=== PATIENT | female | born 1945 | race Caucasian/White ===

== ENCOUNTER → 2017-02-13 | Outpatient (CLI) | payer OTHER, BC ==
[~2017-02-13] MED LIST: ACET-24 PO; ACET1TAB84 PO; ALBI1INJ SQ; ALBUAER2 INH; ASCA500 PO; ASPEC81 PO; BUSP15TA70 PO; CHOL100027 PO; CLON0.5T3 PO; CPR500 PO; CYM/30 PO; DULO-76 PO; FLUT0.0529 NAE; GLUCTAB7 PO; HYDR25TA5 PO; INSDGI SC; MELO15TA3 PO; MIRA1TAB3 PO; MULT-506 PO; NVLG SQ; NVLGI SC; OMEG10002 PO; ONDA4TAB46 SL; POLY335019 PO; POLYSOL4 OP; POTA10CA28 PO; PRAM0.256 PO; PROP80CA7 PO; ROPI0.25 PO; RXC5 PO; SYMIN INH; TIOTCAP INH
[2017-02-13 12:20] LABS: BASO % 0.6 %; BASO ABS # 0.04 K/uL (0-0.2); COMPLETE YES; EOS % 4.5 %; HEMATOCRIT 44.1 % (37-47); IG% 0.1 %; LYMPH ABS # 2.12 K/uL (1.2-3.4); MEAN CELL VOLUME 104.3 fL (80-100); MEAN CORPUSCULAR HEMOGLOBIN 32.6 pg (25-34); MEAN CORPUSCULAR HGB CONC 31.3 g/dl (32-36); MEAN PLATELET VOLUME 10.2 fL (7.4-10.4); MONO % 6.9 %; NEUT % 57.9 %; PLATELET COUNT 263 K/uL (130-400); RED BLOOD COUNT 4.23 M/uL (4.2-5.4); WHITE BLOOD COUNT 7.07 K/uL (4.8-10.8)
[2017-02-13 12:47] LABS: ESTIMATED AVERAGE GLUCOSE 148 mg/dl; HA1C FLAG Normal (Normal)
[2017-02-13 12:56] LABS: CALCIUM 10.9 mg/dl (8.5-10.1)
[2017-02-13 12:58] LABS: ALT/SGPT 35 U/L (12-78); BLOOD UREA NITROGEN 26 mg/dl (7-18); BUN/CREATININE RATIO 26.8 (10-20); CARBON DIOXIDE 32 mmol/L (21-32); CHLORIDE 102 mmol/L (98-107); CHOLESTEROL 206 mg/dl (0-200); CREATININE 0.96 mg/dl (0.60-1.20); GLUCOSE 108 mg/dl (70-99); POTASSIUM 4.2 mmol/L (3.5-5.1); SODIUM 141 mmol/L (136-145); TRIGLYCERIDES 140 mg/dl (0-150); VERY LOW DENSITY LIPOPROT CALC 28 mg/dl
[2017-02-13 13:01] LABS: ALKALINE PHOSPHATASE 80 U/L (45-117); AST/SGOT 24 U/L (15-37); CHOLESTEROL/HDL RATIO 3.1; HDL CHOLESTEROL 67 mg/dl; LDL CHOLESTEROL CALCULATED 111 mg/dl
== END | disposition home or self-care (01) ==
LOC: C.LABBFT 08:22
PROVIDERS: ATTEND Physician Assistant
DX: I10 Essential (primary) hypertension (principal); E11.9 Type 2 diabetes mellitus without complications; E78.5 Hyperlipidemia, unspecified

== ENCOUNTER → 2017-04-11 | Outpatient (CLI) | payer OTHER, BC ==
[~2017-04-11] MED LIST changes: -ALBI1INJ SQ; -ONDA4TAB46 SL; -POLYSOL4 OP
== END | disposition home or self-care (01) ==
LOC: C.LABSPEC 11:20
PROVIDERS: ATTEND Family Medicine
DX: R30.0 Dysuria (principal)

== ENCOUNTER 2017-04-14 05:27 | Inpatient (IN) | payer OTHER, BC ==
[2017-03-21 14:53] VITALS: BMI 50.0
--- NOTE | 2017-03-21 15:52 | PAT Medication Instructions ---
Service Date Mar 21, 2017. Current Home Medication List Acetaminophen (Tylenol Arthritis Ext Rel), 1,300 MG PO BID Albuterol (Ventolin), 1-2 PUFFS INH Q4 PRN for SOB/Wheezing Ascorbic Acid (Vitamin C), 1,000 MG PO HS Budesonide/Formoterol Fumarate (Symbicort 160-4.5 Mcg/Act), 2 PUFFS INH BID Buspirone Hcl (Buspar), 15 MG PO BID Cholecalciferol (Vitamin D 1000 Unit), 1,000 INTER.UNIT PO BID Clonazepam (Klonopin), 0.5 MG PO TID PRN Duloxetine Hcl (Cymbalta), 45 MG PO QAM Fluticasone Propionate (Nasal) (Flonase), 1 SPRY EVA HS Jgotafhlprv-Oqchyldcfpt-Wno C- (Glucosamine Chondroitin), 1 TAB PO BID Hydrochlorothiazide (Hydrochlorothiazide), 25 MG PO QAM Insulin Aspart (Novolog), SC HS PRN for SLIDING SCALE Insulin Aspart (Novolog), 60 UNITS SQ BIDM Insulin Glargine (Lantus), 50 UNITS SC BID Meloxicam (Mobic), 15 MG PO QAM Mirabegron (Myrbetriq Er), 50 MG PO QAM Multivitamin (Multivitamin), 1 TABLET PO QAM Kiron-3 Fatty Acids (Fish Oil), 1,000 MG PO QAM Polyethylene Glycol 3350 (Miralax), 17 GM PO PRN Potassium Chloride (Micro-K Ext Rel), 10 MEQ PO QAM Pramipexole Dihydrochloride (Pramipexole Dihydrochlori), 0.25 MG PO HS Propranolol Hcl (Inderal La), 80 MG PO QAM Ropinirole (Requip), 0.75 MG PO HS Tiotropium [place] (Spiriva Handihaler), 1 CAP INH QAM Medication Instructions For Your Scheduled Surgery - Hold the following medications 2 weeks prior to surgery: Kiron-3 Fatty Acids (Fish Oil), 1,000 MG PO QAM Holvhwchkqm-Txzaahhdmbo-Vtu C- (Glucosamine Chondroitin), 1 TAB PO BID - Hold the following medications 7 days prior to surgery per surgeon instructions: Meloxicam (Mobic), 15 MG PO QAM - Hold the following medications evening prior to surgery: Ropinirole (Requip), 0.75 MG PO HS Pramipexole Dihydrochloride (Pramipexole Dihydrochlori), 0.25 MG PO HS - Hold the following medications the morning of surgery: Potassium Chloride (Micro-K Ext Rel), 10 MEQ PO QAM Polyethylene Glycol 3350 (Miralax), 17 GM PO PRN Mirabegron (Myrbetriq Er), 50 MG PO QAM Multivitamin (Multivitamin), 1 TABLET PO QAM Insulin Aspart (Novolog), Hydrochlorothiazide (Hydrochlorothiazide), 25 MG PO QAM Cholecalciferol (Vitamin D 1000 Unit), 1,000 INTER.UNIT PO BID - Take the following medications the morning of surgery with a sip of water: Tiotropium [place] (Spiriva Handihaler), 1 CAP INH QAM Propranolol Hcl (Inderal La), 80 MG PO QAM Duloxetine Hcl (Cymbalta), 45 MG PO QAM Clonazepam (Klonopin), 0.5 MG PO TID PRN Budesonide/Formoterol Fumarate (Symbicort 160-4.5 Mcg/Act), 2 PUFFS INH BID Buspirone Hcl (Buspar), 15 MG PO BID Albuterol (Ventolin), 1-2 PUFFS INH Q4 PRN for SOB/Wheezing (if you do not have- get from PCP- can use morning of surgery if needed/ bring with you to hospital on day of surgery) Acetaminophen (Tylenol Arthritis Ext Rel), 1,300 MG PO BID - Take the following medications as scheduled the night before surgery: Insulin Aspart (Novolog), Fluticasone Propionate (Nasal) (Flonase), 1 SPRY EVA HS Clonazepam (Klonopin), 0.5 MG PO TID PRN Cholecalciferol (Vitamin D 1000 Unit), 1,000 INTER.UNIT PO BID Budesonide/Formoterol Fumarate (Symbicort 160-4.5 Mcg/Act), 2 PUFFS INH BID Buspirone Hcl (Buspar), 15 MG PO BID Ascorbic Acid (Vitamin C), 1,000 MG PO HS Albuterol (Ventolin), 1-2 PUFFS INH Q4 PRN for SOB/Wheezing Acetaminophen (Tylenol Arthritis Ext Rel), 1,300 MG PO BID Insulin Glargine (Lantus), 50 UNITS SC BID - For Insulin Dependent Diabetic patients: Test blood sugar A.M. of surgery. - If blood sugar is greater than 150, take half of your long acting insulin dose of: Lantus 25 units - If blood sugar is less than 150, do not take any: Lantus morning of surgery If you have any questions please call us at [phone] or [phone] ( [place]) or [phone]
--- NOTE | 2017-03-21 16:24 | DIAGNOSTIC IMAGING REPORT ---
CHEST PREADMISSION(PA/LAT) CLINICAL HISTORY: PAT preoperative evaluation COMPARISON STUDY: 10/30/2015 FINDINGS: Prominent pulmonary vasculature. Moderate cardiomegaly. Chronic elevation right hemidiaphragm. IMPRESSION: Mild congestive heart failure Electronically signed by: Jose Roberts M.D. 03/21/2017 4:23 PM Dictated Date/Time: 03/21/2017 4:23 PM
[2017-03-21 16:27] LABS: BASO % 0.4 %; BASO ABS # 0.04 K/uL (0-0.2); COMPLETE YES; EOS % 2.4 %; HEMATOCRIT 42.4 % (37-47); IG% 0.1 %; LYMPH % 22.4 %; LYMPH ABS # 2.04 K/uL (1.2-3.4); MEAN CELL VOLUME 102.7 fL (80-100); MEAN CORPUSCULAR HEMOGLOBIN 33.2 pg (25-34); MEAN CORPUSCULAR HGB CONC 32.3 g/dl (32-36); MEAN PLATELET VOLUME 10.1 fL (7.4-10.4); MONO % 4.7 %; PLATELET COUNT 248 K/uL (130-400); RED BLOOD COUNT 4.13 M/uL (4.2-5.4)
[2017-03-21 16:29] LABS: URINE APPEARANCE CLEAR (CLEAR); URINE BILIRUBIN NEG (NEG); URINE COLOR YELLOW; URINE NITRITE NEG (NEG); URINE PH 5.5 (4.5-7.5); URINE SPECIFIC GRAVITY 1.026 (1.000-1.030); UROBILINOGEN NEG (NEG); ZZUR CULT IF INDIC CLEAN CATCH NO
[2017-03-21 16:34] LABS: PROTHROMBIN TIME (PATIENT) 11.1 SECONDS (9.0-12.0)
[2017-03-21 16:41] LABS: BUN/CREATININE RATIO 24.8 (10-20); CALCIUM 10.3 mg/dl (8.5-10.1); CREATININE 0.99 mg/dl (0.60-1.20); POTASSIUM 4.4 mmol/L (3.5-5.1)
[2017-03-21 16:46] LABS: MANUAL MICROSCOPIC REQUIRED? NO; REVIEW REQ? NO
[2017-03-22 06:51] LABS: ESTIMATED AVERAGE GLUCOSE 148 mg/dl; HA1C FLAG Normal (Normal)
--- NOTE | 2017-04-13 17:05 | History and Physical ---
History & Physical Date & Time of Service: Apr 13, 2017 at 16:58 Chief Complaint: Left Shoulder Degenerative Joint Disease Primary Care Physician: Nichole Lieberman DO History of Present Illness Source: patient Chronic left shoulder pain, failed conservative treatment. 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 Past Medical/Surgical History Medical Problems: (1) Anxiety State Nos Status: Chronic (2) Calculus Of Kidney Status: Chronic (3) Diab Natalee Wo Compl, Type Ii Or Unspec Type, Not Uncntrld Status: Chronic (4) Glaucoma Status: Chronic (5) Hypertension Nos Status: Chronic (6) Kidney stones Status: Chronic (7) Lens Replacement Nec Status: Resolved (8) Morbid Obesity Status: Chronic (9) Open-Angle Glaucoma Nos Status: Chronic (10) Urin Tract Infection Nos Status: Resolved Family History Cancer Diabetes mellitus Social History Smoking Status: Never Smoker Alcohol Use: occasionally Drug Use: none Marital Status: Housing status: lives alone Occupational Status: retired Immunizations History of Influenza Vaccine: Yes Influenza Vaccine Date: Nov 28, 2013 History of Tetanus Vaccine?: Yes History of Pneumococcal: Yes History of Hepatitis B Vaccine: Yes Multi-Drug Resistant Organisms History of MDRO: No Allergies Coded Allergies: Sulfa Antibiotics (Unverified Allergy, Intermediate, RASH, 03/21/17) Albiglutide (Unverified Allergy, Unknown, DIARRHEA, 03/21/17) Sorbitan (Unverified Allergy, Unknown, DIARRHEA, 03/21/17) Codeine (Verified Adverse Reaction, Unknown, NAUSEA, 03/21/17) Metformin (Unverified Adverse Reaction, Unknown, DIARRHEA, 03/21/17) Morphine (Verified Adverse Reaction, Unknown, NAUSEA, 03/21/17) Uncoded Allergies: reji (Adverse Reaction, Intermediate, skin irritation, 04/13/17) Skin irritation Home Medications Scheduled Acetaminophen (Tylenol Arthritis Ext Rel), 1,300 MG PO BID Ascorbic Acid (Vitamin C), 1,000 MG PO HS Budesonide/Formoterol Fumarate (Symbicort 160-4.5 Mcg/Act), 2 PUFFS INH BID Buspirone Hcl (Buspar), 15 MG PO BID Cholecalciferol (Vitamin D 1000 Unit), 1,000 INTER.UNIT PO BID Clonazepam (Klonopin), 0.5 MG PO TID PRN Duloxetine Hcl (Cymbalta), 45 MG PO QAM Fluticasone Propionate (Nasal) (Flonase), 1 SPRY EVA HS Aixmmrclkfg-Lexoofuxfxf-Msp C- (Glucosamine Chondroitin), 1 TAB PO BID Hydrochlorothiazide (Hydrochlorothiazide), 25 MG PO QAM Insulin Aspart (Novolog), 60 UNITS SQ BIDM Insulin Glargine (Lantus), 50 UNITS SC BID Meloxicam (Mobic), 15 MG PO QAM Mirabegron (Myrbetriq Er), 50 MG PO QAM Multivitamin (Multivitamin), 1 TABLET PO QAM Butler-3 Fatty Acids (Fish Oil), 1,000 MG PO QAM Polyethylene Glycol 3350 (Miralax), 17 GM PO PRN Potassium Chloride (Micro-K Ext Rel), 10 MEQ PO QAM Pramipexole Dihydrochloride (Pramipexole Dihydrochlori), 0.25 MG PO HS Propranolol Hcl (Inderal La), 80 MG PO QAM Ropinirole (Requip), 0.75 MG PO HS Tiotropium [place] (Spiriva Handihaler), 1 CAP INH QAM Scheduled PRN Albuterol (Ventolin), 1-2 PUFFS INH Q4 PRN for SOB/Wheezing Insulin Aspart (Novolog), SC HS PRN for SLIDING SCALE Review of Systems Constitutional: No fever, No chills Cardiovascular: No chest pain Neurologic: + weakness (Left shoulder) Physical Exam General Appearance: WD/WN, no apparent distress Head: normocephalic Eyes: normal inspection, PERRL, EOMI ENT: normal ENT inspection Neck: supple, no adenopathy Respiratory/Chest: lungs clear Cardiovascular: regular rate, rhythm Abdomen/GI: normal bowel sounds, non tender (Left shoulder PROM to 160, AROM to 100, 4/5 strength, + crepitation, N/V+) Impression Assessment and Plan Left shoulder OA and AC arthritis Advanced Directives Existing Living Will: Yes Existing Power of Parts Fabricator: Yes
[~2017-04-14] VITALS: Ht 144.8 cm; Wt 105.3 kg
[2017-04-14] VITALS (9 sets, daily range): BP systolic 104–132; BP diastolic 66–100; PULSE 79–100; TEMP 36.4–37.2; O2SAT 91–96; Ht 144.8 cm; Wt 105.3 kg
[~2017-04-14 05:27] MED LIST changes: -ACET-24 PO; -ASPEC81 PO; -CPR500 PO; -DULO-76 PO; -RXC5 PO
[2017-04-14] MEDS ORDERED: LACTATED RINGER'S 1000ML IV SCH (06:00)
[2017-04-14] MEDS ORDERED: CEFAZOLIN 2000 MG/60 ML D5W 60 ML IV SCH (06:00)
[2017-04-14] MEDS ORDERED: ACETAMINOPHEN 500 MG TAB PO SCH (06:00)
[2017-04-14] MEDS ORDERED: GABAPENTIN 300 MG CAP PO SCH (06:00)
[2017-04-14] MEDS ORDERED: FAMOTIDINE 20 MG TAB PO SCH (06:00)
[2017-04-14] MEDS ORDERED: METOCLOPRAMIDE HCL 10 MG TAB PO SCH (06:00)
[2017-04-14] MEDS ORDERED: DEXAMETHASONE SOD INJ 4 MG/ML VIAL ONE ×2 (06:36→06:57)
[2017-04-14] MEDS ORDERED: ROPIVACAINE 0.5% 5 MG/ML 30 ML VIAL ONE (06:36)
[2017-04-14] MEDS ORDERED: FENTANYL CITRATE INJ 50 MCG/1 ML 2 ML VIAL ONE ×4 (06:57→11:47)
[2017-04-14] MEDS ORDERED: NEOSTIGMINE METHYLSULFATE 5 MG/5 ML SYR ONE (06:57)
[2017-04-14] MEDS ORDERED: GLYCOPYRROLATE INJ 0.2 MG/ML VIAL ONE (06:57)
[2017-04-14] MEDS ORDERED: ONDANSETRON INJ 2 MG/ML 2 ML VIAL ONE (06:57)
[2017-04-14] MEDS ORDERED: ROCURONIUM BROMIDE 10 MG/ML 5 ML VIAL ONE (06:57)
[2017-04-14] MEDS ORDERED: PROPOFOL IV EMULSION 10 MG/ML 20 ML VIAL IV ONE (06:57)
[2017-04-14] MEDS ORDERED: MIDAZOLAM HCL 1 MG/ML 2ML VIAL ONE (06:57)
[2017-04-14] MEDS ORDERED: LIDOCAINE HCL 2% 2 ML VIAL (20MG/ML) ONE (06:57)
[2017-04-14] MEDS ORDERED: BACITRACIN 50000 UNIT VIAL ONE (07:05)
[2017-04-14] MEDS ORDERED: EpINEphrine HCL INJ 1 MG/ML 5ML SYRINGE ONE (07:05)
--- NOTE | 2017-04-14 07:22 | History & Physical Bridge Note ---
H&P Re-Evaluation Bridge Note: I have examined the patient, reviewed the History & Physical and in the interval since the performance of the History & Physical I have noted the following changes of clinical significance: No changes noted
[2017-04-14] MEDS ORDERED: BUPIVACAINE 0.25% 30 ML VIAL ONE (07:52)
[2017-04-14] MEDS ORDERED: EpHEDrine SULFATE INJ 50 MG/ML AMP IV PRN (09:45)
[2017-04-14] MEDS ORDERED: ATROPINE SULFATE 0.1 MG/ML 5ML SYR IV PRN (09:45)
--- NOTE | 2017-04-14 11:19 | [facility] Post Operative Brief Note ---
Immediate Operative Summary Operative Date Apr 14, 2017. Pre-Operative Diagnosis Left Shoulder Degenerative Joint Disease Post-Operative Diagnosis Left Shoulder Degenerative Joint Disease Procedure(s) Performed Left Total Shoulder Arthroplasty with Distal Clavicle Excision Surgeon Dr. Cuevas Automatic Print Developer Surgeon(s) Jose Russo PA-C Estimated Blood Loss 100 cc Findings end stage djd oa shoulder Specimens A: Left humeral head B:Left distal clavicle Complication(s) None Disposition Recovery Room / PACU
--- NOTE | 2017-04-14 11:21 | [facility] Operative Report ---
Operative Report Operative Date Apr 14, 2017. Pre-Operative Diagnosis Left Shoulder Degenerative Joint Disease,ghj and acj Post-Operative Diagnosis same Procedure(s) Performed Left total shoulder replacement and distal clavicle excision and biceps tenodesis. Increased difficulty due to morbid obesity BMI 50.2 Patient was taken to the operating room and anesthetized under a general anesthetic. Patient was placed into the 40 beachchair position. A towel roll was placed under the medial border of her left scapula. Her arm was draped off the bed so we could manipulate her shoulder as necessary. Patient had a Casiano catheter placed and had protective eyewear and all extremities well padded. Her left shoulder exam demonstrated that she had about 150 degrees range of motion and elevation. She had a very obese arm. An anterior deltopectoral approach was performed. The skin was incised sharply in longitudinal fashion. Deep layer fat was divided down to the fascia. The cephalic vein was dissected out and retracted laterally with the deltoid. The pectoralis was retracted medially. The upper 1 cm of the pectoralis was incised. The clavipectoral fascia was divided at the lateral margin of the strap muscles and conjoined tendon. The incision was carried up to the CA ligament which was preserved. The subscapularis bursa was resected. There was tenosynovitis of the biceps tendon sheath when it was opened. The biceps tendon was tenodesed to the pectoralis with #2 FiberWire guygsk-bz-rxyfk sutures. The proximal biceps tendon was resected. The circumflex vessels were tied off with silk ties and divided laterally. The subscapularis muscle fibers were split longitudinally at the level of circumflex vessels. A Kitner elevator was used to reflect the fibers of the anterior capsule. A blunt Ruthy retractor was placed between the capsule and the underlying Axillary Nerve. The Rotator Interval had some fluid bulging out of the rotator interval area. This was opened up and the joint effusion was drained. The rotator interval was divided down to the glenoid. The subscapularis tendon was taken down with a trans-tendinous incision leaving a cuff of tissue for repair on the lesser tuberosity a #1 Vicryl traction suture was placed into the free end of the subscapularis tendon and capsule. The inferior capsule was released down to the glenoid under direct visualization. The capsule was divided off the anterior glenoid and the rotator interval release met the capsular release achieving a 360 release of the subscapularis. A Bankart-type retractor was placed anteriorly. The remainder of the labrum was resected as well as remainder the biceps tendon. The glenoid revealed grade 4 DJD with some posterior erosion. Humeral head was grade 4 DJD with a large inferior humeral osteophyte. We did an anterior- inferior posterior inferior capsular release staying on bone. The humeral head was exposed and the inferior osteophytes were resected with an artist chisel type osteotome and a rongeur. The capsule was released off the neck. The articular surface was resected with an oscillating saw. We did this in anatomic version. The humeral head was then retracted posterior to the glenoid. The glenoid was prepared using a centering drill hole followed by a reamer for the Tornier Affinity Cortiloc glenoid component. The size 40 was chosen. The glenoid was prepared in usual fashion and the implant cemented and the press fit was tight as well. After the cement cured the humerus was prepare opening the canal with an awl followed by broaches up to a size 3 followed by trial reduction with high offset size 43 mm diameter head which gave good stability. The trials were removed and the canal was irrigated with pulsatile lavage with antibiotic solution. Transosseous #5 FiberWire sutures were placed around the lesser tuberosity for repair of the subscapularis. The final implant was assembled which was theAequalis Ascend Flex size 3B stem attached to the 43 x 16 mm high offset humeral head. This implant was impacted into the humerus with tight press-fit. This was reduced to the glenoid. The subscapularis was repaired with the #5 FiberWire sutures. Gjzbnx-gx-soyye #2 FiberWire sutures were used for soft tissue repair as well including the rotator interval and maximal external rotation. The pectoralis was repaired with bgpukl-dg-wqpus #2 FiberWire sutures. The final range of motion without tension on the repair was 40 external rotation 90 abduction 160 forward elevation. Attention was taken to the acromioclavicular joint. A transverse incision was made across the joint. A deep layer fat was divided down to the fascia. A transverse incision was made over the distal clavicle. Subperiosteal dissection exposed the distal clavicle. The distal clavicle was resected with an oscillating saw 1 cm removed. The fascia was closed with ddohwf-in-hozgd #2 FiberWire sutures. The fat was closed with ypsfpo-ta-llftv 2-0 Polysorb sutures. The skin was closed with 3-0 Monocryl and Steri-Strips. The deltopectoral incision was irrigated 2 drains were placed a icqgfy-eq-zqsut suture was placed in the deltopectoral interval to her Polysorb was used in the fat and subcutaneous tissues 3-0 Monocryl was used in these subcuticular fashion and Steri-Strips there as well. Sterile dressings were applied to both incisions and a shoulder immobilizer. Jose BAEZ was surgical first assistant throughout the procedure as surgical first assistant. He assisted in draping, arm positioning, soft tissue retraction, instrument suture management, the subcutaneous and skin closure and will in participate in the postoperative care the patient. Surgeon Dr. Cuevas Mat Gauger Surgeon(s) Jose Russo PA-C Estimated Blood Loss 100 cc Findings end stage djd oa Specimens A: Left humeral head B:Left distal clavicle Disposition Recovery Room / PACU Indications end stage djd I attest to the content of the Intraoperative Record and any orders documented therein. Any exceptions are noted below.
[2017-04-14] MEDS ORDERED: ONDANSETRON INJ 2 MG/ML 2 ML VIAL IV PRN ×2 (11:30→12:00)
[2017-04-14] MEDS ORDERED: ZOLPIDEM TARTRATE 5 MG TAB PO PRN (11:30)
[2017-04-14] MEDS ORDERED: ALBUTEROL HFA 8 GM INHALER INH PRN (11:30)
[2017-04-14] MEDS ORDERED: CLONAZEPAM 0.5 MG TAB PO PRN (11:30)
[2017-04-14] MEDS ORDERED: NALOXONE HCL 0.4 MG/1 ML VIAL/CARP IV PRN (11:30)
[2017-04-14] MEDS ORDERED: HYDROmorphone INJ 0.5 MG/0.5 ML SYR IV PRN (11:30)
[2017-04-14] MEDS ORDERED: MAGNESIUM HYDROXIDE SUSP 30 ML UDC PO PRN (11:30)
[2017-04-14] MEDS ORDERED: POLYETHYLENE (MIRALAX) 17 GM PACK PO PRN (11:30)
[2017-04-14] MEDS ORDERED: SOD PHOSPHATE/SOD BIPHOSPHATE ENEMA 132 ML BTL PR PRN (11:30)
[2017-04-14] MEDS ORDERED: BISACODYL 10 MG SUPP PR PRN (11:30)
[2017-04-14] MEDS ORDERED: FENTANYL CITRATE INJ 50 MCG/1 ML 2 ML VIAL IV PRN (12:00)
[2017-04-14] MEDS ORDERED: HYDROmorphone INJ 1 MG/ML SYR IV PRN (12:00)
[2017-04-14] MEDS ORDERED: LABETALOL HCL IV 5 MG/ML 20ML IV PRN (12:00)
[2017-04-14] MEDS ORDERED: MEPERIDINE HCL 25 MG/ML CARP IV PRN (12:00)
--- NOTE | 2017-04-14 12:02 | DIAGNOSTIC IMAGING REPORT ---
LEFT SHOULDER MIN 2 VIEWS ROUTINE CLINICAL HISTORY: Post shoulder surgery joint replacement COMPARISON: None. DISCUSSION: Evidence for a left shoulder arthroplasty. Good contact between prosthetic and underlying bone. Surgical drains are in position. Expected soft tissue postoperative change IMPRESSION: Anatomic alignment status post left shoulder arthroplasty. Electronically signed by: Jose Roberts M.D. 04/14/2017 12:01 PM Dictated Date/Time: 04/14/2017 12:00 PM
--- NOTE | 2017-04-14 12:25 | Anesthesiology Progress Note ---
Anesthesia Post Op Note Date & Time Apr 14, 2017 at 12:25 Vital Signs Pain Intensity: 6.0 Vital Signs Past 12 Hours Date Time Temp Pulse Resp B/P (MAP) Pulse Ox O2 Delivery O2 Flow Rate FiO2 04/14/17 12:21 147/78 04/14/17 12:18 84 21 04/14/17 12:18 85 21 92 04/14/17 12:15 150/87 04/14/17 12:13 92 23 04/14/17 12:13 94 23 93 04/14/17 12:12 150/87 04/14/17 12:08 91 14 93 04/14/17 12:08 89 14 04/14/17 12:07 164/108 04/14/17 12:03 94 25 04/14/17 12:03 92 25 95 04/14/17 12:02 146/104 04/14/17 11:59 175/104 04/14/17 11:58 98 27 94 04/14/17 11:58 107 27 04/14/17 11:57 131/110 04/14/17 11:53 95 25 04/14/17 11:53 97 25 93 04/14/17 11:52 135/106 04/14/17 11:48 97 26 04/14/17 11:48 97 26 97 04/14/17 11:47 160/100 04/14/17 11:43 99 25 95 04/14/17 11:43 97 25 04/14/17 11:42 157/96 04/14/17 11:38 99 25 96 04/14/17 11:38 98 25 04/14/17 11:37 165/102 04/14/17 11:33 98 30 95 04/14/17 11:33 96 30 04/14/17 11:32 136/96 04/14/17 11:29 158/98 04/14/17 11:28 105 31 04/14/17 11:28 36.5 102 12 158/98 10 Mask 10 04/14/17 11:28 103 31 95 04/14/17 05:50 36.7 79 22 129/100 93 Notes Mental Status: alert / awake / arousable, participated in evaluation Pt Amnestic to Procedure: Yes Nausea / Vomiting: adequately controlled Pain: adequately controlled Airway Patency, RR, SpO2: stable & adequate BP & HR: stable & adequate Hydration State: stable & adequate Anesthetic Complications: no major complications apparent
[2017-04-14] MEDS: OXYCODONE HCL IR 5 MG TAB (IMMEDIATE RELEASE) PO PRN ×2 (13:36→19:41)
[2017-04-14] MEDS: POTASSIUM CHLORIDE INJ 10 MEQ in SODIUM CHLORIDE 0.9% 1000ML 1,000 ML IV SCH (14:05)
[2017-04-14] MEDS: ACETAMINOPHEN 500 MG TAB PO SCH ×2 (14:06→21:41)
[2017-04-14] MEDS ORDERED: DULO-76 PO (14:24)
[2017-04-14] MEDS ORDERED: CPR500 PO (14:25)
[2017-04-14] MEDS ORDERED: DEXTROSE 50% 50 ML SYR IV PRN (14:30)
[2017-04-14] MEDS ORDERED: GLUCAGON FOR INJ 1 MG VIAL SQ PRN (14:30)
[2017-04-14] MEDS ORDERED: GLUCOSE 10 TABS/TUBE PO PRN (14:30)
[2017-04-14] MEDS ORDERED: GLUCOSE 40% GEL 15 GM TUBE PO PRN (14:30)
--- NOTE | 2017-04-14 14:56 | Medical Consult ---
Consultation Date of Consultation: Apr 14, 2017. Attending Physician: Edin Cuevas M.D. Reason for Consultation: Medical management History of Present Illness This is a 71 y/o female with a history of DM II, HTN, asthma, chronic respiratory failure, depression/anxiety, restless legs syndrome, urge incontinence, and migraines who presents s/p left TSA with distal clavicle excision with Dr. Cuevas on 04/14 for medical management. The patient reports feeling well postoperatively, although she does complain of some pain in her left shoulder. She also complains of fatigue. She states that she developed a productive cough before surgery this morning which persists. She ate some applesauce earlier without difficulty but has not had a meal tray yet. A Casiano catheter is in place. She has not yet passed gas or had a bowel movement. The patient denies fevers, chills, sweats, chest pain, palpitations, claudication, wheezing, shortness of breath, nausea, vomiting, abdominal pain, dysuria, hematuria, urinary retention, paralysis, weakness, numbness and tingling. Past Medical/Surgical History Medical Problems: (1) Accidental medication error Status: Acute (2) Kidney stone on right side Status: Acute Family History Cancer (breast, ovarian) Diabetes mellitus Myocardial infarction Social History Smoking Status: Never Smoker Smokeless Tobacco Use: No Alcohol Use: none Drug Use: none Marital Status: Housing Status: lives with family Occupation Status: retired Allergies Coded Allergies: Sulfa Antibiotics (Unverified Allergy, Intermediate, RASH, 04/14/17) Albiglutide (Unverified Allergy, Unknown, DIARRHEA, 04/14/17) Sorbitan (Unverified Allergy, Unknown, DIARRHEA, 04/14/17) Codeine (Verified Adverse Reaction, Unknown, NAUSEA, 04/14/17) Metformin (Unverified Adverse Reaction, Unknown, DIARRHEA, 04/14/17) Morphine (Verified Adverse Reaction, Unknown, NAUSEA, 04/14/17) Uncoded Allergies: reji (Adverse Reaction, Intermediate, skin irritation, 04/13/17) Skin irritation Current Inpatient Medications Current Inpatient Medications Medications (Trade) Dose Ordered Sig/Stacia Route Start Time Stop Time Status Last Admin Dose Admin Cefazolin Sodium 60 ml @ 100 mls/hr PREOP IV 04/14/17 06:00 04/14/17 18:00 04/14/17 07:26 100 MLS/HR Acetaminophen (Tylenol Tab) 1,000 mg PREOP PO 04/14/17 06:00 04/14/17 18:00 Famotidine (Pepcid Tab) 20 mg PREOP PO 04/14/17 06:00 04/14/17 18:00 04/14/17 06:29 20 MG Gabapentin (Neurontin Cap) 300 mg PREOP PO 04/14/17 06:00 04/14/17 18:00 04/14/17 06:28 300 MG Metoclopramide HCl (Reglan Tab) 10 mg PREOP PO 04/14/17 06:00 04/14/17 18:00 04/14/17 06:29 10 MG Ephedrine Sulfate (EpHEDrine SULFATE INJ) 5 mg Q5M PRN IV 04/14/17 09:45 04/14/17 14:45 Atropine Sulfate (Atropine Sulfate 0.1MG/Ml Inj) 0.5 mg Q1M PRN IV 04/14/17 09:45 04/14/17 14:45 Albuterol (Ventolin Hfa Inhaler) as above Q4 PRN INH 04/14/17 11:30 05/14/17 11:29 Ascorbic Acid (Vitamin C Tab) 1,000 mg HS PO 04/14/17 21:00 05/14/17 20:59 Budesonide/ Formoterol Fumarate (Symbicort 160/ 4.5 Inh) 2 puffs BID INH 04/14/17 21:00 05/14/17 20:59 Buspirone HCl (BusPAR TAB) 15 mg BID PO 04/14/17 21:00 05/14/17 20:59 Cholecalciferol (Vitamin D Tab) 1,000 inter.unit BID PO 04/14/17 21:00 05/14/17 20:59 Clonazepam (Klonopin Tab) 0.5 mg TID PRN PO 04/14/17 11:30 05/14/17 11:29 Fluticasone Propionate (Flonase Nasal [place]) 1 sprays HS EVA 04/14/17 21:00 05/14/17 20:59 Hydrochlorothiazide (Hydrochlorothiazide Tab) 25 mg QAM PO 04/15/17 09:00 05/15/17 08:59 Future Hold Mirabegron (Myrbetriq Er) 50 mg QAM PO 04/15/17 09:00 05/15/17 08:59 Propranolol HCl (Inderal LA Cap) 80 mg QAM PO 04/15/17 09:00 05/15/17 08:59 Ropinirole HCl (Requip Tab) 0.75 mg HS PO 04/14/17 21:00 05/14/17 20:59 Tiotropium [place] (Spiriva Handihaler Inhaler) 1 puff QAM INH 04/15/17 09:00 05/15/17 08:59 Polyethylene (Miralax Powder Packet) 17 gm DAILY PRN PO 04/14/17 11:30 05/14/17 11:29 Diphenhydramine HCl (Benadryl Cap) 25 mg Q8 PRN PO 04/14/17 11:30 05/14/17 11:29 Zolpidem Tartrate (Ambien Tab) 5 mg HSZ PRN PO 04/14/17 11:30 05/14/17 11:29 Ondansetron HCl (Zofran Inj) 4 mg Q6H PRN IV 04/14/17 11:30 05/14/17 11:29 Pantoprazole Sodium (Protonix Tab) 40 mg QAM PO 04/15/17 09:00 05/15/17 08:59 Potassium Chloride 10 meq/ Sodium Chloride 1,005 ml @ 100 mls/hr Q10H3M IV 04/14/17 14:30 05/14/17 14:29 04/14/17 14:05 100 MLS/HR Oxycodone HCl (Roxicodone Immediate Rel Tab) `1-2 TABS FOR PAIN `1 TAB... Q4H PRN PO 04/14/17 11:30 04/28/17 11:29 04/14/17 13:36 10 MG Oxycodone HCl (Oxycontin Tab) 10 mg Q12 PO 04/14/17 21:00 04/28/17 20:59 Acetaminophen (Tylenol Tab) 1,000 mg Q8 PO 04/14/17 14:00 05/14/17 13:59 04/14/17 14:06 1,000 MG Naloxone HCl (Narcan Inj) 0.1 mg Q2M PRN IV 04/14/17 11:30 05/14/17 11:29 Magnesium Hydroxide (Milk Of Magnesia Susp) 30 ml Q6H PRN PO 04/14/17 11:30 05/14/17 11:29 Bisacodyl (Dulcolax Supp) 10 mg DAILY PRN VA 04/14/17 11:30 05/14/17 11:29 Sodium Biphosphate/ Sodium Phosphate (Fleet Enema) 132 ml DAILY PRN VA 04/14/17 11:30 05/14/17 11:29 Docusate Sodium (coLACE CAP) 100 mg BID PO 04/14/17 21:00 05/14/17 20:59 Multivitamins (Multivitamin Tab) 1 tab DAILY PO 04/15/17 09:00 05/15/17 08:59 Cefazolin Sodium 2000 mg/Dextrose 60 ml @ 100 mls/hr Q8H IV 04/14/17 16:00 04/15/17 00:35 Hydromorphone HCl (Dilaudid Inj) 0.5 mg Q4H PRN IV 04/14/17 11:30 04/28/17 11:29 Insulin Aspart (novoLOG ASPART) SLIDING SCALE G... ACHS SC 04/14/17 17:15 05/14/17 17:14 Fentanyl Citrate (Fentanyl Inj) 50 mcg Q5M PRN IV 04/14/17 12:00 04/14/17 17:00 04/14/17 12:04 50 MCG Hydromorphone HCl (Dilaudid Inj) 0.5 mg Q5M PRN IV 04/14/17 12:00 04/14/17 17:00 Meperidine HCl (Demerol Inj) 25 mg Q5M PRN IV 04/14/17 12:00 04/14/17 17:00 Ondansetron HCl (Zofran Inj) 4 mg ONE PRN IV 04/14/17 12:00 04/14/17 17:00 Labetalol HCl (Normodyne IV) 5 mg Q5M PRN IV 04/14/17 12:00 04/14/17 17:00 04/14/17 12:08 5 MG Insulin Glargine (Lantus Solostar Pen) 50 units QAM SC 04/15/17 09:00 05/15/17 08:59 UNV Glucose (Glucose 40% Gel) 15-30 GRAMS 15 GRAMS... UD PRN PO 04/14/17 14:30 05/14/17 14:29 UNV Glucose (Glucose Chew Tab) 4-8 Tablets 4 Tabl... UD PRN PO 04/14/17 14:30 05/14/17 14:29 UNV Dextrose (Dextrose 50% 50ML Syringe) 25-50ML OF 50% DW IV FOR... UD PRN IV 04/14/17 14:30 05/14/17 14:29 UNV Glucagon (Glucagon Inj) 1 mg UD PRN SQ 04/14/17 14:30 05/14/17 14:29 UNV Insulin Glargine (Lantus Solostar Pen) 45 units QPM SC 04/14/17 21:00 05/14/17 20:59 UNV Duloxetine HCl (Cymbalta Cap) 40 mg QAM PO 04/15/17 09:00 05/15/17 08:59 UNV Review of Systems See HPI for pertinent positives and negatives. All other systems reviewed and negative. Physical Exam Date Time Temp Pulse Resp B/P (MAP) Pulse Ox O2 Delivery O2 Flow Rate FiO2 04/14/17 13:45 100 18 105/69 (81) 94 Nasal Cannula 5.0 04/14/17 13:17 36.6 86 18 123/80 (94) 96 Nasal Cannula 5.0 04/14/17 13:15 95 Nasal Cannula 5.0 04/14/17 12:45 95 Nasal Cannula 5.0 04/14/17 12:45 36.7 92 18 123/79 (94) 95 Nasal Cannula 5.0 04/14/17 12:38 36.8 04/14/17 12:36 140/93 04/14/17 12:32 88 21 04/14/17 12:32 89 21 94 04/14/17 12:31 146/85 04/14/17 12:27 85 21 92 04/14/17 12:27 79 21 04/14/17 12:26 147/96 04/14/17 12:22 88 23 04/14/17 12:22 93 23 92 04/14/17 12:21 147/78 04/14/17 12:18 84 21 04/14/17 12:18 85 21 92 04/14/17 12:15 150/87 04/14/17 12:13 92 23 04/14/17 12:13 94 23 93 04/14/17 12:12 150/87 04/14/17 12:08 91 14 93 04/14/17 12:08 89 14 04/14/17 12:07 164/108 04/14/17 12:03 94 25 04/14/17 12:03 92 25 95 04/14/17 12:02 146/104 04/14/17 11:59 175/104 04/14/17 11:58 98 27 94 04/14/17 11:58 107 27 04/14/17 11:57 131/110 04/14/17 11:53 95 25 04/14/17 11:53 97 25 93 04/14/17 11:52 135/106 04/14/17 11:48 97 26 04/14/17 11:48 97 26 97 04/14/17 11:47 160/100 04/14/17 11:43 99 25 95 04/14/17 11:43 97 25 04/14/17 11:42 157/96 04/14/17 11:38 99 25 96 04/14/17 11:38 98 25 04/14/17 11:37 165/102 04/14/17 11:33 98 30 95 04/14/17 11:33 96 30 04/14/17 11:32 136/96 04/14/17 11:29 158/98 04/14/17 11:28 105 31 04/14/17 11:28 36.5 102 12 158/98 10 Mask 10 04/14/17 11:28 103 31 95 04/14/17 05:50 36.7 79 22 129/100 93 General Appearance: WD/WN, no apparent distress, + obese (morbidly obese) Head: normocephalic, atraumatic Eyes: normal inspection, PERRL, EOMI ENT: normal ENT inspection, hearing grossly normal, pharynx normal Neck: supple, no JVD, trachea midline Respiratory/Chest: lungs clear, normal breath sounds, no respiratory distress Cardiovascular: regular rate, rhythm, no gallop, no murmur Abdomen/GI: normal bowel sounds, non tender, soft Extremities/Musculoskelatal: normal inspection, no calf tenderness, no pedal edema Neurologic/Psych: alert, normal mood/affect, oriented x 3, + pertinent finding (slightly sleepy and giddy but answers questions appropriately and oriented) Skin: normal color, warm/dry, no rash Laboratory Results Last 24 Hours Test 04/14/17 05:50 04/14/17 05:55 04/14/17 12:01 04/14/17 14:18 Bedside Glucose 124 mg/dl 151 mg/dl Assessment & Plan 71 y/o female with a history of DM II, HTN, asthma, chronic respiratory failure , depression/anxiety, restless legs syndrome, urge incontinence, and migraines who presents s/p left TSA with distal clavicle excision with Dr. Cuevas on for medical management. -Pain management, DVT prophylaxis, and PT/OT as per primary team Diabetes mellitus type 2--last HgbA1c checked 03/21/17 was 6.8 -Lantus 50 units SC qam and 45 units SC qpm (80% of home dose for now, may later increase to original home dose of 60 qam and 55 qpm) -Insulin sliding scale -Check BSGs q ac and qhs HTN--stable -Hold HCTZ for now while on IVF and until renal function checked/stable -Cover with hydralazine 10 mg IV q6h prn SBP >180 Asthma/chronic respiratory failure--pt uses CPAP with 3L oxygen at baseline, typically no daytime oxygen -Set up CPAP -Continue Spiriva and Symbicort BID. No documented h/o COPD, but pt reports taking Spiriva and it is documented in outpt records Depression and anxiety -Continue buspirone 15 mg PO BID, duloxetine 40 mg PO qd, and clonazepam 0.5 mg PO TID prn anxiety Restless leg syndrome -Continue Requip 0.75 mg qhs Urge incontinence -Continue Myrbetriq 50 mg PO qd Migraines -Continue propranolol 80 mg PO qd Code Status -Level I, FULL RESUSCITATION STATUS Thank you for this consultation. We will continue to follow.
[2017-04-14] MEDS ORDERED: HydrALAZINE HCL 20 MG/ML VIAL IV. PRN (15:00)
[2017-04-14 15:15] LABS: BASO % 0.1 %; BASO ABS # 0.02 K/uL (0-0.2); COMPLETE YES; HEMATOCRIT 43.8 % (37-47); IG% 0.3 %; LYMPH % 5.9 %; LYMPH ABS # 0.86 K/uL (1.2-3.4); MEAN CELL VOLUME 101.9 fL (80-100); MEAN CORPUSCULAR HGB CONC 33.3 g/dl (32-36); MEAN PLATELET VOLUME 10.2 fL (7.4-10.4); MONO % 2.5 %; NEUT % 91.2 %; PLATELET COUNT 284 K/uL (130-400); WHITE BLOOD COUNT 14.53 K/uL (4.8-10.8)
[2017-04-14 15:42] LABS: BUN/CREATININE RATIO 21.6 (10-20); CALCIUM 10.2 mg/dl (8.5-10.1)
[2017-04-14] MEDS: CEFAZOLIN IV 2,000 MG in DEXTROSE 5% 50ML 50 ML IV SCH (16:08)
[2017-04-14] MEDS: INSULIN ASPART 100 UNITS/ML 3 ML PEN SC SCH ×2 (17:52→21:09)
[2017-04-14] MEDS: FLUTICASONE PROPIONATE NA SPR 16 GM BTL NAE SCH (20:38)
[2017-04-14] MEDS: DOCUSATE SODIUM 100 MG CAP PO SCH (20:39)
[2017-04-14] MEDS: BUDESONIDE/FORMOTEROL FUMARATE 160/4.5 60 PUFFS/INHALER INH SCH (20:39)
[2017-04-14] MEDS: OXYCODONE HCL 10 MG TABCR (OXYCONTIN) PO SCH (20:40)
[2017-04-14] MEDS: ROPINIROLE HCL 0.25 MG TAB PO SCH (20:40)
[2017-04-14] MEDS: CHOLECALCIFEROL 1000 INTER.UNIT TAB PO SCH (20:40)
[2017-04-14] MEDS: ASCORBIC ACID 500 MG TAB PO SCH (20:41)
[2017-04-14] MEDS: BusPIRone 15 MG TAB PO SCH (20:42)
[2017-04-14] MEDS ORDERED: INSULIN GLARGINE SC SCH (21:00)
[2017-04-14] MEDS ORDERED: PRAMIPEXOLE DIHYDROCHLORIDE 0.25MG TAB PO SCH (21:00)
[2017-04-15] VITALS (7 sets, daily range): BP systolic 100–144; BP diastolic 65–80; PULSE 97–100; TEMP 36.9–37.6; O2SAT 77–96
[2017-04-15] MEDS: POTASSIUM CHLORIDE INJ 10 MEQ in SODIUM CHLORIDE 0.9% 1000ML 1,000 ML IV SCH ×2 (00:31→11:57)
[2017-04-15] MEDS: CEFAZOLIN IV 2,000 MG in DEXTROSE 5% 50ML 50 ML IV SCH (00:33)
[2017-04-15] MEDS: OXYCODONE HCL IR 5 MG TAB (IMMEDIATE RELEASE) PO PRN ×2 (01:47→16:03)
[2017-04-15] MEDS: ACETAMINOPHEN 500 MG TAB PO SCH ×3 (05:35→20:51)
[2017-04-15 06:31] LABS: HEMATOCRIT 39.8 % (37-47); MEAN CELL VOLUME 101.8 fL (80-100); MEAN CORPUSCULAR HEMOGLOBIN 33.5 pg (25-34); MEAN CORPUSCULAR HGB CONC 32.9 g/dl (32-36); PLATELET COUNT 271 K/uL (130-400); RED BLOOD COUNT 3.91 M/uL (4.2-5.4)
[2017-04-15 07:15] LABS: BLOOD UREA NITROGEN 22 mg/dl (7-18); CALCIUM 9.5 mg/dl (8.5-10.1); CARBON DIOXIDE 30 mmol/L (21-32); CHLORIDE 100 mmol/L (98-107); GLUCOSE 213 mg/dl (70-99); SODIUM 137 mmol/L (136-145)
[2017-04-15] MEDS ORDERED: INSULIN GLARGINE SC SCH ×2 (09:00→21:00)
[2017-04-15] MEDS ORDERED: HYDROCHLOROTHIAZIDE 25 MG TAB PO SCH (09:00)
[2017-04-15] MEDS ORDERED: DULOXETINE (CYMBALTA) 30 MG CAP PO SCH (09:00)
[2017-04-15] MEDS: BUDESONIDE/FORMOTEROL FUMARATE 160/4.5 60 PUFFS/INHALER INH SCH ×2 (09:11→20:24)
[2017-04-15] MEDS: BusPIRone 15 MG TAB PO SCH ×2 (09:12→20:29)
[2017-04-15] MEDS: DOCUSATE SODIUM 100 MG CAP PO SCH ×2 (09:12→20:29)
[2017-04-15] MEDS: MULTIVITAMIN TAB PO SCH (09:13)
[2017-04-15] MEDS: DULOXETINE HCL 20 MG CAP PO SCH (09:13)
[2017-04-15] MEDS: CHOLECALCIFEROL 1000 INTER.UNIT TAB PO SCH ×2 (09:14→20:30)
[2017-04-15] MEDS: PANTOprazole SOD 40 MG TAB PO SCH (09:18)
[2017-04-15] MEDS: MIRABEGRON ER 25 MG TAB PO SCH (09:19)
[2017-04-15] MEDS: INSULIN ASPART 100 UNITS/ML 3 ML PEN SC SCH ×4 (09:24→20:52)
[2017-04-15] MEDS: INSULIN GLARGINE SC SCH (09:25)
[2017-04-15] MEDS: OXYCODONE HCL 10 MG TABCR (OXYCONTIN) PO SCH ×2 (09:26→20:30)
[2017-04-15] MEDS: TIOTROPIUM BROMIDE 5 PUFF/90 MCG INH INH SCH (09:33)
[2017-04-15] MEDS: PROPRANOLOL HCL 80 MG LA CAP PO SCH (09:37)
--- NOTE | 2017-04-15 10:45 | Orthopedic Progress Note ---
Orthopedic Progress Note Date of Service Apr 15, 2017. Subjective Post OP Day: 1 Reports: feeling well, Denies: chest pain, SOB, nausea / vomiting, light headedness Objective capillary refill less than 2 sec., dressing C/D/I, A&O x3 Regional block still working for pain control. Moving fingers well. Some slight tingling sensation in the fingers. Date Time Temp Pulse Resp B/P (MAP) Pulse Ox O2 Delivery O2 Flow Rate FiO2 04/15/17 09:36 99 100/65 (77) 04/15/17 07:30 Room Air 04/15/17 07:21 37.6 99 16 116/70 (85) 96 Nasal Cannula 4.0 04/15/17 03:15 37.1 100 17 140/75 (96) 91 CPAP 04/15/17 00:27 CPAP 3.0 04/14/17 23:10 37.2 100 18 132/76 (94) 91 CPAP 04/14/17 19:46 36.7 91 18 104/66 (79) 93 Nasal Cannula 5.0 04/14/17 19:45 Nasal Cannula 5.0 04/14/17 15:48 36.4 87 18 124/81 (95) 93 Nasal Cannula 5.0 04/14/17 14:45 92 18 115/81 (92) 95 Nasal Cannula 5.0 04/14/17 13:45 100 18 105/69 (81) 94 Nasal Cannula 5.0 04/14/17 13:17 36.6 86 18 123/80 (94) 96 Nasal Cannula 5.0 04/14/17 13:15 95 Nasal Cannula 5.0 04/14/17 12:45 95 Nasal Cannula 5.0 04/14/17 12:45 36.7 92 18 123/79 (94) 95 Nasal Cannula 5.0 04/14/17 12:38 36.8 04/14/17 12:36 140/93 04/14/17 12:32 88 21 04/14/17 12:32 89 21 94 04/14/17 12:31 146/85 04/14/17 12:27 85 21 92 04/14/17 12:27 79 21 04/14/17 12:26 147/96 04/14/17 12:22 88 23 04/14/17 12:22 93 23 92 04/14/17 12:21 147/78 6/30/17 12:18 84 21 04/14/17 12:18 85 21 92 04/14/17 12:15 150/87 04/14/17 12:13 92 23 04/14/17 12:13 94 23 93 04/14/17 12:12 150/87 04/14/17 12:08 91 14 93 04/14/17 12:08 89 14 04/14/17 12:07 164/108 04/14/17 12:03 94 25 04/14/17 12:03 92 25 95 04/14/17 12:02 146/104 04/14/17 11:59 175/104 04/14/17 11:58 98 27 94 04/14/17 11:58 107 27 04/14/17 11:57 131/110 04/14/17 11:53 95 25 04/14/17 11:53 97 25 93 04/14/17 11:52 135/106 04/14/17 11:48 97 26 04/14/17 11:48 97 26 97 04/14/17 11:47 160/100 04/14/17 11:43 99 25 95 04/14/17 11:43 97 25 04/14/17 11:42 157/96 04/14/17 11:38 99 25 96 04/14/17 11:38 98 25 04/14/17 11:37 165/102 04/14/17 11:33 98 30 95 04/14/17 11:33 96 30 04/14/17 11:32 136/96 04/14/17 11:29 158/98 04/14/17 11:28 105 31 04/14/17 11:28 36.5 102 12 158/98 10 Mask 10 04/14/17 11:28 103 31 95 Laboratory Results 24 Hours: Test 04/14/17 14:56 04/15/17 05:59 White Blood Count 14.53 K/uL Red Blood Count 4.30 M/uL Hemoglobin 14.6 g/dL 13.1 g/dL Hematocrit 43.8 % 39.8 % Mean Corpuscular Volume 101.9 fL Mean Corpuscular Hemoglobin 34.0 pg Mean Corpuscular Hemoglobin Concent 33.3 g/dl Platelet Count 284 K/uL Mean Platelet Volume 10.2 fL Neutrophils (%) (Auto) 91.2 % Lymphocytes (%) (Auto) 5.9 % Monocytes (%) (Auto) 2.5 % Eosinophils (%) (Auto) 0.0 % Basophils (%) (Auto) 0.1 % Neutrophils # (Auto) 13.24 K/uL Lymphocytes # (Auto) 0.86 K/uL Monocytes # (Auto) 0.37 K/uL Eosinophils # (Auto) 0.00 K/uL Basophils # (Auto) 0.02 K/uL Assessment & Plan Assessment: POD 1 s/p Left TSA (1) Anxiety State Nos Status: Chronic (2) Calculus Of Kidney Status: Chronic (3) Diab Natalee Wo Compl, Type Ii Or Unspec Type, Not Uncntrld Status: Chronic (4) Glaucoma Status: Chronic (5) Hypertension Nos Status: Chronic (6) Kidney stones Status: Chronic (7) Lens Replacement Nec Status: Resolved (8) Morbid Obesity Status: Chronic (9) Open-Angle Glaucoma Nos Status: Chronic Plan: PT/OT Discussed pt's needs with PT today. She will benefit from a Rehab stay vs SNF. Will have CM speak to her. Pt in agreement. Continue IV Fluids for now. Inhouse Planning Pain Management: Oxycontin, Dilaudid, Oxy IR DVT Prophylaxis: TEDs, SCDs Discharge Planning Discharge Planning: uncertain
[2017-04-15] MEDS ORDERED: SODIUM CHLOR 0.45% + 20MEQ KCL 1,000 ML IV SCH (16:15)
--- NOTE | 2017-04-15 16:18 | Progress Note ---
Subjective Date of Service: Apr 15, 2017. Subjective Pt evaluation today including: conversation w/ patient, physical exam, chart review, lab review, review of inpatient medication list feeling pretty good overall not much shoulder pain sugars higher than she's used to - relates to steroids eating well no problems notes still grieving the loss of her but seems to be doing pretty well overall Problem List Medical Problems: (1) Accidental medication error Status: Acute (2) Kidney stone on right side Status: Acute Review of Systems all other ROS otherwise negative except for as above Objective Vital Signs Date Time Temp Pulse Resp B/P (MAP) Pulse Ox O2 Delivery O2 Flow Rate FiO2 04/15/17 15:08 37.0 99 18 121/75 (90) 96 Nasal Cannula 2.0 04/15/17 13:18 94 Nasal Cannula 2.0 04/15/17 13:15 77 Room Air 04/15/17 09:36 99 100/65 (77) 04/15/17 07:30 Room Air 04/15/17 07:21 37.6 99 16 116/70 (85) 96 Nasal Cannula 4.0 04/15/17 03:15 37.1 100 17 140/75 (96) 91 CPAP 04/15/17 00:27 CPAP 3.0 04/14/17 23:10 37.2 100 18 132/76 (94) 91 CPAP 04/14/17 19:46 36.7 91 18 104/66 (79) 93 Nasal Cannula 5.0 04/14/17 19:45 Nasal Cannula 5.0 Physical Exam General Appearance: no apparent distress Eyes: EOMI ENT: hearing grossly normal Neck: trachea midline Respiratory/Chest: no respiratory distress, no accessory muscle use Extremities: + pertinent finding (L shoulder in a sling) Neurologic/Psychiatric: fountain helper II-XII nml as tested, alert, normal mood/affect Skin: normal color, warm/dry Laboratory Results Last 24 Hours Test 04/14/17 17:10 04/14/17 20:35 04/15/17 05:59 04/15/17 07:24 Bedside Glucose 332 mg/dl 251 mg/dl White Blood Count 12.50 K/uL Red Blood Count 3.91 M/uL Hemoglobin 13.1 g/dL Hematocrit 39.8 % Mean Corpuscular Volume 101.8 fL Mean Corpuscular Hemoglobin 33.5 pg Mean Corpuscular Hemoglobin Concent 32.9 g/dl RDW Standard Deviation 48.6 fL RDW Coefficient of Variation 13.1 % Platelet Count 271 K/uL Mean Platelet Volume 10.0 fL Sodium Level 137 mmol/L Potassium Level mmol/L 4.0 mmol/L Chloride Level 100 mmol/L Carbon Dioxide Level 30 mmol/L Anion Gap 7.0 mmol/L Blood Urea Nitrogen 22 mg/dl Creatinine 1.30 mg/dl Est Creatinine Clear Calc Drug Dose 40.9 ml/min Estimated GFR () 47.8 Estimated GFR (Non- 41.2 BUN/Creatinine Ratio 17.0 Random Glucose 213 mg/dl Calcium Level 9.5 mg/dl Test 04/15/17 07:50 04/15/17 12:01 Bedside Glucose 248 mg/dl 268 mg/dl Assessment and Plan 71 y/o female with a history of DM II, HTN, asthma, chronic respiratory failure , depression/anxiety, restless legs syndrome, urge incontinence, and migraines who presents s/p left TSA with distal clavicle excision with Dr. Cuevas on for medical management. -Pain management, DVT prophylaxis, and PT/OT as per primary team Diabetes mellitus type 2--last HgbA1c checked 03/21/17 was 6.8 -resume home dosing of insulin -Insulin sliding scale and carb ratio -Check BSGs q ac and qhs -await steroids wearing off HTN--stable -Hold HCTZ for now while -Cover with hydralazine 10 mg IV q6h prn SBP >180 SOL -gentle IVF, avoid nephrotoxins Asthma/chronic respiratory failure--pt uses CPAP with 3L oxygen at baseline, typically no daytime oxygen -Set up CPAP -Continue Spiriva and Symbicort BID. No documented h/o COPD, but pt reports taking Spiriva and it is documented in outpt records Depression and anxiety -Continue buspirone 15 mg PO BID, duloxetine 40 mg PO qd, and clonazepam 0.5 mg PO TID prn anxiety Restless leg syndrome -Continue Requip 0.75 mg qhs Urge incontinence -Continue Myrbetriq 50 mg PO qd Migraines -Continue propranolol 80 mg PO qd Code Status -Level I, FULL RESUSCITATION STATUS grieving -offered empathy and support. should have outpt vigilance but at least in today 's conversation no overt s/s true depression
[2017-04-15] MEDS: FLUTICASONE PROPIONATE NA SPR 16 GM BTL NAE SCH (20:24)
[2017-04-15] MEDS: ROPINIROLE HCL 0.25 MG TAB PO SCH (20:29)
[2017-04-15] MEDS: ASCORBIC ACID 500 MG TAB PO SCH (20:30)
[2017-04-16] MEDS: ACETAMINOPHEN 500 MG TAB PO SCH ×2 (05:46→13:37)
[2017-04-16] MEDS: OXYCODONE HCL IR 5 MG TAB (IMMEDIATE RELEASE) PO PRN ×2 (05:47→12:21)
[2017-04-16 06:48] LABS: HEMATOCRIT 38.1 % (37-47); MEAN CELL VOLUME 101.6 fL (80-100); MEAN CORPUSCULAR HEMOGLOBIN 33.3 pg (25-34); MEAN CORPUSCULAR HGB CONC 32.8 g/dl (32-36); MEAN PLATELET VOLUME 9.5 fL (7.4-10.4); PLATELET COUNT 220 K/uL (130-400); RED BLOOD COUNT 3.75 M/uL (4.2-5.4); WHITE BLOOD COUNT 12.32 K/uL (4.8-10.8)
[2017-04-16 06:53] VITALS: BP 124/79; PULSE 95; TEMP 36.8; O2SAT 94
[2017-04-16 07:29] LABS: BUN/CREATININE RATIO 26.2 (10-20); CALCIUM 9.4 mg/dl (8.5-10.1); CREATININE 0.87 mg/dl (0.60-1.20); POTASSIUM 3.7 mmol/L (3.5-5.1)
[2017-04-16] MEDS: TIOTROPIUM BROMIDE 5 PUFF/90 MCG INH INH SCH (08:26)
[2017-04-16] MEDS: BusPIRone 15 MG TAB PO SCH (08:27)
[2017-04-16] MEDS: BUDESONIDE/FORMOTEROL FUMARATE 160/4.5 60 PUFFS/INHALER INH SCH (08:27)
[2017-04-16] MEDS: DOCUSATE SODIUM 100 MG CAP PO SCH (08:28)
[2017-04-16] MEDS: DULOXETINE HCL 20 MG CAP PO SCH (08:28)
[2017-04-16] MEDS: PROPRANOLOL HCL 80 MG LA CAP PO SCH (08:29)
[2017-04-16] MEDS: MULTIVITAMIN TAB PO SCH (08:29)
[2017-04-16] MEDS: MIRABEGRON ER 25 MG TAB PO SCH (08:30)
[2017-04-16] MEDS: PANTOprazole SOD 40 MG TAB PO SCH (08:30)
[2017-04-16] MEDS: CHOLECALCIFEROL 1000 INTER.UNIT TAB PO SCH (08:30)
--- NOTE | 2017-04-16 08:35 | Orthopedic Progress Note ---
Orthopedic Progress Note Date of Service Apr 16, 2017. Subjective Post OP Day: 2 Reports: feeling well, Denies: chest pain, SOB, nausea / vomiting, light headedness Additional Notes: Pt sitting in chair this AM. No complaints. States her O2 sats are dropping a little off and on and she continues to be on 2L per nc. H/O sleep apnea and CPAP use with 3L of O2 at night. She seems a bit sleepy this morning and states she received her OxyIR earlier. Pain controlled at present time. Objective dressing C/D/I, A&O x3, CMS intact, hemovac drainage Date Time Temp Pulse Resp B/P (MAP) Pulse Ox O2 Delivery O2 Flow Rate FiO2 04/16/17 08:18 Nasal Cannula 2.0 CPAP 04/16/17 06:53 36.8 95 18 124/79 (94) 94 Nasal Cannula 2.0 04/15/17 23:45 CPAP 04/15/17 23:31 36.9 97 16 144/80 (101) 94 Nasal Cannula 2.0 04/15/17 15:45 Nasal Cannula 2.0 04/15/17 15:08 37.0 99 18 121/75 (90) 96 Nasal Cannula 2.0 04/15/17 13:18 94 Nasal Cannula 2.0 04/15/17 13:15 77 Room Air 04/15/17 09:36 99 100/65 (77) Laboratory Results 24 Hours: Test 04/16/17 06:31 Hematocrit 38.1 % Hemoglobin 12.5 g/dL Assessment & Plan Assessment: POD 2 s/p Left TSA (1) Anxiety State Nos Status: Chronic (2) Calculus Of Kidney Status: Chronic (3) Diab Natalee Wo Compl, Type Ii Or Unspec Type, Not Uncntrld Status: Chronic (4) Glaucoma Status: Chronic (5) Hypertension Nos Status: Chronic (6) Kidney stones Status: Chronic (7) Lens Replacement Nec Status: Resolved (8) Morbid Obesity Status: Chronic (9) Open-Angle Glaucoma Nos Status: Chronic Plan: PT/OT Will hold Oxycontin today. Pt awaiting approval for [facility] however, patient may not have a ride to [facility] and may need transport but not sure if she has the means to pay for transport. Daughter is out of town but will be back today sometime? May have to wait for dc until tomorrow depending on transport status. Inhouse Planning Pain Management: Dilaudid, PO Tylenol, Oxy IR DVT Prophylaxis: TEDs, SCDs, ASA Discharge Planning Discharge Planning: rehab hospital Pain Management: PO Tylenol, Oxy IR DVT Prophylaxis: TEDs, ASA Therapy: Physical Therapy
[2017-04-16] MEDS ORDERED: RXC5 PO (08:38)
[2017-04-16] MEDS: INSULIN ASPART 100 UNITS/ML 3 ML PEN SC SCH ×2 (08:38→12:50)
[2017-04-16] MEDS ORDERED: ASPEC81 PO (08:38)
[2017-04-16] MEDS ORDERED: ACET-24 PO (08:38)
[2017-04-16] MEDS: INSULIN GLARGINE SC SCH (08:39)
--- NOTE | 2017-04-16 08:50 | Discharge Instructions ---
Discharge Instructions Date of Service Apr 16, 2017. Admission Reason for Admission: Left Shoulder Degenerative Joint Disease Discharge Discharge Diagnosis / Problem: Left Shoulder Djd Discharge Goals Goal(s): Decrease discomfort, Improve function Activity Recommendations Activity Level: Assistance Required Therapies: Physical Therapy (Left TSA protocol), Occupational Therapy (ADL's and transfers) Weightbearing Status: Left non-weightbearing . Additional Information Patient informed of condition: Yes Advance Directives: Yes DNR: No Level of Care: Acute Rehab Communicable Disease: No Prognosis: Stable Casiano Catheter: No Instructions / Follow-Up Instructions / Follow-Up ACTIVITY RECOMMENDATIONS: SELF CARE INSTRUCTIONS AFTER TOTAL SHOULDER ARTHROPLASTY A. You may do daily exercises as taught in physical therapy while in hospital. No lifting with the operative arm. Please schedule your outpatient physical therapy appointment to begin within 2-3 days after leaving the hospital. Specific restrictions will be written on your physical therapy prescription that is provided to you. B. You are to wear your sling/immobilizer at all times EXCEPT when performing your daily exercises, participating in physical therapy and for hygiene purposes. C. You may perform dry, daily dressing changes. Please keep your incision covered. You may shower 48 hours after surgery. Do not apply soap or any ointment/ lotions directly over incision. Do not soak incision in bath tub/swimming pool. D. You may use ice as needed to operative shoulder. SPECIAL CARE INSTRUCTIONS: MEDICATION INSTRUCTIONS: *It is recommended you take Aspirin 81mg daily for four weeks post-op. VERY IMPORTANT TO READ AND REVIEW A. There are a few signs you need to watch for after you are home. Call [facility] at [phone] if you experience any of the followin. Increased severe shoulder pain. Some pain is expected especially when you exercise. 2. Increased swelling in you shoulder or arm; pain or swelling in either upper extremity. 3. Any fluid drainage from the incision. 4. Shortness of breath or chest pain. B. Please call [facility] at [phone] if you have any questions or concerns about your operation or recovery. C. Call your physician if: 1. Temperature is greater than 101 degrees (F). 2. Pain is not relieved by prescribed pain medications. 3. Increase drainage or redness from incision. 4. Unanswered questions or concerns. FOLLOW UP VISIT: Please call [facility] at [phone] to schedule a follow up appointment with Dr. Cuevas or his PA in 12-14 days from your surgery date. Current Hospital Diet Patient's current hospital diet: Diabetes Type 2 Diet Discharge Diet Recommended Diet: Diabetes Type 2 Diet Procedures Procedures Performed: Left Total Shoulder Arthroplasty with Distal Clavicle Excision Pending Studies Studies pending at discharge: no Physician Orders On Transfer Dressing Changes: daily prn Vital Signs: routine Laboratory Results Hemoglobin A1c Test 03/21/17 16:00 Range/Units Estimated Average Glucose 148 mg/dl Hemoglobin A1c 6.8 H 4.5-5.6 % Lipid Panel Test 02/13/17 08:57 Range/Units Triglycerides Level 140 0-150 mg/dl Cholesterol Level 206 H 0-200 mg/dl HDL Cholesterol 67 mg/dl Cholesterol/HDL Ratio 3.1 LDL Cholesterol, Calculated 111 mg/dl Medical Emergencies . Who to Call and When: Medical Emergencies: If at any time you feel your situation is an emergency, please call 911 immediately. . Non-Emergent Contact Non-Emergency issues call your: Surgeon Call Non-Emergent contact if: temperature is above 101.5, your pain is not controlled, your pain is worsening, wound has increased drainage, wound has increased redness . . "Provider Documentation" section prepared by Jhonny Delacruz. . Core Measure Problem Core Measures: None [place] Drug Monitoring Program Search Results: patient reviewed within database, no issues identified
[2017-04-16] MEDS ORDERED: ASPIRIN 81 MG ECTAB PO SCH (09:00)
[2017-04-16 10:32] VITALS: BP 124/79; PULSE 95; TEMP 36.8; O2SAT 94
--- NOTE | 2017-04-16 16:27 | Progress Note ---
Subjective Date of Service: Apr 16, 2017. Subjective Pt evaluation today including: conversation w/ patient, physical exam, chart review, lab review, review of inpatient medication list feeling better wants to go to rehab sugars starting to improve not much shoudler pain Problem List Medical Problems: (1) Accidental medication error Status: Acute (2) Kidney stone on right side Status: Acute Review of Systems all other ROS otherwise negative except for as above Objective Vital Signs Date Time Temp Pulse Resp B/P (MAP) Pulse Ox O2 Delivery O2 Flow Rate FiO2 04/16/17 10:32 36.8 95 18 94 Nasal Cannula CPAP 04/16/17 08:18 Nasal Cannula 2.0 CPAP 04/16/17 06:53 36.8 95 18 124/79 (94) 94 Nasal Cannula 2.0 04/15/17 23:45 CPAP 04/15/17 23:31 36.9 97 16 144/80 (101) 94 Nasal Cannula 2.0 Physical Exam General Appearance: no apparent distress Eyes: EOMI ENT: hearing grossly normal Neck: trachea midline Respiratory/Chest: no respiratory distress, no accessory muscle use Extremities: normal range of motion, + pertinent finding (L shoulder limited ROM post op incision c/d/i) Neurologic/Psychiatric: 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 II-XII nml as tested, alert, normal mood/affect Skin: normal color, warm/dry Laboratory Results Last 24 Hours Test 04/15/17 17:16 04/15/17 20:31 04/16/17 06:31 04/16/17 07:53 Bedside Glucose 250 mg/dl 237 mg/dl 155 mg/dl White Blood Count 12.32 K/uL Red Blood Count 3.75 M/uL Hemoglobin 12.5 g/dL Hematocrit 38.1 % Mean Corpuscular Volume 101.6 fL Mean Corpuscular Hemoglobin 33.3 pg Mean Corpuscular Hemoglobin Concent 32.8 g/dl RDW Standard Deviation 48.7 fL RDW Coefficient of Variation 13.1 % Platelet Count 220 K/uL Mean Platelet Volume 9.5 fL Sodium Level 138 mmol/L Potassium Level 3.7 mmol/L Chloride Level 103 mmol/L Carbon Dioxide Level 29 mmol/L Anion Gap 6.0 mmol/L Blood Urea Nitrogen 23 mg/dl Creatinine 0.87 mg/dl Est Creatinine Clear Calc Drug Dose 61.1 ml/min Estimated GFR () 77.7 Estimated GFR (Non- 67.0 BUN/Creatinine Ratio 26.2 Random Glucose 172 mg/dl Calcium Level 9.4 mg/dl Test 04/16/17 12:16 Bedside Glucose 201 mg/dl Assessment and Plan 71 y/o female with a history of DM II, HTN, asthma, chronic respiratory failure , depression/anxiety, restless legs syndrome, urge incontinence, and migraines who presents s/p left TSA with distal clavicle excision with Dr. Cuevas on for medical management. -Pain management, DVT prophylaxis, and PT/OT as per primary team Diabetes mellitus type 2--last HgbA1c checked 03/21/17 was 6.8 -steroids likely cause of higher sugars - continue home dosing of insulin at rehab since A1c so good HTN--stable -stable to resume home meds at discharge SOL -gentle IVF - resolved -repeat BMP ~04/18 to ensure no rebound worsening (doubtful) Asthma/chronic respiratory failure--pt uses CPAP with 3L oxygen at baseline, typically no daytime oxygen - CPAP -Continue Spiriva and Symbicort BID. No documented h/o COPD, but pt reports taking Spiriva and it is documented in outpt records Depression and anxiety -Continue buspirone 15 mg PO BID, duloxetine 40 mg PO qd, and clonazepam 0.5 mg PO TID prn anxiety Restless leg syndrome -Continue Requip 0.75 mg qhs Urge incontinence -Continue Myrbetriq 50 mg PO qd Migraines -Continue propranolol 80 mg PO qd Code Status -Level I, FULL RESUSCITATION STATUS medically appears stable for rehab
--- NOTE | 2017-04-25 11:07 | Discharge Summary ---
Orthopedic Discharge Summary Admission Date/Reason Apr 14, 2017 at 06:00 Left Shoulder Degenerative Joint Disease. Discharge Date/Disposition Apr 16, 2017 Rehab Diagnosis Principal Diagnosis: Left shoulder OA, AC arthritis Secondary Diagnoses/Problems: 71 y/o female with a history of DM II, HTN, asthma, chronic respiratory failure , depression/anxiety, restless legs syndrome, urge incontinence, and migraines Procedure(s) Performed Left shoulder TSA, DCE Consultations Medical, PT Medication Reconciliation pre admission meds, ASA, pain meds Admission Physical Exam As per Admitting History & Physical. Hospital Course Did well post op, D/C'd POD #2. Discharge Instructions Please refer to the electronic Patient Visit Report (Discharge Instructions) for additional information.
== END 2017-04-16 14:33 | DRG 483 ==
LOC: C.ACU 05:27 → C.3E 06:00 → UNDOADMIN 11:31 → C.3E 11:31 → ENRESERV 12:14
PROVIDERS: ADMIT Orthopaedic Surgery Sports Medicine; ATTEND Orthopaedic Surgery Sports Medicine
PROC: 09BB0ZZ Excision of Right Mastoid Sinus, Open Approach (ICD-10-PCS; principal; 2017-04-14 07:30)
PROC: 0RRK0JZ Replacement of Left Shoulder Joint with Synthetic Substitute, Open Approach (ICD-10-PCS; principal; 2017-04-14 07:30)
DX: M19.012 Primary osteoarthritis, left shoulder (principal); J96.10 Chronic respiratory failure, unspecified whether with hypoxia or hypercapnia; N17.9 Acute kidney failure, unspecified; Z68.43 Body mass index [BMI] 50.0-59.9, adult; F41.9 Anxiety disorder, unspecified; E11.9 Type 2 diabetes mellitus without complications; H40.1190 Primary open-angle glaucoma, unspecified eye, stage unspecified; I10 Essential (primary) hypertension; E66.01 Morbid (severe) obesity due to excess calories; Z88.2 Allergy status to sulfonamides; G25.81 Restless legs syndrome; N39.41 Urge incontinence; J45.909 Unspecified asthma, uncomplicated; G43.909 Migraine, unspecified, not intractable, without status migrainosus; Z79.4 Long term (current) use of insulin; R30.0 Dysuria

== ENCOUNTER → 2017-07-06 | Outpatient (CLI) | payer OTHER, BC ==
[~2017-07-06] MED LIST changes: +ACET-24 PO; -ACET1TAB84 PO; +ASPEC81 PO; -CYM/30 PO; +DULO-76 PO; -MELO15TA3 PO; +RXC5 PO
== END | disposition home or self-care (01) ==
LOC: C.LABSPEC 17:32
PROVIDERS: ATTEND Nurse Practitioner Family
DX: N39.0 Urinary tract infection, site not specified (principal)

== ENCOUNTER → 2017-07-11 | Outpatient (CLI) | payer OTHER, BC ==
--- NOTE | 2017-07-11 15:37 | DIAGNOSTIC IMAGING REPORT ---
KUB HISTORY: History of left-sided renal calculus. Follow-up study. N39.46 Urge and stress incontinence COMPARISON: Abdominal radiograph 12/30/2015. FINDINGS: The bowel gas pattern is non-obstructive. There is no organomegaly. 1.2 cm calculus of the left kidney is again seen. No additional renal calculi or ureteral calculi are identified. No pneumoperitoneum or pneumatosis. No fracture. Severe multilevel intervertebral disc space narrowing spine. IMPRESSION: 1. Unchanged appearance of the 1.2 cm left renal calculus. No ureteral calculi identified. 2. Nonobstructive bowel gas pattern. Electronically signed by: Benny Miller M.D. 07/11/2017 3:36 PM Dictated Date/Time: 07/11/2017 3:34 PM
[2017-07-11 16:28] LABS: BLOOD UREA NITROGEN 30 mg/dl (7-18); BUN/CREATININE RATIO 30.2 (10-20); CALCIUM 10.9 mg/dl (8.5-10.1); CARBON DIOXIDE 32 mmol/L (21-32); CHLORIDE 103 mmol/L (98-107); CREATININE 0.98 mg/dl (0.60-1.20); GLUCOSE 96 mg/dl (70-99); POTASSIUM 3.7 mmol/L (3.5-5.1); SODIUM 141 mmol/L (136-145)
[2017-07-12 05:46] LABS: ESTIMATED AVERAGE GLUCOSE 151 mg/dl; HA1C FLAG Normal (Normal)
== END | disposition home or self-care (01) ==
LOC: C.RAD 14:32
PROVIDERS: ATTEND Urology
DX: N39.46 Mixed incontinence (principal); E11.9 Type 2 diabetes mellitus without complications

== ENCOUNTER → 2017-08-08 | Outpatient (CLI) | payer OTHER, BC | END | disposition home or self-care (01) | LOC: C.LABSPEC 17:15 | PROVIDERS: ATTEND Nurse Practitioner Adult Health | DX: N39.0 Urinary tract infection, site not specified (principal) ==

== ENCOUNTER → 2017-08-14 | Outpatient (CLI) | payer OTHER, BC | END | disposition home or self-care (01) | LOC: C.LABSPEC 17:12 | PROVIDERS: ATTEND Urology | DX: N39.0 Urinary tract infection, site not specified (principal) ==

== ENCOUNTER → 2017-08-25 | Outpatient (CLI) | payer OTHER, BC ==
--- NOTE | 2017-08-25 10:03 | DIAGNOSTIC IMAGING REPORT ---
RIGHT TIBIA AND FIBULA 2 VIEWS CLINICAL HISTORY: Right leg pain. FINDINGS: AP and lateral views of the right tibia and fibula are compared to study dated 01/06/2016. The skeletal structures are osteopenic. No right tibial or fibular fracture is seen. Arthritic change is present in the knee. The right ankle joint is grossly intact. Pretibial soft tissue edema is noted. Calcified phleboliths are present in the anterior calf. IMPRESSION: Pretibial soft tissue swelling with no radiographic evidence of right tibial or fibular fracture. Electronically signed by: Garrett Cadet M.D. 08/25/2017 10:02 AM Dictated Date/Time: 08/25/2017 10:00 AM
--- NOTE | 2017-08-25 10:04 | DIAGNOSTIC IMAGING REPORT ---
RIGHT THIRD FINGER 3 VIEWS CLINICAL HISTORY: Third finger pain. Fall. FINDINGS: 3 views of the right third finger are obtained. No prior studies are available for comparison at the time of dictation. The skeletal structures are osteopenic. There is no radiographic evidence of fracture in the third finger. Osteoarthritic change is present at the interphalangeal joints. No erosion is seen. The third metacarpophalangeal joint is preserved. Mild soft tissue swelling is suggested in the third finger. IMPRESSION: 1. Soft tissue swelling with no radiographic evidence of right third finger fracture. 2. Osteopenia and mild arthritic change as above. Electronically signed by: Garrett Cadet M.D. 08/25/2017 10:03 AM Dictated Date/Time: 08/25/2017 10:02 AM
== END | disposition home or self-care (01) ==
LOC: C.RAD1850 09:42
PROVIDERS: ATTEND Nurse Practitioner Family
DX: M79.644 Pain in right finger(s) (principal); M25.561 Pain in right knee; M85.841 Other specified disorders of bone density and structure, right hand

== ENCOUNTER → 2017-10-02 | Outpatient (CLI) | payer OTHER, BC | END | disposition home or self-care (01) | LOC: C.LABSPEC 17:22 | PROVIDERS: ATTEND Nurse Practitioner Adult Health | DX: N39.0 Urinary tract infection, site not specified (principal) ==

== ENCOUNTER → 2017-10-26 | Outpatient (CLI) | payer OTHER, BC ==
[2017-10-26 12:44] LABS: ALBUMIN 3.6 gm/dl (3.4-5.0); ALT/SGPT 30 U/L (12-78); BLOOD UREA NITROGEN 20 mg/dl (7-18); CALCIUM 10.2 mg/dl (8.5-10.1); CARBON DIOXIDE 30 mmol/L (21-32); CHOLESTEROL 211 mg/dl (0-200); CREATININE 0.85 mg/dl (0.60-1.20); GLUCOSE 94 mg/dl (70-99); POTASSIUM 4.2 mmol/L (3.5-5.1); SODIUM 139 mmol/L (136-145)
[2017-10-26 12:47] LABS: ALKALINE PHOSPHATASE 83 U/L (45-117); AST/SGOT 29 U/L (15-37); LDL CHOLESTEROL CALCULATED 124 mg/dl; TOTAL PROTEIN 7.7 gm/dl (6.4-8.2)
[2017-10-26 13:15] LABS: HEMOGLOBIN A1C 6.3 % (4.5-5.6)
[2017-10-26 13:40] LABS: CREATININE RANDOM URINE 43.8 mg/dl
== END | disposition home or self-care (01) ==
LOC: C.LABBFT 09:51
PROVIDERS: ATTEND Nurse Practitioner Family
DX: E11.21 Type 2 diabetes mellitus with diabetic nephropathy (principal); E21.3 Hyperparathyroidism, unspecified; E78.5 Hyperlipidemia, unspecified

== ENCOUNTER → 2017-12-29 | Outpatient (CLI) | payer OTHER, BC ==
[~2017-12-29] MED LIST changes: -PRAM0.256 PO; +PRAM0.259 PO
== END | disposition home or self-care (01) ==
LOC: C.LABBFT 12:22
PROVIDERS: ATTEND Nurse Practitioner Adult Health
DX: R35.0 Frequency of micturition (principal); N39.41 Urge incontinence; N39.0 Urinary tract infection, site not specified; N39.46 Mixed incontinence

== ENCOUNTER → 2018-01-08 | Outpatient (CLI) | payer OTHER, BC ==
--- NOTE | 2018-01-08 16:01 | DIAGNOSTIC IMAGING REPORT ---
KUB CLINICAL HISTORY: Nephrolithiasis. COMPARISON STUDY: KUB July 11, 2017. FINDINGS: 1.2 cm left renal calculus is unchanged. A 1.1 cm splenic artery aneurysm is unchanged. No ureteral calculi are present. Pelvic calcifications reflect phleboliths. Bowel gas pattern is normal. IMPRESSION: 1. No change in a 1.2 cm left renal calculus. 2. No ureteral calculi identified. Electronically signed by: Chema Sutton M.D. 01/08/2018 3:59 PM Dictated Date/Time: 01/08/2018 3:57 PM
== END | disposition home or self-care (01) ==
LOC: C.RAD1850 14:48
PROVIDERS: ATTEND Nurse Practitioner Adult Health
DX: N20.0 Calculus of kidney (principal)

== ENCOUNTER 2018-01-22 07:50 | Emergency (ER) | payer OTHER, BC ==
[~2018-01-22] VITALS: Ht 139.7 cm; Wt 103.2 kg
[2018-01-22 07:54] VITALS: TEMP 37.6; Ht 139.7 cm; Wt 103.2 kg
--- NOTE | 2018-01-22 08:35 | EMERGENCY ROOM VISIT NOTE ---
History First contact with patient: 08:08 Chief Complaint: CONSTIPATION Stated Complaint: CONSTIPATION, UNABLE TO URINATE History of Present Illness The patient is a 72 year old female with hx of HTN, DM, asthma, glaucoma, kidney stones and constipation who presents to the Emergency Room with complaints of lower abdominal cramps (7/10), and inability to move bowels or urinate since this AM. Depends was dry this AM. Pt reports urinating a small amount over night and having a small amount of bowel yesterday. Took miralax yesterday afternoon and last night which usually helps her. Also having back pain (chronic from having multiple disks). Of note: pt has hx of recent UTIs treated with cipro and was suppose to get UA/Ucx in preparation for bladder botox procedure for hx of bladder incontinence. Otherwise asymptomatic. Review of Systems see below Constitutional: No fever, No chills Respiratory: No shortness of breath Cardiovascular: No chest pain Abdomen: + pain, + constipation, No nausea, No vomiting Musculoskeletal: + problem reported (back pain (chronic)) Genitourinary - Female: + urinary retention, + problem reported (previous hx of urinary incontinence) Past Medical/Surgical History Medical Problems: (1) Anxiety State Nos (2) Calculus Of Kidney (3) Diab Natalee Wo Compl, Type Ii Or Unspec Type, Not Uncntrld (4) Diabetic peripheral neuropathy associated with type 2 diabetes mellitus (5) DJD of left shoulder (6) Glaucoma (7) Hypertension Nos (8) Insulin overdose (9) Kidney stones (10) Lens Replacement Nec (11) Loss of sensation (12) Morbid Obesity (13) Open-Angle Glaucoma Nos (14) Pre-ulcerative corn or callous (15) Urin Tract Infection Nos Family History Cancer (breast, ovarian) Diabetes mellitus Myocardial infarction Social History Smoking Status: Never Smoker Alcohol Use: occasionally Drug Use: none Marital Status: Housing Status: lives with family Occupation Status: retired Current/Historical Medications Scheduled Acetaminophen (Sb Non-Aspirin Extra Stre), 1,000 MG PO Q8 Ascorbic Acid (Vitamin C), 1,000 MG PO HS Aspirin (Aspirin EC Low Dose), 81 MG PO QAM Budesonide/Formoterol Fumarate (Symbicort 160-4.5 Mcg/Act), 2 PUFFS INH BID Buspirone Hcl (Buspar), 15 MG PO BID Cholecalciferol (Vitamin D 1000 Unit), 1,000 INTER.UNIT PO BID Clonazepam (Klonopin), 0.5 MG PO TID PRN Duloxetine HCl (Duloxetine HCl), 40 MG PO DAILY Qgwkmeukqej-Ctnschcrqmf-Zri C- (Glucosamine Chondroitin), 1 TAB PO BID Insulin Aspart (Novolog Flexpen), 50 UNITS SC BIDM Insulin Glargine (Lantus Solostar), 80 UNITS SC QAM Mirabegron (Myrbetriq Er), 50 MG PO QAM Multivitamin (Multivitamin), 1 TABLET PO QAM [place]-3 Fatty Acids (Fish Oil), 1,000 MG PO QAM Polyethylene Glycol 3350 (Miralax), 17 GM PO PRN Potassium Chloride (Micro-K Ext Rel), 20 MEQ PO QAM Pramipexole Dihydrochloride (Pramipexole Dihydrochlori), 0.25 MG PO HS Propranolol Hcl (Inderal La), 80 MG PO QAM Ropinirole (Requip), 0.75 MG PO HS Tiotropium [place] (Spiriva Handihaler), 1 CAP INH DAILY Scheduled PRN Albuterol Hfa (Ventolin Hfa), 2-4 PUFFS INH DIRECTED PRN for Shortness of Breath Physical Exam Vital Signs Date Time Temp Pulse Resp B/P (MAP) Pulse Ox O2 Delivery O2 Flow Rate FiO2 01/22/18 07:54 37.6 94 20 144/95 90 Nasal Cannula 3.0 Physical Exam see below General Appearance: + moderate distress Head: normocephalic, atraumatic Eyes: normal inspection ENT: normal ENT inspection Neck: supple Respiratory/Chest: lungs clear, normal breath sounds Cardiovascular: regular rate, rhythm, no murmur Abdomen / GI: + tenderness (diffusely TTP), + pertinent finding (hypoactive bowel sounds and distended (in the setting of obese abdomen)) Back: normal inspection, no CVA tenderness Extremities: no calf tenderness, + swelling (trace bilateral pretibial edema ) Neurologic/Psych: alert, oriented x 3 Medical Decision & Procedures Laboratory Results 01/22/18 09:15 Red Blood Count 4.43, Mean Corpuscular Volume 102.3, Mean Corpuscular Hemoglobin 33.9, Mean Corpuscular Hemoglobin Concent 33.1, Mean Platelet Volume 10.1, Neutrophils (%) (Auto) 69.2, Lymphocytes (%) (Auto) 21.7, Monocytes (%) ( Auto) 5.7, Eosinophils (%) (Auto) 2.5, Basophils (%) (Auto) 0.6, Neutrophils # ( Auto) 6.10, Lymphocytes # (Auto) 1.91, Monocytes # (Auto) 0.50, Eosinophils # ( Auto) 0.22, Basophils # (Auto) 0.05 01/22/18 09:15 Test 01/22/18 09:00 01/22/18 09:15 Urine Color YELLOW Urine Appearance CLEAR (CLEAR) Urine pH 6.0 (4.5-7.5) Urine Specific [place] 1.020 (1.000-1.030) Urine Protein NEG (NEG) Urine Glucose (UA) NEG (NEG) Urine Ketones NEG (NEG) Urine Occult Blood NEG (NEG) Urine Nitrite NEG (NEG) Urine Bilirubin NEG (NEG) Urine Urobilinogen NEG (NEG) Urine Leukocyte Esterase SMALL (NEG) Urine WBC (Auto) 5-10 /hpf (0-5) Urine RBC (Auto) 5-10 /hpf (0-4) Urine Hyaline Casts (Auto) 1-5 /lpf (0-5) Urine Epithelial Cells (Auto) >30 /lpf (0-5) Urine Bacteria (Auto) NEG (NEG) White Blood Count 8.81 K/uL (4.8-10.8) Red Blood Count 4.43 M/uL (4.2-5.4) Hemoglobin 15.0 g/dL (12.0-16.0) Hematocrit 45.3 % (37-47) Mean Corpuscular Volume 102.3 fL (80-100) Mean Corpuscular Hemoglobin 33.9 pg (25-34) Mean Corpuscular Hemoglobin Concent 33.1 g/dl (32-36) Platelet Count 271 K/uL (130-400) Mean Platelet Volume 10.1 fL (7.4-10.4) Neutrophils (%) (Auto) 69.2 % Lymphocytes (%) (Auto) 21.7 % Monocytes (%) (Auto) 5.7 % Eosinophils (%) (Auto) 2.5 % Basophils (%) (Auto) 0.6 % Neutrophils # (Auto) 6.10 K/uL (1.4-6.5) Lymphocytes # (Auto) 1.91 K/uL (1.2-3.4) Monocytes # (Auto) 0.50 K/uL (0.11-0.59) Eosinophils # (Auto) 0.22 K/uL (0-0.5) Basophils # (Auto) 0.05 K/uL (0-0.2) RDW Standard Deviation 48.2 fL (36.4-46.3) RDW Coefficient of Variation 12.8 % (11.5-14.5) Immature Granulocyte % (Auto) 0.3 % Immature Granulocyte # (Auto) 0.03 K/uL (0.00-0.02) Anion Gap 6.0 mmol/L (3-11) Est Creatinine Clear Calc Drug Dose 48.5 ml/min Estimated GFR () 63.6 Estimated GFR (Non- 54.9 BUN/Creatinine Ratio 20.5 (10-20) Calcium Level 10.3 mg/dl (8.5-10.1) Medications Administered Medications (Trade) Dose Ordered Sig/Stacia Route Start Time Stop Time Status Last Admin Dose Admin Miscellaneous (Soap Suds Enema) 1 ea NOW STAT GA 01/22/18 09:58 01/22/18 09:59 DC 01/22/18 10:15 1 EA ED Course Pt evaluated at 08:20 in A12 Ordered KUB, CBC, BMP, UA/UCx at 8:35 8:40: pt pain improved and abdomen non TTP s/p urinating about 200ccs 11:00 reports improvement in pain and large BM s/p enema and large BM Medical Decision Ms. Sanders is a 72 year old female with hx of HTN, DM, asthma, glaucoma, kidney stones and constipation who presents with complaints of lower abdominal cramps ( 10), and bowel and urinary retention consistent with likely constipation vs. urinary retention vs. UTI vs. bowel obstruction. Plan: -ordered KUB to evaluate for bowel obstruction/constipation: consistent with moderate-large stool burden with rectal ball measuring 7.8cm -ordered soap bobby enema -reported improvement in pain s/p enema and large BM -Pt also urinated which relieved pain -Discharge with miralax daily to avoid constipation previously pt taking it PRN for constipation -ordered CBC/BMP to evaluate for possible infection and renal function - wnl -ordered UA/UCx to evaluate for a possible UTI - likely contaminated with small leuk est negative nitrites, 5-10, WBCs and RBCs and >30 epi cells Medication Reconcilliation Current Medication List: was personally reviewed by me Impression Primary Impression: Constipation Departure Information Dispostion Home / Self-Care Condition GOOD Referrals David Duggan III, CRNP (PCP) Patient Instructions My [facility]
--- NOTE | 2018-01-22 09:21 | DIAGNOSTIC IMAGING REPORT ---
KUB HISTORY: constipation, abdominal pain, urinary retention COMPARISON: KUB 01/08/2018. FINDINGS: The bowel gas pattern is unremarkable. There are no dilated loops of small bowel to suggest an obstruction. Stable 1.2 cm stone within the left kidney. No right renal or ureteral calculi identified. There appear to be small bilateral pleural effusions. Moderate well-formed stool within the colon. There is also a large amount of stool within the rectum. A rectal stool ball measures up to 7.8 cm in diameter. No pneumoperitoneum or pneumatosis. IMPRESSION: 1. Stable left-sided nephrolithiasis. No ureteral calculi. 2. Moderate to large amount of well-formed stool seen within the rectum and colon. 3. Small bilateral pleural effusions. Electronically signed by: John Paul Hobson M.D. 01/22/2018 9:20 AM Dictated Date/Time: 01/22/2018 9:18 AM
[2018-01-22 09:25] LABS: BASO % 0.6 %; BASO ABS # 0.05 K/uL (0-0.2); EOS % 2.5 %; EOS ABS # 0.22 K/uL (0-0.5); HEMATOCRIT 45.3 % (37-47); IG# 0.03 K/uL (0.00-0.02); LYMPH % 21.7 %; LYMPH ABS # 1.91 K/uL (1.2-3.4); MEAN CELL VOLUME 102.3 fL (80-100); MEAN CORPUSCULAR HEMOGLOBIN 33.9 pg (25-34); MEAN CORPUSCULAR HGB CONC 33.1 g/dl (32-36); MEAN PLATELET VOLUME 10.1 fL (7.4-10.4); MONO % 5.7 %; NEUT % 69.2 %; PLATELET COUNT 271 K/uL (130-400); RED CELL DISTRIBUTION WIDTH CV 12.8 % (11.5-14.5); RED CELL DISTRIBUTION WIDTH SD 48.2 fL (36.4-46.3); WHITE BLOOD COUNT 8.81 K/uL (4.8-10.8)
[2018-01-22 09:40] LABS: CALCIUM 10.3 mg/dl (8.5-10.1); CREATININE 1.02 mg/dl (0.60-1.20)
[2018-01-22] MEDS ORDERED: VNTHFA/IN INH (09:50)
[2018-01-22] MEDS ORDERED: INSDGIPEN SC (09:50)
[2018-01-22] MEDS ORDERED: NVLGIPEN SC (09:50)
[2018-01-22] MEDS ORDERED: SPRIN/30 INH (09:50)
[2018-01-22] MEDS ORDERED: SOAP SUDS ENEMA PR STA (09:58)
[2018-01-22 11:31] VITALS: BP 100/77; PULSE 78; O2SAT 92
--- NOTE | 2018-01-22 14:11 | EMERGENCY ROOM VISIT NOTE ---
History Report prepared by Myrandaibbebeto: Montez Hardwick Under the Supervision of: Dr. Jovanny Rodarte D.O. First contact with patient: 08:10 Chief Complaint: CONSTIPATION Stated Complaint: CONSTIPATION, UNABLE TO URINATE History of Present Illness The patient is a 72 year old female who presents to the Emergency Room with complaints of constant lower abdominal "cramping" beginning yesterday. She rates her pain as a 7/10 in severity. The patient has a history of constipation , and states that her symptoms feel similar. She states that she had a small bowel movement yesterday. She took two Miralax yesterday. The patient also feels that she cannot fully empty her bladder. She most recently urinated a small amount last night. She has a history of bladder incontinence for which she is scheduled for Botox injections. The patient has a history of hypertension , asthma, diabetes, and kidney stones. Source of History: patient Onset: Yesterday Position: abdomen (lower) Symptom Intensity: 7/10 Quality: cramping Timing: constant Associated Symptoms: + urinary symptoms (inability to fully empty bladder) Note: Positive: constipation. Review of Systems See HPI for pertinent positives & negatives. A total of 10 systems reviewed and were otherwise negative. 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 (6) Glaucoma (7) Hypertension Nos (8) Insulin overdose (9) Kidney stones (10) Lens Replacement Nec (11) Loss of sensation (12) Morbid Obesity (13) Open-Angle Glaucoma Nos (14) Pre-ulcerative corn or callous (15) Urin Tract Infection Nos Family History Cancer (breast, ovarian) Diabetes mellitus Myocardial infarction Social History Smoking Status: Never Smoker Alcohol Use: occasionally Drug Use: none Marital Status: Housing Status: lives with family Occupation Status: retired Current/Historical Medications Scheduled Acetaminophen (Sb Non-Aspirin Extra Stre), 1,000 MG PO Q8 Ascorbic Acid (Vitamin C), 1,000 MG PO HS Aspirin (Aspirin EC Low Dose), 81 MG PO QAM Budesonide/Formoterol Fumarate (Symbicort 160-4.5 Mcg/Act), 2 PUFFS INH BID Buspirone Hcl (Buspar), 15 MG PO BID Cholecalciferol (Vitamin D 1000 Unit), 1,000 INTER.UNIT PO BID Clonazepam (Klonopin), 0.5 MG PO TID PRN Duloxetine HCl (Duloxetine HCl), 40 MG PO DAILY Nuorysohzoa-Htiuxnfupnl-Ftj C- (Glucosamine Chondroitin), 1 TAB PO BID Insulin Aspart (Novolog Flexpen), 50 UNITS SC BIDM Insulin Glargine (Lantus Solostar), 80 UNITS SC QAM Mirabegron (Myrbetriq Er), 50 MG PO QAM Multivitamin (Multivitamin), 1 TABLET PO QAM [place]-3 Fatty Acids (Fish Oil), 1,000 MG PO QAM Polyethylene Glycol 3350 (Miralax), 17 GM PO PRN Potassium Chloride (Micro-K Ext Rel), 20 MEQ PO QAM Pramipexole Dihydrochloride (Pramipexole Dihydrochlori), 0.25 MG PO HS Propranolol Hcl (Inderal La), 80 MG PO QAM Ropinirole (Requip), 0.75 MG PO HS Tiotropium [place] (Spiriva Handihaler), 1 CAP INH DAILY Scheduled PRN Albuterol Hfa (Ventolin Hfa), 2-4 PUFFS INH DIRECTED PRN for Shortness of Breath Allergies Coded Allergies: Sulfa Antibiotics (Unverified Allergy, Intermediate, RASH, 01/22/18) Albiglutide (Unverified Adverse Reaction, Unknown, DIARRHEA, 01/22/18) Codeine (Verified Adverse Reaction, Unknown, NAUSEA, 01/22/18) Metformin (Unverified Adverse Reaction, Unknown, DIARRHEA, 01/22/18) Morphine (Verified Adverse Reaction, Unknown, NAUSEA, 01/22/18) Sorbitan (Unverified Adverse Reaction, Unknown, DIARRHEA, 01/22/18) Uncoded Allergies: reji (Adverse Reaction, Intermediate, skin irritation, 04/13/17) Skin irritation Physical Exam Vital Signs Date Time Temp Pulse Resp B/P (MAP) Pulse Ox O2 Delivery O2 Flow Rate FiO2 01/22/18 11:31 78 16 100/77 92 01/22/18 07:54 37.6 94 20 144/95 90 Nasal Cannula 3.0 Physical Exam CONSTITUTIONAL/VITAL SIGNS: Reviewed / noted above. GENERAL: Non-toxic in appearance. INTEGUMENTARY: Warm, dry, and [place]. HEAD: Normocephalic. EYES: without scleral icterus or trauma. ENT/OROPHARYNX: clear and moist. LYMPHADENOPATHY/NECK: Is supple without lymphadenopathy or meningismus. RESPIRATORY: Lungs clear and equal. CARDIOVASCULAR: Regular rate and rhythm. GI/ABDOMEN: Soft and nontender. No organomegaly or pulsatile mass. No rebound or guarding. Normal bowel sounds. EXTREMITIES: Warm and well perfused. BACK: No CVA tenderness. NEUROLOGICAL: Intact without focal deficits. PSYCHIATRIC: normal affect. MUSCULOSKELETAL: Normally developed with good muscle tone. Medical Decision & Procedures ER Provider Diagnostic Interpretation: Radiology results as stated below per my review and radiologist interpretation: KUB FINDINGS: The bowel gas pattern is unremarkable. There are no dilated loops of small bowel to suggest an obstruction. Stable 1.2 cm stone within the left kidney. No right renal or ureteral calculi identified. There appear to be small bilateral pleural effusions. Moderate well-formed stool within the colon. There is also a large amount of stool within the rectum. A rectal stool ball measures up to 7.8 cm in diameter. No pneumoperitoneum or pneumatosis. IMPRESSION: 1. Stable left-sided nephrolithiasis. No ureteral calculi. 2. Moderate to large amount of well-formed stool seen within the rectum and colon. 3. Small bilateral pleural effusions. Electronically signed by: John Paul Hobson M.D. 01/22/2018 9:20 AM Laboratory Results 01/22/18 09:15 Red Blood Count 4.43, Mean Corpuscular Volume 102.3, Mean Corpuscular Hemoglobin 33.9, Mean Corpuscular Hemoglobin Concent 33.1, Mean Platelet Volume 10.1, Neutrophils (%) (Auto) 69.2, Lymphocytes (%) (Auto) 21.7, Monocytes (%) ( Auto) 5.7, Eosinophils (%) (Auto) 2.5, Basophils (%) (Auto) 0.6, Neutrophils # ( Auto) 6.10, Lymphocytes # (Auto) 1.91, Monocytes # (Auto) 0.50, Eosinophils # ( Auto) 0.22, Basophils # (Auto) 0.05 01/22/18 09:15 Test 01/22/18 09:00 01/22/18 09:15 Urine Color YELLOW Urine Appearance CLEAR (CLEAR) Urine pH 6.0 (4.5-7.5) Urine Specific [place] 1.020 (1.000-1.030) Urine Protein NEG (NEG) Urine Glucose (UA) NEG (NEG) Urine Ketones NEG (NEG) Urine Occult Blood NEG (NEG) Urine Nitrite NEG (NEG) Urine Bilirubin NEG (NEG) Urine Urobilinogen NEG (NEG) Urine Leukocyte Esterase SMALL (NEG) Urine WBC (Auto) 5-10 /hpf (0-5) Urine RBC (Auto) 5-10 /hpf (0-4) Urine Hyaline Casts (Auto) 1-5 /lpf (0-5) Urine Epithelial Cells (Auto) >30 /lpf (0-5) Urine Bacteria (Auto) NEG (NEG) White Blood Count 8.81 K/uL (4.8-10.8) Red Blood Count 4.43 M/uL (4.2-5.4) Hemoglobin 15.0 g/dL (12.0-16.0) Hematocrit 45.3 % (37-47) Mean Corpuscular Volume 102.3 fL (80-100) Mean Corpuscular Hemoglobin 33.9 pg (25-34) Mean Corpuscular Hemoglobin Concent 33.1 g/dl (32-36) Platelet Count 271 K/uL (130-400) Mean Platelet Volume 10.1 fL (7.4-10.4) Neutrophils (%) (Auto) 69.2 % Lymphocytes (%) (Auto) 21.7 % Monocytes (%) (Auto) 5.7 % Eosinophils (%) (Auto) 2.5 % Basophils (%) (Auto) 0.6 % Neutrophils # (Auto) 6.10 K/uL (1.4-6.5) Lymphocytes # (Auto) 1.91 K/uL (1.2-3.4) Monocytes # (Auto) 0.50 K/uL (0.11-0.59) Eosinophils # (Auto) 0.22 K/uL (0-0.5) Basophils # (Auto) 0.05 K/uL (0-0.2) RDW Standard Deviation 48.2 fL (36.4-46.3) RDW Coefficient of Variation 12.8 % (11.5-14.5) Immature Granulocyte % (Auto) 0.3 % Immature Granulocyte # (Auto) 0.03 K/uL (0.00-0.02) Anion Gap 6.0 mmol/L (3-11) Est Creatinine Clear Calc Drug Dose 48.5 ml/min Estimated GFR () 63.6 Estimated GFR (Non- 54.9 BUN/Creatinine Ratio 20.5 (10-20) Calcium Level 10.3 mg/dl (8.5-10.1) Laboratory results as stated above per my review. Medications Administered Medications (Trade) Dose Ordered Sig/Stacia Route Start Time Stop Time Status Last Admin Dose Admin Miscellaneous (Soap Suds Enema) 1 ea NOW STAT AR 01/22/18 09:58 01/22/18 09:59 DC 01/22/18 10:15 1 EA ED Course 08: Previous medical records were reviewed. The patient was evaluated in room A12B. A complete history and physical examination was performed. 0835: I reassessed the patient. She successfully urinated 200 cc of urine, and states that her abdominal pain has completely resolved. She is non-tender on reexamination of the abdomen. 0958: Ordered Soap Suds Enema AR. 1215: On reevaluation, the patient is resting comfortably. I discussed the results and findings with the patient. She verbalized agreement of the treatment plan. The patient was discharged home. Medical Decision Differential considered: pancreatitis, hepatitis, or acute cholecystitis, AAA, UTI, pyelonephritis, kidney stones, appendicitis, diverticulitis, shingles, bowel obstruction mesenteric ischemia, intussusception,hernia, testicular torsion, ovarian torsion, ruptured ovarian cyst,ectopic , . This is a 72-year-old female who presents to the ED with a chief complaint of constipation and some abdominal discomfort. The patient was seen in conjunction with the resident. When the resident saw the patient she had diffuse abdominal tenderness. Prior to myself seeing the patient, the patient urinated about 200 cc. She states that her symptoms have resolved. The patient also reports some issues with constipation and taking MiraLAX. The patient's x-rays suggest constipation. The blood work was unremarkable. No obvious urinary tract infection. The patient was given an enema and she moves her bowels. Her symptoms resolved. She is felt to be stable for discharge per Medication Reconcilliation Current Medication List: was personally reviewed by me Blood Pressure Screening Patient's blood pressure: Normal blood pressure Blood pressure disposition: Did not require urgent referral Impression Primary Impression: Constipation Additional Impression: Urinary retention Scribe Attestation The scribe's documentation has been prepared under my direction and personally reviewed by me in its entirety. I confirm that the note above accurately reflects all work, treatment, procedures, and medical decision making performed by me. Departure Information Dispostion Home / Self-Care Referrals David Duggan III, CRNP (PCP) Forms HOME CARE DOCUMENTATION FORM, IMPORTANT VISIT INFORMATION Patient Instructions My [facility] Additional Instructions Take 1 cap full (17g) of clearLax every day to avoid constipation Follow up with your PCP in 1-2 days Problem Qualifiers
== END 2018-01-22 11:31 | disposition home or self-care (01) ==
LOC: C.EDB 07:53 → C.EDA 11:31
DX: K59.00 Constipation, unspecified (principal); R33.9 Retention of urine, unspecified; I10 Essential (primary) hypertension; J45.909 Unspecified asthma, uncomplicated; E11.9 Type 2 diabetes mellitus without complications; Z87.442 Personal history of urinary calculi; F41.9 Anxiety disorder, unspecified; Z79.82 Long term (current) use of aspirin; Z79.4 Long term (current) use of insulin; Z79.899 Other long term (current) drug therapy; Z88.2 Allergy status to sulfonamides; Z88.5 Allergy status to narcotic agent; Z88.8 Allergy status to other drugs, medicaments and biological substances; Z91.048 Other nonmedicinal substance allergy status

== ENCOUNTER → 2018-01-26 | Outpatient (CLI) | payer OTHER, BC ==
[~2018-01-26] MED LIST changes: -ALBUAER2 INH; -ASPEC81 PO; +ASPI-320 PO; -FLUT0.0529 NAE; -HYDR25TA5 PO; -INSDGI SC; +INSDGIPEN SC; -NVLG SQ; -NVLGI SC; +NVLGIPEN SC; +PROP80CA29 PO; -PROP80CA7 PO; -RXC5 PO; +SPRIN/30 INH; -TIOTCAP INH; +VNTHFA/IN INH
--- NOTE | 2018-01-26 11:38 | DIAGNOSTIC IMAGING REPORT ---
CHEST 2 VIEWS ROUTINE CLINICAL HISTORY: Cough. Chronic respiratory failure. COMPARISON STUDY: Chest radiograph March 21, 2017. FINDINGS: Incidental note is made of bilateral shoulder arthroplasties and right axillary surgical clips. Moderate elevation/eventration of the right hemidiaphragm is unchanged. Cardiomediastinal silhouette is stable. There is mild cardiomegaly. There are small bilateral pleural effusions. Mild interstitial thickening is noted. IMPRESSION: 1. Mild interstitial thickening which favors pulmonary edema. 2. Small bilateral pleural effusions. 3. Stable moderate elevation/eventration of the right hemidiaphragm. Electronically signed by: Chema Sutton M.D. 01/26/2018 11:36 AM Dictated Date/Time: 01/26/2018 11:34 AM
== END | disposition home or self-care (01) ==
LOC: C.RAD1850 11:20
PROVIDERS: ATTEND Nurse Practitioner Family
DX: J96.10 Chronic respiratory failure, unspecified whether with hypoxia or hypercapnia (principal); R05 Cough; N39.46 Mixed incontinence

== ENCOUNTER → 2018-02-12 | Outpatient (CLI) | payer OTHER, BC | END | disposition home or self-care (01) | LOC: C.RC 16:22 | PROVIDERS: ATTEND Nurse Practitioner Family | DX: J96.10 Chronic respiratory failure, unspecified whether with hypoxia or hypercapnia (principal) ==

== ENCOUNTER 2018-02-18 17:41 | Emergency (ER) | payer OTHER, BC ==
[~2018-02-18] VITALS: Ht 144.8 cm; Wt 102.0 kg
[2018-02-18 17:54] VITALS: TEMP 36.7; Ht 144.8 cm; Wt 102.0 kg
--- NOTE | 2018-02-18 18:23 | EMERGENCY ROOM VISIT NOTE ---
History Report prepared by [place]: Amairani Naranjo Under the Supervision of: Dr. Lexus Frye D.O. First contact with patient: 18:10 Chief Complaint: FLANK PAIN Stated Complaint: BACK PAIN History of Present Illness The patient is a 72 year old female who presents to the Emergency Room with complaints of persistent right flank pain that started last night. The patient rates her pain a 8/10 in severity. The patient reports she was getting ready for bed last night and it came on suddenly. She states the pain worsens with movement. The patient has a history of kidney stones. She notes this pain does not feel like her previous kidney stones. She denies any recent injuries. The patient reports she was seen in the ED 2 weeks ago for constipation and it was blocking her kidney. She notes her bowel movements have been regular since then. She states she has not had a bowel movement today. She had diarrhea yesterday but denies any blood in her stool. The patient reports she is taking stool softener. She notes she was recently prescribed a new inhaler to help with her phlegm. She states she is on oxygen regularly. She reports she has a cough today. Pt denies headache, change in vision, fevers, chest pain, shortness of breath, nausea, vomiting, pain with urination, and melena. Source of History: patient Onset: last night Position: other (right flank) Symptom Intensity: Timing: other (persistent) Modifying Factors (Worsening): movement Associated Symptoms: + cough, + diarrhea, No fevers, No chills, No headache , No chest pain, No SOB, No nausea, No vomiting, No melena, No urinary symptoms Review of Systems See HPI for pertinent positives & negatives. A total of 10 systems reviewed and were otherwise negative. 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 (6) Glaucoma (7) Hypertension Nos (8) Insulin overdose (9) Kidney stones (10) Lens Replacement Nec (11) Loss of sensation (12) Morbid Obesity (13) Open-Angle Glaucoma Nos (14) Pre-ulcerative corn or callous (15) Urin Tract Infection Nos Family History Cancer (breast, ovarian) Diabetes mellitus Myocardial infarction Social History Smoking Status: Never Smoker Alcohol Use: occasionally Drug Use: none Marital Status: Housing Status: lives with family Occupation Status: retired Current/Historical Medications Scheduled Acetaminophen (Sb Non-Aspirin Extra Stre), 1,000 MG PO Q8 Ascorbic Acid (Vitamin C), 1,000 MG PO HS Aspirin (Aspirin EC Low Dose), 81 MG PO QAM Budesonide/Formoterol Fumarate (Symbicort 160-4.5 Mcg/Act), 2 PUFFS INH BID Buspirone Hcl (Buspar), 15 MG PO TID Cholecalciferol (Vitamin D 1000 Unit), 1,000 INTER.UNIT PO BID Duloxetine HCl (Duloxetine HCl), 40 MG PO DAILY Jcenqaoiaol-Iaskyvhjewf-Xmq C- (Glucosamine Chondroitin), 1 TAB PO BID Insulin Aspart (Novolog Flexpen), 50 UNITS SC QAM Insulin Aspart (Novolog Flexpen), 45 UNITS SC QPM Insulin Glargine (Lantus Solostar), 70 UNITS SC QAM Lidocaine (Lidocaine), 1 PATCH TD DAILY Mirabegron (Myrbetriq Er), 50 MG PO QAM Multivitamin (Multivitamin), 1 TABLET PO QAM [place]-3 Fatty Acids (Fish Oil), 1,000 MG PO QAM Polyethylene Glycol 3350 (Miralax), 17 GM PO PRN Potassium Chloride (Micro-K Ext Rel), 20 MEQ PO QAM Pramipexole Dihydrochloride (Pramipexole Dihydrochlori), 0.25 MG PO HS Propranolol Hcl (Inderal La), 80 MG PO QAM Ropinirole (Requip), 0.75 MG PO HS Tiotropium [place] (Spiriva Handihaler), 1 CAP INH DAILY Scheduled PRN Albuterol Hfa (Ventolin Hfa), 2-4 PUFFS INH DIRECTED PRN for Shortness of Breath Allergies Coded Allergies: Sulfa Antibiotics (Unverified Allergy, Intermediate, RASH, 01/22/18) Albiglutide (Unverified Adverse Reaction, Unknown, DIARRHEA, 01/22/18) Codeine (Verified Adverse Reaction, Unknown, NAUSEA, 01/22/18) Metformin (Unverified Adverse Reaction, Unknown, DIARRHEA, 01/22/18) Morphine (Verified Adverse Reaction, Unknown, NAUSEA, 01/22/18) Sorbitan (Unverified Adverse Reaction, Unknown, DIARRHEA, 01/22/18) Uncoded Allergies: reji (Adverse Reaction, Intermediate, skin irritation, 04/13/17) Skin irritation Physical Exam Vital Signs Date Time Temp Pulse Resp B/P (MAP) Pulse Ox O2 Delivery O2 Flow Rate FiO2 02/18/18 22:32 82 22 137/89 95 Nasal Cannula 4.0 02/18/18 21:52 88 23 110/77 94 Nasal Cannula 4.0 02/18/18 19:47 85 18 145/91 93 Nasal Cannula 3.0 02/18/18 18:40 79 02/18/18 18:33 95 Nasal Cannula 3.0 02/18/18 17:54 36.7 84 20 121/64 93 Room Air Physical Exam GENERAL: alert, well appearing, well nourished, no distress, non-toxic, obese EYE EXAM: normal conjunctiva, PERRL and EOM's grossly intact OROPHARYNX: no exudate, no erythema, lips, buccal mucosa, and tongue normal and mucous membranes are moist NECK: supple, no nuchal rigidity, no adenopathy, non-tender LUNGS: Clear to auscultation. Normal chest wall mechanics, no w/r/r HEART: no murmurs, S1 normal and S2 normal ABDOMEN: abdomen soft, non-tender, normo-active bowel sounds, no masses, no rebound or guarding. BACK: Back is symmetrical on inspection and there is no deformity, reproducible back pain in right lower back SKIN: no rashes and no bruising UPPER EXTREMITIES: upper extremities are grossly normal. Full range of motion, normal pulses. LOWER EXTREMITIES: No pitting edema. Full range of motion, normal pulses. NEURO EXAM: Normal sensorium, cranial nerves II-XII [grossly] intact, normal speech, no [gross] weakness of arms, no [gross] weakness of legs. Medical Decision & Procedures ER Provider Diagnostic Interpretation: Radiology results have been interpreted by the radiologist and reviewed by me. ABD/PELVIS WITHOUT FOR STONE HISTORY: 72 years-old Female right flank/back pain, hx stones acute right-sided flank pain with history of nephrolithiasis COMPARISON: CT abdomen and pelvis 11/21/2015 TECHNIQUE: Multiple axial CT images of the abdomen and pelvis were obtained without the use of IV contrast. A dose lowering technique was used consistent with the principals of USHA. FINDINGS: Small right and trace left pleural effusions with diffuse nodular intralobular septal thickening with pleural, intralobular and bronchovascular distribution of pulmonary nodules measuring up to 1.2 cm. These findings are new from comparison. No pneumatosis or pneumoperitoneum. Coronary arterial calcifications are noted. Evaluation of the solid abdominal organs is limited without use of IV contrast. Hepatomegaly with mild hepatic steatosis. There are several ill-defined low attenuating lesions noted throughout the right left hepatic lobes measuring up to approximately 11 mm which appear new from comparison study as well. Spleen, pancreas and right adrenal gland are unremarkable. Thickening of the left adrenal gland is unchanged suggesting hyperplasia. 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 Mild nonspecific bilateral perinephric stranding. 1.1 x 1.0 cm nonobstructing calculus of the inferior pole left kidney. No right-sided hydronephrosis or obstructing calculus. Nondistention of the bladder with mild wall thickening. Prior hysterectomy. Hyperattenuating structure of the vaginal cuff suggests a pessary device. No adnexal mass lesions. No aortic aneurysm. Tortuosity of the abdominal aorta. No bowel obstruction or focal bowel wall thickening. Moderate stool volume of the ascending and transverse colon. Mild nonspecific subcutaneous stranding of the anterior abdominal wall. Degenerative changes about the pubic symphysis and lumbar spine. Ill-defined linear lucency is noted involving the right transverse process of T10 on image 65 series 3. Multilevel degenerative changes about the spine. Ill-defined sclerosis involves anterior aspect of the T10 vertebral body measuring 10 mm, image 66 series 3.Lucent lesion of the sacral promontory measuring 9 mm. Ill-defined lucent lesion involves the posterior aspect of the T8 vertebral body. IMPRESSION: 1. 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 Small right and trace left pleural effusions are likely malignant. 2. Multiple ill-defined small lesions about the liver measuring up to 1.1 cm are suspicious for hepatic metastasis. 3. Sclerotic lesion of the T10 vertebral body with lucent lesions of the T8 and S1 vertebral bodies suggest mixed lytic and sclerotic metastasis. Acute nondisplaced fracture of the right transverse process T10 is suspicious for a pathologic fracture. Oncology consultation is needed. 4. Nonobstructing left-sided nephrolithiasis. 5. Additional incidental findings as above. The above report was generated using voice recognition software. It may contain grammatical, syntax or spelling errors. Electronically signed by: Benny Miller M.D. 02/18/2018 8:17 PM Dictated Date/Time: 02/18/2018 8:03 PM CHEST 2 VIEWS ROUTINE HISTORY: 72 years-old Female persistent cough acute cough COMPARISON: Chest radiograph 01/26/2018 TECHNIQUE: Portable AP view of the chest FINDINGS: Cardiac silhouette is mildly enlarged. Pulmonary vascular congestion with mild interstitial coarsening. Small bilateral pleural effusions with subsegmental bibasilar opacities and mild right hemidiaphragmatic elevation. No pneumothorax. Bilateral shoulder arthroplasties. Surgical clips project over the right axilla. Multilevel degenerative changes about the spine. IMPRESSION: 1. Cardiomegaly with mild pulmonary edema and small bilateral pleural effusions. 2. Subsegmental bibasilar opacities favor atelectasis. 3. Unchanged elevation of the right hemidiaphragm. The above report was generated using voice recognition software. It may contain grammatical, syntax or spelling errors. Electronically signed by: Benny Miller M.D. 02/18/2018 9:11 PM Dictated Date/Time: 02/18/2018 9:09 PM Laboratory Results 02/18/18 19:05 Red Blood Count 4.19, Mean Corpuscular Volume 101.9, Mean Corpuscular Hemoglobin 33.4, Mean Corpuscular Hemoglobin Concent 32.8, Mean Platelet Volume 10.2, Neutrophils (%) (Auto) 70.9, Lymphocytes (%) (Auto) 20.5, Monocytes (%) ( Auto) 5.8, Eosinophils (%) (Auto) 2.4, Basophils (%) (Auto) 0.3, Neutrophils # ( Auto) 5.63, Lymphocytes # (Auto) 1.63, Monocytes # (Auto) 0.46, Eosinophils # ( Auto) 0.19, Basophils # (Auto) 0.02 02/18/18 19:05 Test 02/18/18 19:05 02/18/18 21:06 White Blood Count 7.94 K/uL (4.8-10.8) Red Blood Count 4.19 M/uL (4.2-5.4) Hemoglobin 14.0 g/dL (12.0-16.0) Hematocrit 42.7 % (37-47) Mean Corpuscular Volume 101.9 fL (80-100) Mean Corpuscular Hemoglobin 33.4 pg (25-34) Mean Corpuscular Hemoglobin Concent 32.8 g/dl (32-36) Platelet Count 237 K/uL (130-400) Mean Platelet Volume 10.2 fL (7.4-10.4) Neutrophils (%) (Auto) 70.9 % Lymphocytes (%) (Auto) 20.5 % Monocytes (%) (Auto) 5.8 % Eosinophils (%) (Auto) 2.4 % Basophils (%) (Auto) 0.3 % Neutrophils # (Auto) 5.63 K/uL (1.4-6.5) Lymphocytes # (Auto) 1.63 K/uL (1.2-3.4) Monocytes # (Auto) 0.46 K/uL (0.11-0.59) Eosinophils # (Auto) 0.19 K/uL (0-0.5) Basophils # (Auto) 0.02 K/uL (0-0.2) RDW Standard Deviation 47.0 fL (36.4-46.3) RDW Coefficient of Variation 12.7 % (11.5-14.5) Immature Granulocyte % (Auto) 0.1 % Immature Granulocyte # (Auto) 0.01 K/uL (0.00-0.02) Anion Gap 5.0 mmol/L (3-11) Est Creatinine Clear Calc Drug Dose 52.4 ml/min Estimated GFR () 66.8 Estimated GFR (Non- 57.6 BUN/Creatinine Ratio 23.6 (10-20) Calcium Level 9.7 mg/dl (8.5-10.1) Magnesium Level 1.8 mg/dl (1.8-2.4) Total Bilirubin 0.3 mg/dl (0.2-1) Aspartate Amino Transf (AST/SGOT) 31 U/L (15-37) Alanine Aminotransferase (ALT/SGPT) 29 U/L (12-78) Alkaline Phosphatase 108 U/L (45-117) Total Protein 7.3 gm/dl (6.4-8.2) Albumin 3.3 gm/dl (3.4-5.0) Globulin 4.0 gm/dl (2.5-4.0) Albumin/Globulin Ratio 0.8 (0.9-2) Chemistry Specimen Hemolysis Urine Color YELLOW Urine Appearance CLEAR (CLEAR) Urine pH 5.0 (4.5-7.5) Urine Specific [place] 1.020 (1.000-1.030) Urine Protein NEG (NEG) Urine Glucose (UA) 2+ (NEG) Urine Ketones NEG (NEG) Urine Occult Blood TRACE (NEG) Urine Nitrite NEG (NEG) Urine Bilirubin NEG (NEG) Urine Urobilinogen NEG (NEG) Urine Leukocyte Esterase NEG (NEG) Urine WBC (Auto) 1-5 /hpf (0-5) Urine RBC (Auto) 0-4 /hpf (0-4) Urine Hyaline Casts (Auto) 0 /lpf (0-5) Urine Epithelial Cells (Auto) 10-20 /lpf (0-5) Urine Bacteria (Auto) NEG (NEG) Laboratory results per my review. Medications Administered Medications (Trade) Dose Ordered Sig/Stacia Route Start Time Stop Time Status Last Admin Dose Admin Fentanyl Citrate (Fentanyl Inj) 50 mcg NOW STAT IV 02/18/18 18:26 02/18/18 18:27 DC 02/18/18 19:05 50 MCG Sodium Chloride 500 ml @ 999 mls/hr Q31M STAT IV 02/18/18 20:11 02/18/18 20:41 DC 02/18/18 20:28 999 MLS/HR Ketorolac Tromethamine (Toradol Inj) 15 mg NOW STAT IV 02/18/18 21:51 02/18/18 21:52 DC 02/18/18 22:02 15 MG Lidocaine (Lidoderm Patch 5%) 1 patch NOW STAT TD 02/18/18 21:51 02/18/18 21:52 DC 02/18/18 22:02 1 PATCH ECG Per My Interpretation Indication: other (flank pain) Rate (beats per minute): 78 Rhythm: sinus rhythm Findings: no acute ischemic change, no ectopy, other (normal axis, normal intervals, erratic baseline, low voltage) ED Course 1809: The patient was evaluated in room A3. A complete history and physical exam was performed. 1825: Fentanyl Inj 50 mcg IV. 2010: Sodium Chloride 500 ml @ 999 mls/hr IV. 2135: I rechecked the patient and she states she is still having pain and I updated her on her results. 2150: Lidocaine 1 patch TD, Toradol Inj 15 mg IV. 2234: I rechecked the patient and her pain has improved. She is ready for discharge. Medical Decision Differential diagnosis: Etiologies such as renal colic, appendicitis, diverticulitis, mesenteric ischemia, aortic pathology, infections, inflammatory bowel disease, PUD, biliary pathology, UTI, as well as others were entertained. Patient well-appearing here despite complaints. Back pain reproducible, and CT otherwise negative for acute pathology noted on the right. Patient was aware that she has a renal stone on the left, and states that is been there for quite some time. Patient improved here with medications. No evidence of ascending UTI or pyelonephritis. No other evidence of acute GI pathology. Labs otherwise reassuring. Patient hemodynamically stable throughout. Ambulating with a steady gait. I do not suspect occult spinal pathology, occult infectious etiology. Given patient's body habitus, possible musculoskeletal strain. Discussed with patient follow-up with family doctor, continued use of routine medications, symptoms to watch and return for, she verbalized understanding was agreeable with plan. Patient with known diabetes, I do not feel hyperglycemia is contributing to presentation today. Discussed with patient continued use of her diabetes meds, and checking her blood sugars regularly. Medication Reconcilliation Current Medication List: was personally reviewed by me Blood Pressure Screening Patient's blood pressure: Normal blood pressure Impression Primary Impression: Back pain Additional Impression: Hyperglycemia Scribe Attestation The scribe's documentation has been prepared under my direction and personally reviewed by me in its entirety. I confirm that the note above accurately reflects all work, treatment, procedures, and medical decision making performed by me. Departure Information Dispostion Home / Self-Care Prescriptions Lidocaine (Lidocaine) 1 Patch Tdsy 1 PATCH TD DAILY for Pain, #1 BOX Prov: Lexus Frye, 02/18/18 Referrals David Duggan III, CRNP (PCP) Patient Instructions My [facility] Additional Instructions Please continue regular medications as prescribed. Please avoid any heavy lifting or strenuous activity. You may use Tylenol or ibuprofen as needed for pain. You may use the pain patch as prescribed, or purchase the over-the- counter version. Please call follow-up with your family doctor as a precaution. If you have any worsening pain, the pain begins to radiate down the leg, he developed abdominal pain, trouble breathing, fevers, noticed a change in your urine or bowel movements, or of any other concerns, please return the emergency room. Please note that a kidney stone was seen in your left kidney. Problem Qualifiers Primary Impression: Back pain Back pain location: low back pain Chronicity: acute Back pain laterality: right Sciatica presence: without sciatica Qualified Codes: M54.5 - Low back pain
[2018-02-18] MEDS ORDERED: FENTANYL CITRATE INJ 50 MCG/1 ML 2 ML VIAL IV STA (18:26)
[2018-02-18 18:33] VITALS: O2SAT 95
[2018-02-18 19:29] LABS: BASO % 0.3 %; BASO ABS # 0.02 K/uL (0-0.2); EOS % 2.4 %; EOS ABS # 0.19 K/uL (0-0.5); HEMATOCRIT 42.7 % (37-47); IG# 0.01 K/uL (0.00-0.02); LYMPH % 20.5 %; LYMPH ABS # 1.63 K/uL (1.2-3.4); MEAN CELL VOLUME 101.9 fL (80-100); MEAN CORPUSCULAR HEMOGLOBIN 33.4 pg (25-34); MEAN CORPUSCULAR HGB CONC 32.8 g/dl (32-36); MEAN PLATELET VOLUME 10.2 fL (7.4-10.4); MONO % 5.8 %; MONO ABS # 0.46 K/uL (0.11-0.59); NEUT % 70.9 %; NEUT ABS # 5.63 K/uL (1.4-6.5); PLATELET COUNT 237 K/uL (130-400); RED CELL DISTRIBUTION WIDTH CV 12.7 % (11.5-14.5); WHITE BLOOD COUNT 7.94 K/uL (4.8-10.8)
[2018-02-18 19:49] LABS: ALBUMIN 3.3 gm/dl (3.4-5.0); CALCIUM 9.7 mg/dl (8.5-10.1); CREATININE 0.98 mg/dl (0.60-1.20); POTASSIUM 3.8 mmol/L (3.5-5.1)
[2018-02-18 19:50] LABS: TOTAL PROTEIN 7.3 gm/dl (6.4-8.2)
[2018-02-18] MEDS ORDERED: NVLGI/PEN SC (20:07)
[2018-02-18] MEDS ORDERED: SODIUM CHLORIDE 0.9% 500ML 500 ML IV STA (20:11)
--- NOTE | 2018-02-18 20:19 | DIAGNOSTIC IMAGING REPORT ---
ABD/PELVIS WITHOUT FOR STONE HISTORY: 72 years-old Female right flank/back pain, hx stones acute right-sided flank pain with history of nephrolithiasis COMPARISON: CT abdomen and pelvis 11/21/2015 TECHNIQUE: Multiple axial CT images of the abdomen and pelvis were obtained without the use of IV contrast. A dose lowering technique was used consistent with the principals of USHA. FINDINGS: Small right and trace left pleural effusions with diffuse nodular intralobular septal thickening with pleural, intralobular and bronchovascular distribution of pulmonary nodules measuring up to 1.2 cm. These findings are new from comparison. No pneumatosis or pneumoperitoneum. Coronary arterial calcifications are noted. Evaluation of the solid abdominal organs is limited without use of IV contrast. Hepatomegaly with mild hepatic steatosis. There are several ill-defined low attenuating lesions noted throughout the right left hepatic lobes measuring up to approximately 11 mm which appear new from comparison study as well. Spleen, pancreas and right adrenal gland are unremarkable. Thickening of the left adrenal gland is unchanged suggesting hyperplasia. 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 Mild nonspecific bilateral perinephric stranding. 1.1 x 1.0 cm nonobstructing calculus of the inferior pole left kidney. No right-sided hydronephrosis or obstructing calculus. Nondistention of the bladder with mild wall thickening. Prior hysterectomy. Hyperattenuating structure of the vaginal cuff suggests a pessary device. No adnexal mass lesions. No aortic aneurysm. Tortuosity of the abdominal aorta. No bowel obstruction or focal bowel wall thickening. Moderate stool volume of the ascending and transverse colon. Mild nonspecific subcutaneous stranding of the anterior abdominal wall. Degenerative changes about the pubic symphysis and lumbar spine. Ill-defined linear lucency is noted involving the right transverse process of T10 on image 65 series 3. Multilevel degenerative changes about the spine. Ill-defined sclerosis involves anterior aspect of the T10 vertebral body measuring 10 mm, image 66 series 3.Lucent lesion of the sacral promontory measuring 9 mm. Ill-defined lucent lesion involves the posterior aspect of the T8 vertebral body. IMPRESSION: 1. 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 Small right and trace left pleural effusions are likely malignant. 2. Multiple ill-defined small lesions about the liver measuring up to 1.1 cm are suspicious for hepatic metastasis. 3. Sclerotic lesion of the T10 vertebral body with lucent lesions of the T8 and S1 vertebral bodies suggest mixed lytic and sclerotic metastasis. Acute nondisplaced fracture of the right transverse process T10 is suspicious for a pathologic fracture. Oncology consultation is needed. 4. Nonobstructing left-sided nephrolithiasis. 5. Additional incidental findings as above. The above report was generated using voice recognition software. It may contain grammatical, syntax or spelling errors. Electronically signed by: Benny Miller M.D. 02/18/2018 8:17 PM Dictated Date/Time: 02/18/2018 8:03 PM
--- NOTE | 2018-02-18 21:12 | DIAGNOSTIC IMAGING REPORT ---
CHEST 2 VIEWS ROUTINE HISTORY: 72 years-old Female persistent cough acute cough COMPARISON: Chest radiograph 01/26/2018 TECHNIQUE: Portable AP view of the chest FINDINGS: Cardiac silhouette is mildly enlarged. Pulmonary vascular congestion with mild interstitial coarsening. Small bilateral pleural effusions with subsegmental bibasilar opacities and mild right hemidiaphragmatic elevation. No pneumothorax. Bilateral shoulder arthroplasties. Surgical clips project over the right axilla. Multilevel degenerative changes about the spine. IMPRESSION: 1. Cardiomegaly with mild pulmonary edema and small bilateral pleural effusions. 2. Subsegmental bibasilar opacities favor atelectasis. 3. Unchanged elevation of the right hemidiaphragm. The above report was generated using voice recognition software. It may contain grammatical, syntax or spelling errors. Electronically signed by: Benny Miller M.D. 02/18/2018 9:11 PM Dictated Date/Time: 02/18/2018 9:09 PM
[2018-02-18] MEDS ORDERED: LIDODERM (LIDOCAINE) PATCH 5% TD STA (21:51)
[2018-02-18] MEDS ORDERED: KETOROLAC TROMETHAMINE 30 MG/ML VIAL IV STA (21:51)
[2018-02-18] MEDS ORDERED: LDDP5 TD (22:12)
[2018-02-18 22:32] VITALS: BP 137/89; PULSE 82; O2SAT 95
== END 2018-02-18 22:59 | disposition home or self-care (01) ==
LOC: C.EDB 17:41 → C.EDA 22:59
DX: M54.9 Dorsalgia, unspecified (principal); E11.65 Type 2 diabetes mellitus with hyperglycemia; I10 Essential (primary) hypertension; F41.9 Anxiety disorder, unspecified; Z79.82 Long term (current) use of aspirin; Z79.4 Long term (current) use of insulin; Z79.899 Other long term (current) drug therapy; Z88.8 Allergy status to other drugs, medicaments and biological substances; Z91.048 Other nonmedicinal substance allergy status

== ENCOUNTER → 2018-02-21 | Outpatient (CLI) | payer OTHER, BC ==
[~2018-02-21] MED LIST changes: -CLON0.5T3 PO; +LDDP5 TD; +NVLGI/PEN SC; +OPTIRAY 320 IV PRN
--- NOTE | 2018-02-21 16:04 | DIAGNOSTIC IMAGING REPORT ---
CT HEAD COMBO CT DOSE: 1359.50 mGycm TECHNIQUE: Noncontrast images were obtained through the brain in the axial plane. The sequence was repeated following administration of 93 Optiray 320. A dose lowering technique was utilized adhering to the principles of ALARA. HISTORY: Persistent headache COMPARISON: April 21, 2015 FINDINGS: No intra or extra-axial mass lesions are visualized. There is no CT evidence of acute cortical infarction. There is no evidence of midline shift. There is no acute hemorrhage. No calvarial fractures are visualized. There are minor white matter hypodensities likely on a small vessel basis. There is no evidence of pathologic ventricular dilatation. There is a right mastoid effusion. Postcontrast images reveal no pathologically enhancing masses. IMPRESSION: 1. Right mastoid effusion consistent with mastoiditis 2. Otherwise no acute intracranial findings. Electronically signed by: Nato Jamison M.D. 02/21/2018 4:02 PM Dictated Date/Time: 02/21/2018 4:00 PM
== END | disposition home or self-care (01) ==
LOC: C.CTS 15:35
PROVIDERS: ATTEND Neuromusculoskeletal Medicine & OMM
DX: R51 Headache (principal); H74.91 Unspecified disorder of right middle ear and mastoid

== ENCOUNTER → 2018-03-02 | Outpatient (CLI) | payer OTHER, BC ==
[~2018-03-02] MED LIST changes: +HYDR-3419 PO; +NITR100C43 PO; -OPTIRAY 320 IV PRN
[2018-03-02 16:53] LABS: HEMOGLOBIN A1C 6.5 % (4.5-5.6)
[2018-03-02 17:09] LABS: ALBUMIN 3.3 gm/dl (3.4-5.0); ALKALINE PHOSPHATASE 97 U/L (45-117); ALT/SGPT 26 U/L (12-78); AST/SGOT 26 U/L (15-37); BLOOD UREA NITROGEN 20 mg/dl (7-18); CARBON DIOXIDE 34 mmol/L (21-32); CHOLESTEROL 136 mg/dl (0-200); CREATININE 1.06 mg/dl (0.60-1.20); GLUCOSE 121 mg/dl (70-99); LDL CHOLESTEROL CALCULATED 52 mg/dl; POTASSIUM 4.4 mmol/L (3.5-5.1); SODIUM 138 mmol/L (136-145); TOTAL PROTEIN 7.6 gm/dl (6.4-8.2)
== END | disposition home or self-care (01) ==
LOC: C.LABBFT 12:03
PROVIDERS: ATTEND Physician Assistant
DX: E11.9 Type 2 diabetes mellitus without complications (principal); R39.9 Unspecified symptoms and signs involving the genitourinary system

== ENCOUNTER → 2018-03-07 | Outpatient (CLI) | payer OTHER, BC ==
[~2018-03-07] MED LIST changes: -LDDP5 TD
--- NOTE | 2018-03-08 07:19 | DIAGNOSTIC IMAGING REPORT ---
PET/CT CLINICAL HISTORY: Breast cancer. TECHNIQUE: A PET/CT was performed from the skull base through the upper thighs following intravenous injection of 10.59 mCi of F 18 FDG IV. The injection was performed at 11:59 AM on March 07, 2018 and imaging began at 1:02 PM on March 07, 2018. Unenhanced CT was performed for attenuation correction purposes and anatomic localization. COMPARISON STUDY: Chest CT January 14, [address] of the abdomen and pelvis February 18, 2018. FINDINGS: Head and neck: No enlarged cervical lymph nodes are identified. There is no abnormal FDG uptake within the neck. Chest: The patient is status post right mastectomy. Note is made of a 2.9 x 3.2 cm right inferior axillary mass which demonstrates mild FDG uptake with an SUV max of 4.8. This is immediately inferior to right axillary surgical clips and is new since chest CT of January 14, 2015. Small right and trace left pleural effusions demonstrate mild FDG uptake with an SUV max of 3.7. There are numerous small pleural-based nodules as well as innumerable small pulmonary nodules, including an 8 mm left upper lobe nodule shown on image 68 which has mild FDG uptake within SUV max of 3.7. Interlobular septal thickening is noted within the lower lungs. There is a borderline enlarged subcarinal lymph node that measures 1 cm short axis diameter. The heart is mildly enlarged. There is no pericardial effusion. Lungs are suboptimally assessed due to respiratory motion. Abdomen and Pelvis: The multiple hepatic lesions shown on CT of February 18, 2018 are not well visualized on this exam due to artifact. These do not demonstrate FDG uptake above that of background liver parenchyma. However, these remain suspicious for metastatic disease. There is a 1.1 cm left renal calculus. No enlarged abdominal or pelvic lymph nodes are present. Note is made of a focus of moderate radiotracer uptake along the left lateral aspect of the rectum shown on image 175 within SUV max of 7.5. There is no correlate on the CT portion of the study and this finding is indeterminate. A pessary device is in place. Musculoskeletal: Note is made of numerous sclerotic and lytic skeletal lesions. These include a 1.3 cm left occipital bone lesion shown on image 11 that has an SUV max of 4.6, a small sclerotic T8 vertebral body lesion, a 1.5 cm sclerotic T10 vertebral body lesion, a fracture, likely pathologic, of the right transverse process of T10, a 1.6 cm lytic S1 vertebral body lesion and a mixed lytic and sclerotic left pubic bone lesion that has an SUV max of 7. Numerous smaller lesions are noted which demonstrate mild FDG uptake. IMPRESSION: 1. Findings consistent with extensive pulmonary, pleural and skeletal metastatic disease which demonstrates mild FDG uptake, with a suspected pathologic fracture of the right transverse process of T10. Small right and trace left pleural effusions which are likely malignant. Previously described small hepatic lesions not well visualized on this exam but suspicious for hepatic metastases. The findings suggest recurrent metastatic breast cancer. 2. Status post right mastectomy. Mild FDG uptake within a 3.2 x 2.9 cm inferior right axillary mass adjacent to surgical clips suggestive of local recurrent tumor. Electronically signed by: Chema Sutton M.D. 03/08/2018 7:18 AM Dictated Date/Time: 03/07/2018 3:02 PM
== END | disposition home or self-care (01) ==
LOC: C.PET 11:12
PROVIDERS: ATTEND Internal Medicine Hematology & Oncology
DX: C50.111 Malignant neoplasm of central portion of right female breast (principal)

== ENCOUNTER → 2018-05-08 | Outpatient (CLI) | payer OTHER, BC ==
[~2018-05-08] MED LIST changes: +ACET-1256 PO; -ACET-24 PO; +ANAS1TAB59 PO; +ATRINS NEB; +FURO-85 PO; +LEVA45AE INH; -NITR100C43 PO; -NVLGI/PEN SC
== END | disposition home or self-care (01) ==
LOC: C.LAB1850 13:48
PROVIDERS: ATTEND Internal Medicine Infectious Disease
DX: N39.0 Urinary tract infection, site not specified (principal)

== ENCOUNTER → 2018-06-05 | Outpatient (CLI) | payer OTHER, BC ==
[~2018-06-05] MED LIST changes: -ACET-1256 PO; +ACET1TAB84 PO; -ASPI-320 PO; +ASPI81TA28 PO; -FURO-85 PO; -HYDR-3419 PO; +OXGN INH
--- NOTE | 2018-06-05 13:41 | DIAGNOSTIC IMAGING REPORT ---
CHEST 2 VIEWS ROUTINE CLINICAL HISTORY: Preoperative chest. Breast carcinoma. COMPARISON STUDY: 02/18/2018 FINDINGS: The heart is mildly enlarged. There is persistent focal eventration of the right hemidiaphragm. There is mild vascular prominence without evidence of overt failure. There is a small right pleural effusion. There is no lobar consolidation. Surgical clips projected of the right axillary region. There are bilateral shoulder arthroplasties.[ IMPRESSION: 1. Mild cardiomegaly with mild vascular prominence and a small right pleural effusion 2. Persistent eventration right hemidiaphragm 3. No evidence of lobar consolidation Electronically signed by: Nato Jamison M.D. 06/05/2018 1:39 PM Dictated Date/Time: 06/05/2018 1:37 PM
[2018-06-05 14:37] LABS: BASO % 0.3 %; BASO ABS # 0.03 K/uL (0-0.2); EOS % 2.8 %; EOS ABS # 0.24 K/uL (0-0.5); HEMATOCRIT 40.2 % (37-47); HEMOGLOBIN 12.8 g/dL (12.0-16.0); IG# 0.02 K/uL (0.00-0.02); LYMPH % 15.6 %; LYMPH ABS # 1.35 K/uL (1.2-3.4); MEAN CELL VOLUME 105.2 fL (80-100); MEAN CORPUSCULAR HEMOGLOBIN 33.5 pg (25-34); MEAN CORPUSCULAR HGB CONC 31.8 g/dl (32-36); MEAN PLATELET VOLUME 9.9 fL (7.4-10.4); MONO % 6.2 %; MONO ABS # 0.54 K/uL (0.11-0.59); NEUT % 74.9 %; PLATELET COUNT 246 K/uL (130-400); RED CELL DISTRIBUTION WIDTH CV 12.6 % (11.5-14.5); RED CELL DISTRIBUTION WIDTH SD 48.5 fL (36.4-46.3); WHITE BLOOD COUNT 8.68 K/uL (4.8-10.8)
[2018-06-05 15:00] LABS: BLOOD UREA NITROGEN 23 mg/dl (7-18); CALCIUM 10.1 mg/dl (8.5-10.1); CARBON DIOXIDE 32 mmol/L (21-32); CREATININE 0.84 mg/dl (0.60-1.20); GLUCOSE 105 mg/dl (70-99); POTASSIUM 4.6 mmol/L (3.5-5.1); SODIUM 138 mmol/L (136-145)
== END | disposition home or self-care (01) ==
LOC: C.CPL 12:16
PROVIDERS: ATTEND Neuromusculoskeletal Medicine & OMM
DX: Z01.818 Encounter for other preprocedural examination (principal)

== ENCOUNTER 2018-11-16 18:53 | Inpatient (IN) ==
[2018-11-16] MEDS ORDERED: PIPERACILL/TAZOBAC CONSULT ACTIVE PRN ×2 (19:22→23:13)
[2018-11-16] MEDS ORDERED: PIPERACILLIN/TAZOBACTAM 4.5 GM/120 ML BAG IV ONE (19:22)
--- NOTE | 2018-11-16 19:26 | Emergency Department Note ---
Entered by Garrett Allison acting as a scribe for Isaías Quintanilla DO History of Present Illness General Chief complaint: Need IV Start Stated complaint: IV NEEDS STARTED FOR INFECTION- WAS CALLED BACK Source: patient and family History of Present Illness Provider complaint: Confusion Onset (ago): day(s) 2 Location: head (confusion) Maximum Pain Intensity: 8 Associated symptoms: + denies other symptoms (back pain) and + other (cramping in lower abdomen, dry mouth, mucous); no fever/chills The patient is a 73 year old female who presents to the Emergency Room with complaints of confusion. The patient states she was in the ED 2 days ago. The daughter, who was in the room, stated she was hallucinating and saw people in her house that were not there. The daughter notes that the patient still is confused. The patient added she received a phone call from someone in the ED to come back in to be seen. The patients notes she has cramping in her lower abdomen and adds that it radiates to her upper abdomen. The patient rates her pain as an 8/10. The patients also reports she has a dry mouth and mucous. The patient denies fevers/chills, back pain. She also states she does not know if she is emptying her bladder. Home Medications Home Medications Medication Instructions Recorded Confirmed Type multivitamin with minerals [Daily 1 tab PO QAM #0 06/18/07 11/16/18 History Multivitamin-Minerals] mirabegron [Myrbetriq] 50 mg PO QAM #0 11/27/13 11/16/18 History ropinirole 0.5 mg PO HS PRN #0 12/18/14 11/16/18 History propranolol 80 mg PO QAM #0 12/22/14 11/16/18 History buspirone 15 mg PO TID #0 tab 11/21/15 11/16/18 History polyethylene glycol 3350 [Miralax] 17 g PO DAILY PRN #255 g 03/21/17 11/16/18 History albuterol sulfate [Proventil HFA] 2 puff INHALATION Q4H PRN #0 01/22/18 History insulin aspart U-100 [Novolog 45 unit SUBCUT BID #0 01/22/18 11/16/18 History Flexpen U-100 Insulin] insulin glargine [Lantus U-100 65 unit SUBCUT QAM #0 01/22/18 11/16/18 History Insulin] anastrozole 1 mg PO HS 90 Days #0 tab 04/17/18 11/16/18 History ipratropium-albuterol 3 ml INHALATION QID PRN 30 Days 04/17/18 11/16/18 History #300 ml acetaminophen 1,300 mg PO BID #0 cap 06/01/18 11/16/18 History aspirin [Aspirin Low Dose] 81 mg PO QAM #0 06/01/18 11/16/18 History atorvastatin 20 mg PO HS 08/07/18 11/16/18 History docusate sodium [Stool Softener] 200 mg PO DAILY 08/07/18 11/16/18 History ipratropium-albuterol [Combivent 1 puff INHALATION QID 08/07/18 11/16/18 History Respimat] tiotropium bromide [Spiriva with 1 cap INHALATION DAILY 08/07/18 11/16/18 History HandiHaler] Saccharomyces boulardii [Florastor] 250 mg PO BID #20 cap 11/14/18 11/16/18 Rx ascorbic acid (vitamin C) [Vitamin 500 mg PO QPM 11/14/18 11/16/18 History C] calcium carbonate [Calcium 600] 600 mg PO DAILY 11/14/18 11/16/18 History cephalexin 500 mg PO BID 7 Days #14 cap 11/14/18 11/16/18 Rx cholecalciferol (vitamin D3) 400 unit PO BID 11/14/18 11/16/18 History [Vitamin D3] duloxetine 60 mg PO DAILY 11/14/18 11/16/18 History furosemide 20 mg PO DAILY PRN 11/14/18 11/16/18 History glucosamine tsai 2KCl-chondroit 1 tab PO BID 11/14/18 11/16/18 History [Glucosamine-Chondroitin 3X Str] nitrofurantoin macrocrystal 100 mg PO DAILY 11/14/18 11/16/18 History omega 5-bcp-iex-fish oil [Fish Oil] 1 cap PO DAILY 11/14/18 11/16/18 History potassium 99 mg PO DAILY 11/14/18 11/16/18 History solifenacin [Vesicare] 10 mg PO DAILY 11/14/18 11/16/18 History cranberry 500 mg PO DAILY 11/16/18 11/16/18 History levalbuterol HCl 1.25 mg INHALATION Q4 PRN 11/16/18 11/16/18 History Allergies Allergy/AdvReac Type Severity Reaction Status Date / Time Sulfa (Sulfonamide Allergy Rash Verified 11/16/18 21:11 Antibiotics) albiglutide AdvReac Diarrhea Verified 11/16/18 21:11 codeine AdvReac Nausea Verified 11/16/18 21:11 metformin AdvReac Diarrhea Verified 11/16/18 21:11 morphine AdvReac Nausea Verified 11/16/18 21:11 sorbitan esters AdvReac Diarrhea Verified 11/16/18 21:11 SKIN ADORE Allergy Unknown Uncoded 11/16/18 21:11 Past Med/Surg History Medical History DVT prophylaxis Breast cancer Breast cancer metastasized to bone (~02/18/18) "Treatment: Status post completion of palliative radiation therapy to the thoracic spine March 19, 2018. She received 3000 cGy." Breast cancer metastasized to liver Diabetic peripheral neuropathy associated with type 2 diabetes mellitus History of difficult intubation H/O GLIDESCOPE #3 History of kidney stones Chronic obstructive pulmonary disease USES INHALER DAILY, ON 5L O2 AT ALL TIMES Sleep apnea CPAP Anxiety Depression Cancer RIGHT BREAST--S/P R MASTECTOMY/CHEMO/XRT ~20yrs ago RE-OCCURRENCE WITH METS TO BONE AND VISCERA 02/2018 Diabetes mellitus, type 2 IDDM Osteoarthritis Chronic back pain HX RUPTURED DISCS Diabetic neuropathy B/L FEET Restless leg syndrome Morbid obesity Chronic respiratory failure 5L OXYGEN CONTINUOUS Hyperparathyroidism S/P ATTEMPTED PARATHYROIDECTOMY--COULD NOT LOCATE 1-2 GLANDS Recurrent UTI MOST RECENT 04/2018, REQUIRING PICC LINE FOR OUTPATIENT ANTIBIOTIC TREATMENT Glaucoma (Chronic) LEGALLY BLIND IN RIGHT EYE Surgical History History of appendectomy History of nasal septoplasty History of cataract surgery BILATERAL History of total shoulder replacement BILATERAL History of mastectomy RIGHT, WITH LYMPH NODE DISSECTION History of hysterectomy BSO/BLADDER TACK History of carpal tunnel release H/O parathyroidectomy H/O difficult intubation GLIDESCOPE #3 Glidescope #3 Social History (Reviewed 11/16/18 @ 23:44 by Garrett Cordova Current Living Situation: Family Current Living Situation Comment: daughter's and children live with her Other Information That Helps Us Care for You: No Feels Safe at Home: Yes Safety Concerns: Feels Safe At This Time Smoking Status: Never smoker Hx Alcohol Use: No Hx Substance Use: No Beliefs That Will Affect Care: None Communication Ability: Effective Review of Systems See HPI for pertinent positives & negatives. and A total of 10 systems reviewed and were otherwise negative Physical Exam Vital Signs Vital Signs - 24 hr 11/16/18 19:07 11/16/18 19:22 11/16/18 20:54 Temperature 36.4 C L Temperature Source Oral Sepsis Recent Fever Within 48 Hours No Sepsis Action Taken by Nursing No Action Required Pulse Rate 86 82 Pulse Rate [Right Finger] 73 Pulse Rhythm [Right Finger] Regular Respiratory Rate 18 20 Respiratory Effort / Characteristics Non-Labored Spontaneous Non-Labored Spontaneous Respiratory Depth Normal Normal Respiratory Pattern Regular Regular Blood Pressure 115/70 Blood Pressure [Left Arm] Blood Pressure [Right Arm] 154/90 H Blood Pressure Mean 85 Blood Pressure Mean [Left Arm] Blood Pressure Mean [Right Arm] 111 Blood Pressure Position Sitting Blood Pressure Position [Left Arm] Blood Pressure Position [Right Arm] Sitting Pulse Oximetry 93 94 96 Oxygen Delivery Method Nasal Cannula Nasal Cannula Nasal Cannula Oxygen Flow Rate 5 5 5 11/16/18 22:00 11/16/18 22:45 11/17/18 01:00 Temperature 36.6 C Temperature Source Oral Sepsis Recent Fever Within 48 Hours Sepsis Action Taken by Nursing Pulse Rate Pulse Rate [Right Finger] 87 82 Pulse Rhythm [Right Finger] Respiratory Rate 20 26 H Respiratory Effort / Characteristics Non-Labored Spontaneous SOB on Exertion Non-Labored SOB on Exertion Respiratory Depth Normal Normal Respiratory Pattern Regular Tachypnea Blood Pressure Blood Pressure [Left Arm] Blood Pressure [Right Arm] 141/79 H 120/79 Blood Pressure Mean Blood Pressure Mean [Left Arm] Blood Pressure Mean [Right Arm] 99 92 Blood Pressure Position Blood Pressure Position [Left Arm] Blood Pressure Position [Right Arm] Lying Pulse Oximetry 94 98 Oxygen Delivery Method Nasal Cannula Nasal Cannula Oxygen Flow Rate 5 5 11/17/18 07:45 11/17/18 08:40 11/17/18 14:46 Temperature 36.6 C 36.7 C Temperature Source Oral Oral Sepsis Recent Fever Within 48 Hours Sepsis Action Taken by Nursing Pulse Rate Pulse Rate [Right Finger] 81 76 Pulse Rhythm [Right Finger] Respiratory Rate 18 20 Respiratory Effort / Characteristics Non-Labored Spontaneous Respiratory Depth Normal Respiratory Pattern Regular Blood Pressure Blood Pressure [Left Arm] 120/77 106/67 Blood Pressure [Right Arm] Blood Pressure Mean Blood Pressure Mean [Left Arm] 91 80 Blood Pressure Mean [Right Arm] Blood Pressure Position Blood Pressure Position [Left Arm] Lying Sitting Blood Pressure Position [Right Arm] Pulse Oximetry 96 93 Oxygen Delivery Method Nasal Cannula Nasal Cannula Nasal Cannula Oxygen Flow Rate 5 5 5 GENERAL: Patient is awake alert in no acute distress patient is resting comfortably and showing no signs of anxiety EYES: The conjunctivae are clear. The pupils are round and reactive. EARS, NOSE, MOUTH AND THROAT: The nose is without any evidence of any deformity. Mucous membranes are moist tongue is midline NECK: The neck is nontender and supple. RESPIRATORY: Normal respiratory effort is noted there is no evidence of wheezing rhonchi or rales CARDIOVASCULAR: Regular rate and rhythm noted there no murmurs rubs or gallops normal S1 normal S2 GASTROINTESTINAL: The abdomen is soft. Bowel sounds are present in all quadrants. Abdomen is nontender BACK: No midline tenderness or or step-off noted range of motion in flexion extension as well as rotation no signs of muscle spasm noted MUSCULOSKELETAL/EXTREMITIES: There is no evidence of gross deformity full range of motion is noted in the hips and shoulders SKIN: There is no obvious evidence of any rash. Trace pedal edema was noted bilaterally. NEUROLOGIC: Patient is awake alert and oriented to person place but not time. Strength was symmetric. Course 1915: Past medical records reviewed. The patient was evaluated in room B07, and a complete history and physical examination were performed. 2110: I reevaluated the patient. 2115: I reviewed the patient's case with Dr. Olivier- [facility] Hospitalist. He will evaluate the patient for further management. Administered Medications Acetaminophen (Tylenol) 1,000 mg PO BID [facility] Stop: 12/17/18 08:59 Last Admin: 11/17/18 08:41 Dose: 1,000 mg Aspirin (Ecotrin Ectab) 81 mg PO QAM [facility] Stop: 12/17/18 08:59 Last Admin: 11/17/18 08:38 Dose: 81 mg Buspirone HCl (Buspar) 15 mg PO TID [facility] Stop: 12/17/18 08:59 Last Admin: 11/17/18 13:07 Dose: 15 mg Admin: 11/17/18 08:38 Dose: 15 mg Docusate Sodium (Colace) 200 mg PO DAILY [facility] Stop: 12/17/18 08:59 Last Admin: 11/17/18 08:40 Dose: 200 mg Duloxetine HCl (Cymbalta) 60 mg PO DAILY [facility] Stop: 12/17/18 08:59 Last Admin: 11/17/18 08:39 Dose: 60 mg Heparin Sodium (Porcine) (Heparin Sodium (Porcine)) 5,000 units SQ Q8 [facility] Stop: 12/17/18 08:14 Last Admin: 11/17/18 13:09 Dose: 5,000 units Admin: 11/17/18 09:26 Dose: 5,000 units Piperacillin Sod/Tazobactam Sod (Zosyn) 4.5 gm in 120 mls @ 30 mls/hr IV Q8H [facility] Stop: 11/27/18 01:59 Last Infusion: 11/17/18 13:43 Dose: 0 mls/hr Admin: 11/17/18 09:30 Dose: 30 mls/hr Infusion: 11/17/18 08:42 Dose: 0 mls/hr Admin: 11/17/18 04:27 Dose: 30 mls/hr Insulin Aspart (Novolog Flexpen) 0 units SC ACHS [facility] Stop: 12/17/18 07:29 Last Admin: 11/17/18 13:12 Dose: 5 units Admin: 11/17/18 08:45 Dose: 1 units Insulin Glargine (Lantus Solostar Pen) 40 units SQ QAM [facility] Stop: 12/17/18 11:59 Last Admin: 11/17/18 13:08 Dose: 40 units Mirabegron (Myrbetriq Er) 50 mg PO QAM [facility] Stop: 12/17/18 08:59 Last Admin: 11/17/18 08:40 Dose: 50 mg Propranolol HCl (Inderal La) 80 mg PO QAM [facility] Stop: 12/17/18 08:59 Last Admin: 11/17/18 08:39 Dose: 80 mg Saccharomyces Boulardii (Florastor) 250 mg PO BID [facility] Stop: 12/17/18 08:59 Last Admin: 11/17/18 08:38 Dose: 250 mg Tiotropium [place] (Spiriva) 1 puffs INH DAILY [facility] Stop: 12/17/18 08:59 Last Admin: 11/17/18 08:41 Dose: 1 puffs Discontinued Medications Piperacillin Sod/Tazobactam Sod (Zosyn) 4.5 gm in 120 mls @ 240 mls/hr IV NOW ONE Stop: 11/16/18 19:51 Last Infusion: 11/16/18 22:30 Dose: 0 mls/hr Admin: 11/16/18 21:08 Dose: 240 mls/hr Sodium Chloride (Nss 1000ml) 1,000 mls @ 999 mls/hr IV .Q1H1M [facility] Stop: 11/16/18 20:30 Last Infusion: 11/16/18 22:30 Dose: 0 mls/hr Admin: 11/16/18 21:10 Dose: 999 mls/hr Miscellaneous (Patient's Height And/Or Weight Needed) 1 ea N/A Q2H [facility] Stop: 11/17/18 06:00 Last Admin: 11/17/18 09:44 Dose: Not Given Admin: 11/17/18 00:56 Dose: 1 ea Medical Decision Making Differential Diagnosis Etiologies such as appendicitis, diverticulitis, obstruction, inflammatory bowel disease, renal colic, PUD, biliary pathology, pancreatitis, mesenteric ischemia, aortic pathology, infections, genitourinary, UTI, perforated viscus, as well as others were entertained. Medical Records Attestation: I reviewed the patient's medical records. Home Medications Current Medication List: was personally reviewed by me Laboratory Data Attestation: I reviewed the patient's lab results. Result diagrams: 11/16/18 20:40 11/17/18 07:08 Lab Results 11/16/18 11/16/18 11/16/18 Range/Units 20:40 20:40 21:30 WBC 10.16 (4.8-10.8) K/uL RBC 3.93 L (4.2-5.4) M/uL Hgb 13.3 (12.0-16.0) g/dL Hct 40.4 (37-47) % MCV 102.8 H (80-100) fL MCH 33.8 (25-34) pg MCHC 32.9 (32-36) g/dL RDW Std Deviation 48.5 H (36.4-46.3) fL RDW Coeff of Angélica 12.8 (11.5-14.5) % Plt Count 295 (130-400) K/uL MPV 9.6 (7.4-10.4) fL Immature Gran % (Auto) 0.2 % Neut % (Auto) 71.4 % Lymph % (Auto) 16.8 % Benzie % (Auto) 8.5 % Eos % (Auto) 2.6 % Baso % (Auto) 0.5 % Immature Gran # (Auto) 0.02 (0.00-0.02) K/uL Neut # (Auto) 7.26 H (1.4-6.5) K/uL Lymph # (Auto) 1.71 (1.2-3.4) K/uL Benzie # (Auto) 0.86 H (0.11-0.59) K/uL Eos # (Auto) 0.26 (0-0.5) K/uL Baso # (Auto) 0.05 (0-0.2) K/uL PT (9.0-12.0) Seconds INR (0.9-1.1) Sodium 139 (136-145) mmol/L Potassium 4.2 (3.5-5.1) mmol/L Chloride 104 (98-107) mmol/L Carbon Dioxide 30 (21-32) mmol/L Anion Gap 6.0 (3-11) BUN 22 H (7-18) mg/dl Creatinine 1.21 H (0.6-1.2) mg/dl Est Cr Clr Drug Dosing Not Reportable Est GFR ( Amer) 51.4 Est GFR (Non-Af Amer) 44.4 BUN/Creatinine Ratio 17.9 (10-20) Glucose 69 L (70-99) mg/dl POC Glucose (70-99) Calcium 10.3 H (8.5-10.1) mg/dl Total Bilirubin 0.2 (0.2-1) mg/dl AST 29 (15-37) U/L ALT 31 (12-78) U/L Alkaline Phosphatase 110 (45-117) U/L Total Protein 7.8 (6.4-8.2) gm/dl Albumin 3.6 (3.4-5.0) gm/dl Globulin 4.2 H (2.5-4.0) gm/dl Albumin/Globulin Ratio 0.9 (0.9-2) Lipase 68 L (73-393) U/L Urine Color Yellow Urine Appearance Cloudy H (Clear) Urine pH 7.0 (4.5-7.5) Ur Specific [place] 1.015 (1.000-1.030) Urine Protein Trace H (Negative) Urine Glucose (UA) Negative (Negative) Urine Ketones Negative (Negative) Urine Blood Trace H (Negative) Urine Nitrite Negative (Negative) Urine Bilirubin Negative (Negative) Urine Urobilinogen Negative (Negative) Ur Leukocyte Esterase 3+ H (Negative) Urine WBC (Auto) >30 H (0-5) /hpf Urine RBC (Auto) 0-4 (0-4) /hpf U Hyaline Cast (Auto) 1-5 (0-5) /lpf U Epithel Cells (Auto) 10-20 H (0-5) /lpf Urine Bacteria (Auto) Negative (Negative) Urine Crystals Calcium Oxalate H (None Prsent) Calcium Oxalate Crystal Present H (None Prsent) 11/17/18 11/17/18 11/17/18 Range/Units 01:55 07:08 07:08 WBC (4.8-10.8) K/uL RBC (4.2-5.4) M/uL Hgb (12.0-16.0) g/dL Hct (37-47) % MCV (80-100) fL MCH (25-34) pg MCHC (32-36) g/dL RDW Std Deviation (36.4-46.3) fL RDW Coeff of Angélica (11.5-14.5) % Plt Count (130-400) K/uL MPV (7.4-10.4) fL Immature Gran % (Auto) % Neut % (Auto) % Lymph % (Auto) % Benzie % (Auto) % Eos % (Auto) % Baso % (Auto) % Immature Gran # (Auto) (0.00-0.02) K/uL Neut # (Auto) (1.4-6.5) K/uL Lymph # (Auto) (1.2-3.4) K/uL Benzie # (Auto) (0.11-0.59) K/uL Eos # (Auto) (0-0.5) K/uL Baso # (Auto) (0-0.2) K/uL PT 11.0 (9.0-12.0) Seconds INR 1.1 (0.9-1.1) Sodium 141 (136-145) mmol/L Potassium 3.9 (3.5-5.1) mmol/L Chloride 105 (98-107) mmol/L Carbon Dioxide 29 (21-32) mmol/L Anion Gap 7.0 (3-11) BUN 18 (7-18) mg/dl Creatinine 0.94 (0.6-1.2) mg/dl Est Cr Clr Drug Dosing 53.0 Est GFR ( Amer) 69.8 Est GFR (Non-Af Amer) 60.2 BUN/Creatinine Ratio 18.8 (10-20) Glucose 107 H (70-99) mg/dl POC Glucose 97 (70-99) Calcium 9.7 (8.5-10.1) mg/dl Total Bilirubin (0.2-1) mg/dl AST (15-37) U/L ALT (12-78) U/L Alkaline Phosphatase (45-117) U/L Total Protein (6.4-8.2) gm/dl Albumin (3.4-5.0) gm/dl Globulin (2.5-4.0) gm/dl Albumin/Globulin Ratio (0.9-2) Lipase (73-393) U/L Urine Color Urine Appearance (Clear) Urine pH (4.5-7.5) Ur Specific [place] (1.000-1.030) Urine Protein (Negative) Urine Glucose (UA) (Negative) Urine Ketones (Negative) Urine Blood (Negative) Urine Nitrite (Negative) Urine Bilirubin (Negative) Urine Urobilinogen (Negative) Ur Leukocyte Esterase (Negative) Urine WBC (Auto) (0-5) /hpf Urine RBC (Auto) (0-4) /hpf U Hyaline Cast (Auto) (0-5) /lpf U Epithel Cells (Auto) (0-5) /lpf Urine Bacteria (Auto) (Negative) Urine Crystals (None Prsent) Calcium Oxalate Crystal (None Prsent) 11/17/18 11/17/18 11/17/18 Range/Units 07:48 11:31 16:53 WBC (4.8-10.8) K/uL RBC (4.2-5.4) M/uL Hgb (12.0-16.0) g/dL Hct (37-47) % MCV (80-100) fL MCH (25-34) pg MCHC (32-36) g/dL RDW Std Deviation (36.4-46.3) fL RDW Coeff of Angélica (11.5-14.5) % Plt Count (130-400) K/uL MPV (7.4-10.4) fL Immature Gran % (Auto) % Neut % (Auto) % Lymph % (Auto) % Benzie % (Auto) % Eos % (Auto) % Baso % (Auto) % Immature Gran # (Auto) (0.00-0.02) K/uL Neut # (Auto) (1.4-6.5) K/uL Lymph # (Auto) (1.2-3.4) K/uL Benzie # (Auto) (0.11-0.59) K/uL Eos # (Auto) (0-0.5) K/uL Baso # (Auto) (0-0.2) K/uL PT (9.0-12.0) Seconds INR (0.9-1.1) Sodium (136-145) mmol/L Potassium (3.5-5.1) mmol/L Chloride (98-107) mmol/L Carbon Dioxide (21-32) mmol/L Anion Gap (3-11) BUN (7-18) mg/dl Creatinine (0.6-1.2) mg/dl Est Cr Clr Drug Dosing Est GFR ( Amer) Est GFR (Non-Af Amer) BUN/Creatinine Ratio (10-20) Glucose (70-99) mg/dl POC Glucose 94 190 H 173 H (70-99) Calcium (8.5-10.1) mg/dl Total Bilirubin (0.2-1) mg/dl AST (15-37) U/L ALT (12-78) U/L Alkaline Phosphatase (45-117) U/L Total Protein (6.4-8.2) gm/dl Albumin (3.4-5.0) gm/dl Globulin (2.5-4.0) gm/dl Albumin/Globulin Ratio (0.9-2) Lipase (73-393) U/L Urine Color Urine Appearance (Clear) Urine pH (4.5-7.5) Ur Specific [place] (1.000-1.030) Urine Protein (Negative) Urine Glucose (UA) (Negative) Urine Ketones (Negative) Urine Blood (Negative) Urine Nitrite (Negative) Urine Bilirubin (Negative) Urine Urobilinogen (Negative) Ur Leukocyte Esterase (Negative) Urine WBC (Auto) (0-5) /hpf Urine RBC (Auto) (0-4) /hpf U Hyaline Cast (Auto) (0-5) /lpf U Epithel Cells (Auto) (0-5) /lpf Urine Bacteria (Auto) (Negative) Urine Crystals (None Prsent) Calcium Oxalate Crystal (None Prsent) Imaging Data Radiologist's Impression: Radiology results as stated below per my review and the radiologist's interpretation: XR KUB CLINICAL HISTORY: pain COMPARISON STUDY: No previous studies for comparison. FINDINGS: The soft tissues, psoas shadows, renal outlines and intestinal gas pattern appear normal. There is no evidence for bowel obstruction. No abnormal abdominal calcifications are seen. IMPRESSION: Normal study. The above report was generated using voice recognition software. It may contain grammatical, syntax or spelling errors. Electronically signed by: Jose Roberts M.D. 11/16/2018 8:00 PM XR chest 1V portable CLINICAL HISTORY: pain COMPARISON STUDY: 11/14/2017 FINDINGS: Mild stable cardiomegaly. Lungs are considered clear. Postoperative changes right axilla and shoulders bilaterally. IMPRESSION: Chronic change. No acute process. The above report was generated using voice recognition software. It may contain grammatical, syntax or spelling errors. Electronically signed by: Jose Roberts M.D. 11/16/2018 8:01 PM Blood Pressure Blood Pressure Findings: Normal blood pressure MDM Narrative The patient is a 73-year-old female who presented to the emergency department for an evaluation of altered mental status. The patient was seen in our facility recently for similar complaints. At that time she was diagnosed with a urinary tract infection and started on an antibiotic. The patient's urine culture returned today with a multidrug-resistant Pseudomonas. The patient was told to return to the emergency department by the pharmacist in the emergency department. The patient returns tonight with her family member. She was started on Zosyn in the emergency department. I discussed the patient's laboratory and radiographic studies with her. Because of the multi-drug- resistant culture I discussed this case with the on-call [facility] hospitalist. They have agreed to evaluate the patient in the emergency department for further management and disposition. Impression & Plan UTI (urinary tract infection), Altered mental status Discharge Plan Visit Data *Final* Discharge Date/Time: 11/16/18 22:44 Chief Complaint: Need IV Start Stated Complaint: IV NEEDS STARTED FOR INFECTION- WAS CALLED BACK ED Provider: Isaías Quintanilla Discharge Problem: UTI (urinary tract infection), Altered mental status Patient Disposition: Admitted As Inpatient Discharge Instructions Interventions: ED Discharge Assessment Last Done: 11/16/18 22:44 The scribe's documentation has been prepared under my direction and personally reviewed by me in its entirety. I confirm that the note above accurately reflects all work, treatment, procedures, and medical decision making performed by me.
[2018-11-16] MEDS ORDERED: SODIUM CHLORIDE 0.9% 1000ML 1,000 ML IV SCH (19:30)
--- NOTE | 2018-11-16 20:01 | XRay Report ---
XR KUB CLINICAL HISTORY: pain COMPARISON STUDY: No previous studies for comparison. FINDINGS: The soft tissues, psoas shadows, renal outlines and intestinal gas pattern appear normal. T here is no evidence for bowel obstruction. No abnormal abdominal calcifications are seen. IMPRESSION: Normal study. The above report was generated using voice recognition software. It may contain grammatical, syntax or spelling errors. Electronically signed by: Jose Roberts M.D. 11/16/2018 8:00 PM
--- NOTE | 2018-11-16 20:02 | XRay Report ---
XR chest 1V portable CLINICAL HISTORY: pain COMPARISON STUDY: 11/14/2017 FINDINGS: Mild stable cardiomegaly. Lungs are considered clear. Postoperative changes right axilla an d shoulders bilaterally. IMPRESSION: Chronic change. No acute process. The above report was generated using voice recognition software. It may contain grammatical, syntax or spelling errors. Electronically signed by: Jose Roberts M.D. 11/16/2018 8:01 PM
[2018-11-16 21:08] LABS: Basophils # (auto) 0.05 K/uL (0-0.2); Basophils % (auto) 0.5 %; Eosinophils # (auto) 0.26 K/uL (0-0.5); Eosinophils % (auto) 2.6 %; Hematocrit (blood only) 40.4 % (37-47); Hemoglobin 13.3 g/dL (12.0-16.0); Immature Granulocytes # (auto) 0.02 K/uL (0.00-0.02); Immature Granulocytes % (auto) 0.2 %; Lymphocytes # (auto) 1.71 K/uL (1.2-3.4); Lymphocytes % (auto) 16.8 %; Mean Corpuscular Hgb Conc 32.9 g/dL (32-36); Mean Corpuscular Volume 102.8 fL (80-100); Mean Platelet Volume 9.6 fL (7.4-10.4); Monocytes # (auto) 0.86 K/uL (0.11-0.59); Monocytes % (auto) 8.5 %; Neutrophils # (auto) 7.26 K/uL (1.4-6.5); Neutrophils % (auto) 71.4 %; Platelet Count 295 K/uL (130-400); RDW Coefficient of Variation 12.8 % (11.5-14.5); RDW Standard Deviation 48.5 fL (36.4-46.3); Red Blood Count 3.93 M/uL (4.2-5.4); White Blood Count 10.16 K/uL (4.8-10.8)
[2018-11-16 21:18] LABS: Alanine Aminotransferase 31 U/L (12-78); Albumin Level 3.6 gm/dl (3.4-5.0); Aspartate Aminotransferase 29 U/L (15-37); BUN Creatinine Ratio 17.9 (10-20); Blood Urea Nitrogen 22 mg/dl (7-18); Calcium 10.3 mg/dl (8.5-10.1); Carbon Dioxide 30 mmol/L (21-32); Chloride 104 mmol/L (98-107); Est GFR (African American) 51.4; Est GFR (Non-African American) 44.4; Glucose 69 mg/dl (70-99); Potassium 4.2 mmol/L (3.5-5.1); Sodium 139 mmol/L (136-145)
[2018-11-16 21:21] LABS: Albumin Globulin Ratio 0.9 (0.9-2); Alkaline Phosphatase 110 U/L (45-117); Bilirubin,Total 0.2 mg/dl (0.2-1); Globulin 4.2 gm/dl (2.5-4.0); Total Protein 7.8 gm/dl (6.4-8.2)
[2018-11-16 21:46] LABS: Appearance Urine Cloudy (Clear); Bacteria Urine Automated Negative (Negative); Bilirubin Urine Negative (Negative); Color Urine Yellow; Glucose Urine UA Negative (Negative); Ketones Urine Negative (Negative); Leukocyte Esterase Urine 3+ (Negative); Nitrite Urine Negative (Negative); Protein Urine Trace (Negative); Specific Gravity Urine 1.015 (1.000-1.030); Urobilinogen Urine Negative (Negative); WBC Urine Automated >30 /hpf (0-5)
[2018-11-16 21:54] LABS: Calcium Oxalate Crystals Urine Present (None Prsent)
--- NOTE | 2018-11-16 22:24 | History & Physical Report ---
Date of Service November 16, 2018 Assessment & Plan (1) Acute UTI (urinary tract infection): 73 y/o F Hx DM II, HTN, HLD, metastatic breast CA, morbidly obese, COPD, JUANJOSE, depression, history of hallucinations, recurrent UTIs. She was recently diagnosed with a UTI and placed on Keflex pending culture results. She does not report clinical worsening, however, she was called back to the hospital as cultures returned (+) for resistant Pseudomonas. She is not having fevers, rigors or dysuria. 1) UTI - Resistant pseudomonas - we will consult ID as she will likely need a PICC and ZOsyn or other IV agent to allow for DC. Repeat cultures are pending. 2) COPD - 02 and inhalers provided as scheduled - no current evidence of exacerbation 3) JUANJOSE - has brought her CPAP - 16 HS 4) DM II - placed on a SS with daily Lantus 5) Depression - Cont Buspar, Cymbalta 6) HTN - Cont Propranonol 7) HLD - Cont Statin 8) Hallucinations - Cause remains unclear - she tolerates these and states they may be coinciding with infection. Full code - Heparin prophylaxis Total time for this admit including review of labs, meds, imaging, records - discussion with pt and ER attending History of Present Illness Chief Complaint: Resistant UTI Primary Care Provider: Selvin Walker, 73 y/o F Hx DM II, HTN, HLD, metastatic breast CA, morbidly obese, COPD, JUANJOSE, depression, history of hallucinations, recurrent UTIs. She was recently diagnosed with a UTI and placed on Keflex pending culture results. She does not report clinical worsening, however, she was called back to the hospital as cultures returned (+) for resistant Pseudomonas. She is not having fevers, rigors or dysuria. PMH: 1) DM II 2) COPD - dependent on 5L 02 continuous 3) JUANJOSE - CPAP @ 16 HS 4) Morbid obesity 5) HTN 6) Hallucinations - undetermined cause - states they may coincide with infection. She has well-formed visual hallucinations. 7) Depression 8) Metastatic breast cancer - liver mets - follows with Dr. 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 Allergies Allergy/AdvReac Type Severity Reaction Status Date / Time Sulfa (Sulfonamide Allergy Rash Verified 11/16/18 21:11 Antibiotics) albiglutide AdvReac Diarrhea Verified 11/16/18 21:11 codeine AdvReac Nausea Verified 11/16/18 21:11 metformin AdvReac Diarrhea Verified 11/16/18 21:11 morphine AdvReac Nausea Verified 11/16/18 21:11 sorbitan esters AdvReac Diarrhea Verified 11/16/18 21:11 SKIN ADORE Allergy Unknown Uncoded 11/16/18 21:11 Home Medications Home Medications Medication Instructions Recorded Confirmed Type multivitamin with minerals [Daily 1 tab PO QAM #0 06/18/07 11/16/18 History Multivitamin-Minerals] mirabegron [Myrbetriq] 50 mg PO QAM #0 11/27/13 11/16/18 History ropinirole 0.5 mg PO HS PRN #0 12/18/14 11/16/18 History propranolol 80 mg PO QAM #0 12/22/14 11/16/18 History buspirone 15 mg PO TID #0 tab 11/21/15 11/16/18 History polyethylene glycol 3350 [Miralax] 17 g PO DAILY PRN #255 g 03/21/17 11/16/18 History albuterol sulfate [Proventil HFA] 2 puff INHALATION Q4H PRN #0 01/22/18 History insulin aspart U-100 [Novolog 45 unit SUBCUT BID #0 01/22/18 11/16/18 History Flexpen U-100 Insulin] insulin glargine [Lantus U-100 65 unit SUBCUT QAM #0 01/22/18 11/16/18 History Insulin] anastrozole 1 mg PO HS 90 Days #0 tab 04/17/18 11/16/18 History ipratropium-albuterol 3 ml INHALATION QID PRN 30 Days 04/17/18 11/16/18 History #300 ml acetaminophen 1,300 mg PO BID #0 cap 06/01/18 11/16/18 History aspirin [Aspirin Low Dose] 81 mg PO QAM #0 06/01/18 11/16/18 History atorvastatin 20 mg PO HS 08/07/18 11/16/18 History docusate sodium [Stool Softener] 200 mg PO DAILY 08/07/18 11/16/18 History ipratropium-albuterol [Combivent 1 puff INHALATION QID 08/07/18 11/16/18 History Respimat] tiotropium bromide [Spiriva with 1 cap INHALATION DAILY 08/07/18 11/16/18 History HandiHaler] Saccharomyces boulardii [Florastor] 250 mg PO BID #20 cap 11/14/18 11/16/18 Rx ascorbic acid (vitamin C) [Vitamin 500 mg PO QPM 11/14/18 11/16/18 History C] calcium carbonate [Calcium 600] 600 mg PO DAILY 11/14/18 11/16/18 History cephalexin 500 mg PO BID 7 Days #14 cap 11/14/18 11/16/18 Rx cholecalciferol (vitamin D3) 400 unit PO BID 11/14/18 11/16/18 History [Vitamin D3] duloxetine 60 mg PO DAILY 11/14/18 11/16/18 History furosemide 20 mg PO DAILY PRN 11/14/18 11/16/18 History glucosamine tsai 2KCl-chondroit 1 tab PO BID 11/14/18 11/16/18 History [Glucosamine-Chondroitin 3X Str] nitrofurantoin macrocrystal 100 mg PO DAILY 11/14/18 11/16/18 History omega 9-wmw-mmm-fish oil [Fish Oil] 1 cap PO DAILY 11/14/18 11/16/18 History potassium 99 mg PO DAILY 11/14/18 11/16/18 History solifenacin [Vesicare] 10 mg PO DAILY 11/14/18 11/16/18 History cranberry 500 mg PO DAILY 11/16/18 11/16/18 History levalbuterol HCl 1.25 mg INHALATION Q4 PRN 11/16/18 11/16/18 History Past Med/Surg History Social History Current Living Situation: Family Current Living Situation Comment: daughter's and children live with her Feels Safe at Home: Yes Smoking Status: Never smoker Hx Alcohol Use: Yes Alcohol Intake Frequency: holidays/special occasions only Hx Substance Use: No Beliefs That Will Affect Care: None Preferred Language: Latvian Review of Systems Gen: Denies fevers, night sweats, rigors, fatigue, malaise, weight loss/gain ENT: Denies congestion, throat pain, hearing loss Eyes: Denies acute visual changes CV: Denies CP, palpitations Pulmonary: Denies SOB, cough, wheezing GI: Denies N/V, diarrhea, constipation Neuro: Denies acute or unilateral weakness, acute gait impairment, headache or acute visual changes Musculoskeletal: Denies joint pain, inflammation Endocrine: Denies polydipsia, polyuria Skin: Denies acute rashe or ulcers Psych: Recent hallucination of woman with baby sleeping beside her bed - chronic intermittent hallucinations Physical Exam 2 Vital Signs (Past 24 Hours): Last Vital Signs Temp 36.4 C L 11/16/18 19:07 Pulse 73 11/16/18 20:54 Resp 20 11/16/18 20:54 BP 154/90 H 11/16/18 20:54 Pulse Ox 96 11/16/18 20:54 Physical Exam: General: [place], pleasant, elderly F, AAO x 3, no distress ENT: No erythema or exudates, no thrush Eyes: MONTSE, EOMI Head and neck: Normocephalic, atraumatic, neck is supple. Chest/heart: Nontender, S1,2, RRR, no murmurs, no gallops Lungs: CTAB, no wheezing or crackles Abdomen: Nontender, nondistended, BS+ Neuro: AAO x 3, speech is clear, no unilateral weakness or loss of sensation, coordination intact Musculoskeletal: No joint inflammation, muscle tenderness, FROM Skin: No acute rashes or ulcers Extremities: No clubbing, cyanosis, edema
[2018-11-16] MEDS ORDERED: ACETAMINOPHEN 325 MG TAB PO PRN (23:13)
[2018-11-16] MEDS ORDERED: ALBUTEROL HFA 8 GM INHALER INH PRN (23:13)
[2018-11-16] MEDS ORDERED: ALBUT/IPRATROP 3MG/0.5MG NEB 3 ML VIAL NEB PRN (23:13)
[2018-11-16] MEDS ORDERED: FUROSEMIDE 20 MG TAB PO PRN (23:13)
[2018-11-16] MEDS ORDERED: POLYETHYLENE (MIRALAX) 17 GM PACK PO PRN (23:13)
[2018-11-17] MEDS: PATIENT'S HEIGHT AND/OR WEIGHT NEEDED SCH ×2 (00:56→09:44)
[2018-11-17] MEDS: PIPERACILLIN/TAZOBACTAM 4.5 GM/120 ML BAG IV SCH ×3 (04:27→17:24)
[2018-11-17] MEDS ORDERED: GLUCOSE 10 TABS/TUBE PO PRN (06:19)
[2018-11-17] MEDS ORDERED: GLUCOSE 40% GEL 15 GM TUBE PO PRN (06:19)
[2018-11-17] MEDS ORDERED: DEXTROSE 50% 50 ML SYRINGE IV PRN (06:19)
[2018-11-17] MEDS ORDERED: CARBOHYDRATES FOR HYPOGLYCEMIA PO PRN (06:19)
[2018-11-17] MEDS ORDERED: GLUCAGON FOR INJ 1 MG VIAL IM PRN (06:19)
[2018-11-17 07:32] LABS: INR 1.1 (0.9-1.1)
[2018-11-17] MEDS: ASPIRIN 81 MG ECTAB PO SCH (08:38)
[2018-11-17] MEDS: BusPIRone 15 MG TAB PO SCH ×3 (08:38→21:08)
[2018-11-17] MEDS: SACCHAROMYCES BOULARDII 250 MG CAP PO SCH ×2 (08:38→21:09)
[2018-11-17] MEDS: DULOXETINE HCL 60 MG CAP PO SCH (08:39)
[2018-11-17] MEDS: PROPRANOLOL HCL LA 80 MG CAPCR PO SCH (08:39)
[2018-11-17] MEDS: MIRABEGRON ER 25 MG TAB PO SCH (08:40)
[2018-11-17] MEDS: DOCUSATE SODIUM 100 MG CAP PO SCH (08:40)
[2018-11-17] MEDS: ACETAMINOPHEN 500 MG TAB PO SCH ×2 (08:41→21:10)
[2018-11-17] MEDS: TIOTROPIUM BROMIDE 5 PUFF/90 MCG INH INH SCH (08:41)
[2018-11-17] MEDS: INSULIN ASPART 100 UNITS/ML 3 ML PEN SC SCH ×4 (08:45→21:12)
[2018-11-17] MEDS ORDERED: INSULIN GLARGINE SOLOSTAR 100 UNITS/ML 3 ML PEN SQ SCH (09:00)
[2018-11-17] MEDS: HEPARIN SOD 5,000 UNIT/0.5 ML VIAL SQ SCH ×3 (09:26→21:11)
[2018-11-17 09:57] LABS: BUN Creatinine Ratio 18.8 (10-20); Calcium 9.7 mg/dl (8.5-10.1); Est GFR (African American) 69.8; Est GFR (Non-African American) 60.2; Potassium 3.9 mmol/L (3.5-5.1)
[2018-11-17] MEDS: INSULIN GLARGINE SOLOSTAR 100 UNITS/ML 3 ML PEN SQ SCH (13:08)
--- NOTE | 2018-11-17 16:41 | Hospitalist Progress Note ---
Date of Service November 17, 2018 Assessment & Plan (1) UTI (urinary tract infection): - H/o resistant UTIs; UC + Pseudomonas on 11/14 and 11/16. - On Zosyn IV for coverage. - ID consulted for recs; will likely need IV abx and PICC line at discharge. (2) Hallucinations: - Related to acute infection. - Continue to monitor. (3) Chronic respiratory failure: - Requires 5L via NC chronically at home. - Continue home Spiriva as prescribed; Albuterol and Duonebs prn. (4) Obstructive sleep apnea: - CPAP ordered. (5) Type II diabetes mellitus: - On Lantus 65 units qAM and Novolog 45 units BID at home. - Decrease Lantus to 40 units as inpt due to hypoglycemia; SSI coverage. - Most recent hemoglobin A1C was 6.7 in Sep 2018. (6) Depression: - Continue Cymbalta 60 mg daily as prescribed. - Buspar 15 mg TID scheduled. (7) Hypertension: - Propanolol 80 mg qAM. (8) Hyperlipidemia: - Continue Aspirin 81 mg and Atorvastatin 20 mg qhs. (9) History of breast cancer: - Continue Arimidex 1 mg po qhs. (10) Overactive bladder: - Myrbetriq 50 mg qAM. (11) DVT prophylaxis: - Heparin 5,000 units q8hr. Dispo: Med/surg for IV abx; will need home nursing for IV abx -- has had issues with cost of IV abx at home before, had infusion daily via PICC line at office. (12) Morbid obesity with BMI of 45.0-49.9, adult: (13) 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: Supervising Physician Co-Signing Physician Notes Attending Attestation - Chart reviewed in detail, and care plan d/w SASHA Sherman. I agree w/ the schmidt components of her documentation. Pt with multi-drug resistant pseudomonas UTI - on zosyn. Agree with ID consultation. Pt with known left-sided kidney stone (1cm, seen on CT 2018) and calcium oxylate crystals on u/a. Consider repeat CT scan, renal stone protocol, to make sure stone hasn't moved and isn't contributing to her UTIs. Other medical issues, labs, and vitals stable. Quintin Nicole MD Subjective Pt. was admitted for UTI; she has h/o frequent UTI's requiring IV abx due to abx resistance. Pt. was previously on IV abx via PICC line but had to present for infusion daily due to cost issues. Pt. states she developed hallucinations starting Monday. She had suprapubic pain that radiated up into her epigastric region. Denied dysuria or hematuria, fever/chills at home. UC was + Pseudomonas on 11/14/18; pt. was started on Keflex PO prior to results of UC. She presented for admission due to UC results/abx resistance. This morning, she complains of pain in suprapubic region that radiates up into abdomen. She has a cough, requires 5L chronically at home. Cough has been ongoing for a few weeks, very minimal sputum production. Has some hallucinations, now improved. Plan to continue IV abx, consult ID. Review of Systems All systems reviewed & are unremarkable except as noted in HPI & below Constitutional: + weakness; no fever and no chills Respiratory: + cough; no dyspnea Cardiovascular: no chest pain, no palpitations and no edema Gastrointestinal: + abdominal pain; no nausea, no vomiting, no constipation and no diarrhea/loose stools Genitourinary (Female): no dysuria, no difficulty urinating, no urinary frequency and no hematuria Musculoskeletal: no joint pain Allergy / Immunological: no rash Physical Exam 2 Vital Signs (Past 24 Hours): Last Vital Signs Temp 36.7 C 11/17/18 14:46 Pulse 76 11/17/18 14:46 Resp 20 11/17/18 14:46 BP 106/67 11/17/18 14:46 Pulse Ox 93 11/17/18 14:46 Physical Exam: General: Elderly obese female, in no acute distress. HEENT: NC/AT; PERRLA with EOMI; [place] conjunctiva, MMM. Neck: Supple and nontender Cardiac: RRR w/o murmurs, gallops or rubs; S1 and S2 Lungs: on 5L via NC; clear throughout Abdomen: Bowel normoactive X 4; Tender to palpation over suprapubic region. Extremities: Warm. No edema present Neuro: No focal weakness Skin: No rash Results & Data Laboratory Results 11/17/18 11/17/18 11/17/18 Range/Units 11:31 07:48 07:08 WBC (4.8-10.8) K/uL RBC (4.2-5.4) M/uL Hgb (12.0-16.0) g/dL Hct (37-47) % MCV (80-100) fL MCH (25-34) pg MCHC (32-36) g/dL RDW Std Deviation (36.4-46.3) fL RDW Coeff of Angélica (11.5-14.5) % Plt Count (130-400) K/uL MPV (7.4-10.4) fL Immature Gran % (Auto) % Neut % (Auto) % Lymph % (Auto) % Mcminn % (Auto) % Eos % (Auto) % Baso % (Auto) % Immature Gran # (Auto) (0.00-0.02) K/uL Neut # (Auto) (1.4-6.5) K/uL Lymph # (Auto) (1.2-3.4) K/uL Mcminn # (Auto) (0.11-0.59) K/uL Eos # (Auto) (0-0.5) K/uL Baso # (Auto) (0-0.2) K/uL PT (9.0-12.0) Seconds INR (0.9-1.1) Sodium 141 (136-145) mmol/L Potassium 3.9 (3.5-5.1) mmol/L Chloride 105 (98-107) mmol/L Carbon Dioxide 29 (21-32) mmol/L Anion Gap 7.0 (3-11) BUN 18 (7-18) mg/dl Creatinine 0.94 (0.6-1.2) mg/dl Est Cr Clr Drug Dosing 53.0 Est GFR ( Amer) 69.8 Est GFR (Non-Af Amer) 60.2 BUN/Creatinine Ratio 18.8 (10-20) Glucose 107 H (70-99) mg/dl POC Glucose 190 H 94 (70-99) Calcium 9.7 (8.5-10.1) mg/dl Total Bilirubin (0.2-1) mg/dl AST (15-37) U/L ALT (12-78) U/L Alkaline Phosphatase (45-117) U/L Total Protein (6.4-8.2) gm/dl Albumin (3.4-5.0) gm/dl Globulin (2.5-4.0) gm/dl Albumin/Globulin Ratio (0.9-2) Lipase (73-393) U/L Urine Color Urine Appearance (Clear) Urine pH (4.5-7.5) Ur Specific Wilson (1.000-1.030) Urine Protein (Negative) Urine Glucose (UA) (Negative) Urine Ketones (Negative) Urine Blood (Negative) Urine Nitrite (Negative) Urine Bilirubin (Negative) Urine Urobilinogen (Negative) Ur Leukocyte Esterase (Negative) Urine WBC (Auto) (0-5) /hpf Urine RBC (Auto) (0-4) /hpf U Hyaline Cast (Auto) (0-5) /lpf U Epithel Cells (Auto) (0-5) /lpf Urine Bacteria (Auto) (Negative) Urine Crystals (None Prsent) Calcium Oxalate Crystal (None Prsent) 11/17/18 11/17/18 11/16/18 Range/Units 07:08 01:55 21:30 WBC (4.8-10.8) K/uL RBC (4.2-5.4) M/uL Hgb (12.0-16.0) g/dL Hct (37-47) % MCV (80-100) fL MCH (25-34) pg MCHC (32-36) g/dL RDW Std Deviation (36.4-46.3) fL RDW Coeff of Angélica (11.5-14.5) % Plt Count (130-400) K/uL MPV (7.4-10.4) fL Immature Gran % (Auto) % Neut % (Auto) % Lymph % (Auto) % Mcminn % (Auto) % Eos % (Auto) % Baso % (Auto) % Immature Gran # (Auto) (0.00-0.02) K/uL Neut # (Auto) (1.4-6.5) K/uL Lymph # (Auto) (1.2-3.4) K/uL Mcminn # (Auto) (0.11-0.59) K/uL Eos # (Auto) (0-0.5) K/uL Baso # (Auto) (0-0.2) K/uL PT 11.0 (9.0-12.0) Seconds INR 1.1 (0.9-1.1) Sodium (136-145) mmol/L Potassium (3.5-5.1) mmol/L Chloride (98-107) mmol/L Carbon Dioxide (21-32) mmol/L Anion Gap (3-11) BUN (7-18) mg/dl Creatinine (0.6-1.2) mg/dl Est Cr Clr Drug Dosing Est GFR ( Amer) Est GFR (Non-Af Amer) BUN/Creatinine Ratio (10-20) Glucose (70-99) mg/dl POC Glucose 97 (70-99) Calcium (8.5-10.1) mg/dl Total Bilirubin (0.2-1) mg/dl AST (15-37) U/L ALT (12-78) U/L Alkaline Phosphatase (45-117) U/L Total Protein (6.4-8.2) gm/dl Albumin (3.4-5.0) gm/dl Globulin (2.5-4.0) gm/dl Albumin/Globulin Ratio (0.9-2) Lipase (73-393) U/L Urine Color Yellow Urine Appearance Cloudy H (Clear) Urine pH 7.0 (4.5-7.5) Ur Specific Wilson 1.015 (1.000-1.030) Urine Protein Trace H (Negative) Urine Glucose (UA) Negative (Negative) Urine Ketones Negative (Negative) Urine Blood Trace H (Negative) Urine Nitrite Negative (Negative) Urine Bilirubin Negative (Negative) Urine Urobilinogen Negative (Negative) Ur Leukocyte Esterase 3+ H (Negative) Urine WBC (Auto) >30 H (0-5) /hpf Urine RBC (Auto) 0-4 (0-4) /hpf U Hyaline Cast (Auto) 1-5 (0-5) /lpf U Epithel Cells (Auto) 10-20 H (0-5) /lpf Urine Bacteria (Auto) Negative (Negative) Urine Crystals Calcium Oxalate H (None Prsent) Calcium Oxalate Crystal Present H (None Prsent) 11/16/18 11/16/18 Range/Units 20:40 20:40 WBC 10.16 (4.8-10.8) K/uL RBC 3.93 L (4.2-5.4) M/uL Hgb 13.3 (12.0-16.0) g/dL Hct 40.4 (37-47) % MCV 102.8 H (80-100) fL MCH 33.8 (25-34) pg MCHC 32.9 (32-36) g/dL RDW Std Deviation 48.5 H (36.4-46.3) fL RDW Coeff of Angélica 12.8 (11.5-14.5) % Plt Count 295 (130-400) K/uL MPV 9.6 (7.4-10.4) fL Immature Gran % (Auto) 0.2 % Neut % (Auto) 71.4 % Lymph % (Auto) 16.8 % Mcminn % (Auto) 8.5 % Eos % (Auto) 2.6 % Baso % (Auto) 0.5 % Immature Gran # (Auto) 0.02 (0.00-0.02) K/uL Neut # (Auto) 7.26 H (1.4-6.5) K/uL Lymph # (Auto) 1.71 (1.2-3.4) K/uL Mcminn # (Auto) 0.86 H (0.11-0.59) K/uL Eos # (Auto) 0.26 (0-0.5) K/uL Baso # (Auto) 0.05 (0-0.2) K/uL PT (9.0-12.0) Seconds INR (0.9-1.1) Sodium 139 (136-145) mmol/L Potassium 4.2 (3.5-5.1) mmol/L Chloride 104 (98-107) mmol/L Carbon Dioxide 30 (21-32) mmol/L Anion Gap 6.0 (3-11) BUN 22 H (7-18) mg/dl Creatinine 1.21 H (0.6-1.2) mg/dl Est Cr Clr Drug Dosing Not Reportable Est GFR ( Amer) 51.4 Est GFR (Non-Af Amer) 44.4 BUN/Creatinine Ratio 17.9 (10-20) Glucose 69 L (70-99) mg/dl POC Glucose (70-99) Calcium 10.3 H (8.5-10.1) mg/dl Total Bilirubin 0.2 (0.2-1) mg/dl AST 29 (15-37) U/L ALT 31 (12-78) U/L Alkaline Phosphatase 110 (45-117) U/L Total Protein 7.8 (6.4-8.2) gm/dl Albumin 3.6 (3.4-5.0) gm/dl Globulin 4.2 H (2.5-4.0) gm/dl Albumin/Globulin Ratio 0.9 (0.9-2) Lipase 68 L (73-393) U/L Urine Color Urine Appearance (Clear) Urine pH (4.5-7.5) Ur Specific Wilson (1.000-1.030) Urine Protein (Negative) Urine Glucose (UA) (Negative) Urine Ketones (Negative) Urine Blood (Negative) Urine Nitrite (Negative) Urine Bilirubin (Negative) Urine Urobilinogen (Negative) Ur Leukocyte Esterase (Negative) Urine WBC (Auto) (0-5) /hpf Urine RBC (Auto) (0-4) /hpf U Hyaline Cast (Auto) (0-5) /lpf U Epithel Cells (Auto) (0-5) /lpf Urine Bacteria (Auto) (Negative) Urine Crystals (None Prsent) Calcium Oxalate Crystal (None Prsent) _ (1) UTI (urinary tract infection) Encounter type: Hematuria presence: without hematuria Indwelling urinary catheter type: Urinary tract infection type: site unspecified Qualified Code( s): N39.0 - Urinary tract infection, site not specified
[2018-11-17] MEDS: ANASTROZOLE 1 MG TAB PO SCH (21:08)
[2018-11-17] MEDS: ATORVASTATIN 20 MG TAB PO SCH (21:09)
[2018-11-18] MEDS: ROPINIROLE HCL 0.25 MG TABLET PO PRN (00:59)
[2018-11-18] MEDS: PIPERACILLIN/TAZOBACTAM 4.5 GM/120 ML BAG IV SCH ×3 (01:09→17:35)
[2018-11-18] MEDS: HEPARIN SOD 5,000 UNIT/0.5 ML VIAL SQ SCH ×3 (05:48→21:38)
[2018-11-18 06:43] LABS: Creatinine Clr Calc Pharmacy 51.4 ml/min; Est GFR (African American) 67.2; Est GFR (Non-African American) 57.9; Magnesium 2.1 mg/dl (1.8-2.4); Potassium 4.1 mmol/L (3.5-5.1)
[2018-11-18] MEDS: ACETAMINOPHEN 500 MG TAB PO SCH ×2 (08:11→21:37)
[2018-11-18] MEDS: DULOXETINE HCL 60 MG CAP PO SCH (08:12)
[2018-11-18] MEDS: MIRABEGRON ER 25 MG TAB PO SCH (08:12)
[2018-11-18] MEDS: PROPRANOLOL HCL LA 80 MG CAPCR PO SCH (08:12)
[2018-11-18] MEDS: SACCHAROMYCES BOULARDII 250 MG CAP PO SCH ×2 (08:12→21:36)
[2018-11-18] MEDS: DOCUSATE SODIUM 100 MG CAP PO SCH (08:12)
[2018-11-18] MEDS: BusPIRone 15 MG TAB PO SCH ×3 (08:13→21:35)
[2018-11-18] MEDS: ASPIRIN 81 MG ECTAB PO SCH (08:13)
[2018-11-18] MEDS: TIOTROPIUM BROMIDE 5 PUFF/90 MCG INH INH SCH (08:13)
--- NOTE | 2018-11-18 08:37 | Infectious Disease Consult ---
Date of Consultation November 18, 2018 pt admitted due to resistant uti, saw pcp with gu symptoms, culture done on 11/14 , placed on keflex, tolerated well but was called for admission when urine culture grew resistant pseudomoans. She was placed on zosyn and is tolerating well. repeat culture done on 11/16 -growing pseudomonas as well. afebrile. wbc nml. no abd pain, denies frequency, urgency, dysuria. eating well. no cp, sob, cough. no n/v/d. ID consulted for ongoing maganement of uti. Assessment & Plan (1) UTI (urinary tract infection): no po options available, agree with zosyn, would give 7 days total. History of Present Illness Attending Physician: MD sosa Peres Allergies Allergy/AdvReac Type Severity Reaction Status Date / Time Sulfa (Sulfonamide Allergy Rash Verified 11/16/18 21:11 Antibiotics) albiglutide AdvReac Diarrhea Verified 11/16/18 21:11 codeine AdvReac Nausea Verified 11/16/18 21:11 metformin AdvReac Diarrhea Verified 11/16/18 21:11 morphine AdvReac Nausea Verified 11/16/18 21:11 sorbitan esters AdvReac Diarrhea Verified 11/16/18 21:11 SKIN ADORE Allergy Unknown Uncoded 11/16/18 21:11 Home Medications Home Medications Medication Instructions Recorded Confirmed Type multivitamin with minerals [Daily 1 tab PO QAM #0 06/18/07 11/16/18 History Multivitamin-Minerals] mirabegron [Myrbetriq] 50 mg PO QAM #0 11/27/13 11/16/18 History ropinirole 0.5 mg PO HS PRN #0 12/18/14 11/16/18 History propranolol 80 mg PO QAM #0 12/22/14 11/16/18 History buspirone 15 mg PO TID #0 tab 11/21/15 11/16/18 History polyethylene glycol 3350 [Miralax] 17 g PO DAILY PRN #255 g 03/21/17 11/16/18 History albuterol sulfate [Proventil HFA] 2 puff INHALATION Q4H PRN #0 01/22/18 History insulin aspart U-100 [Novolog 45 unit SUBCUT BID #0 01/22/18 11/16/18 History Flexpen U-100 Insulin] insulin glargine [Lantus U-100 65 unit SUBCUT QAM #0 01/22/18 11/16/18 History Insulin] anastrozole 1 mg PO HS 90 Days #0 tab 04/17/18 11/16/18 History ipratropium-albuterol 3 ml INHALATION QID PRN 30 Days 04/17/18 11/16/18 History #300 ml acetaminophen 1,300 mg PO BID #0 cap 06/01/18 11/16/18 History aspirin [Aspirin Low Dose] 81 mg PO QAM #0 06/01/18 11/16/18 History atorvastatin 20 mg PO HS 08/07/18 11/16/18 History docusate sodium [Stool Softener] 200 mg PO DAILY 08/07/18 11/16/18 History ipratropium-albuterol [Combivent 1 puff INHALATION QID 08/07/18 11/16/18 History Respimat] tiotropium bromide [Spiriva with 1 cap INHALATION DAILY 08/07/18 11/16/18 History HandiHaler] Saccharomyces boulardii [Florastor] 250 mg PO BID #20 cap 11/14/18 11/16/18 Rx ascorbic acid (vitamin C) [Vitamin 500 mg PO QPM 11/14/18 11/16/18 History C] calcium carbonate [Calcium 600] 600 mg PO DAILY 11/14/18 11/16/18 History cephalexin 500 mg PO BID 7 Days #14 cap 11/14/18 11/16/18 Rx cholecalciferol (vitamin D3) 400 unit PO BID 11/14/18 11/16/18 History [Vitamin D3] duloxetine 60 mg PO DAILY 11/14/18 11/16/18 History furosemide 20 mg PO DAILY PRN 11/14/18 11/16/18 History glucosamine tsai 2KCl-chondroit 1 tab PO BID 11/14/18 11/16/18 History [Glucosamine-Chondroitin 3X Str] nitrofurantoin macrocrystal 100 mg PO DAILY 11/14/18 11/16/18 History omega 9-umt-pqv-fish oil [Fish Oil] 1 cap PO DAILY 11/14/18 11/16/18 History potassium 99 mg PO DAILY 11/14/18 11/16/18 History solifenacin [Vesicare] 10 mg PO DAILY 11/14/18 11/16/18 History cranberry 500 mg PO DAILY 11/16/18 11/16/18 History levalbuterol HCl 1.25 mg INHALATION Q4 PRN 11/16/18 11/16/18 History Patient History Medical History DVT prophylaxis Breast cancer Breast cancer metastasized to bone (~02/18/18) "Treatment: Status post completion of palliative radiation therapy to the thoracic spine March 19, 2018. She received 3000 cGy." Breast cancer metastasized to liver Diabetic peripheral neuropathy associated with type 2 diabetes mellitus History of difficult intubation H/O GLIDESCOPE #3 History of kidney stones Chronic obstructive pulmonary disease USES INHALER DAILY, ON 5L O2 AT ALL TIMES Sleep apnea CPAP Anxiety Depression Cancer RIGHT BREAST--S/P R MASTECTOMY/CHEMO/XRT ~20yrs ago RE-OCCURRENCE WITH METS TO BONE AND VISCERA 02/2018 Diabetes mellitus, type 2 IDDM Osteoarthritis Chronic back pain HX RUPTURED DISCS Diabetic neuropathy B/L FEET Restless leg syndrome Morbid obesity Chronic respiratory failure 5L OXYGEN CONTINUOUS Hyperparathyroidism S/P ATTEMPTED PARATHYROIDECTOMY--COULD NOT LOCATE 1-2 GLANDS Recurrent UTI MOST RECENT 04/2018, REQUIRING PICC LINE FOR OUTPATIENT ANTIBIOTIC TREATMENT Glaucoma (Chronic) LEGALLY BLIND IN RIGHT EYE Surgical History History of appendectomy History of nasal septoplasty History of cataract surgery BILATERAL History of total shoulder replacement BILATERAL History of mastectomy RIGHT, WITH LYMPH NODE DISSECTION History of hysterectomy BSO/BLADDER TACK History of carpal tunnel release H/O parathyroidectomy H/O difficult intubation GLIDESCOPE #3 Glidescope #3 Social History Current Living Situation: Family Current Living Situation Comment: daughter's and children live with her Other Information That Helps Us Care for You: No Feels Safe at Home: Yes Safety Concerns: Feels Safe At This Time Smoking Status: Never smoker Hx Alcohol Use: No Hx Substance Use: No Beliefs That Will Affect Care: None Communication Ability: Effective Review of Systems all remaining ros reviewed and are negative Physical Exam 2 Vital Signs (Past 24 Hours): Last Vital Signs Temp 36.6 C 11/18/18 07:38 Pulse 71 11/18/18 07:38 Resp 20 11/18/18 07:38 BP 118/75 11/18/18 07:38 Pulse Ox 100 11/18/18 07:38 Constitutional: WD/WN, vitals as above Eyes: PERRL, conjunctivae normal, anicteric sclerae ENMT: external ear and nose normal, oropharynx normal Neck: normal visual inspection Respiratory: normal respiratory effort, lungs clear to auscultation Cardiovascular: RRR, no murmur, no edema Gastrointestinal (Abdomen): normal bowel sounds, soft, nontender, no hepatosplenomegaly Musculoskeletal: no cyanosis or clubbing, extremities motor strength 5/5 Skin: no rashes, warm and dry Psychiatric: A+Ox3, euthymic affect Results & Data Laboratory Results Microbiology 11/16/18 21:30 Urine,Clean Catch Urine Culture - Preliminary Probable Pseudomonas species _ (1) UTI (urinary tract infection) Encounter type: Hematuria presence: without hematuria Indwelling urinary catheter type: Urinary tract infection type: site unspecified Qualified Code( s): N39.0 - Urinary tract infection, site not specified
[2018-11-18] MEDS: INSULIN ASPART 100 UNITS/ML 3 ML PEN SC SCH ×4 (09:17→21:38)
[2018-11-18] MEDS: INSULIN GLARGINE SOLOSTAR 100 UNITS/ML 3 ML PEN SQ SCH (09:17)
--- NOTE | 2018-11-18 09:53 | CT Scan Report ---
CT abd pelvis wo con CT DOSE: 1394.70 mGy.cm HISTORY: Flank pain Renal stone protocol TECHNIQUE: Multiaxial CT images of the abdomen and pelvis were performed without contrast. A dose lo wering technique was utilized adhering to the principles of ALARA. COMPARISON STUDY: 02/18/2018 FINDINGS: Chronic basilar nodularity and pleural thickening right and to lesser extent left base. Ove rall configuration of the liver and spleen are unremarkable within limitations of an unenhanced scan. Gallbladder is negative for distention. 1 cm nonobstructing calcification mid left kidney. This is u nchanged. Mild perinephric infiltrative changes bilaterally also unchanged. No evidence for hydronephrosis. No evidence for an obstructing urinary tract calculus. Mild bladder w all thickening. Nonobstructive bowel pattern. Several small scattered nodes unchanged from the prior study. Nonobstructive bowel pattern. Metastatic bony disease which has been described previously and is grossly stable compared to the prior exam. IMPRESSION: Chronic changes as noted. Nonobstructive bowel pattern. No acute process of the abdomen or pelvis. St able bony metastatic change. The above report was generated using voice recognition software. It may contain grammatical, syntax or spelling errors. Electronically signed by: Jose Roberts M.D. 11/18/2018 9:52 AM
--- NOTE | 2018-11-18 15:54 | Hospitalist Progress Note ---
Date of Service November 18, 2018 Assessment & Plan (1) UTI (urinary tract infection): - H/o resistant UTIs; UC + Pseudomonas on 11/14 and 11/16. - On Zosyn IV for coverage. - ID consulted for recs; will need IV Zosyn at discharge-perhaps could just do a PIV as will only be a few more days. (2) Hallucinations: - Related to acute infection. - Continue to monitor, now improved. (3) Chronic respiratory failure: - Requires 4-5L via NC chronically at home. - Continue home Spiriva as prescribed; Albuterol and Duonebs prn. (4) Obstructive sleep apnea: - CPAP ordered. (5) Type II diabetes mellitus: - On Lantus 65 units qAM and Novolog 45 units BID at home. - Will increase Lantus to 50 units as hypoglycemia improved; SSI coverage. - Most recent hemoglobin A1C was 6.7 in Sep 2018. (6) Depression: - Continue Cymbalta 60 mg daily as prescribed. - Buspar 15 mg TID scheduled. (7) Hypertension: - Propanolol 80 mg qAM. (8) Hyperlipidemia: - Continue Aspirin 81 mg and Atorvastatin 20 mg qhs. (9) History of breast cancer: - Continue Arimidex 1 mg po qhs. (10) Overactive bladder: - Myrbetriq 50 mg qAM. (11) Morbid obesity with BMI of 45.0-49.9, adult: - Encourage weight loss and exercise. (12) 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: - Calcium oxalate present on U/a. With stone in kidney but not obstructing (13) DVT prophylaxis: - Heparin 5,000 units q8hr. Dispo: Med/surg for IV abx; will need home nursing for IV abx, script was placed in chart and discussed with special education case manager. Supervising Physician Co-Signing Physician Notes PA Supervision Note: I did not personally see or examine the patient today, but I verified all schmidt points of SASHA Dowd's assessment and plan with the following exceptions/ additions: None Subjective Pt is doing well overall. She has non-productive cough, denies chest pain or SOB. Is on chronic O2 requirements. Has suprapubic pain with radiation up abdomen, denies dysuria. Pt. is eating/drinking without difficulty. Will need IV Zosyn at home, script placed in patient chart. Review of Systems All systems reviewed & are unremarkable except as noted in HPI & below Constitutional: no fever, no chills and no weakness Respiratory: no cough and no dyspnea Cardiovascular: no chest pain, no palpitations and no edema Gastrointestinal: + abdominal pain; no nausea, no vomiting, no constipation and no diarrhea/loose stools Genitourinary (Female): no difficulty urinating and no urinary frequency Musculoskeletal: no joint pain Allergy / Immunological: no rash Physical Exam 2 Vital Signs (Past 24 Hours): Last Vital Signs Temp 36.7 C 11/18/18 15:15 Pulse 80 11/18/18 15:15 Resp 20 11/18/18 15:15 BP 107/67 11/18/18 15:15 Pulse Ox 96 11/18/18 15:15 Physical Exam: General: Elderly obese female, in no acute distress. HEENT: NC/AT; PERRLA with EOMI; [place]flake conjunctiva, MMM. Neck: Supple and nontender Cardiac: RRR w/o murmurs, gallops or rubs; S1 and S2 Lungs: on 4L via NC; clear throughout Abdomen: Bowel normoactive X 4; Tender to palpation over suprapubic region. Extremities: Warm. No edema present Neuro: No focal weakness Skin: No rash Results & Data Laboratory Results 11/18/18 11/18/18 11/18/18 Range/Units 11:47 08:17 05:58 Sodium 140 (136-145) mmol/L Potassium 4.1 (3.5-5.1) mmol/L Chloride 103 (98-107) mmol/L Carbon Dioxide 30 (21-32) mmol/L Anion Gap 8.0 (3-11) BUN 17 (7-18) mg/dl Creatinine 0.97 (0.6-1.2) mg/dl Est Cr Clr Drug Dosing 51.4 ml/min Est GFR ( Amer) 67.2 Est GFR (Non-Af Amer) 57.9 BUN/Creatinine Ratio 18.0 (10-20) Glucose 124 H (70-99) mg/dl POC Glucose 205 H 134 H (70-99) Calcium 10.0 (8.5-10.1) mg/dl Magnesium 2.1 (1.8-2.4) mg/dl Specimen Hemolysis 11/17/18 11/17/18 Range/Units 20:02 16:53 Sodium (136-145) mmol/L Potassium (3.5-5.1) mmol/L Chloride (98-107) mmol/L Carbon Dioxide (21-32) mmol/L Anion Gap (3-11) BUN (7-18) mg/dl Creatinine (0.6-1.2) mg/dl Est Cr Clr Drug Dosing ml/min Est GFR ( Amer) Est GFR (Non-Af Amer) BUN/Creatinine Ratio (10-20) Glucose (70-99) mg/dl POC Glucose 255 H 173 H (70-99) Calcium (8.5-10.1) mg/dl Magnesium (1.8-2.4) mg/dl Specimen Hemolysis _ (1) UTI (urinary tract infection) Encounter type: Hematuria presence: without hematuria Indwelling urinary catheter type: Urinary tract infection type: site unspecified Qualified Code( s): N39.0 - Urinary tract infection, site not specified
[2018-11-18] MEDS: ANASTROZOLE 1 MG TAB PO SCH (21:34)
[2018-11-18] MEDS: ATORVASTATIN 20 MG TAB PO SCH (21:36)
[2018-11-19] MEDS: MICONAZOLE NITRATE POWDER 43 GM EXT PRN ×2 (00:37→21:55)
[2018-11-19] MEDS: PIPERACILLIN/TAZOBACTAM 4.5 GM/120 ML BAG IV SCH ×5 (01:28→21:55)
[2018-11-19] MEDS: HEPARIN SOD 5,000 UNIT/0.5 ML VIAL SQ SCH ×3 (05:37→21:18)
[2018-11-19 06:00] LABS: Hematocrit (blood only) 38.5 % (37-47); Hemoglobin 12.6 g/dL (12.0-16.0); Mean Corpuscular Hgb Conc 32.7 g/dL (32-36); Mean Corpuscular Volume 100.5 fL (80-100); Mean Platelet Volume 10.1 fL (7.4-10.4); Platelet Count 239 K/uL (130-400); RDW Coefficient of Variation 12.9 % (11.5-14.5); RDW Standard Deviation 47.1 fL (36.4-46.3); Red Blood Count 3.83 M/uL (4.2-5.4); White Blood Count 7.06 K/uL (4.8-10.8)
[2018-11-19 06:10] LABS: BUN Creatinine Ratio 17.9 (10-20); Calcium 9.6 mg/dl (8.5-10.1); Creatinine Clr Calc Pharmacy 45.7 ml/min; Est GFR (African American) 58.3; Est GFR (Non-African American) 50.3; Potassium 4.5 mmol/L (3.5-5.1)
[2018-11-19] MEDS: DOCUSATE SODIUM 100 MG CAP PO SCH (09:14)
[2018-11-19] MEDS: DULOXETINE HCL 60 MG CAP PO SCH (09:14)
[2018-11-19] MEDS: MIRABEGRON ER 25 MG TAB PO SCH (09:14)
[2018-11-19] MEDS: ASPIRIN 81 MG ECTAB PO SCH (09:14)
[2018-11-19] MEDS: PROPRANOLOL HCL LA 80 MG CAPCR PO SCH (09:14)
[2018-11-19] MEDS: BusPIRone 15 MG TAB PO SCH ×3 (09:15→21:17)
[2018-11-19] MEDS: ACETAMINOPHEN 500 MG TAB PO SCH ×2 (09:15→21:11)
[2018-11-19] MEDS: SACCHAROMYCES BOULARDII 250 MG CAP PO SCH ×2 (09:15→21:16)
[2018-11-19] MEDS: TIOTROPIUM BROMIDE 5 PUFF/90 MCG INH INH SCH (09:16)
[2018-11-19] MEDS: INSULIN GLARGINE SOLOSTAR 100 UNITS/ML 3 ML PEN SQ SCH (09:17)
[2018-11-19] MEDS: INSULIN ASPART 100 UNITS/ML 3 ML PEN SC SCH ×4 (09:28→21:12)
--- NOTE | 2018-11-19 20:25 | Hospitalist Progress Note ---
Date of Service November 19, 2018 Assessment & Plan (1) UTI (urinary tract infection): - MDR Pseudomonas on current Zosyn therapy - Only requires a few more days of therapy to finish 7 day course - awaiting approval for home Abx as it will be too difficult for TID dosing at [facility] (2) Hallucinations: - Resolved - likely due to UTI Present on Admission?: Yes (3) Chronic respiratory failure: - Requires 4-5L via NC chronically at home. - Continue home Spiriva as prescribed; Albuterol and Duonebs prn. Present on Admission?: Yes (4) Obstructive sleep apnea: - CPAP ordered. Present on Admission?: Yes (5) Type II diabetes mellitus: - On Lantus 65 units qAM and Novolog 45 units BID at home. - Will continue Lantus to 50 units daily to prevent hypoglycemia; SSI coverage. - Most recent hemoglobin A1C was 6.7 in Sep 2018. Present on Admission?: Yes (6) Depression: - Continue Cymbalta 60 mg daily - Buspar 15 mg TID Present on Admission?: Yes (7) Hypertension: - Propanolol 80 mg daily Present on Admission?: Yes (8) Hyperlipidemia: - Continue Aspirin 81 mg and Atorvastatin 20 mg daily Present on Admission?: Yes (9) History of breast cancer: - Continue Arimidex 1 mg po HS Present on Admission?: Yes (10) Overactive bladder: - Myrbetriq 50 mg daily Present on Admission?: Yes (11) Morbid obesity with BMI of 45.0-49.9, adult: - Encourage weight loss and exercise. Present on Admission?: Yes (12) 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: - Calcium oxalate present on UA. With stone in kidney but not obstructing (13) DVT prophylaxis: - Heparin SC Dispo: Can be D/C'd pending Abx approval vs continued stay to complete course Subjective Reports she is feeling well overall. Only has minimal spasm like pain in the suprapubic region. Otherwise has no other complaints. States she was having hallucinations that she was aware of but these has since resolved. Awaiting approval for home Abx vs remaining in-house to complete treatment Constitutional: no fever and no chills Ear, Nose, Mouth, Throat: + dry mouth (chronic) Respiratory: no cough and no dyspnea Cardiovascular: no chest pain and no palpitations Gastrointestinal: no abdominal pain, no nausea, no vomiting, no constipation and no diarrhea/loose stools Genitourinary (Female): no dysuria Musculoskeletal: no back pain Integumentary: no rash Physical Exam 2 Vital Signs (Past 24 Hours): Last Vital Signs Temp 36.7 C 11/19/18 19:27 Pulse 89 11/19/18 20:16 Resp 18 11/19/18 19:27 BP 138/77 11/19/18 20:16 Pulse Ox 95 11/19/18 19:27 Constitutional: well developed and well nourished; no acute distress and not ill appearing Eyes: + anicteric sclerae Neck: trachea midline Respiratory: normal respiratory effort, lungs clear to auscultation Cardiovascular: Rate/Rhythm: regular rate and regular rhythm Extremities: no edema Gastrointestinal (Abdomen): Inspection/Auscultation: normal bowel sounds Percussion/Palpation: abdomen soft; abdomen nontender Musculoskeletal: Head/Neck/Chest: normocephalic, head atraumatic and neck supple Skin: no rashes, warm and dry Neurologic: moves all extremities Psychiatric: A+Ox3, euthymic affect _ (1) UTI (urinary tract infection) Encounter type: Hematuria presence: without hematuria Indwelling urinary catheter type: Urinary tract infection type: site unspecified Qualified Code( s): N39.0 - Urinary tract infection, site not specified
[2018-11-19] MEDS: ATORVASTATIN 20 MG TAB PO SCH (21:16)
[2018-11-19] MEDS: ANASTROZOLE 1 MG TAB PO SCH (21:17)
[2018-11-19] MEDS: ROPINIROLE HCL 0.25 MG TABLET PO PRN (21:47)
[2018-11-20] MEDS: HEPARIN SOD 5,000 UNIT/0.5 ML VIAL SQ SCH ×3 (05:57→20:25)
[2018-11-20] MEDS: PIPERACILLIN/TAZOBACTAM 4.5 GM/120 ML BAG IV SCH ×3 (05:57→20:35)
[2018-11-20] MEDS: MIRABEGRON ER 25 MG TAB PO SCH (08:14)
[2018-11-20] MEDS: DULOXETINE HCL 60 MG CAP PO SCH (08:15)
[2018-11-20] MEDS: BusPIRone 15 MG TAB PO SCH ×3 (08:15→20:25)
[2018-11-20] MEDS: DOCUSATE SODIUM 100 MG CAP PO SCH (08:15)
[2018-11-20] MEDS: PROPRANOLOL HCL LA 80 MG CAPCR PO SCH (08:15)
[2018-11-20] MEDS: SACCHAROMYCES BOULARDII 250 MG CAP PO SCH ×2 (08:15→20:26)
[2018-11-20] MEDS: ASPIRIN 81 MG ECTAB PO SCH (08:15)
[2018-11-20] MEDS: ACETAMINOPHEN 500 MG TAB PO SCH ×2 (08:16→20:26)
[2018-11-20] MEDS: TIOTROPIUM BROMIDE 5 PUFF/90 MCG INH INH SCH (08:16)
[2018-11-20] MEDS: INSULIN ASPART 100 UNITS/ML 3 ML PEN SC SCH ×4 (08:17→20:27)
[2018-11-20] MEDS: INSULIN GLARGINE SOLOSTAR 100 UNITS/ML 3 ML PEN SQ SCH (08:18)
--- NOTE | 2018-11-20 16:39 | Hospitalist Progress Note ---
Date of Service November 20, 2018 Assessment & Plan (1) UTI (urinary tract infection): - MDR Pseudomonas on current Zosyn therapy - Only requires a few more days of therapy to finish 7 day course (/)- awaiting approval for home Abx as it will be too difficult for TID dosing at [facility] (2) Hallucinations: - Resolved - likely due to UTI (3) Chronic respiratory failure: - Requires 4-5L via NC chronically at home. - Continue home Spiriva as prescribed; Albuterol and Duonebs prn. (4) Obstructive sleep apnea: - CPAP ordered. (5) Type II diabetes mellitus: - On Lantus 65 units qAM and Novolog 45 units BID at home. - Will increase Lantus to 55 units daily; SSI coverage -is having occasional high glucose readings - Most recent hemoglobin A1C was 6.7 in Sep 2018. (6) Depression: - Continue Cymbalta 60 mg daily - Buspar 15 mg TID (7) Hypertension: - Propanolol 80 mg daily (8) Hyperlipidemia: - Continue Aspirin 81 mg and Atorvastatin 20 mg daily (9) History of breast cancer: - Continue Arimidex 1 mg po HS (10) Overactive bladder: - Myrbetriq 50 mg daily (11) Morbid obesity with BMI of 45.0-49.9, adult: - Encourage weight loss and exercise. (12) 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: - Calcium oxalate present on UA. With stone in kidney but not obstructing (13) DVT prophylaxis: - Heparin SC Dispo: Can be D/C'd pending Abx approval vs continued stay to complete course Subjective Patient verbalizes no complaints today. She states she is feeling well. Not having as many bladder spasms as she did previously. Was unable to obtain anything further than a peripheral line on her. Awaiting determination for the ability to use home antibiotics Constitutional: no fever and no chills Ear, Nose, Mouth, Throat: no sore throat and no dysphagia Respiratory: no cough and no dyspnea Cardiovascular: no chest pain, no palpitations and no edema Gastrointestinal: no abdominal pain, no nausea, no vomiting, no constipation and no diarrhea/loose stools Genitourinary (Female): no dysuria Musculoskeletal: no body aches Integumentary: no rash Physical Exam 2 Vital Signs (Past 24 Hours): Last Vital Signs Temp 36.6 C 11/20/18 15:00 Pulse 75 11/20/18 15:00 Resp 18 11/20/18 15:00 BP 111/79 11/20/18 15:00 Pulse Ox 98 11/20/18 15:00 Constitutional: well developed and well nourished; no acute distress and not ill appearing Eyes: + anicteric sclerae Neck: trachea midline Respiratory: normal respiratory effort, lungs clear to auscultation Auscultation: + diminished lung sounds (Bases bilateral) Cardiovascular: Rate/Rhythm: regular rate and regular rhythm Extremities: no edema Gastrointestinal (Abdomen): Inspection/Auscultation: normal bowel sounds Percussion/Palpation: abdomen soft; abdomen nontender Musculoskeletal: Head/Neck/Chest: normocephalic, head atraumatic and neck supple Skin: no rashes, warm and dry Neurologic: moves all extremities Psychiatric: A+Ox3, euthymic affect _ (1) UTI (urinary tract infection) Encounter type: Hematuria presence: without hematuria Indwelling urinary catheter type: Urinary tract infection type: site unspecified Qualified Code( s): N39.0 - Urinary tract infection, site not specified
[2018-11-20] MEDS: ATORVASTATIN 20 MG TAB PO SCH (20:24)
[2018-11-20] MEDS: ANASTROZOLE 1 MG TAB PO SCH (20:25)
[2018-11-21] MEDS: ROPINIROLE HCL 0.25 MG TABLET PO PRN ×2 (00:50→20:27)
[2018-11-21] MEDS: HEPARIN SOD 5,000 UNIT/0.5 ML VIAL SQ SCH ×3 (05:55→20:30)
[2018-11-21] MEDS: PIPERACILLIN/TAZOBACTAM 4.5 GM/120 ML BAG IV SCH ×3 (05:55→22:08)
[2018-11-21 07:57] LABS: Creatinine Clr Calc Pharmacy 47.2 ml/min; Est GFR (African American) 61.7; Est GFR (Non-African American) 53.3
[2018-11-21] MEDS: BusPIRone 15 MG TAB PO SCH ×3 (08:16→20:26)
[2018-11-21] MEDS: SACCHAROMYCES BOULARDII 250 MG CAP PO SCH ×2 (08:16→20:25)
[2018-11-21] MEDS: ACETAMINOPHEN 500 MG TAB PO SCH ×2 (08:17→20:27)
[2018-11-21] MEDS: PROPRANOLOL HCL LA 80 MG CAPCR PO SCH (08:17)
[2018-11-21] MEDS: DULOXETINE HCL 60 MG CAP PO SCH (08:17)
[2018-11-21] MEDS: DOCUSATE SODIUM 100 MG CAP PO SCH (08:17)
[2018-11-21] MEDS: INSULIN GLARGINE SOLOSTAR 100 UNITS/ML 3 ML PEN SQ SCH (08:18)
[2018-11-21] MEDS: MIRABEGRON ER 25 MG TAB PO SCH (08:18)
[2018-11-21] MEDS: ASPIRIN 81 MG ECTAB PO SCH (08:19)
[2018-11-21] MEDS: TIOTROPIUM BROMIDE 5 PUFF/90 MCG INH INH SCH (08:19)
[2018-11-21] MEDS: INSULIN ASPART 100 UNITS/ML 3 ML PEN SC SCH ×4 (08:20→20:29)
--- NOTE | 2018-11-21 17:06 | Hospitalist Progress Note ---
Date of Service November 21, 2018 Assessment & Plan (1) UTI (urinary tract infection): - MDR Pseudomonas on current Zosyn therapy - Only requires a couple more days of therapy to finish 7 day course (/) -Due to inability to get a better IV access site the only option was for a peripheral line and will use this for the 2 remaining days. (2) Hallucinations: - Resolved - likely due to UTI (3) Chronic respiratory failure: - Requires 4-5L via NC chronically at home. - Continue home Spiriva as prescribed; Albuterol and Duonebs prn. (4) Obstructive sleep apnea: - CPAP ordered. (5) Type II diabetes mellitus: - On Lantus 65 units qAM and Novolog 45 units BID at home. - Will increase Lantus to 55 units daily; SSI coverage -is having occasional high glucose readings - Most recent hemoglobin A1C was 6.7 in Sep 2018. (6) Depression: - Continue Cymbalta 60 mg daily - Buspar 15 mg TID (7) Hypertension: - Propanolol 80 mg daily (8) Hyperlipidemia: - Continue Aspirin 81 mg and Atorvastatin 20 mg daily (9) History of breast cancer: - Continue Arimidex 1 mg po HS (10) Overactive bladder: - Myrbetriq 50 mg daily (11) Morbid obesity with BMI of 45.0-49.9, adult: - Encourage weight loss and exercise. (12) 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: - Calcium oxalate present on UA. With stone in kidney but not obstructing (13) DVT prophylaxis: - Heparin SC Dispo: Planning to discharge home tomorrow with continuation of Zosyn therapy through peripheral line with home health services Subjective Patient reports feeling well today. She denies having any further bladder cramping at this time. However she states this is a chronic issue that appears even when she is not dealing with a urinary tract infection. She was wondering if she could possibly have interstitial cystitis. As well as she does report some issues with prolapse and likely this is multifactorial. She continues to be stable from a respiratory standpoint on her baseline 4-5 L. She was approved for home antibiotics which they can start tomorrow and therefore will be discharged home at that time She did have a lower blood pressure reading however is asymptomatic this morning. She states she feels at her normal baseline and verbalizes no other issues or needs at this time. Updated daughter at bedside. Constitutional: no fever and no chills Respiratory: no cough and no dyspnea Cardiovascular: no chest pain and no palpitations Gastrointestinal: no abdominal pain, no nausea, no vomiting, no constipation and no diarrhea/loose stools Genitourinary (Female): no dysuria and no flank pain Integumentary: no rash Physical Exam 2 Vital Signs (Past 24 Hours): Last Vital Signs Temp 36.4 C L 11/21/18 14:36 Pulse 81 11/21/18 14:36 Resp 18 11/21/18 14:36 BP 82/49 L 11/21/18 08:06 Pulse Ox 98 11/21/18 14:36 Constitutional: well developed and well nourished; no acute distress and not ill appearing Eyes: + anicteric sclerae Neck: trachea midline Respiratory: normal respiratory effort, lungs clear to auscultation Auscultation: + diminished lung sounds (Bases bilateral) Cardiovascular: Rate/Rhythm: regular rate and regular rhythm Extremities: no edema Gastrointestinal (Abdomen): Inspection/Auscultation: normal bowel sounds Percussion/Palpation: abdomen soft; abdomen nontender Musculoskeletal: Head/Neck/Chest: normocephalic, head atraumatic and neck supple Skin: no rashes, warm and dry Neurologic: moves all extremities Psychiatric: A+Ox3, euthymic affect _ (1) UTI (urinary tract infection) Encounter type: Hematuria presence: without hematuria Indwelling urinary catheter type: Urinary tract infection type: site unspecified Qualified Code( s): N39.0 - Urinary tract infection, site not specified
[2018-11-21] MEDS: ATORVASTATIN 20 MG TAB PO SCH (20:27)
[2018-11-21] MEDS: ANASTROZOLE 1 MG TAB PO SCH (20:27)
[2018-11-22] MEDS: PIPERACILLIN/TAZOBACTAM 4.5 GM/120 ML BAG IV SCH (05:35)
[2018-11-22] MEDS: HEPARIN SOD 5,000 UNIT/0.5 ML VIAL SQ SCH (05:49)
[2018-11-22 06:44] LABS: Creatinine Clr Calc Pharmacy 55.1 ml/min; Est GFR (African American) 74.5; Est GFR (Non-African American) 64.3
[2018-11-22] MEDS: DOCUSATE SODIUM 100 MG CAP PO SCH (08:01)
[2018-11-22] MEDS: PROPRANOLOL HCL LA 80 MG CAPCR PO SCH (08:01)
[2018-11-22] MEDS: ACETAMINOPHEN 500 MG TAB PO SCH (08:01)
[2018-11-22] MEDS: ASPIRIN 81 MG ECTAB PO SCH (08:01)
[2018-11-22] MEDS: BusPIRone 15 MG TAB PO SCH (08:01)
[2018-11-22] MEDS: SACCHAROMYCES BOULARDII 250 MG CAP PO SCH (08:01)
[2018-11-22] MEDS: DULOXETINE HCL 60 MG CAP PO SCH (08:01)
[2018-11-22] MEDS: MIRABEGRON ER 25 MG TAB PO SCH (08:02)
[2018-11-22] MEDS: INSULIN ASPART 100 UNITS/ML 3 ML PEN SC SCH (08:03)
[2018-11-22] MEDS: TIOTROPIUM BROMIDE 5 PUFF/90 MCG INH INH SCH (09:45)
[2018-11-22] MEDS: INSULIN GLARGINE SOLOSTAR 100 UNITS/ML 3 ML PEN SQ SCH (09:45)
--- NOTE | 2018-11-22 19:04 | Discharge Summary ---
Date of Service November 22, 2018 Admission HPI Per Admitting Provider 73 y/o F Hx DM II, HTN, HLD, metastatic breast CA, morbidly obese, COPD, JUANJOSE, depression, history of hallucinations, recurrent UTIs. She was recently diagnosed with a UTI and placed on Keflex pending culture results. She does not report clinical worsening, however, she was called back to the hospital as cultures returned (+) for resistant Pseudomonas. She is not having fevers, rigors or dysuria. PMH: 1) DM II 2) COPD - dependent on 5L 02 continuous 3) JUANJOSE - CPAP @ 16 HS 4) Morbid obesity 5) HTN 6) Hallucinations - undetermined cause - states they may coincide with infection. She has well-formed visual hallucinations. 7) Depression 8) Metastatic breast cancer - liver mets - follows with Dr. 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 Principal Diagnosis MDR Pseudomonas UTI Discharge Exam Constitutional well developed and well nourished; no acute distress and not ill appearing Eyes + anicteric sclerae Neck trachea midline Respiratory normal respiratory effort, lungs clear to auscultation Auscultation: + diminished lung sounds (Bases bilateral) Cardiovascular Rate/Rhythm: regular rate and regular rhythm Extremities: no edema Gastrointestinal (Abdomen) Inspection/Auscultation: normal bowel sounds Percussion/Palpation: abdomen soft; abdomen nontender Musculoskeletal Head/Neck/Chest: normocephalic, head atraumatic and neck supple Skin no rashes, warm and dry Neurologic moves all extremities Psychiatric A+Ox3, euthymic affect Discharge Data Allergies Allergy/AdvReac Type Severity Reaction Status Date / Time Sulfa (Sulfonamide Allergy Rash Verified 11/16/18 21:11 Antibiotics) albiglutide AdvReac Diarrhea Verified 11/16/18 21:11 codeine AdvReac Nausea Verified 11/16/18 21:11 metformin AdvReac Diarrhea Verified 11/16/18 21:11 morphine AdvReac Nausea Verified 11/16/18 21:11 sorbitan esters AdvReac Diarrhea Verified 11/16/18 21:11 SKIN ADORE Allergy Unknown Uncoded 11/16/18 21:11 Consultations 11/16/18 21:28 ED Decision to Admit Stat 11/16/18 23:13 Consult Infectious Diseases Routine Ordered Studies CT abd pelvis wo con FINDINGS: Chronic basilar nodularity and pleural thickening right and to lesser extent left base. Overall configuration of the liver and spleen are unremarkable within limitations of an unenhanced scan. Gallbladder is negative for distention. 1 cm nonobstructing calcification mid left kidney. This is unchanged. Mild perinephric infiltrative changes bilaterally also unchanged. No evidence for hydronephrosis. No evidence for an obstructing urinary tract calculus. Mild bladder wall thickening. Nonobstructive bowel pattern. Several small scattered nodes unchanged from the prior study. Nonobstructive bowel pattern. Metastatic bony disease which has been described previously and is grossly stable compared to the prior exam. IMPRESSION: Chronic changes as noted. Nonobstructive bowel pattern. No acute process of the abdomen or pelvis. Stable bony metastatic change. Hospital Course (1) UTI (urinary tract infection): - MDR Pseudomonas on current Zosyn therapy - Only requires a couple more days of therapy to finish 7 day course (11/23) - Due to inability to get a better IV access site the only option was for a peripheral line and will use this for the 2 remaining days. - Will have home services to assist and daughter present for teaching - Instructions given for infection reduction - she does have H/O prolapse and can be sometimes reluctant to change a wet brief which could be contributing - Recommend continued F/U with Urology as outpatient - follows with Dr. Colvin (2) Hallucinations: - Resolved - likely due to UTI (3) Chronic respiratory failure: - Requires 4-5L via NC chronically at home; No acute exacerbations - Continue home Spiriva as prescribed; Albuterol and Duonebs prn. (4) Obstructive sleep apnea: - Continue CPAP (5) Type II diabetes mellitus: - Continue Lantus 65 units daily and Novolog 45 units BID - Most recent hemoglobin A1C was 6.7 in Sep 2018. (6) Depression: - Continue Cymbalta 60 mg daily - Buspar 15 mg TID (7) Hypertension: - Propanolol 80 mg daily (8) Hyperlipidemia: - Aspirin 81 mg and Atorvastatin 20 mg daily (9) History of breast cancer: - Arimidex 1 mg po HS (10) Overactive bladder: - Myrbetriq 50 mg daily (11) Morbid obesity with BMI of 45.0-49.9, adult: - Encourage weight loss and exercise. (12) 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: - Calcium oxalate present on UA. With stone in kidney but not obstructing Total Time Total Time Spent Total Time Spent (In Minutes): Greater than 30 minutes Discharge Plan Discharge Items Patient Disposition: Home - Home Health Services Reason For Visit: UTI,RESISTANT PSEUDOMONAS Discharge Diagnosis: Pseudomonas Urinary Tract Infection Discharge Goals: Decrease discomfort, Improve disease control and Prevent disease Activity: Resume your previous activity Non-emergency contact: Primary Care Provider Call non-emergency contact if: you have any medication questions, your symptoms worsen and your temperature is above 101 Follow-up/Referrals: Selvin Walker, DO [Primary Care Provider] - 11/28/18 10:00 am (Please, follow up with Dr. Selvin Walker on MondayNovember 28 at 10:00 am. *If you need to change this appointment, call the office at [phone].) Diet: Carb Consistent or DM2 Addtl Provider Instructions: UTI: - You are growning a pseudomonas urinary tract infection that can only be treated with IV antibiotics. Thankfully the last UTI you had was a different organism that can use pills for treatment. So if you would get another UTI you may not have to deal with this again. However, you are going to be at risk for recurrent urinary tract infections with this same organism - You will need to finish a course of Zosyn three times a day through your IV until tomorrow November 23. You will then have finished a 7 day course of treatment. - This UTI likely explains some of the hallucinations you were having as sometimes things like that may be your only symptom. - We have talked about multiple things that can put you at risk for UTI. Unfortunately for women you are at increased risk due to how the anatomy is but we cannot change that. You also report you had a pessary in the past. You could consider doing this again as having issues with prolapse can cause some urinary retention leading to infection. Also, due to having incontinence it will be important to keep your briefs dry and changing them frequently when wet to reduce infection exposure - Can continue your cranberry pills but hold your nitrofurantoin (Macrobid) until you finish the Zosyn therapy as you do not need both antibiotics at the same time. Resume the preventative antibiotic (Macrobid) after you finish the Zosyn. - Recommend to continue to follow with your Urologist and see if there is other ways to help prevent recurrent UTIs - Also continue to keep your sugars at a good level as having high sugars can increase your risk of infections. Prescriptions: New piperacillin-tazobactam [Zosyn] 4.5 gram recon soln 4.5 gm IV Q8H 2 Days Qty: 5 RF: 0 Continue multivitamin with minerals [Daily Multivitamin-Minerals] Tablet 1 tab PO QAM Qty: 0 RF: 0 mirabegron [Myrbetriq] 50 mg Tablet Extended Release 24 Hr 50 mg PO QAM Qty: 0 RF: 0 ropinirole 0.25 mg Tablet 0.5 mg PO HS PRN (Reason: prn) Qty: 0 RF: 0 propranolol 80 mg Capsule,Extended Release 24 Hr 80 mg PO QAM Qty: 0 RF: 0 buspirone 15 mg Tablet 15 mg PO TID Qty: 0 RF: 0 polyethylene glycol 3350 [Miralax] 17 gram/dose Powder 17 g PO DAILY PRN (Reason: Constipation) Qty: 255 RF: 0 insulin glargine [Lantus U-100 Insulin] 100 unit/mL Solution 65 unit SUBCUT QAM Qty: 0 RF: 0 albuterol sulfate [Proventil HFA] 90 mcg/actuation Hfa Aerosol Inhaler 2 puff INHALATION Q4H PRN (Reason: Shortness Of Breath Or Wheezing) Qty: 0 RF : 0 insulin aspart U-100 [Novolog Flexpen U-100 Insulin] 100 unit/mL Insulin Pen 45 unit SUBCUT BID Qty: 0 RF: 0 ipratropium-albuterol 0.5 mg-3 mg(2.5 mg base)/3 mL Solution For Nebulization 3 ml INHALATION QID PRN (Reason: SOB) 30 Days Qty: 300 RF: 5 anastrozole 1 mg Tablet 1 mg PO HS 90 Days Qty: 0 RF: 1 aspirin [Aspirin Low Dose] 81 mg Tablet,Delayed Release (Dr/Ec) 81 mg PO QAM Qty: 0 RF: 0 acetaminophen 650 mg Tablet Extended Release 1,300 mg PO BID Qty: 0 RF: 0 atorvastatin 20 mg Tablet 20 mg PO HS RF: 0 docusate sodium [Stool Softener] 100 mg Capsule 200 mg PO DAILY RF: 0 ipratropium-albuterol [Combivent Respimat] 20-100 mcg/actuation Mist 1 puff INHALATION QID RF: 0 tiotropium bromide [Spiriva with HandiHaler] 18 mcg Capsule, W/Inhalation Device 1 cap INHALATION DAILY RF: 0 calcium carbonate [Calcium 600] 600 mg calcium (1,500 mg) Tablet 600 mg PO DAILY RF: 0 potassium 99 mg Tablet 99 mg PO DAILY RF: 0 ascorbic acid (vitamin C) [Vitamin C] 500 mg Tablet 500 mg PO QPM RF: 0 furosemide 20 mg Tablet 20 mg PO DAILY PRN (Reason: Weight Gain) RF: 0 cholecalciferol (vitamin D3) [Vitamin D3] 400 unit Capsule 400 unit PO BID RF: 0 duloxetine 60 mg Capsule,Delayed Release(Dr/Ec) 60 mg PO DAILY RF: 0 solifenacin [Vesicare] 10 mg Tablet 10 mg PO DAILY RF: 0 omega 5-bpl-[id number]-fish oil [Fish Oil] 1,000 mg (120 mg-180 mg) Capsule 1 cap PO DAILY RF: 0 glucosamine tsai 2KCl-chondroit [Glucosamine-Chondroitin 3X Str] 750-600 mg Tablet 1 tab PO BID RF: 0 Saccharomyces boulardii [Florastor] 250 mg capsule 250 mg PO BID Qty: 20 RF: 0 levalbuterol HCl 1.25 mg/3 mL Solution For Nebulization 1.25 mg INHALATION Q4 PRN (Reason: Shortness Of Breath Or Wheezing) RF: 0 cranberry 500 mg Capsule 500 mg PO DAILY RF: 0 nitrofurantoin macrocrystal 100 mg Capsule 100 mg PO DAILY Qty: 0 RF: 0 Stand-Alone Forms: [facility] Discharge Orders: Discharge Order (Routine); Ordered 11/22/18 Ordered By: Brenda Jasso Admission Data Admit Date/Time: 11/16/18 22:01 Attending Provider: Grant Glez Admit Provider: Fran Olivier Primary Care Provider: Selvin Walker Other Providers: Fran Olivier ; Michael Pacheco ; Home,Nursing Agency Service: Medical Other Interventions: Discharge Summary Assessment (RN) Last Done: 11/22/18 11:33 Pending Studies at Discharge: No DC Date/Time DO NOT enter until pt leaves facility: 11/22/18 12:24
== END 2018-11-22 12:24 | disposition home health service (06) ==
LOC: ED 18:53 → 4E 22:01 → SUATTDRO 22:01 → 4E 22:44

== ENCOUNTER 2019-04-29 14:51 | Inpatient (IN) ==
[2019-04-29] MEDS ORDERED: PIPERACILL/TAZOBAC CONSULT ACTIVE PRN (15:57)
[2019-04-29] MEDS ORDERED: PIPERACILLIN/TAZOBACTAM 4.5 GM/120 ML BAG IV ONE (15:57)
--- NOTE | 2019-04-29 16:31 | XRay Report ---
SINGLE VIEW CHEST CLINICAL HISTORY: Sepsis. FINDINGS: An AP, portable, upright chest radiograph is compared to study dated 01/18/2019. Correlation is made with chest CT dated 01/14/2015. The heart is enlarged and there is atherosclerotic calcificatio n of the thoracic aorta. There is pulmonary vascular congestion. Chronic elevation of the right hemid iaphragm is similar to previous. There is bibasilar atelectasis. No large pleural effusion or pneumot horax is seen. The skeletal structures are osteopenic. The bony thorax is grossly intact. There are b ilateral shoulder arthroplasties. Surgical clips are noted in the right axilla. IMPRESSION: 1. Cardiac enlargement with evidence of mild congestive failure. 2. No airspace consolidation or large pleural effusion is identified. Electronically signed by: Garrett Cadet M.D. 04/29/2019 4:30 PM
[2019-04-29 16:46] LABS: Basophils # (auto) 0.03 K/uL (0-0.2); Basophils % (auto) 0.4 %; Eosinophils # (auto) 0.21 K/uL (0-0.5); Eosinophils % (auto) 2.8 %; Hematocrit (blood only) 39.9 % (37-47); Hemoglobin 13.4 g/dL (12.0-16.0); Immature Granulocytes # (auto) 0.03 K/uL (0.00-0.02); Immature Granulocytes % (auto) 0.4 %; Lymphocytes # (auto) 1.36 K/uL (1.2-3.4); Lymphocytes % (auto) 18.2 %; Mean Corpuscular Hgb Conc 33.6 g/dL (32-36); Mean Corpuscular Volume 99.5 fL (80-100); Mean Platelet Volume 9.9 fL (7.4-10.4); Monocytes # (auto) 0.61 K/uL (0.11-0.59); Monocytes % (auto) 8.2 %; Neutrophils # (auto) 5.23 K/uL (1.4-6.5); Platelet Count 287 K/uL (130-400); RDW Coefficient of Variation 13.3 % (11.5-14.5); RDW Standard Deviation 48.2 fL (36.4-46.3); Red Blood Count 4.01 M/uL (4.2-5.4); White Blood Count 7.47 K/uL (4.8-10.8)
[2019-04-29 17:04] LABS: Albumin Level 3.6 gm/dl (3.4-5.0); BUN Creatinine Ratio 20.7 (10-20); Calcium 10.6 mg/dl (8.5-10.1); Creatinine Clr Calc Pharmacy 44.9 ml/min; Est GFR (African American) 59.6; Est GFR (Non-African American) 51.5; Potassium 3.9 mmol/L (3.5-5.1)
[2019-04-29 17:06] LABS: INR 1.1 (0.9-1.1); Partial Thromboplastin Time 26.3 Seconds (21.0-31.0); Prothrombin Time 11.1 Seconds (9.0-12.0)
[2019-04-29 17:07] LABS: Albumin Globulin Ratio 0.8 (0.9-2); Bilirubin,Total 0.4 mg/dl (0.2-1); Globulin 4.5 gm/dl (2.5-4.0); Total Protein 8.1 gm/dl (6.4-8.2)
--- NOTE | 2019-04-29 19:20 | History & Physical Report ---
Date of Service April 29, 2019 Assessment & Plan (1) Acute UTI: Julisa Is a 73-year-old female with a past medical history of morbid obesity, metastatic breast cancer, hypertension, hyperlipidemia, depression, type 2 diabetes mellitus on insulin, JUANJOSE, and recurrent UTIs who presents with 3 days of worsened pain on urination. She had a UA at her outpatient office which shows multidrug-resistant Pseudomonal UTI. UTI 2/2 pseudomonas aeruginosa, multidrug-resistant Sensitive to ceftazidime, imipenem, Zosyn Resistant to fluoroquinolones. 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 twice daily prophylaxis Received 1 dose of Zosyn in the ED She does not show any signs of pyelonephritis or intrarenal/perinephric abscess. No fever/chills, no signs of sepsis. She does not have symptoms of current urinary obstruction, although she is at risk given her known history and residual stones. Imipenem 500mg Q6H [id number]. ID consulted for Imipenem use given recurrence following Zosyn tx. Daughter has administered medicines through a [place] guided peripheral before and is comfortable with their care and maintenance. Notes that her family is camping for the week, but that they are in a trailer which is kept clean with running water and is confident that she would be able to keep a site clean and hygienic if needed. 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 Family reports intermittent visual hallucinations, patient recognizes and remembers these and expresses confusion over others not being able to see or recognize them. Dementia/neurologic work-up pending as outpatient for 05/06. Episode last night of fearful visual hallucinations of people in the room worsened with her UTI. UTI treatment as above No signs of hepatic encephalopathy Spastic bladder/urinary incontinence Continue Myrbetriq 50 mg every morning Continue Vesicare 10 mg p.o. daily Hyperlipidemia Continue atorvastatin 20 mg nightly Hypertension Continue aspirin 81 mg daily Continue propranolol 80 mg every morning COPD DuoNeb every 4 hours as needed Metastatic breast cancer Adequate pain control Continue anastrozole 1 mg nightly Depression Continue bupropion 150 every morning Continue buspirone 15 mg p.o. 3 times daily Continue duloxetine 60 mg p.o. daily Hypokalemia K-Julia 10 MEQ daily DVT prophylaxis: Enoxaparin 40 mg SQ daily CODE STATUS: DNR/DNI. Discussed and confirmed with patient and family. (2) COPD (chronic obstructive pulmonary disease): (3) Morbid obesity with BMI of 45.0-49.9, adult: (4) Overactive bladder: (5) Hyperlipidemia: (6) Hypertension: (7) Type II diabetes mellitus: (8) Obstructive sleep apnea: (9) Chronic respiratory failure: (10) Depression: (11) UTI (urinary tract infection): (12) DVT prophylaxis: (13) Altered mental status: (14) Hallucinations: (15) Altered mental status: History of Present Illness Chief Complaint: Low abdominal pain, dysuria Primary Care Provider: Selvin Walker DO Julisa Is a 73-year-old female with a past medical history of morbid obesity, metastatic breast cancer, hypertension, hyperlipidemia, depression, type 2 diabetes mellitus on insulin, JUANJOSE, and recurrent UTIs who presents with 3 days of worsened pain on urination. She is seen at bedside with her son and daughter. She reports that she has chronic low abdominal pain and discomfort at baseline and for several weeks has had mid to low abdominal pain with bladder spasms. This pain worsened severely to an 8/10 on Monday. Her last UTI was 6 months ago. She saw her PCP Dr. Walker on Monday who performed a urinalysis. The results showed resistant pseudomonal UTI and they were recommended to go to [facility] for treatment, however last night she developed altered mental status and hallucinations and their PCP recommended she be seen in the emergency department. She has not had any fevers, chills, sweats, vomiting. She has had some intermittent nausea, not at time of exam. She endorses constipation for which she takes MiraLAX and a laxative pill which causes her to have loose bowel movements at baseline. No change in bowel movements. She has increased urinary frequency, often going several times an hour. She is incontinent with bladder spasms at baseline and has tried various medications including antispasmodics and a pessary in the past. She takes mirabegron and solifenacin. She no longer uses a pessary. She endorses increased burning with urination as noted above. She manages her diabetes with Lantus 45 units every morning and NovoLog 45 units twice daily. She notes her morning sugars are about 160 and her evenings are generally in the high 200s. Her blood sugars often go as low as 70 and she feels lightheaded, "off "and sometimes diaphoretic. She has not passed out from this. She is not currently taking an MIAH/ARB. She thinks lisinopril sounds familiar, but is not sure she was on in the past or if it was stopped. She has neuropathy in her hands and feet at baseline. She has had intermittent confusion and hallucinations for several months in the past per her daughters, they have an appointment with the neurologist for evaluation on Sunday 05/06 to evaluate this further. There was concern for Alzheimer's dementia in her parents. Her daughters note that K often seems confused with some memory deficits. She has a history of metastatic breast cancer initially treated with mastectomy of the right breast. She had mets to bone with palliative spine radiation in 2018. She takes anastrozole daily. Follows with Dr. Russ. Surgical history: Endorses bilateral shoulder replacement with prostheses, hysterectomy, right mastectomy, left kidney stone removal. No cholecystectomy or appendectomy. Social: Lives in [facility] with her daughter. No one recently ill in the house. Tobacco use: Never Alcohol use: Minimal, 1-2 drinks a year with holidays Recreational drugs: None Family history: No family history of type 2 diabetes. Denies family history of coronary artery disease/OK. Endorses a history of lung cancer in her father and old age and testicular cancer in her paternal grandfather and old age. Allergies: Confusion/hallucinations with morphine and codeine. Rash allergy to sulfa. Diarrhea with metformin. Allergies Allergy/AdvReac Type Severity Reaction Status Date / Time Sulfa (Sulfonamide Allergy Rash Verified 04/29/19 18:52 Antibiotics) sulfamethoxazole Allergy Unknown Unverified 04/29/19 18:52 [From Bactrim] trimethoprim [From Bactrim] Allergy Unknown Unverified 04/29/19 18:52 albiglutide AdvReac Diarrhea Verified 04/29/19 18:52 codeine AdvReac Nausea Verified 04/29/19 18:52 metformin AdvReac Diarrhea Verified 04/29/19 18:52 morphine AdvReac Nausea Verified 04/29/19 18:52 sorbitan esters AdvReac Diarrhea Verified 04/29/19 18:52 SKIN ADORE Allergy Unknown Uncoded 04/29/19 18:52 Home Medications Home Medications Medication Instructions Recorded Confirmed Type multivitamin with minerals [Daily 1 tab PO QAM #0 06/18/07 04/29/19 History Multivitamin-Minerals] Myrbetriq 50 mg PO QAM #0 11/27/13 04/29/19 History ropinirole 0.5 mg PO HS PRN #0 12/18/14 04/29/19 History propranolol 80 mg PO QAM #0 12/22/14 04/29/19 History buspirone 15 mg PO TID #0 tab 11/21/15 04/29/19 History polyethylene glycol 3350 [Miralax] 17 g PO DAILY PRN #255 g 03/21/17 04/29/19 History albuterol sulfate [Proventil HFA] 2 puff INHALATION Q4H PRN #0 01/22/18 04/29/19 History anastrozole 1 mg PO HS 90 Days #0 tab 04/17/18 04/29/19 History ipratropium-albuterol 3 ml INHALATION QID PRN 30 Days 04/17/18 04/29/19 History #300 ml acetaminophen 1,300 mg PO BID #0 cap 06/01/18 04/29/19 History aspirin [Aspirin Low Dose] 81 mg PO QAM #0 06/01/18 04/29/19 History Combivent Respimat 1 puff INHALATION QID 08/07/18 04/29/19 History atorvastatin 20 mg PO HS 08/07/18 04/29/19 History docusate sodium [Stool Softener] 200 mg PO DAILY 08/07/18 04/29/19 History ascorbic acid (vitamin C) [Vitamin 500 mg PO QPM 11/14/18 04/29/19 History C] calcium carbonate [Calcium 600] 600 mg PO DAILY 11/14/18 04/29/19 History cholecalciferol (vitamin D3) 400 unit PO BID 11/14/18 04/29/19 History [Vitamin D3] duloxetine 60 mg PO DAILY 11/14/18 04/29/19 History furosemide 20 mg PO DAILY PRN 11/14/18 04/29/19 History glucosamine tsai 2KCl-chondroit 1 tab PO BID 11/14/18 04/29/19 History [Glucosamine-Chondroitin 3X Str] omega 5-[id number]-fish oil [Fish Oil] 1 cap PO DAILY 11/14/18 04/29/19 History potassium 99 mg PO DAILY 11/14/18 04/29/19 History solifenacin [Vesicare] 10 mg PO DAILY 11/14/18 04/29/19 History levalbuterol HCl 1.25 mg INHALATION Q4 PRN 11/16/18 04/29/19 History nitrofurantoin macrocrystal 100 mg PO DAILY #0 cap 11/22/18 04/29/19 Rx insulin aspart (U-100) 100 unit/mL 45 unit SUBCUT BID #75 ml 03/29/19 04/29/19 Rx (3 mL) subcutaneous pen cranberry 500 mg capsule 500 mg PO BID 04/19/19 04/29/19 History bupropion HCl 150 mg PO QAM 04/29/19 04/29/19 History insulin glargine [Lantus Solostar 45 units SQ QAM 04/29/19 04/29/19 History U-100 Insulin] Past Med/Surg History Medical History DVT prophylaxis Breast cancer Breast cancer metastasized to bone (~02/18/18) "Treatment: Status post completion of palliative radiation therapy to the thoracic spine March 19, 2018. She received 3000 cGy." Breast cancer metastasized to liver Diabetic peripheral neuropathy associated with type 2 diabetes mellitus History of difficult intubation H/O GLIDESCOPE #3 History of kidney stones Chronic obstructive pulmonary disease USES INHALER DAILY, ON 5L O2 AT ALL TIMES Sleep apnea CPAP Anxiety Depression Cancer RIGHT BREAST--S/P R MASTECTOMY/CHEMO/XRT ~20yrs ago RE-OCCURRENCE WITH METS TO BONE AND VISCERA 02/2018 Diabetes mellitus, type 2 IDDM Osteoarthritis Chronic back pain HX RUPTURED DISCS Diabetic neuropathy B/L FEET Restless leg syndrome Morbid obesity Chronic respiratory failure 5L OXYGEN CONTINUOUS Hyperparathyroidism S/P ATTEMPTED PARATHYROIDECTOMY--COULD NOT LOCATE 1-2 GLANDS Recurrent UTI MOST RECENT 04/2018, REQUIRING PICC LINE FOR OUTPATIENT ANTIBIOTIC TREATMENT Glaucoma (Chronic) LEGALLY BLIND IN RIGHT EYE Surgical History History of appendectomy History of nasal septoplasty History of cataract surgery BILATERAL History of total shoulder replacement BILATERAL History of mastectomy RIGHT, WITH LYMPH NODE DISSECTION History of hysterectomy BSO/BLADDER TACK History of carpal tunnel release H/O parathyroidectomy H/O difficult intubation GLIDESCOPE #3 Glidescope #3 Family History Father Cancer Grandmother Breast cancer Myocardial infarction Aunt Ovarian cancer Social History Preferred Language: Gambian Communication Ability: Effective Visual Impairment: No Limitations Equipment Washer Required: No Beliefs That Will Affect Care: None Current Living Situation: Family Current Living Situation Comment: daughter's and children live with her Feels Safe at Home: Yes Safety Concerns: Feels Safe At This Time Smoking Status: Never smoker Do You Dip or Chew Tobacco: No Second Hand Exposure: Yes Hx Alcohol Use: No Hx Substance Use: No Review of Systems Review of Systems: Constitutional: Denies fever, chills, malaise Eyes: Denies double vision, vision change, eye pain ENT: Denies ear pain, sore throat, sinus pain Cardiovascular: Denies Chest pain, chest pressure, palpitations, extremity swelling Respiratory: Denies shortness of breath, cough, sputum production, difficulty breathing Gastrointestinal: Denies abdominal pain, nausea, vomiting, constipation, diarrhea Genitourinary: Endorses abdominal pain, pain with urination, increased urinary frequency, urinary urgency, urinary incontinence Musculoskeletal: Denies New weakness, muscle aches/pain, joint aches/pain Integumentary:Denies new rash, lesions, bruising Neurological: Denies headache, focal weakness. Endorses history of migraine, none presently. Physical Exam Physical Exam: General: A&Ox3. NAD. Cooperative. Skin: Excoriations around the left neck base around skin tags. HEENT: Atraumatic, normocephalic.Poor visual acuity. Extraocular movements intact without nystagmus. Pupils reactive to light and accommodation. Pulm: CTAB A&P. -wheezes, -rales, -rhonchi. Symmetrical chest rise. No increase work of breathing. No respiratory distress. Cardiac: RRR, -mrg. Radial pulses intact and symmetrical. Abdominal: diffuse mild abdominal tenderness without peritoneal signs,Rebound negative, nondistended, soft. BS present. Extremity: Moves all extremities equally. Decreased sensation to soft touch in the feet bilaterally. PT pulses intact. No edema. Results & Data Vital Signs (Past 12 Hours) Vital Signs Temp Pulse Resp BP Pulse Ox 04/29/19 18:31 86 26 H 99 04/29/19 18:30 81 21 107/73 96 04/29/19 18:20 88 25 H 98 04/29/19 18:14 91 H 23 04/29/19 18:01 83 20 100 04/29/19 18:00 85 21 117/83 99 04/29/19 17:50 83 17 97 04/29/19 17:40 85 19 94 04/29/19 17:30 88 22 99 04/29/19 17:21 85 20 98 04/29/19 17:10 83 30 H 04/29/19 17:00 85 29 H 128/63 100 04/29/19 16:50 85 20 04/29/19 16:45 88 20 97 04/29/19 16:42 83 23 121/97 96 04/29/19 16:30 93 04/29/19 15:00 36.5 C 107 H 32 H 182/131 H 93 Supervising Physician Co-Signing Physician Notes Patient seen and examined, chart reviewed, case discussed with Dr. Sanchez and I agree with his assessment and plan as documented above. Briefly, patient is a 73yo C female with multiple medical problems, recurrent UTI with MDR Pseudomonas. She presents today with complaint of dysuria/frequency and urgency. Cx with +Pseudomonas, susceptible to Zosyn, Imi and Ceftazidime On exam she is afebrile, hemodynamically stable, non-toxic in appearance No CVA tenderness Labs and images reviewed Assessment/Plan: 73yo C female with complex PMH to include metastatic breast CA, HTN/HLP/DM, recurrent UTIs with MDR Pseudomonas presenting with recurrence of UTI. Patient most recently treated with Zosyn -Observation to medical floor -Will start Imipenem 500mg IV q 6 hours -ID consultation, appreciate assistance -Goal for vascular access and home antibiotics -Urology followup - patient with spastic bladder, ?retention and urinary stasis contributing to frequent UTIs. She was recently started on Macrobid ppx which has been held this stay -Remainder of plan as above PG Care Time/CCT Total # of Minutes Spent Total Time Spent with Patient: Total time spent is greater than 50% in coordina tion of care (as documented) at patient's floor/unit and/or counseling patient: Resident Activity Tracking Resident Involvement: Resident Care Provided Care Provided: Adult Hospital Medicine (1) UTI (urinary tract infection) Hematuria presence: without hematuria Urinary tract infection type: site unspecified Qualified Code(s): N39.0 - Urinary tract infection, site not specified (2) Altered mental status Altered mental status type: unspecified Qualified Code(s): R41.82 - Altered mental status, unspecified (3) Altered mental status Altered mental status type: unspecified Qualified Code(s): R41.82 - Altered mental status, unspecified (4) COPD (chronic obstructive pulmonary disease) COPD type: unspecified COPD Qualified Code(s): J44.9 - Chronic obstructive pulmonary disease, unspecified
--- NOTE | 2019-04-29 21:27 | Emergency Department Note ---
Entered by Sarah Song acting as a scribe for History of Present Illness General Chief complaint: Urinary Symptoms Stated complaint: UTI SEVERE PAIN HALLUCINATIONS Time Seen by Provider: 04/29/19 15:53 Source: patient History of Present Illness Onset (ago): day(s) (several) Location: abdomen Pain Consistency: + other (persistent ) Maximum Pain Intensity: 10 Quality: + other (urinary symptoms ) Associated symptoms: + other (positive now resolved abdominal pain; positive hallucinations); no fever/chills and no nausea/vomiting Treatments prior to arrival: other (Levaquin) The patient is a 73 year old white female w/ PMHx of breast cancer, HLD, hypertension, depression, Type II diabetes, asthma, and COPD who presents to the ED w/ CC of persistent urinary symptoms beginning several days prior to arrival. The patient states that she gave a urine sample 3 days ago and states that she was called today with the results. The patient states that she has been taking Levaquin during this time. The patient's daughter states that the patient has been hallucinating for 2 days. The patient denies fever, chills, and vomiting. She states that her abdominal pain has since resolved. The patient's daughter states that the patient has had some falls recently, and states that the patient fell last week and hit her back. The patient states that she is on 5L of oxygen at home. Home Medications Home Medications Medication Instructions Recorded Confirmed Type multivitamin with minerals [Daily 1 tab PO QAM #0 06/18/07 04/29/19 History Multivitamin-Minerals] Myrbetriq 50 mg PO QAM #0 11/27/13 04/29/19 History ropinirole 0.5 mg PO HS PRN #0 12/18/14 04/29/19 History propranolol 80 mg PO QAM #0 12/22/14 04/29/19 History buspirone 15 mg PO TID #0 tab 11/21/15 04/29/19 History polyethylene glycol 3350 [Miralax] 17 g PO DAILY PRN #255 g 03/21/17 04/29/19 History albuterol sulfate [Proventil HFA] 2 puff INHALATION Q4H PRN #0 01/22/18 04/29/19 History anastrozole 1 mg PO HS 90 Days #0 tab 04/17/18 04/29/19 History ipratropium-albuterol 3 ml INHALATION QID PRN 30 Days 04/17/18 04/29/19 History #300 ml acetaminophen 1,300 mg PO BID #0 cap 06/01/18 04/29/19 History aspirin [Aspirin Low Dose] 81 mg PO QAM #0 06/01/18 04/29/19 History Combivent Respimat 1 puff INHALATION QID 08/07/18 04/29/19 History atorvastatin 20 mg PO HS 08/07/18 04/29/19 History docusate sodium [Stool Softener] 200 mg PO DAILY 08/07/18 04/29/19 History ascorbic acid (vitamin C) [Vitamin 500 mg PO QPM 11/14/18 04/29/19 History C] calcium carbonate [Calcium 600] 600 mg PO DAILY 11/14/18 04/29/19 History cholecalciferol (vitamin D3) 400 unit PO BID 11/14/18 04/29/19 History [Vitamin D3] duloxetine 60 mg PO DAILY 11/14/18 04/29/19 History furosemide 20 mg PO DAILY PRN 11/14/18 04/29/19 History glucosamine tsai 2KCl-chondroit 1 tab PO BID 11/14/18 04/29/19 History [Glucosamine-Chondroitin 3X Str] omega 5-fpm-eer-fish oil [Fish Oil] 1 cap PO DAILY 11/14/18 04/29/19 History potassium 99 mg PO DAILY 11/14/18 04/29/19 History solifenacin [Vesicare] 10 mg PO DAILY 11/14/18 04/29/19 History levalbuterol HCl 1.25 mg INHALATION Q4 PRN 11/16/18 04/29/19 History nitrofurantoin macrocrystal 100 mg PO DAILY #0 cap 11/22/18 04/29/19 Rx insulin aspart (U-100) 100 unit/mL 45 unit SUBCUT BID #75 ml 03/29/19 04/29/19 Rx (3 mL) subcutaneous pen cranberry 500 mg capsule 500 mg PO BID 04/19/19 04/29/19 History bupropion HCl 150 mg PO QAM 04/29/19 04/29/19 History insulin glargine [Lantus Solostar 45 units SQ QAM 04/29/19 04/29/19 History U-100 Insulin] Allergies Allergy/AdvReac Type Severity Reaction Status Date / Time Sulfa (Sulfonamide Allergy Rash Verified 04/29/19 18:52 Antibiotics) sulfamethoxazole Allergy Unknown Unverified 04/29/19 18:52 [From Bactrim] trimethoprim [From Bactrim] Allergy Unknown Unverified 04/29/19 18:52 albiglutide AdvReac Diarrhea Verified 04/29/19 18:52 codeine AdvReac Nausea Verified 04/29/19 18:52 metformin AdvReac Diarrhea Verified 04/29/19 18:52 morphine AdvReac Nausea Verified 04/29/19 18:52 sorbitan esters AdvReac Diarrhea Verified 04/29/19 18:52 SKIN ADORE Allergy Unknown Uncoded 04/29/19 18:52 Past Med/Surg History Medical History DVT prophylaxis Breast cancer Breast cancer metastasized to bone (~02/18/18) "Treatment: Status post completion of palliative radiation therapy to the thoracic spine March 19, 2018. She received 3000 cGy." Breast cancer metastasized to liver Diabetic peripheral neuropathy associated with type 2 diabetes mellitus History of difficult intubation H/O GLIDESCOPE #3 History of kidney stones Chronic obstructive pulmonary disease USES INHALER DAILY, ON 5L O2 AT ALL TIMES Sleep apnea CPAP Anxiety Depression Cancer RIGHT BREAST--S/P R MASTECTOMY/CHEMO/XRT ~20yrs ago RE-OCCURRENCE WITH METS TO BONE AND VISCERA 02/2018 Diabetes mellitus, type 2 IDDM Osteoarthritis Chronic back pain HX RUPTURED DISCS Diabetic neuropathy B/L FEET Restless leg syndrome Morbid obesity Chronic respiratory failure 5L OXYGEN CONTINUOUS Hyperparathyroidism S/P ATTEMPTED PARATHYROIDECTOMY--COULD NOT LOCATE 1-2 GLANDS Recurrent UTI MOST RECENT 04/2018, REQUIRING PICC LINE FOR OUTPATIENT ANTIBIOTIC TREATMENT Glaucoma (Chronic) LEGALLY BLIND IN RIGHT EYE Surgical History History of appendectomy History of nasal septoplasty History of cataract surgery BILATERAL History of total shoulder replacement BILATERAL History of mastectomy RIGHT, WITH LYMPH NODE DISSECTION History of hysterectomy BSO/BLADDER TACK History of carpal tunnel release H/O parathyroidectomy H/O difficult intubation GLIDESCOPE #3 Glidescope #3 Family History Father Cancer Grandmother Breast cancer Myocardial infarction Aunt Ovarian cancer Social History Preferred Language: Luxembour[place] Communication Ability: Effective Visual Impairment: No Limitations Beliefs That Will Affect Care: None Current Living Situation: Family Current Living Situation Comment: daughter's and children live with her Feels Safe at Home: Yes Smoking Status: Never smoker Hx Alcohol Use: No Hx Substance Use: No Review of Systems See HPI for pertinent positives & negatives. and A total of 10 systems reviewed and were otherwise negative Physical Exam Vital Signs Vital Signs - 24 hr 04/29/19 15:00 04/29/19 16:30 04/29/19 16:42 Temperature 36.5 C Temperature Source Oral Sepsis Recent Fever Within 48 Hours No Sepsis Action Taken by Nursing No Action Required Pulse Rate 107 H 83 Pulse Rate from SpO2 Sensor 85 Pulse Rhythm Regular Pulse Strength Normal Respiratory Rate 32 H 23 Respiratory Effort / Characteristics Non-Labored Respiratory Depth Normal Respiratory Pattern Regular Blood Pressure 182/131 H 121/97 Blood Pressure Mean 148 105 Pulse Oximetry 93 93 96 Oxygen Delivery Method Nasal Cannula Room Air Nasal Cannula Oxygen Flow Rate 5 5 04/29/19 16:45 04/29/19 16:50 04/29/19 17:00 Temperature Temperature Source Sepsis Recent Fever Within 48 Hours Sepsis Action Taken by Nursing Pulse Rate 88 85 85 Pulse Rate from SpO2 Sensor 88 86 Pulse Rhythm Pulse Strength Respiratory Rate 20 20 29 H Respiratory Effort / Characteristics Respiratory Depth Respiratory Pattern Blood Pressure 128/63 Blood Pressure Mean 84 Pulse Oximetry 97 100 Oxygen Delivery Method Oxygen Flow Rate 04/29/19 17:10 04/29/19 17:21 04/29/19 17:30 Temperature Temperature Source Sepsis Recent Fever Within 48 Hours Sepsis Action Taken by Nursing Pulse Rate 83 85 88 Pulse Rate from SpO2 Sensor 84 87 Pulse Rhythm Pulse Strength Respiratory Rate 30 H 20 22 Respiratory Effort / Characteristics Respiratory Depth Respiratory Pattern Blood Pressure Blood Pressure Mean Pulse Oximetry 98 99 Oxygen Delivery Method Oxygen Flow Rate 04/29/19 17:40 04/29/19 17:50 04/29/19 18:00 Temperature Temperature Source Sepsis Recent Fever Within 48 Hours Sepsis Action Taken by Nursing Pulse Rate 85 83 85 Pulse Rate from SpO2 Sensor 84 84 83 Pulse Rhythm Pulse Strength Respiratory Rate 19 17 21 Respiratory Effort / Characteristics Respiratory Depth Respiratory Pattern Blood Pressure 117/83 Blood Pressure Mean 94 Pulse Oximetry 94 97 99 Oxygen Delivery Method Oxygen Flow Rate 04/29/19 18:01 04/29/19 18:14 04/29/19 18:20 Temperature Temperature Source Sepsis Recent Fever Within 48 Hours Sepsis Action Taken by Nursing Pulse Rate 83 91 H 88 Pulse Rate from SpO2 Sensor 83 87 Pulse Rhythm Pulse Strength Respiratory Rate 20 23 25 H Respiratory Effort / Characteristics Respiratory Depth Respiratory Pattern Blood Pressure Blood Pressure Mean Pulse Oximetry 100 98 Oxygen Delivery Method Oxygen Flow Rate 04/29/19 18:30 04/29/19 18:31 Temperature Temperature Source Sepsis Recent Fever Within 48 Hours Sepsis Action Taken by Nursing Pulse Rate 81 86 Pulse Rate from SpO2 Sensor 83 87 Pulse Rhythm Pulse Strength Respiratory Rate 21 26 H Respiratory Effort / Characteristics Respiratory Depth Respiratory Pattern Blood Pressure 107/73 Blood Pressure Mean 84 Pulse Oximetry 96 99 Oxygen Delivery Method Nasal Cannula Oxygen Flow Rate 5 GENERAL: Nasal cannula in place. Well nourished, NAD, non-toxic. EYE EXAM: Normal conjunctiva. PERRL, no anisocoria and EOM's grossly intact w/o pain. OROPHARYNX: Moist mucus membranes. Grossly normal dentition. NECK: Supple, no nuchal rigidity, no adenopathy, non-tender. no signs of meningismus. LUNGS: Clear to auscultation. Normal chest wall mechanics. HEART: NSR, no MRG. ABDOMEN: Mild diffuse abdominal discomfort. Not peritonitic. Abdomen soft, normo-active bowel sounds, no masses, no rebound or guarding. BACK: No CVA TTP. SKIN: No rashes and no bruising. UPPER EXTREMITIES: Upper extremities are grossly normal. LOWER EXTREMITIES: No pitting edema. No calf pain. NEURO EXAM: A&O x3, cranial nerves II-XII grossly intact, normal speech, moves all 4 extremities on command w/o issue. Course 1602: Past medical records reviewed. The patient was evaluated in room B6. A complete history and physical exam was performed. 1747: I updated the patient and her family on all results. 175: [facility]. Consultations Consultation #1: I [facility] further evaluation. Time: 17:51 Administered Medications Discontinued Medications Piperacillin Sod/Tazobactam Sod (Zosyn) 4.5 gm in 120 mls @ 240 mls/hr IV NOW ONE Stop: 04/29/19 16:26 Last Infusion: 04/29/19 18:18 Dose: 0 mls/hr Documented by: [id number] Admin: 04/29/19 16:53 Dose: 240 mls/hr Documented by: [id number] Medical Decision Making Medical Records Attestation: I reviewed the patient's medical records. Home Medications Current Medication List: was personally reviewed by me Laboratory Data Attestation: I reviewed the patient's lab results. Result diagrams: 04/29/19 16:30 04/29/19 16:30 Lab Results 04/29/19 04/29/19 04/29/19 Range/Units 16:30 16:30 16:30 WBC 7.47 (4.8-10.8) K/uL RBC 4.01 L (4.2-5.4) M/uL Hgb 13.4 (12.0-16.0) g/dL Hct 39.9 (37-47) % MCV 99.5 (80-100) fL MCH 33.4 (25-34) pg MCHC 33.6 (32-36) g/dL RDW Std Deviation 48.2 H (36.4-46.3) fL RDW Coeff of Angélica 13.3 (11.5-14.5) % Plt Count 287 (130-400) K/uL MPV 9.9 (7.4-10.4) fL Immature Gran % (Auto) 0.4 % Neut % (Auto) 70.0 % Lymph % (Auto) 18.2 % [place] % (Auto) 8.2 % Eos % (Auto) 2.8 % Baso % (Auto) 0.4 % Immature Gran # (Auto) 0.03 H (0.00-0.02) K/uL Neut # (Auto) 5.23 (1.4-6.5) K/uL Lymph # (Auto) 1.36 (1.2-3.4) K/uL [place] # (Auto) 0.61 H (0.11-0.59) K/uL Eos # (Auto) 0.21 (0-0.5) K/uL Baso # (Auto) 0.03 (0-0.2) K/uL PT 11.1 (9.0-12.0) Seconds INR 1.1 (0.9-1.1) APTT 26.3 (21.0-31.0) Seconds PTT Ratio 1.0 Sodium 141 (136-145) mmol/L Potassium 3.9 (3.5-5.1) mmol/L Chloride 105 (98-107) mmol/L Carbon Dioxide 29 (21-32) mmol/L Anion Gap 7.0 (3-11) BUN 22 H (7-18) mg/dl Creatinine 1.07 (0.6-1.2) mg/dl Est Cr Clr Drug Dosing 44.9 ml/min Est GFR ( Amer) 59.6 Est GFR (Non-Af Amer) 51.5 BUN/Creatinine Ratio 20.7 H (10-20) Glucose 91 (70-99) mg/dl Lactate (0.4-2.0) mmol/L Calcium 10.6 H (8.5-10.1) mg/dl Total Bilirubin 0.4 (0.2-1) mg/dl AST 24 (15-37) U/L ALT 25 (12-78) U/L Alkaline Phosphatase 106 (45-117) U/L Total Protein 8.1 (6.4-8.2) gm/dl Albumin 3.6 (3.4-5.0) gm/dl Globulin 4.5 H (2.5-4.0) gm/dl Albumin/Globulin Ratio 0.8 L (0.9-2) Procalcitonin (0-0.5) ng/ml 04/29/19 04/29/19 Range/Units 16:30 16:30 WBC (4.8-10.8) K/uL RBC (4.2-5.4) M/uL Hgb (12.0-16.0) g/dL Hct (37-47) % MCV (80-100) fL MCH (25-34) pg MCHC (32-36) g/dL RDW Std Deviation (36.4-46.3) fL RDW Coeff of Angélica (11.5-14.5) % Plt Count (130-400) K/uL MPV (7.4-10.4) fL Immature Gran % (Auto) % Neut % (Auto) % Lymph % (Auto) % [place] % (Auto) % Eos % (Auto) % Baso % (Auto) % Immature Gran # (Auto) (0.00-0.02) K/uL Neut # (Auto) (1.4-6.5) K/uL Lymph # (Auto) (1.2-3.4) K/uL [place] # (Auto) (0.11-0.59) K/uL Eos # (Auto) (0-0.5) K/uL Baso # (Auto) (0-0.2) K/uL PT (9.0-12.0) Seconds INR (0.9-1.1) APTT (21.0-31.0) Seconds PTT Ratio Sodium (136-145) mmol/L Potassium (3.5-5.1) mmol/L Chloride (98-107) mmol/L Carbon Dioxide (21-32) mmol/L Anion Gap (3-11) BUN (7-18) mg/dl Creatinine (0.6-1.2) mg/dl Est Cr Clr Drug Dosing ml/min Est GFR ( Amer) Est GFR (Non-Af Amer) BUN/Creatinine Ratio (10-20) Glucose (70-99) mg/dl Lactate 1.6 (0.4-2.0) mmol/L Calcium (8.5-10.1) mg/dl Total Bilirubin (0.2-1) mg/dl AST (15-37) U/L ALT (12-78) U/L Alkaline Phosphatase (45-117) U/L Total Protein (6.4-8.2) gm/dl Albumin (3.4-5.0) gm/dl Globulin (2.5-4.0) gm/dl Albumin/Globulin Ratio (0.9-2) Procalcitonin < 0.05 (0-0.5) ng/ml Imaging Data Radiologist's Impression: Radiology results as stated below per my review and the radiologist's interpretation: SINGLE VIEW CHEST CLINICAL HISTORY: Sepsis. FINDINGS: An AP, portable, upright chest radiograph is compared to study dated 01/18/2019. Correlation is made with chest CT dated 01/14/2015. The heart is enlarged and there is atherosclerotic calcification of the thoracic aorta. There is pulmonary vascular congestion. Chronic elevation of the right hemidiaphragm is similar to previous. There is bibasilar atelectasis. No large pleural effusion or pneumothorax is seen. The skeletal structures are osteopenic. The bony thorax is grossly intact. There are bilateral shoulder arthroplasties. Surgical clips are noted in the right axilla. IMPRESSION: 1. Cardiac enlargement with evidence of mild congestive failure. 2. No airspace consolidation or large pleural effusion is identified. Electronically signed by: Garrett Cadet M.D. 04/29/2019 4:30 PM Blood Pressure Blood Pressure Findings: Normal blood pressure MDM Narrative The patient is a 73 year old white female w/ PMHx of breast cancer, HLD, hypertension, depression, Type II diabetes, asthma, and COPD who presents to the ED w/ CC of persistent urinary symptoms beginning several days prior to arrival. Differential diagnosis: Etiologies such as UTI, appendicitis, diverticulitis, PUD, biliary pathology, pancreatitis, obstruction, mesenteric ischemia, aortic pathology, infections, inflammatory bowel disease, renal colic, as well as others were entertained. Patient was seen and evaluated the bedside. The patient is presenting as there was concern for some increasing dysuria and associated callback from her PCP for follow-up given her UTI. Upon review the patient does have a history of mu ltidrug-resistant Pseudomonas UTI and her most recent does show resistance to quinolones which is what she had been prescribed several days ago. Patient does have some mild abdominal discomfort but is not peritonitic. Patient is afebrile. Patient's blood work shows a normal white count H&H. The patient's kidney function is fairly unremarkable. Patient was given Zosyn. After further discussion it would have been very difficult not very feasible to obtain any sort of teaching MTU orders for PICC line placement at this hour so I did talk with the on-call hospitalist who agreed to admit the patient. Patient was admitted to the medicine service. Impression & Plan Acute UTI, COPD (chronic obstructive pulmonary disease) Discharge Plan Visit Data Chief Complaint: Urinary Symptoms Stated Complaint: UTI SEVERE PAIN HALLUCINATIONS ED Provider: Michael Cook Discharge Problem: Acute UTI, COPD (chronic obstructive pulmonary disease) Patient Disposition: Being Evaluated by Hospitalist Discharge Instructions Interventions: ED Discharge Assessment Last Done: 04/29/19 21:06 Forms Stand Alone Forms: [employer] Prescriptions Prescriptions: No Action multivitamin with minerals [Daily Multivitamin-Minerals] Tablet 1 tab PO QAM Qty: 0 RF: 0 Myrbetriq 50 mg Tablet Extended Release 24 Hr 50 mg PO QAM Qty: 0 RF: 0 ropinirole 0.25 mg Tablet 0.5 mg PO HS PRN (Reason: prn) Qty: 0 RF: 0 propranolol 80 mg Capsule,Extended Release 24 Hr 80 mg PO QAM Qty: 0 RF: 0 buspirone 15 mg Tablet 15 mg PO TID Qty: 0 RF: 0 polyethylene glycol 3350 [Miralax] 17 gram/dose Powder 17 g PO DAILY PRN (Reason: Constipation) Qty: 255 RF: 0 albuterol sulfate [Proventil HFA] 90 mcg/actuation Hfa Aerosol Inhaler 2 puff INHALATION Q4H PRN (Reason: Shortness Of Breath Or Wheezing) Qty: 0 RF: 0 ipratropium-albuterol 0.5 mg-3 mg(2.5 mg base)/3 mL Solution For Nebulization 3 ml INHALATION QID PRN (Reason: SOB) 30 Days Qty: 300 RF: 5 anastrozole 1 mg Tablet 1 mg PO HS 90 Days Qty: 0 RF: 1 aspirin [Aspirin Low Dose] 81 mg Tablet,Delayed Release (Dr/Ec) 81 mg PO QAM Qty: 0 RF: 0 acetaminophen 650 mg Tablet Extended Release 1,300 mg PO BID Qty: 0 RF: 0 Novolog Flexpen U-100 Insulin 100 unit/mL (3 mL) insulin pen 45 unit SUBCUT BID Qty: 75 RF: 3 cranberry 500 mg capsule 500 mg PO BID RF: 0 atorvastatin 20 mg Tablet 20 mg PO HS RF: 0 docusate sodium [Stool Softener] 100 mg Capsule 200 mg PO DAILY RF: 0 Combivent Respimat 20-100 mcg/actuation Mist 1 puff INHALATION QID RF: 0 calcium carbonate [Calcium 600] 600 mg calcium (1,500 mg) Tablet 600 mg PO DAILY RF: 0 potassium 99 mg Tablet 99 mg PO DAILY RF: 0 ascorbic acid (vitamin C) [Vitamin C] 500 mg Tablet 500 mg PO QPM RF: 0 furosemide 20 mg Tablet 20 mg PO DAILY PRN (Reason: Weight Gain) RF: 0 cholecalciferol (vitamin D3) [Vitamin D3] 400 unit Capsule 400 unit PO BID RF: 0 duloxetine 60 mg Capsule,Delayed Release(Dr/Ec) 60 mg PO DAILY RF: 0 solifenacin [Vesicare] 10 mg Tablet 10 mg PO DAILY RF: 0 omega 8-lrj-sqq-fish oil [Fish Oil] 1,000 mg (120 mg-180 mg) Capsule 1 cap PO DAILY RF: 0 glucosamine tsai 2KCl-chondroit [Glucosamine-Chondroitin 3X Str] 750-600 mg Tablet 1 tab PO BID RF: 0 levalbuterol HCl 1.25 mg/3 mL Solution For Nebulization 1.25 mg INHALATION Q4 PRN (Reason: Shortness Of Breath Or Wheezing) RF: 0 nitrofurantoin macrocrystal 100 mg Capsule 100 mg PO DAILY Qty: 0 RF: 0 bupropion HCl 150 mg Tablet Extended Release 24 Hr 150 mg PO QAM RF: 0 Lantus Solostar U-100 Insulin 100 unit/mL (3 mL) insulin pen 45 units SQ QAM RF: 0 Referrals Referrals: Selvin Walker DO [Primary Care Provider] - Discharge Problem: COPD (chronic obstructive pulmonary disease) Qualifiers: COPD type: unspecified COPD Qualified Code(s): J44.9 - Chronic obstructive pulmonary disease, unspecified The scribe's documentation has been prepared under my direction and personally reviewed by me in its entirety. I confirm that the note above accurately reflects all work, treatment, procedures, and medical decision making performed by me.
[2019-04-29] MEDS ORDERED: DEXTROSE 50% 50 ML SYRINGE IV PRN (21:47)
[2019-04-29] MEDS ORDERED: LEVALBUTEROL HCL 1.25 MG/3 ML NEB INH PRN (21:47)
[2019-04-29] MEDS ORDERED: ACETAMINOPHEN 325 MG TAB PO PRN (21:47)
[2019-04-29] MEDS ORDERED: POLYETHYLENE (MIRALAX) 17 GM PACK PO PRN (21:47)
[2019-04-29] MEDS ORDERED: GLUCAGON FOR INJ 1 MG VIAL SQ PRN (21:47)
[2019-04-29] MEDS ORDERED: ALBUT/IPRATROP 3MG/0.5MG NEB 3 ML VIAL INH PRN (21:47)
[2019-04-29] MEDS ORDERED: CARBOHYDRATES FOR HYPOGLYCEMIA PO PRN (21:47)
[2019-04-29] MEDS ORDERED: GLUCOSE 40% GEL 15 GM TUBE PO PRN (21:47)
[2019-04-29] MEDS ORDERED: GLUCOSE 10 TABS/TUBE PO PRN (21:47)
[2019-04-29] MEDS ORDERED: ALBUTEROL HFA 8 GM INHALER INH PRN (21:47)
[2019-04-29] MEDS ORDERED: FUROSEMIDE 20 MG TAB PO PRN (21:47)
[2019-04-29] MEDS: ATORVASTATIN 20 MG TAB PO SCH (23:58)
[2019-04-29] MEDS: BusPIRone 15 MG TAB PO SCH (23:58)
[2019-04-29] MEDS: ASCORBIC ACID 500 MG TAB PO SCH (23:59)
[2019-04-30] MEDS: ENOXAPARIN INJ 40 MG/0.4 ML SYR SQ SCH ×2 (00:04→22:45)
[2019-04-30] MEDS: IPRATROPIUM BROMIDE/ALBUTEROL respimat INH INH SCH ×5 (00:05→20:35)
[2019-04-30] MEDS: INSULIN ASPART 100 UNITS/ML 3 ML PEN SC SCH ×5 (00:05→20:34)
[2019-04-30] MEDS: IMIPENEM/CILASTATIN SODIUM 300 MG in DEXTROSE 5% 100 ML IV SCH ×5 (00:14→23:42)
[2019-04-30] MEDS: ASPIRIN 81 MG ECTAB PO SCH (09:08)
[2019-04-30] MEDS: CALCIUM 600MG + VIT D 400 IU TAB PO SCH (09:08)
[2019-04-30] MEDS: DULOXETINE HCL 60 MG CAP PO SCH (09:08)
[2019-04-30] MEDS: DOCUSATE SODIUM 100 MG CAP PO SCH (09:09)
[2019-04-30] MEDS: BusPIRone 15 MG TAB PO SCH ×3 (09:10→20:35)
[2019-04-30] MEDS: PROPRANOLOL HCL LA 80 MG CAPCR PO SCH (09:11)
[2019-04-30] MEDS: BuPROPion XL 150 MG TABCR PO SCH (09:12)
[2019-04-30] MEDS: INSULIN GLARGINE SOLOSTAR 100 UNITS/ML 3 ML PEN SC SCH (09:13)
--- NOTE | 2019-04-30 10:50 | Infectious Disease Consult ---
Date of Consultation April 30, 2019 Assessment & Plan (1) Acute UTI: Patient with recurrent urinary tract infection with resistant pseudomonas aeruginosa. Treatment with IV imipenem appropriate, would recommend 7-day course. Will follow. (2) Pseudomonas aeruginosa infection: History of Present Illness Reason for Consultation: Multidrug-resistant Pseudomonas UTI, history of recurrence after Zosyn treatment Attending Physician: Jack Perry History of Present Illness 73-year-old female with complicated medical history including morbid obesity, nephrolithiasis, type 2 diabetes mellitus, obstructive sleep apnea, metastatic breast cancer, recurrent urinary tract infections, who for the past week or 2 has been complaining of severe lower quadrant abdominal pain with bladder spasms, urinary frequency and dysuria. Was ultimately seen by her primary care physician who obtain urinalysis and culture and found patient to have evidence of infection with highly resistant Pseudomonas. Patient was therefore admitted to the hospital and has been started on imipenem therapy. Tolerating so far, feeling slightly better this morning. Her abdominal pain rated as severe as 8 out of 10 at worst. Noted low-grade fever and family noted some confusions with hallucinations. Allergies Allergy/AdvReac Type Severity Reaction Status Date / Time Sulfa (Sulfonamide Allergy Rash Verified 04/29/19 18:52 Antibiotics) sulfamethoxazole Allergy Unknown Unverified 04/29/19 18:52 [From Bactrim] trimethoprim [From Bactrim] Allergy Unknown Unverified 04/29/19 18:52 albiglutide AdvReac Diarrhea Verified 04/29/19 18:52 codeine AdvReac Nausea Verified 04/29/19 18:52 metformin AdvReac Diarrhea Verified 04/29/19 18:52 morphine AdvReac Nausea Verified 04/29/19 18:52 sorbitan esters AdvReac Diarrhea Verified 04/29/19 18:52 SKIN ADORE Allergy Unknown Uncoded 04/29/19 18:52 Home Medications Home Medications Medication Instructions Recorded Confirmed Type multivitamin with minerals [Daily 1 tab PO QAM #0 06/18/07 04/29/19 History Multivitamin-Minerals] Myrbetriq 50 mg PO QAM #0 11/27/13 04/29/19 History ropinirole 0.5 mg PO HS PRN #0 12/18/14 04/29/19 History propranolol 80 mg PO QAM #0 12/22/14 04/29/19 History buspirone 15 mg PO TID #0 tab 02/06/16 07/15/19 History polyethylene glycol 3350 [Miralax] 17 g PO DAILY PRN #255 g 03/21/17 04/29/19 History albuterol sulfate [Proventil HFA] 2 puff INHALATION Q4H PRN #0 01/22/18 04/29/19 History anastrozole 1 mg PO HS 90 Days #0 tab 04/17/18 04/29/19 History ipratropium-albuterol 3 ml INHALATION QID PRN 30 Days 04/17/18 04/29/19 History #300 ml acetaminophen 1,300 mg PO BID #0 cap 06/01/18 04/29/19 History aspirin [Aspirin Low Dose] 81 mg PO QAM #0 06/01/18 04/29/19 History Combivent Respimat 1 puff INHALATION QID 08/07/18 04/29/19 History atorvastatin 20 mg PO HS 08/07/18 04/29/19 History docusate sodium [Stool Softener] 200 mg PO DAILY 08/07/18 04/29/19 History ascorbic acid (vitamin C) [Vitamin 500 mg PO QPM 11/14/18 04/29/19 History C] calcium carbonate [Calcium 600] 600 mg PO DAILY 11/14/18 04/29/19 History cholecalciferol (vitamin D3) 400 unit PO BID 11/14/18 04/29/19 History [Vitamin D3] duloxetine 60 mg PO DAILY 11/14/18 04/29/19 History furosemide 20 mg PO DAILY PRN 11/14/18 04/29/19 History glucosamine tsai 2KCl-chondroit 1 tab PO BID 11/14/18 04/29/19 History [Glucosamine-Chondroitin 3X Str] omega 1-drk-kfn-fish oil [Fish Oil] 1 cap PO DAILY 11/14/18 04/29/19 History potassium 99 mg PO DAILY 11/14/18 04/29/19 History solifenacin [Vesicare] 10 mg PO DAILY 11/14/18 04/29/19 History levalbuterol HCl 1.25 mg INHALATION Q4 PRN 11/16/18 04/29/19 History nitrofurantoin macrocrystal 100 mg PO DAILY #0 cap 11/22/18 04/29/19 Rx insulin aspart (U-100) 100 unit/mL 45 unit SUBCUT BID #75 ml 03/29/19 04/29/19 Rx (3 mL) subcutaneous pen cranberry 500 mg capsule 500 mg PO BID 04/19/19 04/29/19 History bupropion HCl 150 mg PO QAM 04/29/19 04/29/19 History insulin glargine [Lantus Solostar 45 units SQ QAM 04/29/19 04/29/19 History U-100 Insulin] Patient History Medical History DVT prophylaxis Breast cancer Breast cancer metastasized to bone (~02/18/18) "Treatment: Status post completion of palliative radiation therapy to the thoracic spine March 19, 2018. She received 3000 cGy." Breast cancer metastasized to liver Diabetic peripheral neuropathy associated with type 2 diabetes mellitus History of difficult intubation H/O GLIDESCOPE #3 History of kidney stones Chronic obstructive pulmonary disease USES INHALER DAILY, ON 5L O2 AT ALL TIMES Sleep apnea CPAP Anxiety Depression Cancer RIGHT BREAST--S/P R MASTECTOMY/CHEMO/XRT ~20yrs ago RE-OCCURRENCE WITH METS TO BONE AND VISCERA 02/2018 Diabetes mellitus, type 2 IDDM Osteoarthritis Chronic back pain HX RUPTURED DISCS Diabetic neuropathy B/L FEET Restless leg syndrome Morbid obesity Chronic respiratory failure 5L OXYGEN CONTINUOUS Hyperparathyroidism S/P ATTEMPTED PARATHYROIDECTOMY--COULD NOT LOCATE 1-2 GLANDS Recurrent UTI MOST RECENT 04/2018, REQUIRING PICC LINE FOR OUTPATIENT ANTIBIOTIC TREATMENT Glaucoma (Chronic) LEGALLY BLIND IN RIGHT EYE Surgical History History of appendectomy History of nasal septoplasty History of cataract surgery BILATERAL History of total shoulder replacement BILATERAL History of mastectomy RIGHT, WITH LYMPH NODE DISSECTION History of hysterectomy BSO/BLADDER TACK History of carpal tunnel release H/O parathyroidectomy H/O difficult intubation GLIDESCOPE #3 Glidescope #3 Family History Father Cancer Grandmother Breast cancer Myocardial infarction Aunt Ovarian cancer Social History Preferred Language: Belarusian Communication Ability: Effective Visual Impairment: No 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 Required: No Beliefs That Will Affect Care: None Current Living Situation: Family Current Living Situation Comment: daughter's and children live with her Feels Safe at Home: Yes Safety Concerns: Feels Safe At This Time Smoking Status: Never smoker Do You Dip or Chew Tobacco: No Second Hand Exposure: Yes Hx Alcohol Use: No Hx Substance Use: No Review of Systems Review of Systems: All systems reviewed & are unremarkable except as noted in HPI & below Physical Exam Constitutional: WD/WN, vitals as above + morbidly obese and comfortable; no acute distress Eyes: PERRL, conjunctivae normal, anicteric sclerae ENMT: external ear and nose normal, oropharynx normal Neck: trachea midline, no thyromegaly neck nontender Respiratory: normal respiratory effort, lungs clear to auscultation normal percussion; does not use accessory muscles Cardiovascular: Rate/Rhythm: regular rate and regular rhythm Heart Sounds: normal S1 and normal S2; no gallop, no murmur and no cardiac rub Vessels: normal peripheral pulses; no JVD Gastrointestinal (Abdomen): Inspection/Auscultation: abdomen normal to inspection and normal bowel sounds Percussion/Palpation: + abdomen tender (Mild diffuse); no hepatosplenomegaly and no abdominal mass Musculoskeletal: no cyanosis or clubbing, extremities motor strength 5/5 Spine: thoracic spine normal to inspection and lumbar spine normal to inspection; no cervical spinal tenderness Skin: no rashes, warm and dry normal turgor; no lesions Neurologic: patellar DTR's 2+ bilat, sensation intact no focal motor deficits Psychiatric: A+Ox3, euthymic affect Orientation: cooperative Lymphatic: no cervical or axillary lymphadenopathy no inguinal lymphadenopathy Results & Data Vital Signs (Past 12 Hours) Vital Signs Temp Pulse Pulse Resp BP Pulse Ox 04/30/19 07:17 36.6 C 88 18 138/78 99 04/30/19 04:00 36.8 C 87 18 127/71 96 04/29/19 23:40 90 28 H 98 04/29/19 22:49 36.4 C L 88 21 110/72 94 Laboratory Results Short CBC 04/29/19 Range/Units 16:30 WBC 7.47 (4.8-10.8) K/uL Hgb 13.4 (12.0-16.0) g/dL Hct 39.9 (37-47) % Plt Count 287 (130-400) K/uL BMP 04/29/19 16:30 Sodium 141 Potassium 3.9 Chloride 105 Carbon Dioxide 29 BUN 22 H Creatinine 1.07 Glucose 91 Calcium 10.6 H Liver Function 04/29/19 Range/Units 16:30 Total Bilirubin 0.4 (0.2-1) mg/dl AST 24 (15-37) U/L ALT 25 (12-78) U/L Alkaline Phosphatase 106 (45-117) U/L Albumin 3.6 (3.4-5.0) gm/dl Diagnostic Findings Name: JACKI DIETZ Acct: [id number] Status: [place] 1945 [facility] [place]: [place]25/[place] Age: 73 Sex: F Dis Date: Loc: Laboratory Specimen Drop Off Spec: [id number] Collected: 04/25/19 Received: 04/26/19-[address]: Selvin Walker, Source: Urine,Clean Catch OV Order: Ordered: Urine Culture Procedure Result Verified Site Urine Culture Final 04/29/19 Organism 1 Pseudomonas aeruginosa [place] Count 50,000 CFU/ml Sens Sensitivities to Follow +Mix Urine Plus Low Counts of Other Mixed Devi P aerugino RX M.I.C. --- --------- Amikacin I 32 Aztreonam R >16 Cefepime I 16 Ceftazidime S 4 Ciprofloxacin R >2 Gentamicin R >8 Imipenem S <=1 Levofloxacin R >4 Tobramycin S <=4 Pip/Tazo S <=16 S = SENSITIVE I = INTERMEDIATE R = RESISTANT Name: JACKI DIETZ : 1945 PAGE 1 Printed: 04/30/19 1050 END OF REPORT Location: ED Sex: F Room/Bed: Att Phy: Diagnosis: UTI SEVERE PAIN HALLUCINATIONS Debra Phy: Selvin Walker, DOService Date: 04/29/19 Fam Phy: Interpreting Phy: Garrett Cadet MD Admit Phy: Ordering Phy: Michael Cook M.D. cc: ~ SINGLE VIEW CHEST CLINICAL HISTORY: Sepsis. FINDINGS: An AP, portable, upright chest radiograph is compared to study dated 01/18/2019. Correlation is made with chest CT dated 01/14/2015. The heart is enlarged and there is atherosclerotic calcification of the thoracic aorta. There is pulmonary vascular congestion. Chronic elevation of the right hemidiaphragm is similar to previous. There is bibasilar atelectasis. No large pleural effusion or pneumothorax is seen. The skeletal structures are osteopenic. The bony thorax is grossly intact. There are bilateral shoulder arthroplasties. Surgical clips are noted in the right axilla. IMPRESSION: 1. Cardiac enlargement with evidence of mild congestive failure. 2. No airspace consolidation or large pleural effusion is identified. Electronically signed by: Garrett Cadet M.D. 04/29/2019 4:30 PM Dictated: 04/29/19 1628 Transcribed: 04/29/19 1628
[2019-04-30] MEDS: ANASTROZOLE 1 MG TAB PO SCH ×2 (20:36)
[2019-04-30] MEDS: ASCORBIC ACID 500 MG TAB PO SCH (20:36)
[2019-04-30] MEDS: ATORVASTATIN 20 MG TAB PO SCH (20:36)
[2019-04-30] MEDS: ROPINIROLE HCL 0.25 MG TABLET PO PRN ×2 (21:34)
--- NOTE | 2019-04-30 23:32 | Hospitalist Progress Note ---
Date of Service April 30, 2019 Assessment & Plan (1) Acute UTI: (1) Acute UTI: Julisa Is a 73-year-old female with a past medical history of morbid obesity, metastatic breast cancer, hypertension, hyperlipidemia, depression, type 2 diabetes mellitus on insulin, JUANJOSE, and recurrent UTIs who presents with 3 days of worsened pain on urination. She had a UA at her outpatient office which shows multidrug-resistant Pseudomonal UTI. UTI 2/2 pseudomonas aeruginosa, multidrug-resistant Sensitive to ceftazidime, imipenem, Zosyn Resistant to fluoroquinolones. 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 Hold ACCOUNT ASSISTANT nitrofurantoin 100 mg p.o. twice daily prophylaxis Received 1 dose of Zosyn in the ED She does not show any signs of pyelonephritis or intrarenal/perinephric abscess. No fever/chills, no signs of sepsis. She does not have symptoms of current urinary obstruction, although she is at risk given her known history and residual stones. Consulted ID. Will place on imipenem. for a total of 7 days. Type 2 diabetes Glucose checks AC/at bedtime ACCOUNT ASSISTANT glargine 50 units every morning SSI Correction Factor 15, Carb ratio 1:15, goal 100-160 - HgbA1C last 6.7% 09/2018 Altered mental status Metabolic encephalopathy Likely related to UTI. Her hallucinations have improved. Spastic bladder/urinary incontinence Continue Myrbetriq 50 mg every morning Continue Vesicare 10 mg p.o. daily Hyperlipidemia Continue atorvastatin 20 mg nightly Hypertension Continue aspirin 81 mg daily Continue propranolol 80 mg every morning COPD DuoNeb every 4 hours as needed Metastatic breast cancer Adequate pain control Continue anastrozole 1 mg nightly Depression Continue bupropion 150 every morning Continue buspirone 15 mg p.o. 3 times daily Continue duloxetine 60 mg p.o. daily Hypokalemia K-Julia 10 MEQ daily -Level is normal. DVT prophylaxis: Enoxaparin 40 mg SQ daily Spent 35 minutes in management of patient. This included discussion with consultants. (2) COPD (chronic obstructive pulmonary disease): (3) Morbid obesity with BMI of 45.0-49.9, adult: (4) Overactive bladder: (5) Hyperlipidemia: (6) Hypertension: (7) Type II diabetes mellitus: (8) Obstructive sleep apnea: (9) Chronic respiratory failure: (10) Depression: (11) UTI (urinary tract infection): (12) DVT prophylaxis: (13) Altered mental status: (14) Hallucinations: Subjective 73 yo female reports feeling better today. Patient reports no new symptoms. Patient continues to appear mildly confused. Review of Systems Review of Systems: All systems reviewed & are unremarkable except as noted in HPI & below Physical Exam Physical Exam: General: A&Ox3. NAD. Cooperative. Skin: Excoriations around the left neck base around skin tags. HEENT: Atraumatic, normocephalic.Poor visual acuity. Extraocular movements intact without nystagmus. Pupils reactive to light and accommodation. Pulm: CTAB A&P.decreased wheezing Symmetrical chest rise. No increase work of breathing. No respiratory distress. Cardiac: RRR, -mrg. Radial pulses intact and symmetrical. Abdominal: diffuse mild abdominal tenderness without peritoneal signs,Rebound negative, nondistended, soft. BS present. Extremity: Moves all extremities equally. Decreased sensation to soft touch in the feet bilaterally. PT pulses intact. No edema. Results & Data Vital Signs (Past 12 Hours) Vital Signs Temp Pulse Pulse Resp BP Pulse Ox 04/30/19 23:31 36.4 C L 88 20 146/83 H 96 04/30/19 21:55 85 16 98 04/30/19 18:33 36 C L 92 H 18 119/65 99 PG Care Time/CCT Total # of Minutes Spent Total Time Spent with Patient: Total time spent is greater than 50% in coordination of care (as documented) at patient's floor/unit and/or counseling patient: (1) UTI (urinary tract infection) Hematuria presence: without hematuria Urinary tract infection type: site unspecified Qualified Code(s): N39.0 - Urinary tract infection, site not specified (2) Altered mental status Altered mental status type: unspecified Qualified Code(s): R41.82 - Altered mental status, unspecified (3) COPD (chronic obstructive pulmonary disease) COPD type: unspecified COPD Qualified Code(s): J44.9 - Chronic obstructive pulmonary disease, unspecified
[2019-05-01] MEDS: IMIPENEM/CILASTATIN SODIUM 300 MG in DEXTROSE 5% 100 ML IV SCH ×3 (05:42→18:08)
[2019-05-01] MEDS: ASPIRIN 81 MG ECTAB PO SCH (07:54)
[2019-05-01] MEDS: DOCUSATE SODIUM 100 MG CAP PO SCH (07:54)
[2019-05-01] MEDS: CALCIUM 600MG + VIT D 400 IU TAB PO SCH (07:54)
[2019-05-01] MEDS: PROPRANOLOL HCL LA 80 MG CAPCR PO SCH (07:55)
[2019-05-01] MEDS: BuPROPion XL 150 MG TABCR PO SCH (07:55)
[2019-05-01] MEDS: BusPIRone 15 MG TAB PO SCH ×3 (07:55→21:23)
[2019-05-01] MEDS: DULOXETINE HCL 60 MG CAP PO SCH (07:56)
[2019-05-01] MEDS: IPRATROPIUM BROMIDE/ALBUTEROL respimat INH INH SCH ×4 (07:56→21:21)
[2019-05-01] MEDS: INSULIN ASPART 100 UNITS/ML 3 ML PEN SC SCH ×4 (08:35→21:18)
[2019-05-01] MEDS: INSULIN GLARGINE SOLOSTAR 100 UNITS/ML 3 ML PEN SC SCH (08:36)
[2019-05-01 10:13] LABS: Creatinine Clr Calc Pharmacy 46.9 ml/min; Est GFR (Non-African American) 52.6
--- NOTE | 2019-05-01 20:20 | Infectious Disease Progress Nt ---
Date of Service May 01, 2019 Assessment & Plan (1) Acute UTI: Patient with recurrent urinary tract infection with resistant pseudomonas aeruginosa. Treatment with IV imipenem appropriate, would recommend 7-day course. Will follow. (2) Pseudomonas aeruginosa infection: Subjective Patient seen in follow-up for pseudomonal urinary tract infection. Dysuria and pain slightly better, remains afebrile. Tolerating antibiotic without apparent difficulty. Review of Systems Review of Systems: All systems reviewed & are unremarkable except as noted in HPI & below Physical Exam Constitutional: WD/WN, vitals as above + morbidly obese and comfortable; no acute distress Eyes: PERRL, conjunctivae normal, anicteric sclerae ENMT: external ear and nose normal, oropharynx normal Neck: trachea midline, no thyromegaly neck nontender Respiratory: normal respiratory effort, lungs clear to auscultation normal percussion; does not use accessory muscles Cardiovascular: Rate/Rhythm: regular rate and regular rhythm Heart Sounds: normal S1 and normal S2; no gallop, no murmur and no cardiac rub Vessels: normal peripheral pulses; no JVD Gastrointestinal (Abdomen): Inspection/Auscultation: abdomen normal to inspection and normal bowel sounds Percussion/Palpation: + abdomen tender (Mild diffuse); no hepatosplenomegaly and no abdominal mass Musculoskeletal: no cyanosis or clubbing, extremities motor strength 5/5 Spine: thoracic spine normal to inspection and lumbar spine normal to inspection; no cervical spinal tenderness Skin: no rashes, warm and dry normal turgor; no lesions Neurologic: patellar DTR's 2+ bilat, sensation intact no focal motor deficits Psychiatric: A+Ox3, euthymic affect Orientation: cooperative Lymphatic: no cervical or axillary lymphadenopathy no inguinal lymphadenopathy Results & Data Vital Signs (Past 12 Hours) Vital Signs Temp Pulse Resp BP Pulse Ox 05/01/19 19:09 36.7 C 88 17 102/75 97 05/01/19 15:09 36.6 C 86 17 120/74 97 05/01/19 13:35 36.4 C L 86 20 112/80 98 Laboratory Results [facility] 05/01/19 09:33 Creatinine 1.05 Diagnostic Findings Microbiology 04/29/19 17:36 Blood Aerobic Blood Culture - Preliminary No growth in Aerobic bottle after 48 hours. 04/29/19 17:36 Blood Anaerobic Blood Culture - Preliminary No growth in Anaerobic bottle after 48 hours. 04/29/19 16:30 Blood Aerobic Blood Culture - Preliminary No growth in Aerobic bottle after 48 hours. 04/29/19 16:30 Blood Anaerobic Blood Culture - Preliminary No growth in Anaerobic bottle after 48 hours.
[2019-05-01] MEDS: ANASTROZOLE 1 MG TAB PO SCH (21:23)
[2019-05-01] MEDS: ENOXAPARIN INJ 40 MG/0.4 ML SYR SQ SCH (21:23)
[2019-05-01] MEDS: ASCORBIC ACID 500 MG TAB PO SCH (21:23)
[2019-05-01] MEDS: ATORVASTATIN 20 MG TAB PO SCH (21:23)
--- NOTE | 2019-05-01 22:28 | Hospitalist Progress Note ---
Date of Service May 01, 2019 Assessment & Plan (1) Acute UTI: (1) Acute UTI: Julisa Is a 73-year-old female with a past medical history of morbid obesity, metastatic breast cancer, hypertension, hyperlipidemia, depression, type 2 diabetes mellitus on insulin, JUANJOSE, and recurrent UTIs who presents with 3 days of worsened pain on urination. She had a UA at her outpatient office which shows multidrug-resistant Pseudomonal UTI. UTI 2/2 pseudomonas aeruginosa, multidrug-resistant Sensitive to ceftazidime, imipenem, Zosyn Resistant to fluoroquinolones. 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 Hold REAL PROPERTY EVALUATOR nitrofurantoin 100 mg p.o. twice daily prophylaxis Received 1 dose of Zosyn in the ED She does not show any signs of pyelonephritis or intrarenal/perinephric abscess. No fever/chills, no signs of sepsis. She does not have symptoms of current urinary obstruction, although she is at risk given her known history and residual stones. Consulted ID. Will place on imipenem. for a total of 7 days. Obtained an ultrasound guided IV line. Plan is to discharge patient in AM. Getting home health set up and family will help with transfusing medicine. Type 2 diabetes Glucose checks AC/at bedtime REAL PROPERTY EVALUATOR glargine 50 units every morning SSI Correction Factor 15, Carb ratio 1:15, goal 100-160 - HgbA1C last 6.7% 09/2018 Altered mental status Metabolic encephalopathy Likely related to UTI. Her hallucinations have improved. Spastic bladder/urinary incontinence Continue Myrbetriq 50 mg every morning Continue Vesicare 10 mg p.o. daily Hyperlipidemia Continue atorvastatin 20 mg nightly Hypertension Continue aspirin 81 mg daily Continue propranolol 80 mg every morning COPD DuoNeb every 4 hours as needed Metastatic breast cancer Adequate pain control Continue anastrozole 1 mg nightly Depression Continue bupropion 150 every morning Continue buspirone 15 mg p.o. 3 times daily Continue duloxetine 60 mg p.o. daily Hypokalemia K-Julia 10 MEQ daily -Level is normal. DVT prophylaxis: Enoxaparin 40 mg SQ daily Spent 25 minutes in management of patient. (2) COPD (chronic obstructive pulmonary disease): (3) Morbid obesity with BMI of 45.0-49.9, adult: (4) Overactive bladder: (5) Hyperlipidemia: (6) Hypertension: (7) Type II diabetes mellitus: (8) Obstructive sleep apnea: (9) Chronic respiratory failure: (10) Depression: (11) UTI (urinary tract infection): (12) DVT prophylaxis: (13) Altered mental status: (14) Hallucinations: Subjective Patient reports no new symptoms. She reports being back to baseline. Review of Systems Review of Systems: All systems reviewed & are unremarkable except as noted in HPI & below Physical Exam Physical Exam: General: A&Ox3. NAD. Cooperative. HEENT: Atraumatic, normocephalic.Poor visual acuity. Extraocular movements intact without nystagmus. Pupils reactive to light and accommodation. Pulm: CTAB A&P.decreased wheezing Symmetrical chest rise. No increase work of breathing. No respiratory distress. Cardiac: RRR, -mrg. Radial pulses intact and symmetrical. Abdominal: no abdominal tenderness today. nondistended, soft. BS present. Extremity: Moves all extremities equally. Decreased sensation to soft touch in the feet bilaterally. PT pulses intact. No edema. Results & Data Vital Signs (Past 12 Hours) Vital Signs Temp Pulse Pulse Resp BP Pulse Ox 05/01/19 22:01 91 H 16 98 05/01/19 19:09 36.7 C 88 17 102/75 97 05/01/19 15:09 36.6 C 86 17 120/74 97 05/01/19 13:35 36.4 C L 86 20 112/80 98 PG Care Time/CCT Total # of Minutes Spent Total Time Spent with Patient: Total time spent is greater than 50% in coordination of care (as documented) at patient's floor/unit and/or counseling patient: (1) COPD (chronic obstructive pulmonary disease) COPD type: unspecified COPD Qualified Code(s): J44.9 - Chronic obstructive pulmonary disease, unspecified (2) UTI (urinary tract infection) Hematuria presence: without hematuria Urinary tract infection type: site unspecified Qualified Code(s): N39.0 - Urinary tract infection, site not specified (3) Altered mental status Altered mental status type: unspecified Qualified Code(s): R41.82 - Altered mental status, unspecified
[2019-05-02] MEDS: IMIPENEM/CILASTATIN SODIUM 300 MG in DEXTROSE 5% 100 ML IV SCH ×3 (05:57→10:53)
[2019-05-02 06:06] LABS: Mean Corpuscular Hgb Conc 33.3 g/dL (32-36); Mean Corpuscular Volume 100.3 fL (80-100); Mean Platelet Volume 9.9 fL (7.4-10.4); Platelet Count 262 K/uL (130-400); RDW Coefficient of Variation 13.2 % (11.5-14.5); Red Blood Count 3.89 M/uL (4.2-5.4)
[2019-05-02 06:17] LABS: Creatinine Clr Calc Pharmacy 51.3 ml/min; Est GFR (Non-African American) 58.7
[2019-05-02] MEDS: PROPRANOLOL HCL LA 80 MG CAPCR PO SCH (09:00)
[2019-05-02] MEDS: CALCIUM 600MG + VIT D 400 IU TAB PO SCH (09:00)
[2019-05-02] MEDS: BusPIRone 15 MG TAB PO SCH (09:00)
[2019-05-02] MEDS: DOCUSATE SODIUM 100 MG CAP PO SCH (09:00)
[2019-05-02] MEDS: DULOXETINE HCL 60 MG CAP PO SCH (09:00)
[2019-05-02] MEDS: ASPIRIN 81 MG ECTAB PO SCH (09:01)
[2019-05-02] MEDS: BuPROPion XL 150 MG TABCR PO SCH (09:01)
[2019-05-02] MEDS: IPRATROPIUM BROMIDE/ALBUTEROL respimat INH INH SCH ×2 (09:01→13:16)
[2019-05-02] MEDS: INSULIN ASPART 100 UNITS/ML 3 ML PEN SC SCH ×2 (09:04→13:12)
[2019-05-02] MEDS: INSULIN GLARGINE SOLOSTAR 100 UNITS/ML 3 ML PEN SC SCH (09:06)
--- NOTE | 2019-05-11 07:32 | Discharge Summary ---
Date of Service May 02, 2019 Admission HPI Per Admitting Provider Julisa Is a 73-year-old female with a past medical history of morbid obesity, metastatic breast cancer, hypertension, hyperlipidemia, depression, type 2 diabetes mellitus on insulin, JUANJOES, and recurrent UTIs who presents with 3 days of worsened pain on urination. She is seen at bedside with her son and daughter. She reports that she has chronic low abdominal pain and discomfort at baseline and for several weeks has had mid to low abdominal pain with bladder spasms. This pain worsened severely to an 8/10 on Monday. Her last UTI was 6 months ago. She saw her PCP Dr. Walker on Monday who performed a urinalysis. The results showed resistant pseudomonal UTI and they were recommended to go to [facility] for [facility], however last night she developed altered mental status and hallucinations and their PCP recommended she be seen in the emergency department. She has not had any fevers, chills, sweats, vomiting. She has had some intermittent nausea, not at time of exam. She endorses constipation for which she takes MiraLAX and a laxative pill which causes her to have loose bowel movements at baseline. No change in bowel movements. She has increased urinary frequency, often going several times an hour. She is incontinent with bladder spasms at baseline and has tried various medications including antispasmodics and a pessary in the past. She takes mirabegron and solifenacin. She no longer uses a pessary. She endorses increased burning with urination as noted above. She manages her diabetes with Lantus 45 units every morning and NovoLog 45 units twice daily. She notes her morning sugars are about 160 and her evenings are generally in the high 200s. Her blood sugars often go as low as 70 and she feels lightheaded, "off "and sometimes diaphoretic. She has not passed out from this. She is not currently taking an MIAH/ARB. She thinks lisinopril sounds familiar, but is not sure she was on in the past or if it was stopped. She has neuropathy in her hands and feet at baseline. She has had intermittent confusion and hallucinations for several months in the past per her daughters, they have an appointment with the neurologist for evaluation on Sunday 05/06 to evaluate this further. There was concern for Alzheimer's dementia in her parents. Her daughters note that K often seems confused with some memory deficits. She has a history of metastatic breast cancer initially treated with mastectomy of the right breast. She had mets to bone with palliative spine radiation in 2018. She takes anastrozole daily. Follows with Dr. Russ. Surgical history: Endorses bilateral shoulder replacement with prostheses, hysterectomy, right mastectomy, left kidney stone removal. No cholecystectomy or appendectomy. Social: Lives in [facility] with her daughter. No one recently ill in the house . Tobacco use: Never Alcohol use: Minimal, 1-2 drinks a year with holidays Recreational drugs: None Family history: No family history of type 2 diabetes. Denies family history of coronary artery disease/NH. Endorses a history of lung cancer in her father and old age and testicular cancer in her paternal grandfather and old age. Allergies: Confusion/hallucinations with morphine and codeine. Rash allergy to sulfa. Diarrhea with metformin. Principal Diagnosis Acute UTI Discharge Exam General: A&Ox3. NAD. Cooperative. HEENT: Atraumatic, normocephalic.Poor visual acuity. Extraocular movements intact without nystagmus. Pupils reactive to light and accommodation. Pulm: CTAB A&P. Symmetrical chest rise. No increase work of breathing. No respiratory distress. Cardiac: RRR, -mrg. Radial pulses intact and symmetrical. Abdominal: no abdominal tenderness today. nondistended, soft. BS present. Extremity: Moves all extremities equally. Decreased sensation to soft touch in the feet bilaterally. PT pulses intact. No edema. Discharge Data Allergies Allergy/AdvReac Type Severity Reaction Status Date / Time Sulfa (Sulfonamide Allergy Rash Verified 05/06/19 09:16 Antibiotics) sulfamethoxazole Allergy Unknown Unverified 05/06/19 09:16 [From Bactrim] trimethoprim [From Bactrim] Allergy Unknown Unverified 05/06/19 09:16 albiglutide AdvReac Diarrhea Verified 05/06/19 09:16 codeine AdvReac Nausea Verified 05/06/19 09:16 metformin AdvReac Diarrhea Verified 05/06/19 09:16 morphine AdvReac Nausea Verified 05/06/19 09:16 sorbitan esters AdvReac Diarrhea Verified 05/06/19 09:16 SKIN ADORE Allergy Unknown Uncoded 05/06/19 09:16 Consultations 04/29/19 18:19 ED Decision to Admit Stat 04/29/19 21:47 Consult Case Management - Discharge Planning Routine Consult Infectious Diseases Routine Hospital Course (1) Acute UTI: (1) Acute UTI: Julisa Is a 73-year-old female with a past medical history of morbid obesity, metastatic breast cancer, hypertension, hyperlipidemia, depression, type 2 diabetes mellitus on insulin, JUANJOSE, and recurrent UTIs who presents with 3 days of worsened pain on urination. She had a UA at her outpatient office which shows multidrug-resistant Pseudomonal UTI. UTI 2/2 pseudomonas aeruginosa, multidrug-resistant Sensitive to ceftazidime, imipenem, Zosyn Resistant to fluoroquinolones. 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 Hold RULING TECHNICIAN nitrofurantoin 100 mg p.o. twice daily prophylaxis Received 1 dose of Zosyn in the ED She does not show any signs of pyelonephritis or intrarenal/perinephric abscess. No fever/chills, no signs of sepsis. She does not have symptoms of current urinary obstruction, although she is at risk given her known history and residual stones. Consulted ID. Will place on imipenem. for a total of 7 days. Obtained an ultrasound guided IV line. Getting home health set up and family will help with transfusing medicine. Patient will be discharged today. 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 Her hallucinations have improved. Spastic bladder/urinary incontinence Continue Myrbetriq 50 mg every morning Continue Vesicare 10 mg p.o. daily Hyperlipidemia Continue atorvastatin 20 mg nightly Hypertension Continue aspirin 81 mg daily Continue propranolol 80 mg every morning COPD DuoNeb every 4 hours as needed Metastatic breast cancer Adequate pain control Continue anastrozole 1 mg nightly Depression Continue bupropion 150 every morning Continue buspirone 15 mg p.o. 3 times daily Continue duloxetine 60 mg p.o. daily Hypokalemia K-Julia 10 MEQ daily -Level is normal. DVT prophylaxis: Enoxaparin 40 mg SQ daily (2) COPD (chronic obstructive pulmonary disease): (3) Morbid obesity with BMI of 45.0-49.9, adult: (4) Overactive bladder: (5) Hyperlipidemia: (6) Hypertension: (7) Type II diabetes mellitus: (8) Obstructive sleep apnea: (9) Chronic respiratory failure: (10) Depression: (11) UTI (urinary tract infection): (12) DVT prophylaxis: (13) Altered mental status: (14) Hallucinations: Total Time Total Time Spent Total Time Spent (In Minutes): 35 Total Time Includes: Examination of the Patient, Discharge Planning and Medication Reconciliation Discharge Plan Discharge Items Patient Disposition: Home - Home Health Services Reason For Visit: MDR PSEUOMONAS UTI Discharge Diagnosis: MDR UTI Discharge Goals: Decrease discomfort Activity: Resume your previous activity Non-emergency contact: Primary Care Provider Call non-emergency contact if: you have any medication questions Follow-up/Referrals: Selvin Walker, DO [Primary Care Provider] - 05/06/19 9:15 am (Please, follow up with Dr. Selvin Walker on MondayMay 06 at 9:15 am. *If you need to change this appointment, call the office at [phone].) Diet: Regular Addtl Provider Instructions: Will continue imipenem to complete 7 more days. You have received 10 doses. You have ordered 19 more doses, but can finish at 18. Recommend followup with PCP in 1-2 weeks. Prescriptions: New imipenem-cilastatin 500 mg recon soln 0.6 ml IV Q6H Qty: 18 RF: 0 Continued multivitamin with minerals [Daily Multivitamin-Minerals] Tablet 1 tab PO QAM Qty: 0 RF: 0 buspirone 15 mg Tablet 15 mg PO TID Qty: 0 RF: 0 polyethylene glycol 3350 [Miralax] 17 gram/dose Powder 17 g PO DAILY PRN (Reason: Constipation) Qty: 255 RF: 0 anastrozole 1 mg Tablet 1 mg PO HS 90 Days Qty: 0 RF: 1 aspirin [Aspirin Low Dose] 81 mg Tablet,Delayed Release (Dr/Ec) 81 mg PO QAM Qty: 0 RF: 0 acetaminophen 650 mg Tablet Extended Release 1,300 mg PO BID Qty: 0 RF: 0 Novolog Flexpen U-100 Insulin 100 unit/mL (3 mL) insulin pen 45 unit SUBCUT BID Qty: 75 RF: 3 cranberry 500 mg capsule 500 mg PO BID RF: 0 atorvastatin 20 mg Tablet 20 mg PO HS RF: 0 docusate sodium [Stool Softener] 100 mg Capsule 200 mg PO DAILY RF: 0 calcium carbonate [Calcium 600] 600 mg calcium (1,500 mg) Tablet 600 mg PO DAILY RF: 0 potassium 99 mg Tablet 99 mg PO DAILY RF: 0 ascorbic acid (vitamin C) [Vitamin C] 500 mg Tablet 500 mg PO QPM RF: 0 furosemide 20 mg Tablet 20 mg PO DAILY PRN (Reason: Weight Gain) RF: 0 cholecalciferol (vitamin D3) [Vitamin D3] 400 unit Capsule 400 unit PO BID RF: 0 duloxetine 60 mg Capsule,Delayed Release(Dr/Ec) 60 mg PO DAILY RF: 0 omega 0-bro-ljz-fish oil [Fish Oil] 1,000 mg (120 mg-180 mg) Capsule 1 cap PO DAILY RF: 0 glucosamine tsai 2KCl-chondroit [Glucosamine-Chondroitin 3X Str] 750-600 mg Tablet 1 tab PO BID RF: 0 Lantus Solostar U-100 Insulin 100 unit/mL (3 mL) insulin pen 45 units SQ QAM RF: 0 Discontinued nitrofurantoin macrocrystal 100 mg Capsule 100 mg PO DAILY Qty: 0 RF: 0 No Action nitrofurantoin monohyd/m-cryst 100 mg capsule PO .TAKE 1 CAPSULE Daily Qty: 90 RF: 0 albuterol sulfate [Proventil HFA] 90 mcg/actuation HFA aerosol inhaler 2 puff INHALATION Q4H PRN (Reason: Shortness Of Breath Or Wheezing) Qty: 0 RF: 0 solifenacin [Vesicare] 10 mg tablet 10 mg PO DAILY RF: 0 ropinirole 0.25 mg tablet 0.5 mg PO HS PRN (Reason: prn) Qty: 0 RF: 0 propranolol 80 mg capsule,extended release 24 hr 80 mg PO QAM Qty: 0 RF: 0 Myrbetriq 50 mg tablet extended release 24 hr 50 mg PO QAM Qty: 0 RF: 0 levalbuterol HCl 1.25 mg/3 mL solution for nebulization 1.25 mg INHALATION Q4 PRN (Reason: Shortness Of Breath Or Wheezing) RF: 0 Combivent Respimat 20-100 mcg/actuation mist 1 puff INHALATION QID RF: 0 ipratropium-albuterol 0.5 mg-3 mg(2.5 mg base)/3 mL solution for nebulization 3 ml INHALATION QID PRN (Reason: SOB) 30 Days Qty: 300 RF: 5 bupropion HCl 300 mg tablet extended release 24 hr 300 mg PO QAM Qty: 90 RF: 0 ondansetron 4 mg tablet,disintegrating 4 mg PO Q8H Qty: 90 RF: 0 Stand-Alone Forms: [facility] Discharge Orders: Discharge Order (Routine); Ordered 05/02/19 Ordered By: Jack Perry Admission Data Admit Date/Time: 04/30/19 23:33 Attending Provider: aJck Perry Admit Provider: Carlos Manuel Sanchez Primary Care Provider: Selvin Walker Other Providers: Meg Ahumada Jennifer Service: Medical Other Interventions: Discharge Summary Assessment (RN) Last Done: 05/02/19 11:03 DC Date/Time DO NOT enter until pt leaves facility: 05/02/19 13:00
== END 2019-05-02 13:00 | disposition home health service (06) | DRG 689 ==
LOC: 4E 14:51 → ED 14:51 → SUATTDRO 20:33 → 4E 21:06 → 2N 05-01 13:32
DX: E66.01 Morbid (severe) obesity due to excess calories; Z88.2 Allergy status to sulfonamides; Z79.84 Long term (current) use of oral hypoglycemic drugs; I10 Essential (primary) hypertension; E78.5 Hyperlipidemia, unspecified; Z88.5 Allergy status to narcotic agent; Z98.42 Cataract extraction status, left eye; H40.9 Unspecified glaucoma; G93.41 Metabolic encephalopathy; Z98.41 Cataract extraction status, right eye; Z96.611 Presence of right artificial shoulder joint; J44.9 Chronic obstructive pulmonary disease, unspecified; Z68.42 Body mass index [BMI] 45.0-49.9, adult; J96.10 Chronic respiratory failure, unspecified whether with hypoxia or hypercapnia; G47.33 Obstructive sleep apnea (adult) (pediatric); Z99.81 Dependence on supplemental oxygen; Z85.3 Personal history of malignant neoplasm of breast; N39.0 Urinary tract infection, site not specified; J45.909 Unspecified asthma, uncomplicated; H54.8 Legal blindness, as defined in USA; Z96.612 Presence of left artificial shoulder joint; E11.9 Type 2 diabetes mellitus without complications; E87.6 Hypokalemia

== ENCOUNTER 2019-08-13 15:42 | Inpatient (IN) ==
[2019-08-13] MEDS ORDERED: SODIUM CHLORIDE 0.9% 500 ML IV STA (16:41)
[2019-08-13] MEDS ORDERED: CEFTOLOZANE/TAZOBACTAM 1,500 MG in DEXTROSE 5% 100 ML IV ONE (17:30)
[2019-08-13 18:10] LABS: Basophils # (auto) 0.03 K/uL (0-0.2); Basophils % (auto) 0.4 %; Eosinophils # (auto) 0.24 K/uL (0-0.5); Hematocrit (blood only) 41.5 % (37-47); Hemoglobin 13.7 g/dL (12.0-16.0); Immature Granulocytes # (auto) 0.02 K/uL (0.00-0.02); Immature Granulocytes % (auto) 0.3 %; Mean Corpuscular Hemoglobin 33.7 pg (25-34); Mean Corpuscular Volume 102.2 fL (80-100); Mean Platelet Volume 9.5 fL (7.4-10.4); Monocytes # (auto) 0.48 K/uL (0.11-0.59); Monocytes % (auto) 6.1 %; Neutrophils # (auto) 5.61 K/uL (1.4-6.5); Neutrophils % (auto) 71.2 %; Platelet Count 269 K/uL (130-400); RDW Coefficient of Variation 12.9 % (11.5-14.5); RDW Standard Deviation 48.3 fL (36.4-46.3); Red Blood Count 4.06 M/uL (4.2-5.4); White Blood Count 7.88 K/uL (4.8-10.8)
[2019-08-13 18:21] LABS: Partial Thromboplastin Ratio 0.8; Partial Thromboplastin Time 22.4 Seconds (21.0-31.0); Prothrombin Time 10.7 Seconds (9.0-12.0)
[2019-08-13 18:26] LABS: Albumin Level 3.4 gm/dl (3.4-5.0); BUN Creatinine Ratio 23.2 (10-20); Calcium 10.2 mg/dl (8.5-10.1); Creatinine Clr Calc Pharmacy 46.7 ml/min; Est GFR (African American) 66.7; Est GFR (Non-African American) 57.5; Potassium 3.9 mmol/L (3.5-5.1)
[2019-08-13 18:29] LABS: Albumin Globulin Ratio 0.8 (0.9-2); Bilirubin,Total 0.3 mg/dl (0.2-1); Total Protein 7.4 gm/dl (6.4-8.2)
--- NOTE | 2019-08-13 20:02 | History & Physical Report ---
Date of Service August 13, 2019 Assessment & Plan (1) UTI (urinary tract infection): Multidrug-resistant Pseudomonas. Infectious disease has recommended she start on Zerbaxa, which the ER is initiated. Will admit and consult infectious disease to help determine if this will be the most appropriate antibiotic, as well as the duration. Discussed with patient that from there we will hopefully work towards getting her outpatient IV antibiotics at home. As it relates to her frequent/recurrent urinary tract infections, as well as whether or not a have significance with the stone, we will work to coordinate with urology to have her cystoscopy done around the last day of antibiotics. In review of her urine cultures it appears clear that she almost always has a new infection or at least a positive culture when checked, so it seems quite likely that if we were to treat the infection and then wait routinely to reschedule the cystoscopy it would likely need to be canceled due to a another infection. In this respect if she needs about a week of antibiotics, the hope would be to be able to do the cystoscopy on the last day or the day after antibiotics. (2) Hypercalcemia: Very mild. Recheck (3) COPD (chronic obstructive pulmonary disease): With chronic respiratory failure on 5 L of oxygen. Continue supportive care. Asymptomatic (4) Hypertension: Continue home meds and follow (5) Type II diabetes mellitus: Continue insulin, follow sugars. Titrate as needed (6) Obstructive sleep apnea: Continue CPAP from home (7) DVT prophylaxis: Lovenox (8) Malignancy: Notes she was recently diagnosed with worsening nodules. Close outpatient follow-up in this regard (9) Discharge planning issues: Should be admitted to [facility] service with an infectious disease consultation The goal will be to get her antibiotic course defined, streamlined, and hopefully set up for home, as well as coordinating with urology for expeditious set up of her cystoscopy. History of Present Illness She wears oxygen at 5 L which is what she is wearing currently Chief Complaint: Sent because of urine culture, dysuria Primary Care Provider: Selvin Walker DO Patient is a very pleasant 74-year-old female who is struggled with recurrent UTIs for quite a while. She notes that she is having dysuria as well as some pain and discomfort whenever she bears down to urinate. She denies fevers c hills or sweats, denies shortness of breath, denies any other signs or symptoms of worsening infection, but notes that she is seeing urology actively because of these recurrent infections. There is concern that she may have a stone as a nidus for bacterial colonization creating recurrent infections, she was actually supposed to have a cystoscopy to work on the stone yesterday, but in her preop urine culture she was growing a multidrug-resistant Pseudomonas so the procedure was canceled. She was then sent to the ER for admission for ongoing treatment. Otherwise she has no complaints. Allergies Allergy/AdvReac Type Severity Reaction Status Date / Time adhesive tape Allergy Unknown Rash Verified 08/13/19 17:08 sorbitan esters Allergy Unknown PT NOT SURE Verified 08/13/19 17:08 Sulfa (Sulfonamide Allergy Unknown Rash Verified 08/13/19 17:08 Antibiotics) sulfamethoxazole Allergy Unknown Rash Unverified 08/13/19 17:08 [From Bactrim] trimethoprim [From Bactrim] Allergy Unknown Rash Unverified 08/13/19 17:08 albiglutide AdvReac Unknown Diarrhea Verified 08/13/19 17:08 codeine AdvReac Unknown Nausea Verified 08/13/19 17:08 metformin AdvReac Unknown Diarrhea Verified 08/13/19 17:08 morphine AdvReac Unknown Nausea Verified 08/13/19 17:08 "IF NOT PURE GOLD JEWELRY" Allergy Unknown TURNS SKIN Uncoded 08/13/19 17:08 GREEN, DENIES OTHER PROBLEMS SKIN ADORE Allergy Unknown SEE NOTES Uncoded 08/13/19 17:08 BELOW Home Medications Home Medications Medication Instructions Recorded Confirmed Type multivitamin with minerals [Daily 1 tab PO QAM #0 06/18/07 08/13/19 History Multivitamin-Minerals] polyethylene glycol 3350 [Miralax] 17 g PO QAM PRN #255 g 03/21/17 08/13/19 History anastrozole 1 mg PO BID 90 Days #0 tab 04/17/18 08/13/19 History acetaminophen 1,300 mg PO BID #0 cap 06/01/18 08/13/19 History aspirin [Aspirin Low Dose] 81 mg PO QAM #0 06/01/18 08/13/19 History docusate sodium [Stool Softener] 200 mg PO QAM 08/07/18 08/13/19 History ascorbic acid (vitamin C) [Vitamin 500 mg PO QPM 11/14/18 08/13/19 History C] calcium carbonate [Calcium 600] 600 mg PO QAM 11/14/18 08/13/19 History cholecalciferol (vitamin D3) 400 unit PO BID 11/14/18 08/13/19 History [Vitamin D3] duloxetine 60 mg PO QAM 11/14/18 08/13/19 History furosemide 20 mg PO DAILY PRN 11/14/18 08/13/19 History omega 3-[id number]-[id number]-fish oil [Fish Oil] 1 cap PO BID 11/14/18 08/13/19 History potassium 99 mg PO QAM 11/14/18 08/13/19 History cranberry 500 mg capsule 500 mg PO QAM 04/19/19 08/13/19 History Lantus Solostar U-100 Insulin 40 units SQ QAM 04/29/19 08/13/19 History albuterol sulfate HFA 90 2 puff INHALATION Q4H PRN #0 05/06/19 08/13/19 History mcg/actuation aerosol inhaler mirabegron ER 50 mg 50 mg PO QAM #0 05/06/19 08/13/19 History tablet,extended release 24 hr propranolol ER 80 mg capsule,24 80 mg PO QAM #0 05/06/19 08/13/19 History hr,extended release ropinirole 0.25 mg tablet 0.5 mg PO HS #0 05/06/19 08/13/19 History solifenacin 10 mg tablet 10 mg PO QAM 05/06/19 08/13/19 History nitrofurantoin 100 mg PO QAM #90 cap 07/16/19 08/13/19 Rx monohydrate/macrocrystals 100 mg capsule Novolog Flexpen U-100 Insulin 35 unit SUBCUT BID 07/31/19 08/13/19 History bupropion HCl 150 mg PO QAM 07/31/19 08/13/19 History donepezil 5 mg PO QAM 07/31/19 08/13/19 History ondansetron 4 mg PO UD PRN 07/31/19 08/13/19 History Past Med/Surg History Medical History Anxiety Breast cancer + mets Cancer RIGHT BREAST--S/P R MASTECTOMY/CHEMO/XRT ~20yrs ago RE-OCCURRENCE WITH METS TO BONE AND VISCERA 02/2018 Chronic back pain Chronic obstructive pulmonary disease 5L O2 continuous Degenerative disc disease Dementia recent diagnosis Depression Diabetes mellitus, type 2 IDDM Diabetic neuropathy B/L feet 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 Glaucoma legally blind (right eye) History of kidney stones Hyperparathyroidism s/p partial parathyroidectomy Kidney stones Knee problem right- s/p injection 07/2019 Morbid obesity Osteoarthritis Recurrent UTI on prophylactic abx for maintenance Restless leg syndrome Sleep apnea CPAP Surgical History H/O parathyroidectomy partial History of appendectomy History of carpal tunnel release RIGHT History of cataract surgery BILATERAL History of colonoscopy History of difficult intubation 06/14/17: Left TSA: Glidescope #3, ETT 7.0, Gr View 1 History of hysterectomy BSO/BLADDER TACK History of mastectomy RIGHT + LYMPH NODE DISSECTION History of nasal septoplasty History of total shoulder replacement BILATERAL Family History Father Cancer Grandmother Breast cancer Myocardial infarction Aunt Ovarian cancer Social History Preferred Language: Lithuanian Communication Ability: Effective Visual Impairment: No Limitations Copy Center Associate Required: No Beliefs That Will Affect Care: None Current Living Situation: Other Current Living Situation Comment: FABY , DAUGHTER AND HER AND 2 CHILDREN Feels Safe at Home: Yes Smoking Status: Never smoker Second Hand Exposure: Yes ; Hx Alcohol Use: Yes Hx Substance Use: No Review of Systems Review of Systems: All systems reviewed & are unremarkable except as noted in HPI & below Physical Exam Physical Exam: General awake and alert pleasant no distress HEENT normocephalic atraumatic mucous membranes are moist Cardio regular without rubs murmurs or gallops Lungs clear to auscultation bilaterally no rales rhonchi wheezes good effort Abdomen soft nondistended mild diffuse tenderness no guarding no rebound no rigidity Extremities no cyanosis clubbing may be trace edema bilateral no calf tenderness Skin no rashes no pallor or icterus Neuro shows cranial nerves II through XII be grossly intact gross motor and sensory intact Musculoskeletal exam shows no gross lesions Mental status good recent and remote recall normal mood and affect good judgment and insight Results & Data Vital Signs (Past 12 Hours) Vital Signs Temp Pulse Resp BP Pulse Ox 08/13/19 19:00 83 15 85/75 L 93 08/13/19 18:33 85 23 85/59 L 100 08/13/19 18:11 82 15 120/63 100 08/13/19 15:52 98.1 F 79 20 114/69 93 Code Status & VTE Plan VTE Prophylaxis Plan VTE Prophylaxis will be ordered: Yes PG Care Time/CCT Total # of Minutes Spent Total Time Spent with Patient: Total time spent is greater than 50% in coordination of care (as documented) at patient's floor/unit and/or counseling patient: (1) UTI (urinary tract infection) Hematuria presence: without hematuria Urinary tract infection type: site unspecified Qualified Code(s): N39.0 - Urinary tract infection, site not specified (2) COPD (chronic obstructive pulmonary disease) COPD type: unspecified COPD Qualified Code(s): J44.9 - Chronic obstructive pulmonary disease, unspecified
--- NOTE | 2019-08-13 21:40 | Emergency Department Note ---
Entered by Josh Clayton acting as a scribe for John Ruggiero MD History of Present Illness General Chief complaint: Urinary Symptoms Stated complaint: UTI Time Seen by Provider: 08/13/19 16:23 Source: patient History of Present Illness Onset (ago): day(s) (few) Location: abdomen Severity: mild Pain Consistency: + constant Maximum Pain Intensity: 4 Associated symptoms: + denies other symptoms (fevers and vomiting) and + other (nausea, pain with urination) The patient is a 74 y/o female w/ PMHx DVT, asthma, COPD, UTI, DM, HTN, HLD, breast cancer who presents to the ED w/ CC of constant, mild, abdominal pain beginning a few days ago. The patient states she was diagnosed with a kidney stone over a year ago. She reports she was scheduled to have surgery for it last week. The patient notes she waited because her urologist wanted to see if it would pass on its own. She states she had a urine sample that was cultured and resulted in pseudomonas. The patient reports she has a history of UTIs and has received IV antibiotics at home for her past episodes. She notes this time, Dr. Pacheco, Infectious Disease recommended she come it the ED to be admitted for IV antibiotics. The patient states she currently has abdominal pain and pain with urination. She reports is intermittently nauseous from her dementia medication. The patient notes she is normally on 5L of oxygen for her history of COPD and chronic fluid around her lungs secondary to a left breast removal secondary to breast cancer. She denies fevers and vomiting. Review of EMR: The patient was referred to the ED by Dr. Pacheco, Infectious Disease, for IV antibiotics because she had a urine culture on 08/05 that grew out pseudomonas. He recommends the patient receive Zerbaxa. Home Medications Home Medications Medication Instructions Recorded Confirmed Type multivitamin with minerals [Daily 1 tab PO QAM #0 06/18/07 08/13/19 History Multivitamin-Minerals] polyethylene glycol 3350 [Miralax] 17 g PO QAM PRN #255 g 03/21/17 08/13/19 History anastrozole 1 mg PO BID 90 Days #0 tab 04/17/18 08/13/19 History acetaminophen 1,300 mg PO BID #0 cap 06/01/18 08/13/19 History aspirin [Aspirin Low Dose] 81 mg PO QAM #0 06/01/18 08/13/19 History docusate sodium [Stool Softener] 200 mg PO QAM 08/07/18 08/13/19 History ascorbic acid (vitamin C) [Vitamin 500 mg PO QPM 11/14/18 08/13/19 History C] calcium carbonate [Calcium 600] 600 mg PO QAM 11/14/18 08/13/19 History cholecalciferol (vitamin D3) 400 unit PO BID 11/14/18 08/13/19 History [Vitamin D3] duloxetine 60 mg PO QAM 11/14/18 08/13/19 History furosemide 20 mg PO DAILY PRN 11/14/18 08/13/19 History omega 3-duz-odt-fish oil [Fish Oil] 1 cap PO BID 11/14/18 08/13/19 History potassium 99 mg PO QAM 11/14/18 08/13/19 History cranberry 500 mg capsule 500 mg PO QAM 04/19/19 08/13/19 History Lantus Solostar U-100 Insulin 40 units SQ QAM 04/29/19 08/13/19 History albuterol sulfate HFA 90 2 puff INHALATION Q4H PRN #0 05/06/19 08/13/19 History mcg/actuation aerosol inhaler mirabegron ER 50 mg 50 mg PO QAM #0 05/06/19 08/13/19 History tablet,extended release 24 hr propranolol ER 80 mg capsule,24 80 mg PO QAM #0 05/06/19 08/13/19 History hr,extended release ropinirole 0.25 mg tablet 0.5 mg PO HS #0 05/06/19 08/13/19 History solifenacin 10 mg tablet 10 mg PO QAM 05/06/19 08/13/19 History nitrofurantoin 100 mg PO QAM #90 cap 07/16/19 08/13/19 Rx monohydrate/macrocrystals 100 mg capsule Novolog Flexpen U-100 Insulin 35 unit SUBCUT BID 07/31/19 08/13/19 History bupropion HCl 150 mg PO QAM 07/31/19 08/13/19 History donepezil 5 mg PO QAM 07/31/19 08/13/19 History ondansetron 4 mg PO UD PRN 07/31/19 08/13/19 History Allergies Allergy/AdvReac Type Severity Reaction Status Date / Time adhesive tape Allergy Unknown Rash Verified 08/13/19 17:08 sorbitan esters Allergy Unknown PT NOT SURE Verified 08/13/19 17:08 Sulfa (Sulfonamide Allergy Unknown Rash Verified 08/13/19 17:08 Antibiotics) sulfamethoxazole Allergy Unknown Rash Unverified 08/13/19 17:08 [From Bactrim] trimethoprim [From Bactrim] Allergy Unknown Rash Unverified 08/13/19 17:08 albiglutide AdvReac Unknown Diarrhea Verified 08/13/19 17:08 codeine AdvReac Unknown Nausea Verified 08/13/19 17:08 metformin AdvReac Unknown Diarrhea Verified 08/13/19 17:08 morphine AdvReac Unknown Nausea Verified 08/13/19 17:08 "IF NOT PURE GOLD JEWELRY" Allergy Unknown TURNS SKIN Uncoded 08/13/19 17:08 GREEN, DENIES OTHER PROBLEMS SKIN ADORE Allergy Unknown SEE NOTES Uncoded 08/13/19 17:08 BELOW Past Med/Surg History Medical History Anxiety Breast cancer + mets Cancer RIGHT BREAST--S/P R MASTECTOMY/CHEMO/XRT ~20yrs ago RE-OCCURRENCE WITH METS TO BONE AND VISCERA 02/2018 Chronic back pain Chronic obstructive pulmonary disease 5L O2 continuous Degenerative disc disease Dementia recent diagnosis Depression Diabetes mellitus, type 2 IDDM Diabetic neuropathy B/L feet 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 Glaucoma legally blind (right eye) History of kidney stones Hyperparathyroidism s/p partial parathyroidectomy Kidney stones Knee problem right- s/p injection 07/2019 Morbid obesity Osteoarthritis Recurrent UTI on prophylactic abx for maintenance Restless leg syndrome Sleep apnea CPAP Surgical History H/O parathyroidectomy partial History of appendectomy History of carpal tunnel release RIGHT History of cataract surgery BILATERAL History of colonoscopy History of difficult intubation 06/14/17: Left TSA: Glidescope #3, ETT 7.0, Gr View 1 History of hysterectomy BSO/BLADDER TACK History of mastectomy RIGHT + LYMPH NODE DISSECTION History of nasal septoplasty History of total shoulder replacement BILATERAL Family History Father Cancer Grandmother Breast cancer Myocardial infarction Aunt Ovarian cancer Social History Preferred Language: Omani Communication Ability: Effective Visual Impairment: No Limitations Sketch Artist Required: No Beliefs That Will Affect Care: None Current Living Situation: Family Current Living Situation Comment: FABY , DAUGHTER AND HER AND 2 CHILDREN Feels Safe at Home: Yes Smoking Status: Never smoker Second Hand Exposure: Yes ; Hx Alcohol Use: Yes Hx Substance Use: No Review of Systems See HPI for pertinent positives & negatives. and A total of 10 systems reviewed and were otherwise negative Physical Exam Vital Signs Vital Signs - 24 hr 08/13/19 15:52 08/13/19 18:11 Temperature 36.7 C Temperature Source Oral Sepsis Recent Fever Within 48 Hours No Sepsis New/Unexplained Change in Mental Status No Sepsis Action Taken by Nursing No Action Required Pulse Rate 79 82 Pulse Rate from SpO2 Sensor 83 Respiratory Rate 20 15 Respiratory Effort / Characteristics Non-Labored Spontaneous Respiratory Depth Normal Respiratory Pattern Regular Blood Pressure 114/69 120/63 Blood Pressure Mean 84 82 Blood Pressure Position Sitting Pulse Oximetry 93 100 Oxygen Delivery Method Room Air Nasal Cannula Oxygen Flow Rate 5 GENERAL: Awake, alert, chronically ill-appearing, in no distress. BMI of 45.0 kg/m^2. HENT: Normocephalic, atraumatic. Oropharynx unremarkable. EYES: Normal conjunctiva. Sclera non-icteric. NECK: Supple. No nuchal rigidity. FROM. No JVD. RESPIRATORY: Diminished BS at bases otherwise clear. CARDIAC: Regular rate, normal rhythm. Extremities warm and well perfused. Pulses equal. ABDOMEN: Soft, non-distended. Mild lower abdominal discomfort without discrete tenderness to palpation. No rebound or guarding. No masses. RECTAL: Deferred. MUSCULOSKELETAL: Chest examination reveals no tenderness. The back is symmetrical on inspection without obvious abnormality. There is no CVA tenderness to palpation. No joint edema. LOWER EXTREMITIES: Calves are equal size bilaterally and non-tender. No edema. No discoloration. NEURO: Normal sensorium. No sensory or motor deficits noted. SKIN: No rash or jaundice noted. Course 165: Past medical records reviewed. The patient was evaluated in room B12B. A complete history and physical exam was performed. 1734: I discussed the patient's case with Dr. Oliva, [facility] Hospitalist. He will evaluate the patient for further management and care. 1752: Upon reevaluation, the patient is resting comfortably. I discussed laboratory and radiographic results with her. She verbalized agreement of the treatment plan. The patient will be evaluated for further management and care. Administered Medications Acetaminophen (Tylenol) 1,000 mg PO BID UNRULY Stop: 09/12/19 22:07 Last Admin: 08/13/19 23:56 Dose: 1,000 mg Documented by: [id number] Ascorbic Acid (Vitamin C) 500 mg PO QPM UNRULY Stop: 09/12/19 22:07 Last Admin: 08/13/19 23:59 Dose: 500 mg Documented by: [id number] Fish Oil ([place]-3 (Purified Fish Oil)) 1 gm PO BID UNRULY Stop: 09/12/19 22:07 Last Admin: 08/13/19 23:58 Dose: 1 gm Documented by: [id number] Ceftolozane/Tazobactam 750 mg/ (Dextrose) 105.7 mls @ 111.4 mls/hr IV Q8H UNRULY; Protocol Stop: 08/24/19 01:59 Last Infusion: 08/14/19 03:46 Dose: 0 mls/hr Documented by: [id number] Admin: 08/14/19 01:58 Dose: 111.4 mls/hr Documented by: [id number] Miscellaneous (Order Awaiting Action) 1 ea N/A QS UNRULY Stop: 09/13/19 00:00 Last Admin: 08/14/19 02:49 Dose: Not Given Documented by: [id number] Miscellaneous (Order Awaiting Action) 1 ea N/A QS UNRULY Stop: 09/13/19 00:00 Last Admin: 08/14/19 02:49 Dose: Not Given Documented by: [id number] Ropinirole HCl (Requip) 0.5 mg PO HS UNRULY Stop: 09/12/19 22:07 Last Admin: 08/13/19 23:57 Dose: 0.5 mg Documented by: [id number] Vitamin D (Vitamin D3) 400 units PO BID UNRULY Stop: 09/12/19 22:07 Last Admin: 08/13/19 23:59 Dose: 400 units Documented by: [id number] Discontinued Medications Sodium Chloride (Nss) 500 mls @ 125 mls/hr IV .Q4H STA Stop: 08/13/19 20:40 Last Infusion: 08/13/19 22:03 Dose: 0 mls/hr Documented by: [id number] Admin: 08/13/19 18:03 Dose: 125 mls/hr Documented by: [id number] Ceftolozane/Tazobactam 1,500 (mg/ Dextrose) 111.4 mls @ 111.4 mls/hr IV NOW ONE Stop: 08/13/19 18:29 Last Infusion: 08/13/19 19:14 Dose: 0 mls/hr Documented by: [id number] Admin: 08/13/19 18:03 Dose: 111.4 mls/hr Documented by: [id number] Medical Decision Making Differential Diagnosis Differential: UTI, Urethritis, Pyelonephritis, STI, Herpetic, Vaginitis, Hyperglycemia, Yeast, PID, Cystitis, Hemorrhagic Cystitis, amongst other pathologies entertained. Medical Records Attestation: I reviewed the patient's medical records. Home Medications Current Medication List: was personally reviewed by me Laboratory Data Attestation: I reviewed the patient's lab results. Result diagrams: 08/13/19 17:57 08/13/19 17:57 Lab Results 08/13/19 08/13/19 08/13/19 Range/Units 17:02 17:57 17:57 WBC 7.88 (4.8-10.8) K/uL RBC 4.06 L (4.2-5.4) M/uL Hgb 13.7 (12.0-16.0) g/dL Hct 41.5 (37-47) % MCV 102.2 H (80-100) fL MCH 33.7 (25-34) pg MCHC 33.0 (32-36) g/dL RDW Std Deviation 48.3 H (36.4-46.3) fL RDW Coeff of Angélica 12.9 (11.5-14.5) % Plt Count 269 (130-400) K/uL MPV 9.5 (7.4-10.4) fL Immature Gran % (Auto) 0.3 % Neut % (Auto) 71.2 % Lymph % (Auto) 19.0 % [place] % (Auto) 6.1 % Eos % (Auto) 3.0 % Baso % (Auto) 0.4 % Immature Gran # (Auto) 0.02 (0.00-0.02) K/uL Neut # (Auto) 5.61 (1.4-6.5) K/uL Lymph # (Auto) 1.50 (1.2-3.4) K/uL [place] # (Auto) 0.48 (0.11-0.59) K/uL Eos # (Auto) 0.24 (0-0.5) K/uL Baso # (Auto) 0.03 (0-0.2) K/uL PT 10.7 (9.0-12.0) Seconds INR 1.0 (0.9-1.1) APTT 22.4 (21.0-31.0) Seconds PTT Ratio 0.8 Sodium (136-145) mmol/L Potassium (3.5-5.1) mmol/L Chloride (98-107) mmol/L Carbon Dioxide (21-32) mmol/L Anion Gap (3-11) BUN (7-18) mg/dl Creatinine (0.6-1.2) mg/dl Est Cr Clr Drug Dosing ml/min Est GFR ( Amer) Est GFR (Non-Af Amer) BUN/Creatinine Ratio (10-20) Glucose (70-99) mg/dl Lactate 1.5 (0.4-2.0) mmol/L Calcium (8.5-10.1) mg/dl Total Bilirubin (0.2-1) mg/dl AST (15-37) U/L ALT (12-78) U/L Alkaline Phosphatase (45-117) U/L Total Protein (6.4-8.2) gm/dl Albumin (3.4-5.0) gm/dl Globulin (2.5-4.0) gm/dl Albumin/Globulin Ratio (0.9-2) 08/13/19 Range/Units 17:57 WBC (4.8-10.8) K/uL RBC (4.2-5.4) M/uL Hgb (12.0-16.0) g/dL Hct (37-47) % MCV (80-100) fL MCH (25-34) pg MCHC (32-36) g/dL RDW Std Deviation (36.4-46.3) fL RDW Coeff of Angélica (11.5-14.5) % Plt Count (130-400) K/uL MPV (7.4-10.4) fL Immature Gran % (Auto) % Neut % (Auto) % Lymph % (Auto) % [place] % (Auto) % Eos % (Auto) % Baso % (Auto) % Immature Gran # (Auto) (0.00-0.02) K/uL Neut # (Auto) (1.4-6.5) K/uL Lymph # (Auto) (1.2-3.4) K/uL [place] # (Auto) (0.11-0.59) K/uL Eos # (Auto) (0-0.5) K/uL Baso # (Auto) (0-0.2) K/uL PT (9.0-12.0) Seconds INR (0.9-1.1) APTT (21.0-31.0) Seconds PTT Ratio Sodium 138 (136-145) mmol/L Potassium 3.9 (3.5-5.1) mmol/L Chloride 103 (98-107) mmol/L Carbon Dioxide 31 (21-32) mmol/L Anion Gap 4.0 (3-11) BUN 22 H (7-18) mg/dl Creatinine 0.97 (0.6-1.2) mg/dl Est Cr Clr Drug Dosing 46.7 ml/min Est GFR ( Amer) 66.7 Est GFR (Non-Af Amer) 57.5 BUN/Creatinine Ratio 23.2 H (10-20) Glucose 114 H (70-99) mg/dl Lactate (0.4-2.0) mmol/L Calcium 10.2 H (8.5-10.1) mg/dl Total Bilirubin 0.3 (0.2-1) mg/dl AST 25 (15-37) U/L ALT 31 (12-78) U/L Alkaline Phosphatase 129 H (45-117) U/L Total Protein 7.4 (6.4-8.2) gm/dl Albumin 3.4 (3.4-5.0) gm/dl Globulin 4.0 (2.5-4.0) gm/dl Albumin/Globulin Ratio 0.8 L (0.9-2) Blood Pressure Blood Pressure Findings: Low blood pressure Blood Pressure Disposition: further management by hospitalist MDM Narrative The patient is a pleasant 74-year-old woman with a past medical history of recurrent UTIs with history of multidrug-resistant Pseudomonas, COPD on chronic oxygen who presents emergency department with continued lower abdominal pain in the setting of having outpatient UA and urine culture on 08/05 that grew again multidrug-resistant Pseudomonas, referred to the emergency department for admission and IV antibiotics with Zerbaxa per infectious disease specialist, Dr. Pacheco per hpi. On arrival patient is chronically ill-appearing but no acute distress, afebrile stable vital signs. On exam patient has mild lower abdominal discomfort without discrete tenderness. WBC, H/H and platelets within normal limits. Chemistry without acidosis. Lactate within normal limits. Blood cultures were drawn and patient was ordered for Zerbaxa. Case was discussed with Dr. Oliva and Dr. Hwang [facility] hospitalists, who will evaluate the patient for admission. Impression & Plan UTI (urinary tract infection), History of MDR Pseudomonas aeruginosa infection, History of recurrent urinary tract infection, Diabetes mellitus Discharge Plan Visit Data *Final* Discharge Date/Time: 08/13/19 21:28 Chief Complaint: Urinary Symptoms Stated Complaint: UTI ED Provider: John Ruggiero Discharge Problem: UTI (urinary tract infection), History of MDR Pseudomonas aeruginosa infection, History of recurrent urinary tract infection, Diabetes mellitus Patient Disposition: Admitted As Inpatient Discharge Instructions Interventions: ED Discharge Assessment Last Done: 08/13/19 21:28 The scribe's documentation has been prepared under my direction and personally reviewed by me in its entirety. I confirm that the note above accurately reflect s all work, treatment, procedures, and medical decision making performed by me.
[2019-08-13] MEDS ORDERED: POLYETHYLENE (MIRALAX) 17 GM PACK PO PRN ×2 (22:08)
[2019-08-13] MEDS ORDERED: ONDANSETRON INJ 2 MG/ML 2 ML VIAL IV PRN (22:08)
[2019-08-13] MEDS ORDERED: ANASTROZOLE 1 MG TAB PO SCH (22:08)
[2019-08-13] MEDS ORDERED: ALBUTEROL HFA 8 GM INHALER INH PRN (22:08)
[2019-08-13] MEDS ORDERED: ALUMINUM/MAGNESIUM SUSP 30 ML UDC PO PRN (22:08)
[2019-08-13] MEDS ORDERED: MAGNESIUM HYDROXIDE SUSP 30 ML UDC PO PRN (22:08)
[2019-08-13] MEDS ORDERED: FUROSEMIDE 20 MG TAB PO PRN (22:08)
[2019-08-13] MEDS ORDERED: [UNRECOGNIZED DRUG - OTHER] PRN (22:26)
[2019-08-13] MEDS ORDERED: ONDANSETRON 4 MG OD TAB PO PRN (22:39)
[2019-08-13] MEDS ORDERED: GLUCOSE 10 TABS/TUBE PO PRN (22:45)
[2019-08-13] MEDS ORDERED: DEXTROSE 50% 50 ML SYRINGE IV PRN (22:45)
[2019-08-13] MEDS ORDERED: GLUCOSE 40% GEL 15 GM TUBE PO PRN (22:45)
[2019-08-13] MEDS ORDERED: GLUCAGON FOR INJ 1 MG VIAL SQ PRN (22:45)
[2019-08-13] MEDS ORDERED: CARBOHYDRATES FOR HYPOGLYCEMIA PO PRN (22:45)
[2019-08-13] MEDS: ACETAMINOPHEN 500 MG TAB PO SCH (23:56)
[2019-08-13] MEDS: ROPINIROLE HCL 0.25 MG TABLET PO SCH (23:57)
[2019-08-13] MEDS: OMEGA-3 (PURIFIED FISH OIL) 1 GM CAP PO SCH (23:58)
[2019-08-13] MEDS: CHOLECALCIFEROL (VITAMIN D) 400 UNITS TABLET PO SCH (23:59)
[2019-08-13] MEDS: ASCORBIC ACID 500 MG TAB PO SCH (23:59)
[2019-08-14] MEDS: CEFTOLOZANE/TAZOBACTAM 750 MG in DEXTROSE 5% 100 ML IV SCH ×3 (01:58→17:26)
[2019-08-14] MEDS: VESICARE~ORDER AWAITING ACTION SCH ×4 (02:49→23:50)
[2019-08-14] MEDS: CALCIUM 600MG + VIT D 400 IU TAB PO SCH (07:58)
[2019-08-14] MEDS: DOCUSATE SODIUM 100 MG CAP PO SCH (07:58)
[2019-08-14] MEDS: BuPROPion XL 150 MG TABCR PO SCH (07:58)
[2019-08-14] MEDS: DONEPEZIL HCL 5 MG TAB PO SCH (07:58)
[2019-08-14] MEDS: DULOXETINE HCL 60 MG CAP PO SCH (07:58)
[2019-08-14] MEDS: MIRABEGRON ER 25 MG TAB PO SCH (07:58)
[2019-08-14] MEDS: CEROVITE ADV FORMULA TAB PO SCH (07:58)
[2019-08-14] MEDS: CHOLECALCIFEROL (VITAMIN D) 400 UNITS TABLET PO SCH ×2 (07:58→21:21)
[2019-08-14] MEDS: ASPIRIN 81 MG ECTAB PO SCH (07:59)
[2019-08-14] MEDS: OMEGA-3 (PURIFIED FISH OIL) 1 GM CAP PO SCH ×2 (07:59→21:19)
[2019-08-14] MEDS: ENOXAPARIN INJ 40 MG/0.4 ML SYR SQ SCH (07:59)
[2019-08-14] MEDS: PROPRANOLOL HCL LA 80 MG CAPCR PO SCH (07:59)
[2019-08-14] MEDS: ANASTROZOLE 1 MG TAB PO SCH (07:59)
[2019-08-14] MEDS: INSULIN ASPART 100 UNITS/ML 3 ML PEN SQ SCH ×4 (07:59→21:30)
[2019-08-14] MEDS: INSULIN GLARGINE SOLOSTAR 100 UNITS/ML 3 ML PEN SQ SCH (08:00)
[2019-08-14] MEDS: ACETAMINOPHEN 500 MG TAB PO SCH ×2 (08:01→21:19)
[2019-08-14] MEDS ORDERED: NON-FORMULARY MEDICATION (Cranberry 500 MG) PO SCH (09:00)
--- NOTE | 2019-08-14 10:39 | Infectious Disease Consult ---
Date of Consultation August 14, 2019 Assessment & Plan (1) Complicated UTI (urinary tract infection): Patient with recurrent urinary tract infection, now with infection with highly resistant pseudomonas aeruginosa. Patient will be treated with IV ceftazidimetazobactam. Would favor having cystoscopy performed prior to discontinuation of antibiotics to see if can find structural/anatomic cause for recurrent infection. Case discussed with hospitalist. Will follow. (2) Pseudomonas aeruginosa infection: History of Present Illness Reason for Consultation: MDR UTI Attending Physician: Konstantin Newsome DO History of Present Illness 74-year-old female well-known to me from infectious disease follow-up, with history of hypertension, hyperlipidemia, breast cancer, COPD, who has history of frequently recurring UTI over the past year. Has received multiple antibiotic courses, and was scheduled for cystoscopy. However urine culture has now grown a highly resistant pseudomonas aeruginosa. Because of limited antibiotic choices, patient was admitted at my direction for treatment with ceftaz edematazobactam. She continues with dysuria and suprapubic pain. No significant fever noted. Has tolerated initial dose of antibiotics, but having some difficulty with IV access. Blood cultures are pending. Allergies Allergy/AdvReac Type Severity Reaction Status Date / Time adhesive tape Allergy Unknown Rash Verified 08/13/19 17:08 sorbitan esters Allergy Unknown PT NOT SURE Verified 08/13/19 17:08 Sulfa (Sulfonamide Allergy Unknown Rash Verified 08/13/19 17:08 Antibiotics) sulfamethoxazole Allergy Unknown Rash Unverified 08/13/19 17:08 [From Bactrim] trimethoprim [From Bactrim] Allergy Unknown Rash Unverified 08/13/19 17:08 albiglutide AdvReac Unknown Diarrhea Verified 08/13/19 17:08 codeine AdvReac Unknown Nausea Verified 08/13/19 17:08 metformin AdvReac Unknown Diarrhea Verified 08/13/19 17:08 morphine AdvReac Unknown Nausea Verified 08/13/19 17:08 "IF NOT PURE GOLD JEWELRY" Allergy Unknown TURNS SKIN Uncoded 08/13/19 17:08 GREEN, DENIES OTHER PROBLEMS SKIN ADORE Allergy Unknown SEE NOTES Uncoded 08/13/19 17:08 BELOW Home Medications Home Medications Medication Instructions Recorded Confirmed Type multivitamin with minerals [Daily 1 tab PO QAM #0 06/18/07 08/13/19 History Multivitamin-Minerals] polyethylene glycol 3350 [Miralax] 17 g PO QAM PRN #255 g 03/21/17 08/13/19 History anastrozole 1 mg PO BID 90 Days #0 tab 04/17/18 08/13/19 History acetaminophen 1,300 mg PO BID #0 cap 06/01/18 08/13/19 History aspirin [Aspirin Low Dose] 81 mg PO QAM #0 06/01/18 08/13/19 History docusate sodium [Stool Softener] 200 mg PO QAM 08/07/18 08/13/19 History ascorbic acid (vitamin C) [Vitamin 500 mg PO QPM 11/14/18 08/13/19 History C] calcium carbonate [Calcium 600] 600 mg PO QAM 11/14/18 08/13/19 History cholecalciferol (vitamin D3) 400 unit PO BID 11/14/18 08/13/19 History [Vitamin D3] duloxetine 60 mg PO QAM 11/14/18 08/13/19 History furosemide 20 mg PO DAILY PRN 11/14/18 08/13/19 History omega 9-gwi-pmv-fish oil [Fish Oil] 1 cap PO BID 11/14/18 08/13/19 History potassium 99 mg PO QAM 11/14/18 08/13/19 History cranberry 500 mg capsule 500 mg PO QAM 04/19/19 08/13/19 History Lantus Solostar U-100 Insulin 40 units SQ QAM 04/29/19 08/13/19 History albuterol sulfate HFA 90 2 puff INHALATION Q4H PRN #0 05/06/19 08/13/19 History mcg/actuation aerosol inhaler mirabegron ER 50 mg 50 mg PO QAM #0 05/06/19 08/13/19 History tablet,extended release 24 hr propranolol ER 80 mg capsule,24 80 mg PO QAM #0 05/06/19 08/13/19 History hr,extended release ropinirole 0.25 mg tablet 0.5 mg PO HS #0 05/06/19 08/13/19 History solifenacin 10 mg tablet 10 mg PO QAM 05/06/19 08/13/19 History nitrofurantoin 100 mg PO QAM #90 cap 07/16/19 08/13/19 Rx monohydrate/macrocrystals 100 mg capsule Novolog Flexpen U-100 Insulin 35 unit SUBCUT BID 07/31/19 08/13/19 History bupropion HCl 150 mg PO QAM 07/31/19 08/13/19 History donepezil 5 mg PO QAM 07/31/19 08/13/19 History ondansetron 4 mg PO UD PRN 07/31/19 08/13/19 History Patient History Medical History Anxiety Breast cancer + mets Cancer RIGHT BREAST--S/P R MASTECTOMY/CHEMO/XRT ~20yrs ago RE-OCCURRENCE WITH METS TO BONE AND VISCERA 02/2018 Chronic back pain Chronic obstructive pulmonary disease 5L O2 continuous Degenerative disc disease Dementia recent diagnosis Depression Diabetes mellitus, type 2 IDDM Diabetic neuropathy B/L feet 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 Glaucoma legally blind (right eye) History of kidney stones Hyperparathyroidism s/p partial parathyroidectomy Kidney stones Knee problem right- s/p injection 07/2019 Morbid obesity Osteoarthritis Recurrent UTI on prophylactic abx for maintenance Restless leg syndrome Sleep apnea CPAP Surgical History H/O parathyroidectomy partial History of appendectomy History of carpal tunnel release RIGHT History of cataract surgery BILATERAL History of colonoscopy History of difficult intubation 06/14/17: Left TSA: Glidescope #3, ETT 7.0, Gr View 1 History of hysterectomy BSO/BLADDER TACK History of mastectomy RIGHT + LYMPH NODE DISSECTION History of nasal septoplasty History of total shoulder replacement BILATERAL Family History Father Cancer Grandmother Breast cancer Myocardial infarction Aunt Ovarian cancer Social History Preferred Language: Luxembourgish Communication Ability: Effective Visual Impairment: No Limitations 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 Required: No Beliefs That Will Affect Care: None Current Living Situation: Other Current Living Situation Comment: FABY , DAUGHTER AND HER AND 2 CHILDREN Feels Safe at Home: Yes Smoking Status: Never smoker Second Hand Exposure: Yes ; Hx Alcohol Use: Yes Hx Substance Use: No Review of Systems Review of Systems: All systems reviewed & are unremarkable except as noted in HPI & below Physical Exam Constitutional: WD/WN, vitals as above comfortable; no acute distress Eyes: PERRL, conjunctivae normal, anicteric sclerae ENMT: external ear and nose normal, oropharynx normal Neck: trachea midline, no thyromegaly neck nontender Respiratory: normal respiratory effort, lungs clear to auscultation normal percussion; does not use accessory muscles Cardiovascular: Rate/Rhythm: regular rate and regular rhythm Heart Sounds: normal S1 and normal S2; no gallop, no murmur and no cardiac rub Vessels: normal peripheral pulses; no JVD Gastrointestinal (Abdomen): normal bowel sounds, soft, nontender, no hepatosplenomegaly Musculoskeletal: no cyanosis or clubbing, extremities motor strength 5/5 Spine: thoracic spine normal to inspection and lumbar spine normal to inspection; no cervical spinal tenderness Skin: no rashes, warm and dry normal turgor; no lesions Neurologic: patellar DTR's 2+ bilat, sensation intact no focal motor defic its Psychiatric: A+Ox3, euthymic affect Orientation: cooperative Lymphatic: no cervical or axillary lymphadenopathy no inguinal lymphadenopathy Results & Data Vital Signs (Past 12 Hours) Vital Signs Temp Pulse Resp BP Pulse Ox 08/14/19 07:01 36.0 C L 72 18 135/98 94 08/13/19 23:23 37.2 C 81 21 111/66 96 Laboratory Results Short CBC 08/13/19 Range/Units 17:57 WBC 7.88 (4.8-10.8) K/uL Hgb 13.7 (12.0-16.0) g/dL Hct 41.5 (37-47) % Plt Count 269 (130-400) K/uL BMP 08/13/19 17:57 Sodium 138 Potassium 3.9 Chloride 103 Carbon Dioxide 31 BUN 22 H Creatinine 0.97 Glucose 114 H Calcium 10.2 H Liver Function 08/13/19 Range/Units 17:57 Total Bilirubin 0.3 (0.2-1) mg/dl AST 25 (15-37) U/L ALT 31 (12-78) U/L Alkaline Phosphatase 129 H (45-117) U/L Albumin 3.4 (3.4-5.0) gm/dl Diagnostic Findings Spec: [id number] Collected: 08/05/19-UN Received: 08/05/[address] [facility] [address]: Mahsa Islas Source: Urine,Straight Cath OV Order: Ordered: Urine Culture Procedure Result Verified Site Urine Culture Final 08/08/196 Organism 1 Pseudomonas aeruginosa [place] Count 60,000 CFU/ml Sens Sensitivities to Follow P aerugino RX M.I.C. --- --------- Amikacin I 32 Aztreonam R >16 Cefepime I 16 Ceftazidime S 4 Ciprofloxacin R >2 Gentamicin R >8 Imipenem S <=1 Levofloxacin R >4 Tobramycin S <=4 Pip/Tazo S <=16 S = SENSITIVE I = INTERMEDIATE R = RESISTANT PG Care Time/CCT Total # of Minutes Spent Total Time Spent with Patient: Total time spent is greater than 50% in coordination of care (as documented) at patient's floor/unit and/or counseling patient:
--- NOTE | 2019-08-14 17:46 | Hospitalist Progress Note ---
Date of Service August 14, 2019 Assessment & Plan (1) UTI (urinary tract infection): Multidrug-resistant Pseudomonas. Discussed with infectious diseasetreat with a week of Zerbaxa, but we are both in agreement that treatment should be extended until her urologic procedure. In that respect given that the stone appears to be the nidus for her recurrent and frequent infections, we will treat for at least a week with the hope of having her cystoscopy done mid to late next week (after a 7-day course has been completed, but while she will likely still be on the IV Zerbaxa) discussed with case management to set up a presumptive 10- day course to provide this buffer. Nurse navigator is working on coordination with urology to hopefully have her cystoscopy done mid to late next week. (2) Hypercalcemia: Very mild. Outpatient follow-up (3) COPD (chronic obstructive pulmonary disease): With chronic respiratory failure on 5 L of oxygen. No symptoms, breathing unlabored. Continue current care (4) Hypertension: Blood pressure readings acceptable, continue current meds. (5) Type II diabetes mellitus: Continue to titrate insulin as needed, follow sugar. (6) Obstructive sleep apnea: Continue CPAP from home (7) DVT prophylaxis: Lovenox (8) Malignancy: Notes she was recently diagnosed with worsening nodules. Close outpatient follow-up in this regard (9) Discharge planning issues: Plan will be home with IV Zerbaxa for at least 7 days prior to cystoscopy, cystoscopy as an outpatient mid to late next week, extend course of his her back so until she is through with cystoscopy. Subjective Feeling better. Urinary symptoms have resolved. No other new complaints. Tolerating IV antibiotics well. Notes that her daughter is her primary caregiver at home and is under a significant amount of stress. Notes that IV site was difficult to obtain. Review of Systems Review of Systems: All systems reviewed & are unremarkable except as noted in HPI & below Physical Exam Physical Exam: General she is awake and alert pleasant no distress. HEENT normal cephalic atraumatic mucous members moist. Breathing unlabored no accessory muscle use good effort. Skin shows no rashes no pallor or icterus. IV site does not show any surrounding erythema. Neuro shows no focal deficits. Results & Data Vital Signs (Past 12 Hours) Vital Signs Temp Pulse Resp BP BP Pulse Ox 08/14/19 14:20 97.5 F L 88 18 104/66 93 10/30/19 07:01 96.8 F L 72 18 135/98 94 PG Care Time/CCT Total # of Minutes Spent Total Time Spent with Patient: Total time spent is greater than 50% in coordination of care (as documented) at patient's floor/unit and/or counseling patient: (1) UTI (urinary tract infection) Hematuria presence: without hematuria Urinary tract infection type: site unspecified Qualified Code(s): N39.0 - Urinary tract infection, site not specified (2) COPD (chronic obstructive pulmonary disease) COPD type: unspecified COPD Qualified Code(s): J44.9 - Chronic obstructive pulmonary disease, unspecified
[2019-08-14] MEDS: ROPINIROLE HCL 0.25 MG TABLET PO SCH (21:19)
[2019-08-14] MEDS: ASCORBIC ACID 500 MG TAB PO SCH (21:20)
[2019-08-15] MEDS: CEFTOLOZANE/TAZOBACTAM 750 MG in DEXTROSE 5% 100 ML IV SCH ×2 (01:22→09:58)
[2019-08-15] MEDS: PROPRANOLOL HCL LA 80 MG CAPCR PO SCH (07:23)
[2019-08-15] MEDS: DOCUSATE SODIUM 100 MG CAP PO SCH (07:24)
[2019-08-15] MEDS: DULOXETINE HCL 60 MG CAP PO SCH (07:24)
[2019-08-15] MEDS: CEROVITE ADV FORMULA TAB PO SCH (07:24)
[2019-08-15] MEDS: DONEPEZIL HCL 5 MG TAB PO SCH (07:24)
[2019-08-15] MEDS: MIRABEGRON ER 25 MG TAB PO SCH (07:24)
[2019-08-15] MEDS: CHOLECALCIFEROL (VITAMIN D) 400 UNITS TABLET PO SCH (07:24)
[2019-08-15] MEDS: ACETAMINOPHEN 500 MG TAB PO SCH (07:25)
[2019-08-15] MEDS: ANASTROZOLE 1 MG TAB PO SCH (07:25)
[2019-08-15] MEDS: BuPROPion XL 150 MG TABCR PO SCH (07:25)
[2019-08-15] MEDS: CALCIUM 600MG + VIT D 400 IU TAB PO SCH (07:25)
[2019-08-15] MEDS: ASPIRIN 81 MG ECTAB PO SCH (07:25)
[2019-08-15] MEDS: OMEGA-3 (PURIFIED FISH OIL) 1 GM CAP PO SCH (07:26)
[2019-08-15] MEDS: VESICARE~ORDER AWAITING ACTION SCH (07:26)
[2019-08-15] MEDS: ENOXAPARIN INJ 40 MG/0.4 ML SYR SQ SCH (07:26)
[2019-08-15 07:35] VITALS: BP 109/64; PULSE 77; TEMP 97.2; O2SAT 98
[2019-08-15] MEDS: INSULIN GLARGINE SOLOSTAR 100 UNITS/ML 3 ML PEN SQ SCH (09:05)
[2019-08-15] MEDS: INSULIN ASPART 100 UNITS/ML 3 ML PEN SQ SCH ×2 (09:05→13:04)
--- NOTE | 2019-08-15 17:30 | Discharge Summary ---
Date of Service August 15, 2019 Admission HPI Per Admitting Provider Patient is a very pleasant 74-year-old female who is struggled with recurrent UTIs for quite a while. She notes that she is having dysuria as well as some pain and discomfort whenever she bears down to urinate. She denies fevers chills or sweats, denies shortness of breath, denies any other signs or symptoms of worsening infection, but notes that she is seeing urology actively because of these recurrent infections. There is concern that she may have a stone as a nidus for bacterial colonization creating recurrent infections, she was actually supposed to have a cystoscopy to work on the stone yesterday, but in her preop urine culture she was growing a multidrug-resistant Pseudomonas so the procedure was canceled. She was then sent to the ER for admission for ongoing treatment. Otherwise she has no complaints. Principal Diagnosis MDR UTI Discharge Exam gen pleasant nad chino nc at mmm lungs unlabored no accessory muscles no focal neuro deficits. skin no rashes no pallor or icterus Discharge Data Allergies Allergy/AdvReac Type Severity Reaction Status Date / Time adhesive tape Allergy Unknown Rash Verified 08/13/19 17:08 sorbitan esters Allergy Unknown PT NOT SURE Verified 08/13/19 17:08 Sulfa (Sulfonamide Allergy Unknown Rash Verified 08/13/19 17:08 Antibiotics) sulfamethoxazole Allergy Unknown Rash Unverified 08/13/19 17:08 [From Bactrim] trimethoprim [From Bactrim] Allergy Unknown Rash Unverified 08/13/19 17:08 albiglutide AdvReac Unknown Diarrhea Verified 08/13/19 17:08 codeine AdvReac Unknown Nausea Verified 08/13/19 17:08 metformin AdvReac Unknown Diarrhea Verified 08/13/19 17:08 morphine AdvReac Unknown Nausea Verified 08/13/19 17:08 "IF NOT PURE GOLD JEWELRY" Allergy Unknown TURNS SKIN Uncoded 08/13/19 17:08 GREEN, DENIES OTHER PROBLEMS SKIN ADORE Allergy Unknown SEE NOTES Uncoded 08/13/19 17:08 BELOW Consultations 08/13/19 17:24 ED Decision to Admit Stat 08/13/19 22:08 Consult Infectious Diseases Routine Hospital Course (1) UTI (urinary tract infection): Multidrug-resistant Pseudomonas. Discussed with infectious diseasetreat with a 7-10 days of Zerbaxa, we are both in agreement that treatment should be extended until her urologic procedure. Navigator was coordinating with urology to have procedure done before (or no later than immediately after) the antibiotic course is completed. Rx'd for 10 days to provide more margin of error in scheduling procedure so that her risk of recurrent infection cancelling the attempt to remedy the recurrent infections is not recurrently thwarted. (2) Hypercalcemia: Very mild. Outpatient follow-up (3) COPD (chronic obstructive pulmonary disease): With chronic respiratory failure on 5 L of oxygen. No symptoms, breathing unlabored. stable (4) Hypertension: Blood pressure readings acceptable, continue current meds. (5) Type II diabetes mellitus: outpt f/u (6) Obstructive sleep apnea: Continue CPAP (7) DVT prophylaxis: Lovenox utilized while here (8) Malignancy: Notes she was recently diagnosed with worsening nodules. Close outpatient follow-up in this regard (9) Discharge planning issues: home on IV zerbaxa, urologic procedure to work on the stone near the end/just after the completion of current course of antibiotics Total Time Total Time Spent Total Time Spent (In Minutes): <30 Discharge Plan Discharge Items Patient Disposition: Home - Home Health Services Reason For Visit: MDR UTI Discharge Diagnosis: pseudomonas UTI Activity: Resume your previous activity Non-emergency contact: Primary Care Provider, Specialist and Urologist Call non-emergency contact if: you have any medication questions, your symptoms worsen and you have a fever Follow-up/Referrals: [facility] [place] [facility] [Provider Group] (Please, follow up at the [facility] Urology Office. *A nurse from this office will be contacting you with the appointment details. The office is located at [address] [place] [address] in [place]. If you have any questions, call the office at [phone]. ) Selvin Walker, DO [Primary Care Provider] - 08/20/19 9:15 am (Please, follow up with Dr. Selvin Walker on MondayAugust 20 at 9:15 am. *If you need to change this appointment, call the office at [phone].) Diet: Carb Consistent or DM2 Addtl Attending Provider Instructions: urinary tract infection -Dr Pacheco wants to keep you on the zerbaxa until you have the procedure to take care of your stones -to treat the infection, it would be about 7 days of IV antibiotics; to provide a cushion for making sure you are on antibiotics right up to the procedure, we've ordered for 10 days of total treatment -the urology office is up to date on your situation, and knows that we need you scheduled for the procedure at the tail end of your course of antibiotics, or no later than right afterwards, so that you don't run into the same problem happening again -you should not have trouble with recurrent infection while you're on the zerbaxa, but if you were to have new pain/burning with urination, or have a fever, we'd definitely want you seen right away -hold off on the nitrofurantoin while you're on the zerbaxa (IV antibiotic) because there's not really a need to have you on two; after the procedure, urology and Dr Pacheco will be able to help guide you on whether or not you need to continue the nitrofurantoin (but hopefully getting rid of the stone will get rid of the source of the repeated infections) -the computer system makes it fairly difficult to add IV antibiotics like zerbaxa to your medication list -- you'll be on it as set up through home health for a total of 10 days of treatment (unless that course needs to be modified by urology or dr pacheco) Pending Studies at Discharge: No Stand-Alone Forms: My [facility], Smoking Cessation Medications and DC Order Prescriptions: Continued multivitamin with minerals [Daily Multivitamin-Minerals] Tablet 1 tab PO QAM Qty: 0 RF: 0 polyethylene glycol 3350 [Miralax] 17 gram/dose Powder 17 g PO QAM PRN (Reason: Constipation) Qty: 255 RF: 0 anastrozole 1 mg Tablet 1 mg PO BID 90 Days Qty: 0 RF: 1 aspirin [Aspirin Low Dose] 81 mg Tablet,Delayed Release (Dr/Ec) 81 mg PO QAM Qty: 0 RF: 0 acetaminophen 650 mg Tablet Extended Release 1,300 mg PO BID Qty: 0 RF: 0 cranberry 500 mg capsule 500 mg PO QAM RF: 0 albuterol sulfate [Proventil HFA] 90 mcg/actuation HFA aerosol inhaler 2 puff INHALATION Q4H PRN (Reason: Shortness Of Breath Or Wheezing) Qty: 0 RF: 0 solifenacin [Vesicare] 10 mg tablet 10 mg PO QAM RF: 0 ropinirole 0.25 mg tablet 0.5 mg PO HS Qty: 0 RF: 0 propranolol 80 mg capsule,extended release 24 hr 80 mg PO QAM Qty: 0 RF: 0 Myrbetriq 50 mg tablet extended release 24 hr 50 mg PO QAM Qty: 0 RF: 0 nitrofurantoin monohyd/m-cryst 100 mg capsule 100 mg PO QAM Qty: 90 RF: 3 ondansetron 4 mg tablet,disintegrating 4 mg PO UD PRN (Reason: Nausea) RF: 0 Novolog Flexpen U-100 Insulin 100 unit/mL (3 mL) insulin pen 35 unit SUBCUT BID RF: 0 bupropion HCl 300 mg tablet extended release 24 hr 150 mg PO QAM RF: 0 donepezil 5 mg Tablet 5 mg PO QAM RF: 0 docusate sodium [Stool Softener] 100 mg Capsule 200 mg PO QAM RF: 0 calcium carbonate [Calcium 600] 600 mg calcium (1,500 mg) Tablet 600 mg PO QAM RF: 0 potassium 99 mg Tablet 99 mg PO QAM RF: 0 ascorbic acid (vitamin C) [Vitamin C] 500 mg Tablet 500 mg PO QPM RF: 0 furosemide 20 mg Tablet 20 mg PO DAILY PRN (Reason: Weight Gain) RF: 0 cholecalciferol (vitamin D3) [Vitamin D3] 400 unit Capsule 400 unit PO BID RF: 0 duloxetine 60 mg Capsule,Delayed Release(Dr/Ec) 60 mg PO QAM RF: 0 omega 1-ndq-rmv-fish oil [Fish Oil] 1,000 mg (120 mg-180 mg) Capsule 1 cap PO BID RF: 0 Lantus Solostar U-100 Insulin 100 unit/mL (3 mL) insulin pen 40 units SQ QAM RF: 0 Discharge Orders: Discharge Order (Routine); Ordered 08/15/19 Ordered By: Konstantin oGtti/Other Patient Handouts: UTI Admission Data Admit Date/Time: 08/13/19 18:23 Attending Provider: Konstantin Newsome Admit Provider: Konstantin Newsome Primary Care Provider: Selvin Walker Other Providers: Jean Carlos Oliva ; Michael Pacheco ; Trisha,Home Health Other Interventions: Discharge Summary Assessment (RN) Last Done: 08/15/19 11:44 DC Date/Time DO NOT enter until pt leaves facility: 08/15/19 15:50
== END 2019-08-15 15:50 | disposition home health service (06) | DRG 690 ==
LOC: ED 15:42 → 2W 18:23 → 3W 08-14 22:32

== ENCOUNTER 2019-09-02 07:18 | Inpatient (IN) ==
--- NOTE | 2019-07-31 12:44 | PAT Medication Instructions ---
Medication Instructions Date of Service July 31, 2019 Home Medications Medication Instructions Recorded nitrofurantoin 100 mg PO QAM #90 cap 07/16/19 monohydrate/macrocrystals 100 mg capsule multivitamin with minerals [Daily Multivitamin-Minerals] 1 tab PO QAM polyethylene glycol 3350 [Miralax] 17 g PO DAILY PRN anastrozole 1 mg PO HS 90 Days acetaminophen 1,300 mg PO BID aspirin [Aspirin Low Dose] 81 mg PO QAM atorvastatin 20 mg PO HS docusate sodium [Stool Softener] 200 mg PO DAILY ascorbic acid (vitamin C) [Vitamin C] 500 mg PO QPM calcium carbonate [Calcium 600] 600 mg PO DAILY cholecalciferol (vitamin D3) [Vitamin D3] 400 unit PO BID duloxetine 60 mg PO QAM furosemide 20 mg PO DAILY PRN omega 0-jhb-vvy-fish oil [Fish Oil] 1 cap PO BID potassium 99 mg PO QAM cranberry 500 mg capsule 500 mg PO BID Lantus Solostar U-100 Insulin 40 units SQ QAM albuterol sulfate HFA 90 mcg/actuation aerosol inhaler 2 puff INHALATION Q4H PRN mirabegron ER 50 mg tablet,extended release 24 hr 50 mg PO QAM propranolol ER 80 mg capsule,24 hr,extended release 80 mg PO QAM ropinirole 0.25 mg tablet 0.5 mg PO HS solifenacin 10 mg tablet 10 mg PO QAM nitrofurantoin monohydrate/macrocrystals 100 mg capsule 100 mg PO QAM Novolog Flexpen U-100 Insulin 35 unit SUBCUT BID bupropion HCl 150 mg PO QAM donepezil 5 mg PO QAM ondansetron 4 mg PO UD PRN ASK your prescriber and surgeon anastrozole 1 mg PO HS aspirin [Aspirin Low Dose] 81 mg PO QAM nitrofurantoin monohydrate/macrocrystals 100 mg capsule 100 mg PO QAM STOP taking 2 weeks before surgery (or as soon as possible if surgery is within 2 weeks) omega 5-pwd-rvm-fish oil [Fish Oil] 1 cap PO BID cranberry 500 mg capsule 500 mg PO BID STOP taking 24 hours before surgery ropinirole 0.25 mg tablet 0.5 mg PO HS DO NOT take the morning of surgery multivitamin with minerals [Daily Multivitamin-Minerals] 1 tab PO QAM polyethylene glycol 3350 [Miralax] 17 g PO DAILY PRN docusate sodium [Stool Softener] 200 mg PO DAILY calcium carbonate [Calcium 600] 600 mg PO DAILY cholecalciferol (vitamin D3) [Vitamin D3] 400 unit PO BID furosemide 20 mg PO DAILY PRN potassium 99 mg PO QAM mirabegron ER 50 mg tablet,extended release 24 hr 50 mg PO QAM solifenacin 10 mg tablet 10 mg PO QAM Novolog Flexpen U-100 Insulin 35 unit SUBCUT BID Take morning of surgery With a small sip of water, OTHERWISE NOTHING TO EAT OR DRINK AFTER MIDNIGHT: acetaminophen 1,300 mg PO BID (okay to take up to 4 hours prior to surgery if needed) duloxetine 60 mg PO QAM albuterol sulfate HFA 90 mcg/actuation aerosol inhaler 2 puff INHALATION Q4H PRN propranolol ER 80 mg capsule,24 hr,extended release 80 mg PO QAM bupropion HCl 150 mg PO QAM donepezil 5 mg PO QAM ondansetron 4 mg PO UD PRN (if needed) Take evening before surgery polyethylene glycol 3350 [Miralax] 17 g PO DAILY PRN (if needed) acetaminophen 1,300 mg PO BID atorvastatin 20 mg PO HS ascorbic acid (vitamin C) [Vitamin C] 500 mg PO QPM cholecalciferol (vitamin D3) [Vitamin D3] 400 unit PO BID furosemide 20 mg PO DAILY PRN (if needed) albuterol sulfate HFA 90 mcg/actuation aerosol inhaler 2 puff INHALATION Q4H PRN (if needed) Novolog Flexpen U-100 Insulin 35 unit SUBCUT BID ondansetron 4 mg PO UD PRN (if needed) Insulin Dependent Diabetic Patients * Test your blood sugar the morning of surgery * If Blood Sugar is GREATER THAN 150, take HALF of your regular dose of: Lantus Solostar U-100 Insulin take 20 units * If Blood Sugar is LESS THAN 150, DO NOT TAKE ANY: Lantus Solostar U-100 Insulin Other Notes If you have any questions please call us at [phone] or [phone] or [phone] or [phone]
--- NOTE | 2019-08-01 12:10 | Anesthesiology Consultation ---
Date of Service August 01, 2019 Assessment & Plan (1) Encounter for pre-operative examination: - PCP: 07/31/19: Patient's chronic conditions are controlled and stable at this time. No acute complaints... At this time I believe the patient is within acc eptable medical risk for her procedure scheduled on 08/12/2019. - Hx glidescope intubation: 06/14/17: Left TSA: Glidescope #3, ETT 7.0, Gr View 1, subsequent cystoscopy, bladder biopsy: 07/02/18: LMA#4 at [facility] - Check BSG AM DOS Chart Review Chart Review: Pending: Refer to Additional Notes / Consult section (pending preop testing (labs, CXR)) and Patient seen in Pre Admission Testing Teaching & Discussion Pre-Anesthesia Teaching/Discussion Notes: Instructed NPO after midnight before surgery,except medications with 15 cc of water. Medication instructions provided according to the PAT guidelines. History Surgery Operation Date: 08/12/19 07:15 Proposed Procedures p Cystoscopy, Left Ureteroscopy, Laser Lithotripsy, Stent Insertion - Amor Dennis II, DO Height/Weight Height: 4 ft 9 in Weight: 91.7 kg Allergies Allergy/AdvReac Type Severity Reaction Status Date / Time adhesive tape Allergy Unknown Rash Verified 07/31/19 14:43 sorbitan esters Allergy Unknown PT NOT SURE Verified 07/31/19 14:43 Sulfa (Sulfonamide Allergy Unknown Rash Verified 07/31/19 14:43 Antibiotics) sulfamethoxazole Allergy Unknown Rash Unverified 07/31/19 14:43 [From Bactrim] trimethoprim [From Bactrim] Allergy Unknown Rash Unverified 07/31/19 14:43 albiglutide AdvReac Unknown Diarrhea Verified 07/31/19 14:43 codeine AdvReac Unknown Nausea Verified 07/31/19 14:43 metformin AdvReac Unknown Diarrhea Verified 07/31/19 14:43 morphine AdvReac Unknown Nausea Verified 07/31/19 14:43 "IF NOT PURE GOLD JEWELRY" Allergy Unknown TURNS SKIN Uncoded 07/31/19 14:43 GREEN, DENIES OTHER PROBLEMS SKIN ADORE Allergy Unknown SEE NOTES Uncoded 07/31/19 14:43 BELOW Medications Home Medications Medication Instructions Recorded Confirmed Last Taken multivitamin with minerals [Daily 1 tab PO QAM #0 0907/31/19 05/30/19 Multivitamin-Minerals] polyethylene glycol 3350 [Miralax] 17 g PO DAILY PRN #255 g 03/21/17 07/31/19 08/07/18 anastrozole 1 mg PO HS 90 Days #0 tab 04/17/18 07/31/19 05/29/19 acetaminophen 1,300 mg PO BID #0 cap 06/01/18 07/31/19 05/30/19 aspirin [Aspirin Low Dose] 81 mg PO QAM #0 06/01/18 07/31/19 05/30/19 atorvastatin 20 mg PO HS 08/07/18 07/31/19 05/29/19 docusate sodium [Stool Softener] 200 mg PO DAILY 08/07/18 07/31/19 05/30/19 ascorbic acid (vitamin C) [Vitamin 500 mg PO QPM 11/14/18 07/31/19 05/29/19 C] calcium carbonate [Calcium 600] 600 mg PO DAILY 11/14/18 07/31/19 05/30/19 cholecalciferol (vitamin D3) 400 unit PO BID 11/14/18 07/31/19 05/30/19 [Vitamin D3] duloxetine 60 mg PO QAM 11/14/18 07/31/19 05/30/19 furosemide 20 mg PO DAILY PRN 11/14/18 07/31/19 Unknown omega 1-njg-usc-fish oil [Fish Oil] 1 cap PO BID 11/14/18 07/31/19 05/30/19 potassium 99 mg PO QAM 11/14/18 07/31/19 05/30/19 cranberry 500 mg capsule 500 mg PO BID 04/19/19 07/31/19 05/30/19 Lantus Solostar U-100 Insulin 40 units SQ QAM 04/29/19 07/31/19 05/30/19 albuterol sulfate HFA 90 2 puff INHALATION Q4H PRN #0 05/06/19 07/31/19 Unknown mcg/actuation aerosol inhaler mirabegron ER 50 mg 50 mg PO QAM #0 05/06/19 07/31/19 05/30/19 tablet,extended release 24 hr propranolol ER 80 mg capsule,24 80 mg PO QAM #0 05/06/19 07/31/1905/30/19 hr,extended release ropinirole 0.25 mg tablet 0.5 mg PO HS #0 05/06/19 07/31/19 05/29/19 solifenacin 10 mg tablet 10 mg PO QAM 05/06/19 07/31/19 05/30/19 nitrofurantoin 100 mg PO QAM #90 cap 07/16/19 07/31/19 Unknown monohydrate/macrocrystals 100 mg capsule Novolog Flexpen U-100 Insulin 35 unit SUBCUT BID 07/31/19 07/31/19 Unknown bupropion HCl 150 mg PO QAM 07/31/19 07/31/19 Unknown donepezil 5 mg PO QAM 07/31/19 07/31/19 Unknown ondansetron 4 mg PO UD PRN 07/31/19 07/31/19 Unknown Past Medical History Medical History 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 Anxiety Breast cancer + mets Cancer RIGHT BREAST--S/P R MASTECTOMY/CHEMO/XRT ~20yrs ago RE-OCCURRENCE WITH METS TO BONE AND VISCERA 02/2018 Chronic back pain Chronic obstructive pulmonary disease 5L O2 continuous Degenerative disc disease Dementia recent diagnosis Depression Diabetes mellitus, type 2 IDDM Diabetic neuropathy B/L feet Glaucoma legally blind (right eye) History of difficult intubation 06/14/17: Left TSA: Glidescope #3, ETT 7.0, Gr View 1 History of kidney stones Hyperparathyroidism s/p partial parathyroidectomy Kidney stones Knee problem right- s/p injection 07/2019 Morbid obesity Osteoarthritis Recurrent UTI on prophylactic abx for maintenance Restless leg syndrome Sleep apnea CPAP Exercise / Class Metabolic Activity III < 4 Walking/Shop/Light housework (uses walker ) Past Family History Family History Father Cancer Grandmother Breast cancer Myocardial infarction Aunt Ovarian cancer Past Surgical History Surgical History H/O parathyroidectomy partial History of appendectomy History of carpal tunnel release RIGHT History of cataract surgery BILATERAL History of colonoscopy History of hysterectomy BSO/BLADDER TACK History of mastectomy RIGHT + LYMPH NODE DISSECTION History of nasal septoplasty History of total shoulder replacement BILATERAL Past Anesthesia History Difficult Airway (06/14/17: Left TSA: Glidescope #3, ETT 7.0, Gr View 1) and No Family Hx of Anesthesia Complications (except daughter: severe PONV) History of PONV No Hx of PONV and No Hx of Motion Sickness Social History Smoking Status: Never smoker Do You Dip or Chew Tobacco: No Hx Alcohol Use: Yes alcohol intake frequency: holidays/special occasions only Hx Substance Use: No substance use type: does not use Review of Systems Occasional heartburn. SOB stable on 5L O2 continuous. Patient denies chest pain, cough, wheezing, palpitations. Physical Exam Vital Signs VITALS BP 110/70 P 73 TEMP 97.6 SP02 96% on 5L O2 RESP 20 PHYSICAL Full neck and c-spine range of motion. Full TMJ range of motion. TMD 3.5 finger breaths Mallampati Score 2 Dentition: dentures Lungs: coarse breath sounds Cardiac: regular rate and rhythm, no murmurs noted Spine: normal Carotid arteries: negative bruit Extremities: no edema Short thick neck Testing Electrocardiogram Date: 11/14/18 NSR at 82bpm. NS TWA. Stress Test Date: 03/29/17 Type: DSE Findings: + WNL (Negative for ischemia at 85% MPHR) and + achieved max HR Resting EF: 55-60 Resting LV Function: normal Resting RWMA: + none Mild concentric LVH
--- NOTE | 2019-08-01 13:14 | XRay Report ---
XR chest Pre-admission PA/Lat CLINICAL HISTORY: 74 years-old Female presenting with preoperative assessment, history of COPD. TECHNIQUE: PA and lateral views of the chest were obtained. COMPARISON: 04/29/2019. FINDINGS: Cardiac silhouette mildly enlarged as on prior. Pulmonary vascular prominence. Heterogeneity lung par enchyma. Small bilateral pleural effusions. Lungs may be mildly hyperinflated. No other focal opacity . No pneumothorax. Degenerative changes of the thoracic spine. Bilateral shoulder arthroplasties. Gus gical clips project over the right axilla. Upper abdomen normal. IMPRESSION: 1. Findings suggest emphysema. No focal infiltrate to suggest pneumonia. 2. Cardiomegaly. 3. Small bilateral pleural effusions. Electronically signed by: Carlos Manuel Dominguez M.D. 08/01/2019 1:12 PM
[2019-08-01 14:00] LABS: Basophils # (auto) 0.03 K/uL (0-0.2); Basophils % (auto) 0.4 %; Eosinophils # (auto) 0.25 K/uL (0-0.5); Hematocrit (blood only) 41.6 % (37-47); Hemoglobin 13.3 g/dL (12.0-16.0); Immature Granulocytes # (auto) 0.01 K/uL (0.00-0.02); Immature Granulocytes % (auto) 0.1 %; Lymphocytes # (auto) 1.12 K/uL (1.2-3.4); Lymphocytes % (auto) 13.6 %; Mean Corpuscular Volume 103.2 fL (80-100); Monocytes # (auto) 0.36 K/uL (0.11-0.59); Monocytes % (auto) 4.4 %; Neutrophils # (auto) 6.48 K/uL (1.4-6.5); Neutrophils % (auto) 78.5 %; Platelet Count 278 K/uL (130-400); RDW Coefficient of Variation 13.1 % (11.5-14.5); Red Blood Count 4.03 M/uL (4.2-5.4); White Blood Count 8.25 K/uL (4.8-10.8)
[2019-08-01 14:14] LABS: Estimated Average Glucose 131 mg/dl; Hemoglobin A1C 6.2 % (4.5-5.6)
[2019-08-01 14:25] LABS: Appearance Urine Turbid (Clear); Bilirubin Urine Negative (Negative); Blood Urine 1+ (Negative); Color Urine Dark Yellow; Epithelial Cell Urine Auto >30 /lpf (0-5); Glucose Urine UA Trace (Negative); Ketones Urine Trace (Negative); Leukocyte Esterase Urine 3+ (Negative); Nitrite Urine Negative (Negative); Protein Urine 1+ (Negative); Specific Gravity Urine 1.019 (1.000-1.030); Urobilinogen Urine Negative (Negative); WBC Urine Automated >30 /hpf (0-5)
[2019-08-01 14:35] LABS: Bacteria Urine Automated 1+ (Negative)
[~2019-09-02 07:18] MED LIST changes: -ACET1TAB84 PO; -ANAS1TAB59 PO; -ASCA500 PO; -ASPI81TA28 PO; -ATRINS NEB; -BUSP15TA70 PO; -CHOL100027 PO; +CIPROFLOXACIN 400 MG/200 ML BAG IV SCH; -DULO-76 PO; -GLUCTAB7 PO; -INSDGIPEN SC; -LEVA45AE INH; +LR 15ML/HR IV SCH; -MIRA1TAB3 PO; -MULT-506 PO; -NVLGIPEN SC; -OMEG10002 PO; -OXGN INH; -POLY335019 PO; -POTA10CA28 PO; -PRAM0.259 PO; -PROP80CA29 PO; -ROPI0.25 PO; -SPRIN/30 INH; -SYMIN INH; -VNTHFA/IN INH
[2019-09-02] MEDS ORDERED: ONDANSETRON INJ 2 MG/ML 2 ML VIAL ONE (07:28)
[2019-09-02] MEDS ORDERED: DEXAMETHASONE SOD INJ 4 MG/ML VIAL ONE (07:28)
[2019-09-02] MEDS ORDERED: fentaNYL citrate 100 MCG/2 ML VIAL ONE (07:28)
[2019-09-02] MEDS ORDERED: LIDOCAINE HCL 2% 2 ML VIAL/AMP(20MG/ML) INFIL ONE (07:28)
[2019-09-02] MEDS ORDERED: PROPOFOL IV EMULSION 10 MG/ML 20 ML VIAL IV ONE (07:28)
[2019-09-02] MEDS ORDERED: MIDAZOLAM HCL 1 MG/ML 2ML VIAL ONE (07:28)
--- NOTE | 2019-09-02 08:10 | History & Physical Bridge Note ---
Date of Service September 02, 2019 History & Physical Bridge Note I have examined the patient, reviewed the History & Physical and in the interval since the performance of the History & Physical I have noted the following changes of clinical significance: no changes noted
[2019-09-02] MEDS ORDERED: PIPERACILL/TAZOBAC CONSULT ACTIVE PRN ×2 (08:11→15:23)
[2019-09-02] MEDS ORDERED: PIPERACILLIN/TAZOBACTAM 4.5 GM in DEXTROSE 5% 100 ML IV ONE (08:45)
[2019-09-02] MEDS ORDERED: fentaNYL citrate 100 MCG/2 ML VIAL IV PRN (09:51)
[2019-09-02] MEDS ORDERED: ePHEDrine sulfate 50 MG/ML AMP IV PRN (09:51)
[2019-09-02] MEDS ORDERED: ONDANSETRON INJ 2 MG/ML 2 ML VIAL IV PRN (09:51)
[2019-09-02] MEDS ORDERED: ATROPINE SULFATE 0.1 MG/ML 10ML SYR IV PRN (09:51)
[2019-09-02] MEDS ORDERED: IOTHALAMATE MEGLUMINE II 17.2% 250 ML VIAL ONE (10:01)
--- NOTE | 2019-09-02 11:22 | Operative Report ---
PG Post Operative Report Pre & Post Diagnosis Operation Date: 08/12/19 07:15 <No data on this case meets the specified criteria> Operation Date: 09/02/19 09:25 Pre-Op Diagnosis: Left Renal Stone Post Op = Same I identified the patient and participated in the time-out.: Yes Procedure Operation Date: 08/12/19 07:15 <No data on this case meets the specified criteria> Operation Date: 09/02/19 09:25 Actual Procedures pCystoscopy, Left Ureteronephroscopy, Retrograde Pyelogram with Ureteral Dilation, Laser Destruction and Extraction of Stone, stone extraction, and Insertion of Stent(Left) - Amor Dennis DO Surgeon Amor Dennis, II, DO Pediatric Oncology Nurse None Estimated Blood Loss 2 Findings Consistent with Post-Op Diagnosis Very large stone approx 2.3 cm in mid pole kidney left. Specimens Stone Renal Pelvis left. Drains 6 Fr Multilength Anesthesia Type General Complications none Disposition Disposition: Recovery Room Indications Patient with significant stone and recurrent episodes of Sepsis from urinary source. Risks and benefits discussed at length. Description of Procedure Patient was consented and brought back to the operating room. Patient was placed under anesthesia in the supine position and moved to the dorsal lithotomy position. Patient was prepped and draped in the regular sterile fashion. A time out was completed. A 30degree Cystoscope was placed into the bladder and the entire bladder was examined. The UO's were identified. The UO was cannulized with a catheter and a retrograde pyelogram was completed. A wire was then placed. A ureteral access sheath and second safety wire was placed. The flexible ureteroscope was taken into the ureter. The entire ureter and renal pelvis were examined. The stones were identified. A laser fiber was selected and the stones were pulverized to dust and small fragments. Larger fragments were grasped and removed and sent for analysis. The entire area was once again examined. No residual large fragments or areas of concern were noted. The scope was slowly removed with the wire left in place. Contrast was placed through the scope for a pyelogram to assist in stent placement. The entire ureter was examined as the scope was slowly removed. No obstructions or other areas of concern were noted. With the wire in place, a 6 Fr Double J stent was placed. It was confirmed with fluoroscopy. With the stent in place, the bladder was emptied. The scope was removed. The patient was cleaned, aroused from anesthesia, and transferred to the pacu in stable condition having tolerated the procedure well with no complications. I was present and participated in all aspects of the procedure. The patient will be monitored in the PACU until transferred. Follow up in 2 -3 weeks for stent removal. I attest to the content of the Intraoperative Record and any orders documented therein. Any exceptions are noted below.
--- NOTE | 2019-09-02 12:26 | Anesthesiology Progress Note ---
Date of Service September 02, 2019 Anesthesia Post Procedure Vital Signs Vital Signs: Temp Pulse Pulse Resp BP Pulse Ox 09/02/19 12:15 36.6 C 77 16 121/92 94 09/02/19 12:00 74 15 103/73 95 09/02/19 11:50 81 21 125/77 99 09/02/19 11:40 82 21 117/81 99 09/02/19 11:31 36.4 C L 87 19 122/70 99 09/02/19 08:25 36.6 C 84 22 106/71 97 Transfer of Care Handoff Completed per policy Notes Mental Status: alert / awake / arousable and participated in evaluation Patient Amnestic to Procedure: Yes Nausea / Vomiting: adequately controlled Pain: adequately controlled Airway Patency, RR, SpO2: stable & adequate BP & HR: stable & adequate Hydration State: stable & adequate Anesthetic Complications: no major complications apparent and Pt Satisfied with anesthetic care
--- NOTE | 2019-09-02 13:25 | Fluoroscopy Report ---
INTRAOPERATIVE RADIOGRAPHS CLINICAL HISTORY: Left-sided cystoscopy and retrograde pyelogram with laser lithotripsy and ureteral stent placement. Fluoroscopy time: 56 seconds. FINDINGS: 4 spot fluoroscopic views of the left abdomen from a retrograde ureterogram, laser lithotri psy, and ureteral stent placement procedure are presented. Correlation is made with abdominal CT date d 11/18/2018. The initial image shows cannulation of the left ureter. There is hydronephrosis. The seco nd image shows a lithotripsy device in place. The final 2 images show the proximal and distal ends of a left ureteral stent in place. The ends are coiled over the left renal pelvis and the bladder. IMPRESSION: Intraoperative images as above. Electronically signed by: Garrett Cadet M.D. 09/02/2019 1:23 PM
[2019-09-02] MEDS ORDERED: OXYCODONE/ACETAMINOPHEN 5mg/325mg TAB PO PRN (13:26)
[2019-09-02] MEDS ORDERED: MoRPHine SULFATE 2 MG/ML CARP IV PRN (15:20)
[2019-09-02] MEDS ORDERED: FUROSEMIDE 20 MG TAB PO PRN (15:25)
[2019-09-02] MEDS ORDERED: DEXTROSE 50% 50 ML SYRINGE IV PRN (16:15)
[2019-09-02] MEDS ORDERED: GLUCAGON FOR INJ 1 MG VIAL IM PRN (16:15)
[2019-09-02] MEDS ORDERED: GLUCOSE 10 TABS/TUBE PO PRN (16:15)
[2019-09-02] MEDS ORDERED: CARBOHYDRATES FOR HYPOGLYCEMIA PO PRN (16:15)
[2019-09-02] MEDS ORDERED: GLUCOSE 40% GEL 15 GM TUBE PO PRN (16:15)
[2019-09-02] MEDS ORDERED: ONDANSETRON 4 MG OD TAB PO PRN (16:39)
[2019-09-02] MEDS ORDERED: INSULIN ASPART PER SC STA ×2 (17:31→17:32)
[2019-09-02] MEDS: D5W AND 1/2NSS + 20MEQ KCL 20 MEQ/1,000 ML BAG IV SCH (17:36)
[2019-09-02] MEDS: PIPERACILLIN/TAZOBACTAM 4.5 GM in DEXTROSE 5% 100 ML IV SCH (17:37)
--- NOTE | 2019-09-02 17:41 | Hospitalist Consultation ---
Date of Consultation September 02, 2019 Assessment & Plan (1) Complicated UTI (urinary tract infection): Recurrent UTI issues, has been on Zerbaxa as outpt for the last few weeks s/p cysto and L stent placement for stone on 09/[address] Dennis Ongoing abx, was seen by Dr. Pacheco in the past if needed Urine cx pending, reincubating for 3 colonies (2) Diabetes mellitus: Pt takes lantus 40 units am only and novolog 25 units AM and 35 units PM--this was told to me directly by pt, changes in orders made (3) Chronic respiratory failure: Home O2 use, 5L via NC continuous Monitor (4) Obstructive sleep apnea: CPAP at home Forgot home unit (5) Depression: Denies current medication (6) Hypertension: continue home meds Lasix 20mg PRN, states she has not used in some time due to weight being stable (7) Hyperlipidemia: continue home meds (8) DVT prophylaxis: As per urology History of Present Illness Attending Physician: Amor Dennis, II, DO History of Present Illness 74 y/o F who was admitted on 09/02 s/p cystoscopy with L sided stent placement with Dr. Dennis. Pt is having nausea w/o emesis post op. She states this started when her pain started after coming out of the OR. She has not had any PO yet. She has abd pain related to her recent stent. Pt states she always has SOB and it is at baseline presently. Pt denies fever, chest pain, c/d, LE pain or swelling. Pt was d/c'd on 08/15 after admission for recurrent UTI. She was d/c'd on Zerbaxa with plans for f/u with urology for stent placement due to obstructing stone. Allergies Allergy/AdvReac Type Severity Reaction Status Date / Time adhesive tape Allergy Unknown Rash Verified 09/02/19 08:08 sorbitan esters Allergy Unknown PT NOT SURE Verified 09/02/19 08:08 Sulfa (Sulfonamide Allergy Unknown Rash Verified 09/02/19 08:08 Antibiotics) sulfamethoxazole Allergy Unknown Rash Verified 09/02/19 08:08 [From Bactrim] trimethoprim [From Bactrim] Allergy Unknown Rash Verified 09/02/19 08:08 albiglutide AdvReac Unknown Diarrhea Verified 09/02/19 08:08 codeine AdvReac Unknown Nausea Verified 09/02/19 08:08 metformin AdvReac Unknown Diarrhea Verified 09/02/19 08:08 morphine AdvReac Unknown Nausea Verified 09/02/19 08:08 "IF NOT PURE GOLD JEWELRY" Allergy Unknown TURNS SKIN Uncoded 09/02/19 08:08 GREEN, DENIES OTHER PROBLEMS SKIN ADORE Allergy Unknown SEE NOTES Uncoded 09/02/19 08:08 BELOW Home Medications Home Medications Medication Instructions Recorded Confirmed Type multivitamin with minerals [Daily 1 tab PO QAM #0 06/18/07 09/02/19 History Multivitamin-Minerals] polyethylene glycol 3350 [Miralax] 17 g PO QAM #255 g 03/21/17 09/02/19 History anastrozole 1 mg PO HS 90 Days #0 tab 04/17/18 09/02/19 History acetaminophen 1,300 mg PO BID #0 cap 06/01/18 09/02/19 History aspirin [Aspirin Low Dose] 81 mg PO QAM #0 06/01/18 09/02/19 History docusate sodium [Stool Softener] 200 mg PO QAM 08/07/18 09/02/19 History ascorbic acid (vitamin C) [Vitamin 500 mg PO QPM 11/14/18 09/02/19 History C] calcium carbonate [Calcium 600] 600 mg PO QAM 11/14/18 09/02/19 History cholecalciferol (vitamin D3) 400 unit PO BID 11/14/18 09/02/19 History [Vitamin D3] furosemide 20 mg PO DAILY PRN 11/14/18 09/02/19 History omega 4-nrh-ipa-fish oil [Fish Oil] 1 cap PO BID 11/14/18 09/02/19 History potassium 99 mg PO QAM 11/14/18 09/02/19 History cranberry 500 mg capsule 500 mg PO QAM 04/19/19 09/02/19 History Lantus Solostar U-100 Insulin 45 units SQ QAM 04/29/19 09/02/19 History solifenacin 10 mg tablet 10 mg PO QAM 05/06/19 09/02/19 History nitrofurantoin 100 mg PO QAM #90 cap 07/16/19 09/02/19 Rx monohydrate/macrocrystals 100 mg capsule Novolog Flexpen U-100 Insulin 45 unit SUBCUT BID 07/31/19 09/02/19 History ondansetron 4 mg PO UD PRN 07/31/19 09/02/19 History bupropion HCl 75 mg tablet 150 mg PO DAILY #180 tab 08/16/19 08/20/19 Rx duloxetine 60 mg capsule,delayed 60 mg PO QAM #90 cap 08/16/19 08/20/19 Rx release propranolol 80 mg capsule,24 80 mg PO QAM #90 cap 08/16/19 08/20/19 Rx hr,extended release Myrbetriq 50 mg PO DAILY 08/17/19 08/20/19 History atorvastatin 20 mg PO DAILY 08/17/19 08/20/19 History ropinirole 0.5 mg PO HS 08/17/19 08/20/19 History donepezil 5 mg tablet 5 mg PO DAILY #30 tab 08/20/19 08/20/19 Rx fosfomycin tromethamine 3 gm PO Q3D #2 ea 09/02/19 Rx oxycodone-acetaminophen [Percocet] 1 tab PO Q8H PRN #7 tab 09/02/19 Rx Patient History Medical History Anxiety Breast cancer + mets Cancer RIGHT BREAST--S/P R MASTECTOMY/CHEMO/XRT ~20yrs ago RE-OCCURRENCE WITH METS TO BONE AND VISCERA 02/2018 Chronic back pain Chronic obstructive pulmonary disease 5L O2 continuous Degenerative disc disease Dementia recent diagnosis Depression Diabetes mellitus, type 2 IDDM Diabetic neuropathy B/L feet 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 Glaucoma legally blind (right eye) History of kidney stones Hyperparathyroidism s/p partial parathyroidectomy Kidney stones Knee problem right- s/p injection 07/2019 Morbid obesity Osteoarthritis Recurrent UTI on prophylactic abx for maintenance Restless leg syndrome Sleep apnea CPAP Surgical History H/O parathyroidectomy partial History of appendectomy History of carpal tunnel release RIGHT History of cataract surgery BILATERAL History of colonoscopy History of difficult intubation 06/14/17: Left TSA: Glidescope #3, ETT 7.0, Gr View 1 History of hysterectomy BSO/BLADDER TACK History of mastectomy RIGHT + LYMPH NODE DISSECTION History of nasal septoplasty History of total shoulder replacement BILATERAL Family History Father Cancer Grandmother Breast cancer Myocardial infarction Aunt Ovarian cancer Social History Preferred Language: Pashto Communication Ability: Effective Visual Impairment: No Limitations Handbag Operator Required: No Beliefs That Will Affect Care: None marital status: / Current Living Situation: Other Current Living Situation Comment: daughter's and children live with her Feels Safe at Home: Yes Smoking Status: Never smoker Second Hand Exposure: Yes ; Hx Alcohol Use: Yes Hx Substance Use: No Review of Systems Review of Systems: Pertinent positives and negatives reviewed in HPI--all others negative Physical Exam Constitutional: WD/WN, vitals as above Eyes: normal visual hayden by confrontation and + anicteric sclerae Neck: normal visual inspection and trachea midline Respiratory: normal respiratory effort, lungs clear to auscultation Cardiovascular: Rate/Rhythm: regular rate and regular rhythm Gastrointestinal (Abdomen): Inspection/Auscultation: + abdomen distended Percussion/Palpation: + abdomen tender (diffuse) and abdomen soft Musculoskeletal: Head/Neck/Chest: normocephalic and head atraumatic negative for edema, peripheral pulses intact Skin: no rashes, warm and dry Neurologic: awake; not confused Speech / Cognition: normal speech Psychiatric: A+Ox3, euthymic affect Results & Data Vital Signs (Past 12 Hours) Vital Signs Temp Pulse Pulse Resp BP Pulse Ox 09/02/19 17:20 36.3 C L 83 16 161/100 H 97 09/02/19 16:55 36.3 C L 74 18 161/94 H 99 09/02/19 15:45 36.3 C L 79 18 142/93 H 98 09/02/19 14:45 36.3 C L 79 20 154/90 H 96 09/02/19 13:45 36.3 C L 74 20 152/80 H 97 09/02/19 13:15 36.5 C 70 18 153/83 H 95 09/02/19 12:45 36.4 C L 77 16 130/88 97 09/02/19 12:40 75 13 135/85 96 09/02/19 12:30 76 13 137/83 96 09/02/19 12:15 36.6 C 77 16 121/92 94 09/02/19 12:00 74 15 103/73 95 09/02/19 11:50 81 21 125/77 99 09/02/19 11:40 82 21 117/81 99 09/02/19 11:31 36.4 C L 87 19 122/70 99 09/02/19 08:25 36.6 C 84 22 106/71 97 Diagnostic Findings CXR: small b/l pleural effusions PG Care Time/CCT Total # of Minutes Spent Total Time Spent with Patient: Total time spent is greater than 50% in coor dination of care (as documented) at patient's floor/unit and/or counseling patient:
[2019-09-02] MEDS: VESICARE - ORDER AWAITING ACTION SCH ×2 (17:44→23:48)
[2019-09-02 17:47] LABS: Creatinine Clr Calc Pharmacy 42.1 ml/min; Est GFR (African American) 55.4; Est GFR (Non-African American) 47.8
--- NOTE | 2019-09-02 19:01 | Surgery Consultation ---
Date of Consultation September 02, 2019 Assessment & Plan (1) Complicated UTI (urinary tract infection): pt is a 74 year-old female who was admitted to hospital for complicated UTI, pt needs port insertion for further treatment, Plan, pt will have port insertion on 09/03/2019, NPO after MN, D/W benefits, risks and alternatives of the surgery, the risks - infection, bleeding, blood clot, injury lung, pt understood, she agrees with the surgery, I answered all questions, History of Present Illness Attending Physician: Amor Dennis, II, DO 74 y/o F who was admitted on 09/02 s/p cystoscopy with L sided stent placement with Dr. Dennis. Pt is having nausea w/o emesis post op. She states this started when her pain started after coming out of the OR. She has not had any PO yet. She has abd pain related to her recent stent. Pt states she always has SOB and it is at baseline presently. Pt denies fever, chest pain, c/d, LE pain or swelling. Pt was d/c'd on 08/15 after admission for recurrent UTI. She was d/c'd on Zerbaxa with plans for f/u with urology for stent placement due to obstructing stone. I got a call for consult for port insertion, I reviewed pt' s H/P. and all labs, Allergies Allergy/AdvReac Type Severity Reaction Status Date / Time adhesive tape Allergy Unknown Rash Verified 09/02/19 08:08 sorbitan esters Allergy Unknown PT NOT SURE Verified 09/02/19 08:08 Sulfa (Sulfonamide Allergy Unknown Rash Verified 09/02/19 08:08 Antibiotics) sulfamethoxazole Allergy Unknown Rash Verified 09/02/19 08:08 [From Bactrim] trimethoprim [From Bactrim] Allergy Unknown Rash Verified 09/02/19 08:08 albiglutide AdvReac Unknown Diarrhea Verified 09/02/19 08:08 codeine AdvReac Unknown Nausea Verified 09/02/19 08:08 metformin AdvReac Unknown Diarrhea Verified 09/02/19 08:08 morphine AdvReac Unknown Nausea Verified 09/02/19 08:08 "IF NOT PURE GOLD JEWELRY" Allergy Unknown TURNS SKIN Uncoded 09/02/19 08:08 GREEN, DENIES OTHER PROBLEMS SKIN ADORE Allergy Unknown SEE NOTES Uncoded 11/18/19 08:08 BELOW Home Medications Home Medications Medication Instructions Recorded Confirmed Type multivitamin with minerals [Daily 1 tab PO QAM #0 06/18/07 09/02/19 History Multivitamin-Minerals] polyethylene glycol 3350 [Miralax] 17 g PO QAM #255 g 03/21/17 09/02/19 History anastrozole 1 mg PO HS 90 Days #0 tab 04/17/18 09/02/19 History acetaminophen 1,300 mg PO BID #0 cap 06/01/18 09/02/19 History aspirin [Aspirin Low Dose] 81 mg PO QAM #0 06/01/18 09/02/19 History docusate sodium [Stool Softener] 200 mg PO QAM 08/07/18 09/02/19 History ascorbic acid (vitamin C) [Vitamin 500 mg PO QPM 11/14/18 09/02/19 History C] calcium carbonate [Calcium 600] 600 mg PO QAM 11/14/18 09/02/19 History cholecalciferol (vitamin D3) 400 unit PO BID 11/14/18 09/02/19 History [Vitamin D3] furosemide 20 mg PO DAILY PRN 11/14/18 09/02/19 History omega 6-jqk-haj-fish oil [Fish Oil] 1 cap PO BID 11/14/18 09/02/19 History potassium 99 mg PO QAM 11/14/18 09/02/19 History cranberry 500 mg capsule 500 mg PO QAM 04/19/19 09/02/19 History Lantus Solostar U-100 Insulin 45 units SQ QAM 04/29/19 09/02/19 History solifenacin 10 mg tablet 10 mg PO QAM 05/06/19 09/02/19 History nitrofurantoin 100 mg PO QAM #90 cap 07/16/19 09/02/19 Rx monohydrate/macrocrystals 100 mg capsule Novolog Flexpen U-100 Insulin 45 unit SUBCUT BID 07/31/19 09/02/19 History ondansetron 4 mg PO UD PRN 07/31/19 09/02/19 History bupropion HCl 75 mg tablet 150 mg PO DAILY #180 tab 08/16/19 08/20/19 Rx duloxetine 60 mg capsule,delayed 60 mg PO QAM #90 cap 08/16/19 08/20/19 Rx release propranolol 80 mg capsule,24 80 mg PO QAM #90 cap 08/16/19 08/20/19 Rx hr,extended release Myrbetriq 50 mg PO DAILY 08/17/19 08/20/19 History atorvastatin 20 mg PO DAILY 08/17/19 08/20/19 History ropinirole 0.5 mg PO HS 08/17/19 08/20/19 History donepezil 5 mg tablet 5 mg PO DAILY #30 tab 08/20/19 08/20/19 Rx fosfomycin tromethamine 3 gm PO Q3D #2 ea 09/02/19 Rx oxycodone-acetaminophen [Percocet] 1 tab PO Q8H PRN #7 tab 09/02/19 Rx Patient History Medical History (Updated 09/03/19 @ 10:02 by John Paul Mcknight MD) Anxiety Breast cancer + mets Cancer RIGHT BREAST--S/P R MASTECTOMY/CHEMO/XRT ~20yrs ago RE-OCCURRENCE WITH METS TO BONE AND VISCERA 02/2018 Chronic back pain Chronic obstructive pulmonary disease 5L O2 continuous Degenerative disc disease Dementia recent diagnosis Depression Diabetes mellitus, type 2 IDDM Diabetic neuropathy B/L feet 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 Glaucoma legally blind (right eye) History of kidney stones Hyperparathyroidism s/p partial parathyroidectomy Kidney stones Knee problem right- s/p injection 07/2019 Morbid obesity Osteoarthritis Recurrent UTI on prophylactic abx for maintenance Restless leg syndrome Sleep apnea CPAP Surgical History (Updated 09/03/19 @ 09:59 by John Paul Mcknight MD) H/O parathyroidectomy partial History of appendectomy History of carpal tunnel release RIGHT History of cataract surgery BILATERAL History of colonoscopy History of difficult intubation 06/14/17: Left TSA: Glidescope #3, ETT 7.0, Gr View 1 History of hysterectomy BSO/BLADDER TACK History of mastectomy RIGHT + LYMPH NODE DISSECTION History of nasal septoplasty History of total shoulder replacement BILATERAL Status post laser lithotripsy of ureteral calculus 09/02/19 Family History Father Cancer Grandmother Breast cancer Myocardial infarction Aunt Ovarian cancer Social History Preferred Language: Kazakh Communication Ability: Effective Visual Impairment: No Limitations Auditor/Quality Required: No Beliefs That Will Affect Care: None marital status: / Current Living Situation: Other Current Living Situation Comment: daughter's and children live with her Feels Safe at Home: Yes Smoking Status: Never smoker Second Hand Exposure: Yes ; Hx Alcohol Use: Yes Hx Substance Use: No Review of Systems Review of Systems: All systems reviewed & are unremarkable except as noted in HPI & below Physical Exam 2 Constitutional: WD/WN, vitals as above well developed and well nourished ENMT: external ear and nose normal, oropharynx normal Neck: trachea midline, no thyromegaly Respiratory: normal respiratory effort, lungs clear to auscultation Cardiovascular: Rate/Rhythm: regular rate and regular rhythm Gastrointestinal (Abdomen): normal bowel sounds, soft, nontender, no hepatosplenomegaly Musculoskeletal: no cyanosis or clubbing, extremities motor strength 5/5 Skin: no rashes, warm and dry Neurologic: patellar DTR's 2+ bilat, sensation intact Psychiatric: Orientation: alert and oriented x 3 Results & Data Vital Signs (Past 12 Hours) Vital Signs Temp Pulse Pulse Resp BP Pulse Ox 09/02/19 18:46 36.8 C 85 14 155/96 H 94 09/02/19 17:41 36.9 C 80 14 147/92 H 96 09/02/19 17:20 36.3 C L 83 16 161/100 H 97 09/02/19 16:55 36.3 C L 74 18 161/94 H 99 09/02/19 15:45 36.3 C L 79 18 142/93 H 98 09/02/19 14:45 36.3 C L 79 20 154/90 H 96 09/02/19 13:45 36.3 C L 74 20 152/80 H 97 09/02/19 13:15 36.5 C 70 18 153/83 H 95 09/02/19 12:45 36.4 C L 77 16 130/88 97 09/02/19 12:40 75 13 135/85 96 09/02/19 12:30 76 13 137/83 96 09/02/19 12:15 36.6 C 77 16 121/92 94 09/02/19 12:00 74 15 103/73 95 09/02/19 11:50 81 21 125/77 99 09/02/19 11:40 82 21 117/81 99 09/02/19 11:31 36.4 C L 87 19 122/70 99 09/02/19 08:25 36.6 C 84 22 106/71 97 Laboratory Results Abnormal lab results 09/02/19 09/02/19 Range/Units 07:57 11:40 POC Glucose 116 H 109 H (70-99)
[2019-09-02] MEDS ORDERED: INSULIN ASPART 100 UNITS/ML 3 ML PEN SQ SCH (21:00)
[2019-09-02] MEDS: ANASTROZOLE 1 MG TAB PO SCH (21:17)
[2019-09-02] MEDS: OMEGA-3 (PURIFIED FISH OIL) 1 GM CAP PO SCH (21:18)
[2019-09-02] MEDS: ACETAMINOPHEN 325 MG TAB PO SCH (21:19)
[2019-09-02] MEDS: CHOLECALCIFEROL (VITAMIN D) 400 UNITS TABLET PO SCH (21:19)
[2019-09-02] MEDS: ASCORBIC ACID 500 MG TAB PO SCH (21:20)
[2019-09-02] MEDS ORDERED: Nursing to Pharmacy Communication ONE (21:33)
[2019-09-02] MEDS: OXYCODONE/ACETAMINOPHEN 5mg/325mg TAB PO PRN (21:34)
[2019-09-02] MEDS ORDERED: INSULIN ASPART 100 UNITS/ML 3 ML PEN SQ ONE (21:45)
[2019-09-03] MEDS: OXYCODONE/ACETAMINOPHEN 5mg/325mg TAB PO PRN (01:40)
[2019-09-03] MEDS: PIPERACILLIN/TAZOBACTAM 4.5 GM in DEXTROSE 5% 100 ML IV SCH ×3 (01:41→18:31)
[2019-09-03] MEDS ORDERED: Nursing to Pharmacy Communication ONE ×2 (01:48→20:52)
[2019-09-03] MEDS: D5W AND 1/2NSS + 20MEQ KCL 20 MEQ/1,000 ML BAG IV SCH (05:43)
[2019-09-03] MEDS: VESICARE - ORDER AWAITING ACTION SCH (07:29)
[2019-09-03] MEDS ORDERED: INSULIN ASPART 100 UNITS/ML 3 ML PEN SQ SCH ×4 (07:30→17:00)
[2019-09-03] MEDS: CALCIUM CARBONATE 1250MG TAB PO SCH (08:36)
[2019-09-03] MEDS: CHOLECALCIFEROL (VITAMIN D) 400 UNITS TABLET PO SCH ×2 (08:36→20:12)
[2019-09-03] MEDS: ACETAMINOPHEN 325 MG TAB PO SCH ×2 (08:36→22:08)
[2019-09-03] MEDS: OMEGA-3 (PURIFIED FISH OIL) 1 GM CAP PO SCH ×2 (08:36→20:46)
[2019-09-03] MEDS: ASPIRIN 81 MG ECTAB PO SCH (08:36)
[2019-09-03] MEDS: CEROVITE ADV FORMULA TAB PO SCH (08:37)
[2019-09-03] MEDS: POLYETHYLENE (MIRALAX) 17 GM PACK PO SCH (08:39)
[2019-09-03] MEDS: DOCUSATE SODIUM 100 MG CAP PO SCH (08:39)
[2019-09-03] MEDS ORDERED: NON-FORMULARY MEDICATION (Potassium 99 MG) PO SCH (09:00)
[2019-09-03] MEDS ORDERED: INSULIN GLARGINE SOLOSTAR 100 UNITS/ML 3 ML PEN SQ SCH (09:00)
[2019-09-03] MEDS ORDERED: NON-FORMULARY MEDICATION (Cranberry 500 MG) PO SCH (09:00)
[2019-09-03 09:34] LABS: Mean Corpuscular Hgb Conc 33.3 g/dL (32-36); Mean Corpuscular Volume 101.9 fL (80-100); Mean Platelet Volume 9.6 fL (7.4-10.4); Platelet Count 266 K/uL (130-400); RDW Standard Deviation 48.5 fL (36.4-46.3); Red Blood Count 4.12 M/uL (4.2-5.4); White Blood Count 11.77 K/uL (4.8-10.8)
--- NOTE | 2019-09-03 09:51 | Anesthesiology Progress Note ---
Date of Service September 03, 2019 Anesthesia Post Procedure Vital Signs Vital Signs: Temp Pulse Pulse Resp BP Pulse Ox Pulse Ox 09/03/19 08:45 36.7 C 93 H 18 104/72 93 09/03/19 07:41 93 09/03/19 03:34 36.3 C L 93 H 18 103/67 93 09/02/19 23:45 93 09/02/19 23:05 36.4 C L 89 16 156/88 H 93 09/02/19 18:46 36.8 C 85 14 155/96 H 94 09/02/19 18:45 36.8 C 87 17 144/90 H 97 09/02/19 17:41 36.9 C 80 14 147/92 H 96 09/02/19 17:20 36.3 C L 83 16 161/100 H 97 09/02/19 16:55 36.3 C L 74 18 161/94 H 99 09/02/19 15:45 36.3 C L 79 18 142/93 H 98 09/02/19 14:45 36.3 C L 79 20 154/90 H 96 09/02/19 13:45 36.3 C L 74 20 152/80 H 97 09/02/19 13:15 36.5 C 70 18 153/83 H 95 09/02/19 12:45 36.4 C L 77 16 130/88 97 09/02/19 12:40 75 13 135/85 96 09/02/19 12:30 76 13 137/83 96 09/02/19 12:15 36.6 C 77 16 121/92 94 09/02/19 12:00 74 15 103/73 95 09/02/19 11:50 81 21 125/77 99 09/02/19 11:40 82 21 117/81 99 09/02/19 11:31 36.4 C L 87 19 122/70 99 Pain Intensity Left Lower Abdomen: Pain Intensity: 0 Notes Mental Status: alert / awake / arousable and participated in evaluation Nausea / Vomiting: adequately controlled Pain: adequately controlled Airway Patency, RR, SpO2: stable & adequate BP & HR: stable & adequate Hydration State: stable & adequate Anesthetic Complications: no major complications apparent
--- NOTE | 2019-09-03 09:58 | Anesthesiology Consultation ---
Date of Service September 03, 2019 Assessment & Plan (1) Status post laser lithotripsy of ureteral calculus: (2) Encounter for pre-operative examination: Chart Review Chart Review: Acceptable Risk for Surgery and Patient NOT seen in Pre Admission Testing Consults Requested none History Surgery Operation Date: 08/12/19 07:15 Proposed Procedures p Cystoscopy, Left Ureteroscopy, Laser Lithotripsy, Stent Insertion - Amor Dennis DO Operation Date: 09/02/19 09:25 Proposed Procedures p Left Cystoscopy, Ureteronephroscopy, Retrograde Pyelogram with Possible Ureteral Dilation, Laser Destruction and Extraction of Stone, Insertion/Exchange of Stent - Amor Dennis DO Operation Date: 09/03/19 10:40 Proposed Procedures p Infusaport Insertion - Leesa Tracey MD Height/Weight Height: 4 ft 9 in Weight: 94.801 kg Allergies Allergy/AdvReac Type Severity Reaction Status Date / Time adhesive tape Allergy Unknown Rash Verified 09/02/19 08:08 sorbitan esters Allergy Unknown PT NOT SURE Verified 09/02/19 08:08 Sulfa (Sulfonamide Allergy Unknown Rash Verified 09/02/19 08:08 Antibiotics) sulfamethoxazole Allergy Unknown Rash Verified 09/02/19 08:08 [From Bactrim] trimethoprim [From Bactrim] Allergy Unknown Rash Verified 09/02/19 08:08 albiglutide AdvReac Unknown Diarrhea Verified 09/02/19 08:08 codeine AdvReac Unknown Nausea Verified 09/02/19 08:08 metformin AdvReac Unknown Diarrhea Verified 09/02/19 08:08 morphine AdvReac Unknown Nausea Verified 09/02/19 08:08 "IF NOT PURE GOLD JEWELRY" Allergy Unknown TURNS SKIN Uncoded 09/02/19 08:08 GREEN, DENIES OTHER PROBLEMS SKIN ADORE Allergy Unknown SEE NOTES Uncoded 09/02/19 08:08 BELOW Medications Home Medications Medication Instructions Recorded Confirmed Last Taken multivitamin with minerals [Daily 1 tab PO QAM #0 06/18/07 09/02/19 09/01/19 12:00 Multivitamin-Minerals] polyethylene glycol 3350 [Miralax] 17 g PO QAM #255 g 03/21/17 09/02/19 09/01/19 12:00 anastrozole 1 mg PO HS 90 Days #0 tab 04/17/18 09/02/19 09/01/19 21:30 acetaminophen 1,300 mg PO BID #0 cap 06/01/18 09/02/19 09/02/19 06:30 aspirin [Aspirin Low Dose] 81 mg PO QAM #0 06/01/18 09/02/19 09/02/19 06:30 docusate sodium [Stool Softener] 200 mg PO QAM 08/07/18 09/02/19 09/01/19 12:00 ascorbic acid (vitamin C) [Vitamin 500 mg PO QPM 11/14/18 09/02/19 09/01/19 12:00 C] calcium carbonate [Calcium 600] 600 mg PO QAM 11/14/18 09/02/19 09/01/19 12:00 cholecalciferol (vitamin D3) 400 unit PO BID 11/14/18 09/02/19 09/01/19 21:30 [Vitamin D3] furosemide 20 mg PO DAILY PRN 11/14/18 09/02/19 Unknown omega 4-pwt-[id number]-fish oil [Fish Oil] 1 cap PO BID 11/14/18 09/02/19 09/01/19 12:00 potassium 99 mg PO QAM 11/14/18 09/02/19 09/01/19 12:00 cranberry 500 mg capsule 500 mg PO QAM 04/19/19 09/02/19 09/01/19 12:00 Lantus Solostar U-100 Insulin 45 units SQ QAM 04/29/19 09/02/19 09/01/19 12:00 solifenacin 10 mg tablet 10 mg PO QAM 05/06/19 09/02/19 09/01/19 12:00 nitrofurantoin 100 mg PO QAM #90 cap 07/16/19 09/02/19 09/01/19 12:00 monohydrate/macrocrystals 100 mg capsule Novolog Flexpen U-100 Insulin 45 unit SUBCUT BID 07/31/19 09/02/19 09/01/19 18:30 35 units ondansetron 4 mg PO UD PRN 07/31/19 09/02/19 Unknown bupropion HCl 75 mg tablet 150 mg PO DAILY #180 tab 08/16/19 08/20/19 09/02/19 0 6:30 duloxetine 60 mg capsule,delayed 60 mg PO QAM #90 cap 08/16/19 08/20/19 09/02/19 06:30 release propranolol 80 mg capsule,24 80 mg PO QAM #90 cap 08/16/19 08/20/19 09/02/19 06:30 hr,extended release Myrbetriq 50 mg PO DAILY 08/17/19 08/20/19 09/01/19 12:00 atorvastatin 20 mg PO DAILY 08/17/19 08/20/19 09/01/19 21:30 ropinirole 0.5 mg PO HS 08/17/19 08/20/19 08/31/19 22:00 donepezil 5 mg tablet 5 mg PO DAILY #30 tab 08/20/19 08/20/19 09/02/19 06:30 fosfomycin tromethamine 3 gm PO Q3D #2 ea 09/02/19 Unknown oxycodone-acetaminophen [Percocet] 1 tab PO Q8H PRN #7 tab 09/02/19 Unknown Active Medications Generic Name Dose Route Start Last Admin Trade Name Freq PRN Reason Stop Dose Admin Acetaminophen 1,300 mg 09/02/19 21:00 09/03/19 08:36 Tylenol PO 10/02/19 20:59 1,300 mg BID UNRULY Administration Anastrozole 1 mg 09/02/19 21:00 09/02/19 21:17 Arimidex PO 10/02/19 20:59 1 mg HS UNRULY Administration Ascorbic Acid 500 mg 09/02/19 21:00 09/02/19 21:20 Vitamin C PO 10/02/19 20:59 500 mg QPM UNRULY Administration Aspirin 81 mg 09/03/19 09:00 09/03/19 08:36 Ecotrin Ectab PO 10/03/19 08:59 81 mg QAM UNRULY Administration Calcium Carbonate 1,250 mg 09/03/19 09:00 09/03/19 08:36 Os-Vamshi 500 PO 10/03/19 08:59 1,250 mg QAM UNRULY Administration Docusate Sodium 200 mg 09/03/19 09:00 09/03/19 08:39 Colace PO 10/03/19 08:59 200 mg QAM UNRULY Administration Fish Oil 1 gm 09/02/19 21:00 09/03/19 08:36 [place]-3 (Purified Fish Oil) PO 10/02/19 20:59 1 gm BID UNRULY Administration Potassium Chloride/Dextrose/Sod Cl 20 meq in 1,000 mls @ 75 mls/hr 09/02/19 17:30 09/03/19 06:20 D5w And 1/2nss + 20meq Kcl IV 10/02/19 17:29 75 mls/hr .[id number] UNRULY Infusion Piperacillin Sod/Tazobactam 120 mls @ 30 mls/hr 09/02/19 18:00 09/03/19 09:33 Sod 4.5 gm/ Dextrose IV 09/12/19 17:59 30 mls/hr Q8H UNRULY Administration Protocol Insulin Aspart 35 units 09/03/19 09:00 09/03/19 08:40 Novolog Flexpen SQ 10/03/19 08:59 35 units QAM UNRULY Administration Insulin Glargine 40 units 09/03/19 09:00 09/03/19 08:40 Lantus Solostar Pen SQ 10/03/19 08:59 40 units QAM UNRULY Administration Miscellaneous 1 ea 09/02/19 17:00 09/03/19 07:29 Order Awaiting Action N/A 10/02/19 16:59 Not Given QS UNRULY Morphine Sulfate 2 mg 09/02/19 15:20 09/02/19 17:11 Morphine Sulfate IV 09/16/19 15:19 2 mg Q3H PRN Administration MILD Pain (Scale 1,2,3) Multivitamins/Minerals 1 tab 09/03/19 09:00 09/03/19 08:37 Multivitamin W/ Minerals Tab PO 10/03/19 08:59 1 tab QAM UNRULY Administration Ondansetron HCl 4 mg 09/02/19 16:39 09/02/19 17:34 Zofran Odt PO 10/02/19 16:38 4 mg DAILY PRN Administration Nausea Oxycodone/Acetaminophen 1 tab 09/02/19 15:20 09/03/19 01:40 Percocet 5mg/325mg PO 09/16/19 15:19 1 tab Q4H PRN Administration MODERATE Pain (Scale 4,5,6) Polyethylene Glycol 17 gm 09/03/19 09:00 09/03/19 08:39 Miralax Powder Packet PO 10/03/19 08:59 17 gm QAM UNRULY Administration Vitamin D 400 units 09/02/19 21:00 09/03/19 08:36 Vitamin D3 PO 10/02/19 20:59 400 units BID UNRULY Administration NPO Date Last Intake of Fluids: 09/02/19 Time Last Intake of Fluids: 23:59 Date Last Intake of Solids: 09/02/19 Time Last Intake of Solids: 23:59 Past Medical History Medical History (Updated 09/03/19 @ 10:02 by John Paul Mcknight MD) Anxiety Breast cancer + mets Cancer RIGHT BREAST--S/P R MASTECTOMY/CHEMO/XRT ~20yrs ago RE-OCCURRENCE WITH METS TO BONE AND VISCERA 02/2018 Chronic back pain Chronic obstructive pulmonary disease 5L O2 continuous Degenerative disc disease Dementia recent diagnosis Depression Diabetes mellitus, type 2 IDDM Diabetic neuropathy B/L feet 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 Glaucoma legally blind (right eye) History of kidney stones Hyperparathyroidism s/p partial parathyroidectomy Kidney stones Knee problem right- s/p injection 07/2019 Morbid obesity Osteoarthritis Recurrent UTI on prophylactic abx for maintenance Restless leg syndrome Sleep apnea CPAP Past Family History Family History Father Cancer Grandmother Breast cancer Myocardial infarction Aunt Ovarian cancer Past Surgical History Surgical History (Updated 09/03/19 @ 09:59 by John Paul Mcknight MD) H/O parathyroidectomy partial History of appendectomy History of carpal tunnel release RIGHT History of cataract surgery BILATERAL History of colonoscopy History of difficult intubation 06/14/17: Left TSA: Glidescope #3, ETT 7.0, Gr View 1 History of hysterectomy BSO/BLADDER TACK History of mastectomy RIGHT + LYMPH NODE DISSECTION History of nasal septoplasty History of total shoulder replacement BILATERAL Status post laser lithotripsy of ureteral calculus 09/02/19 Social History Smoking Status: Never smoker Do You Dip or Chew Tobacco: No Hx Alcohol Use: Yes alcohol intake frequency: holidays/special occasions only Hx Substance Use: No substance use type: does not use Physical Exam Vital Signs Last Vital Signs Temp 36.7 C 09/03/19 08:45 Pulse 93 H 09/03/19 08:45 Resp 18 09/03/19 08:45 BP 104/72 09/03/19 08:45 Pulse Ox 93 09/03/19 08:45 Testing Laboratory Results 09/03/19 09:22 Hemoglobin A1c 6.2 % (4.5-5.6) H 08/01/19 12:36 Urine Color Dark Yellow 08/01/19 12:36 Urine Appearance Turbid (Clear) A 08/01/19 12:36 Urine pH 6.0 (4.5-7.5) 08/01/19 12:36 Ur Specific [place] 1.019 (1.000-1.030) 08/01/19 12:36 Urine Protein 1+ (Negative) H 08/01/19 12:36 Urine Glucose (UA) Trace (Negative) H 08/01/19 12:36 Urine Ketones Trace (Negative) H 08/01/19 12:36 Urine Nitrite Negative (Negative) 08/01/19 12:36 Ur Leukocyte Esterase 3+ (Negative) H 08/01/19 12:36 Urine WBC (Auto) >30 /hpf (0-5) H 08/01/19 12:36 Urine RBC (Auto) 10-30 /hpf (0-4) H 08/01/19 12:36 U Hyaline Cast (Auto) 1-5 /lpf (0-5) 08/01/19 12:36 U Epithel Cells (Auto) >30 /lpf (0-5) H 08/01/19 12:36 Urine Bacteria (Auto) 1+ (Negative) H 08/01/19 12:36 08/01/19 12:36 Urine Culture - Final Urine,Clean Catch More than three types of organisms present, all high counts mixed probable skin katie - No further identifications or sensitivities to follow. 09/03/19 09/02/19 09/02/19 08:16 20:28 17:15 POC Glucose 233 H 262 H 212 H Electrocardiogram Date: 11/14/18 NSR at 82bpm. NS TWA. Chest X-Ray Date: 08/01/19 Stress Test Date: 03/29/17 Type: DSE Findings: + WNL (Negative for ischemia at 85% MPHR) and + achieved max HR Resting EF: 55-60 [address] LV Function: normal Resting RWMA: + none Mild concentric LVH
[2019-09-03 10:14] LABS: Calcium 10.4 mg/dl (8.5-10.1); Creatinine Clr Calc Pharmacy 37.2 ml/min; Est GFR (African American) 47.7; Est GFR (Non-African American) 41.1; Potassium 4.3 mmol/L (3.5-5.1)
--- NOTE | 2019-09-03 10:33 | Urology Progress Note ---
Date of Service September 03, 2019 Assessment & Plan (1) Status post laser lithotripsy of ureteral calculus: s/p URS/LL yesterday doing ok tolerating the stent plan for f/u as out pt Subjective feeling well now URS yesterday tolerated well, some pain last night, but substantially improved today awaiting port placement now Physical Exam Physical Exam: NAD AAOx3 AFVSS no resp distress RRR abd soft Results & Data Vital Signs (Past 12 Hours) Vital Signs Temp Pulse Resp BP Pulse Ox Pulse Ox 09/03/19 08:45 36.7 C 93 H 18 104/72 93 09/03/19 07:41 93 09/03/19 03:34 36.3 C L 93 H 18 103/67 93 09/02/19 23:45 93 09/02/19 23:05 36.4 C L 89 16 156/88 H 93 PG Care Time/CCT Total # of Minutes Spent Total Time Spent with Patient: Total time spent is greater than 50% in coordination of care (as documented) at patient's floor/unit and/or counseling patient:
[2019-09-03] MEDS ORDERED: KETAMINE HCL INJ 50 MG/ML 10 ML VIAL ONE (11:24)
[2019-09-03] MEDS ORDERED: MIDAZOLAM HCL 1 MG/ML 2ML VIAL ONE ×2 (11:24→15:27)
[2019-09-03] MEDS ORDERED: PROPOFOL IV EMULSION 10 MG/ML 20 ML VIAL IV ONE ×3 (11:24→16:54)
[2019-09-03] MEDS ORDERED: fentaNYL citrate 100 MCG/2 ML VIAL ONE ×2 (11:24→15:27)
--- NOTE | 2019-09-03 13:04 | Hospitalist Progress Note ---
Date of Service September 03, 2019 Assessment & Plan (1) Complicated UTI (urinary tract infection): - Recurrent UTI issues, on Zerbaxa as outpt for the last few weeks. - S/p cysto and left stent placement on 09/[address] Dennis. - Continue Zosyn IV as inpatient. - U/a was not collected at admission, therefore UC is not available to guide treatment. Previous UC 08/05 +resistant Pseudomonas. - Surgery consulted, plan for port placement today due to h/o difficult IV access. - Strongly consider ID consult to discuss antibiotic recs. (2) Diabetes mellitus: - On Lantus 40 units qAM and Novolog 35 units AM and 30 units PM at home. - BG has been elevated -- will consult pharmacy for glycemic management. (3) Chronic respiratory failure: - On 5L via NC at home in setting of COPD. - Currently on 3-5L via NC. (4) Obstructive sleep apnea: - Continue CPAP qhs. (5) Depression: - Continue Welbutrin 150 mg daily (pt. possibly increased dose to 300 mg daily per most recent PCP note but has been receiving script for 150 mg daily per mail pharmacy records) and Cymbalta 60 mg daily as prescribed. - She has not filled Buspar in >6 months. (6) Hypertension: - Continue Propanolol 80 mg daily as prescribed. - Does take Lasix prn at home -- will hold for now, pt. appears euvolemic. (7) Hyperlipidemia: - Continue ASA 81 mg daily as prescribed. - Hold statin -- she has not filled statin script since Sep 2018 per pharmacy re cords (confirmed with both pharmacies listed) (8) History of breast cancer: - Continue Arimidex as prescribed. (9) Overactive bladder: - Holding home Myrbetriq. (10) Dementia: - Recently started Aricept 5 mg PO daily. - No acute delirium noted during this admission. (11) COPD (chronic obstructive pulmonary disease): - Continue home Spiriva, Combivent. - No acute exacerbation noted; currently on baseline O2 requirements. (12) Morbid obesity with BMI of 45.0-49.9, adult: - BMI 45.2; encourage weight loss and exercise. (13) DVT prophylaxis: - Per urology. Dispo: Will continue to follow, please call with questions. Subjective Pt. is doing well overall. She had pain in lower abd & nausea last evening -- possibly related to gas/constipation. Denies urinary retention; has hematuria post op. Is passing gas, no BM yet over last 24 hours. Plan for port placement today. Review of Systems Review of Systems: All systems reviewed & are unremarkable except as noted in HPI & below Constitutional: no fever, no chills, no fatigue and no weakness Respiratory: no cough, no dyspnea, no dyspnea on exertion and no wheezing Cardiovascular: no chest pain, no palpitations and no edema Gastrointestinal: + abdominal pain, + nausea and + constipation; no vomiting and no diarrhea/loose stools Genitourinary: + hematuria; no difficulty urinating Musculoskeletal: no back pain and no joint pain Integumentary: no changing lesions Physical Exam Physical Exam: General: Resting comfortably HEENT: NC/AT; PERRLA with EOMI; [place] conjunctiva, MMM. No erythema of posterior pharynx Neck: Supple and nontender Cardiac: RRR Lungs: CTA bilaterally Abdomen: Bowel normoactive X 4; Nontender to palpation Extremities: Warm. No edema present Neuro: No focal weakness Skin: No rash Results & Data Vital Signs (Past 12 Hours) Vital Signs Temp Pulse Resp BP Pulse Ox Pulse Ox 09/03/19 10:44 37 C 94 H 16 109/78 94 09/03/19 08:45 36.7 C 93 H 18 104/72 93 09/03/19 07:41 93 09/03/19 03:34 36.3 C L 93 H 18 103/67 93 Laboratory Results 09/03/19 09/03/19 09/03/19 Range/Units 12:13 09:22 09:22 WBC 11.77 H (4.8-10.8) K/uL RBC 4.12 L (4.2-5.4) M/uL Hgb 14.0 (12.0-16.0) g/dL Hct 42.0 (37-47) % MCV 101.9 H (80-100) fL MCH 34.0 (25-34) pg MCHC 33.3 (32-36) g/dL RDW Std Deviation 48.5 H (36.4-46.3) fL RDW Coeff of Angélica 13.0 (11.5-14.5) % Plt Count 266 (130-400) K/uL MPV 9.6 (7.4-10.4) fL Sodium 135 L (136-145) mmol/L Potassium 4.3 (3.5-5.1) mmol/L Chloride 99 (98-107) mmol/L Carbon Dioxide 33 H (21-32) mmol/L Anion Gap 3.0 (3-11) BUN 18 (7-18) mg/dl Creatinine 1.28 H (0.6-1.2) mg/dl Est Cr Clr Drug Dosing 37.2 ml/min Est GFR ( Amer) 47.7 Est GFR (Non-Af Amer) 41.1 BUN/Creatinine Ratio 14.0 (10-20) Glucose 224 H (70-99) mg/dl POC Glucose 144 H (70-99) Calcium 10.4 H (8.5-10.1) mg/dl 09/03/19 09/02/19 09/02/19 Range/Units 08:16 20:28 17:15 WBC (4.8-10.8) K/uL RBC (4.2-5.4) M/uL Hgb (12.0-16.0) g/dL Hct (37-47) % MCV (80-100) fL MCH (25-34) pg MCHC (32-36) g/dL RDW Std Deviation (36.4-46.3) fL RDW Coeff of Angélica (11.5-14.5) % Plt Count (130-400) K/uL MPV (7.4-10.4) fL Sodium (136-145) mmol/L Potassium (3.5-5.1) mmol/L Chloride (98-107) mmol/L Carbon Dioxide (21-32) mmol/L Anion Gap (3-11) BUN (7-18) mg/dl Creatinine (0.6-1.2) mg/dl Est Cr Clr Drug Dosing ml/min Est GFR ( Amer) Est GFR (Non-Af Amer) BUN/Creatinine Ratio (10-20) Glucose (70-99) mg/dl POC Glucose 233 H 262 H 212 H (70-99) Calcium (8.5-10.1) mg/dl 09/02/19 Range/Units 17:08 WBC (4.8-10.8) K/uL RBC (4.2-5.4) M/uL Hgb (12.0-16.0) g/dL Hct (37-47) % MCV (80-100) fL MCH (25-34) pg MCHC (32-36) g/dL RDW Std Deviation (36.4-46.3) fL RDW Coeff of Angélica (11.5-14.5) % Plt Count (130-400) K/uL MPV (7.4-10.4) fL Sodium (136-145) mmol/L Potassium (3.5-5.1) mmol/L Chloride (98-107) mmol/L Carbon Dioxide (21-32) mmol/L Anion Gap (3-11) BUN (7-18) mg/dl Creatinine 1.13 (0.6-1.2) mg/dl Est Cr Clr Drug Dosing 42.1 ml/min Est GFR ( Amer) 55.4 Est GFR (Non-Af Amer) 47.8 BUN/Creatinine Ratio (10-20) Glucose (70-99) mg/dl POC Glucose (70-99) Calcium (8.5-10.1) mg/dl PG Care Time/CCT Total # of Minutes Spent Total Time Spent with Patient: Total time spent is greater than 50% in coordination of care (as documented) at patient's floor/unit and/or counseling patient: (1) COPD (chronic obstructive pulmonary disease) COPD type: unspecified COPD Qualified Code(s): J44.9 - Chronic obstructive pulmonary disease, unspecified
[2019-09-03] MEDS ORDERED: PHARMACY GLYCEMIC MGMT CONSULT PRN (13:37)
--- NOTE | 2019-09-03 14:53 | Pharmacy Report ---
Glycemic Control Consultation - Date of Service September 03, 2019 - Scope Scope: Glycemic Pharmacist consulted by Anna Dowd PA-C on 09/03/19 for glycemic control and to write orders per [facility] inpatient glycemic control protocol - Objective Weight: 94.801 kg Accuchecks BSG (last 24hrs): 09/02/19 09/02/19 09/03/19 17:15 20:28 08:16 Glucose POC Glucose 212 H 262 H 233 H 09/03/19 09/03/19 09:22 12:13 Glucose 224 H POC Glucose 144 H Laboratory Data (last 24hrs): 09/02/19 09/03/19 17:08 09:22 Potassium 4.3 Carbon Dioxide 33 H Anion Gap 3.0 Creatinine 1.13 1.28 H Est Cr Clr Drug Dosing 42.1 37.2 HbA1c: Hemoglobin A1c 6.2 % (4.5-5.6) H 08/01/19 12:36 - Recent Pertinent Medications Outpatient Anti-diabetic Regimen: * Regimen provided verbally from patient * Lantus 40 units qAM * Novolog 35 units with breakfast (typically around 11 AM or noon) * Novolog 30 units with dinner * A1c = 6.2 % (08/01/19) The patient is currently receiving: * Basal insulin: Lantus 40 units qAM * Bolus insulin: Novolog 35 units qAM + 30 units with dinner Risk Factors for Insulin Resistance: * Infection: Zosyn 4.5 g IV q8h for treatment of complicated UTI * IVF: D5-1/2 NS @75 mL/hr currently * Recent Surgery: POD #1 s/p cystoscopy/laser lithotripsy of ureteral calculus, POD#0 infusaport insertion * Diet: NPO -> to be ordered a diet following port placement - Assessment & Plan Assessment & Plan: ASSESSMENT: * KW is a 74 year old female POD #1 s/p cystoscopy/laser lithotripsy and POD #0 infusaport insertion * Patient currently receiving Zosyn for treatment of complicated UTI (previous urine culture growing MDR Pseudomonas aeruginosa) * PMH includes type 2 diabetes, hypertension, hyperlipidemia, hx of breast cancer, obstructive sleep apnea, hx of recurrent UTI * Patient's BSGs ranging 109-262 mg/dL yesterday * Fasting BSG this morning of 233 mg/dL (not unexpected given lack of basal on day previous) * Currently has D5-1/2 NS infusing at 75 mL/hr * 35 units of Novolog and 40 units of Lantus given this morning per outpatient regimen * Pharmacy consulted on afternoon of 09/03/19 PLAN FOR INPATIENT GLYCEMIC CONTROL: * Basal insulin * Lantus 40 units given this morning * Will reassess basal needs in AM * Bolus insulin * NovoLog per scale ACHS or Q6hrs while NPO * Goal Range: Low 110 mg/dL - High 150 mg/dL * Correction Factor: 15 mg/dL/unit * Nutritional / Prandial insulin per carb ratio of 1 unit per 6 grams CHO consumed * Please note that the plan above was derived based on current level of insulin resistance and hospital stress. These recommendations are appropriate for inpatient admission only. Plan of care upon discharge will need to be reassessed to avoid potential outpatient hypo/hyperglycemia. Thank you.
[2019-09-03] MEDS ORDERED: LIDOCAINE HCL 2% 2 ML VIAL/AMP(20MG/ML) INFIL ONE (15:27)
[2019-09-03] MEDS ORDERED: PHENYLEPHRINE 100MCG/ML 5ML SYR ONE (15:27)
[2019-09-03] MEDS ORDERED: ePHEDrine sulfate 50 MG/ML SYR ONE (15:27)
--- NOTE | 2019-09-03 15:49 | History & Physical Bridge Note ---
Date of Service September 03, 2019 History & Physical Bridge Note I have examined the patient, reviewed the History & Physical and in the interval since the performance of the History & Physical I have noted the following changes of clinical significance: no changes noted
[2019-09-03] MEDS ORDERED: ONDANSETRON INJ 2 MG/ML 2 ML VIAL IV PRN (15:53)
[2019-09-03] MEDS ORDERED: ePHEDrine sulfate 50 MG/ML AMP IV PRN (15:53)
[2019-09-03] MEDS ORDERED: fentaNYL citrate 100 MCG/2 ML VIAL IV PRN (15:53)
[2019-09-03] MEDS ORDERED: ATROPINE SULFATE 0.1 MG/ML 10ML SYR IV PRN (15:53)
[2019-09-03] MEDS ORDERED: BACITRACIN OINT 15 GM TUBE ONE (16:05)
[2019-09-03] MEDS ORDERED: BUPIVACAINE 0.5 % 5 MG/1 ML MPF 30ML VIAL ONE (16:05)
[2019-09-03] MEDS ORDERED: HEPARIN 100 UNIT/ML 5ML FLUSH ONE (16:05)
[2019-09-03] MEDS ORDERED: LIDOCAINE HCL 1% 20 ML VIAL ONE (16:06)
[2019-09-03] MEDS ORDERED: PHENYLEPHRINE HCL 10 MG/ML VIAL ONE (16:54)
--- NOTE | 2019-09-03 17:14 | Post Operative Brief Note ---
Immediate Post Op Note v1 Date of Surgery September 03, 2019 Pre & Post Diagnosis Operation Date: 08/12/19 07:15 <No data on this case meets the specified criteria> Operation Date: 09/02/19 09:25 Pre-Op Diagnosis: Left Renal Stone Post-Op Diagnosis: Left Renal Stone Operation Date: 09/03/19 10:40 Pre-Op Diagnosis: Complicated UTI (urinary tract infection) Post-Op Diagnosis: Complicated UTI (urinary tract infection) I identified the patient and participated in the time-out.: Yes Procedure Operation Date: 08/12/19 07:15 <No data on this case meets the specified criteria> Operation Date: 09/02/19 09:25 Actual Procedures p Left Cystoscopy, Ureteronephroscopy, Retrograde Pyelogram with Ureteral Dilation, Laser Destruction and Stone Basket Extraction of Stone(Left) - Amor Dennis DO s Insertion of Stent(Left) - Amor Dennis DO Operation Date: 09/03/19 10:40 Actual Procedures p Infusaport Insertion(internal jugular vein, Left) - Leesa Tracey MD Surgeon 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
--- NOTE | 2019-09-03 17:29 | XRay Report ---
XR chest 1V portable CLINICAL HISTORY: 74 years-old Female presenting with S/P port insertion. TECHNIQUE: Portable upright AP view of the chest was obtained. COMPARISON: 08/01/2019. FINDINGS: Left internal jugular Mediport terminates at the upper SVC. This is new from prior. Atherosclerosis o f the aortic arch. Cardiac silhouette moderately enlarged. Vascular prominence has increased from russ or. Mild interstitial prominence. Elevation of the right hemidiaphragm with eventration similar to pr ior. Resulting right basilar opacity. There is slightly added density at the lung bases in addition t o this finding. Trace bilateral pleural effusions may be present. No large pneumothorax. Bilateral sh oulder arthroplasties. Surgical clips in the right axilla. Mild degenerative changes of the spine. Ch ronic widening of the left AC joint. Upper abdomen normal. IMPRESSION: 1. Left IJ Mediport appropriately positioned. No pneumothorax. 2. Cardiomegaly with increased volume overload and congestive change. No keith pulmonary edema. 3. Suspected bilateral trace pleural effusions and bibasilar atelectasis. Electronically signed by: Carlos Manuel Dominguez M.D. 09/03/2019 5:28 PM
[2019-09-03] MEDS ORDERED: DEXTROSE 50% 50 ML SYRINGE IV ONE (17:39)
--- NOTE | 2019-09-03 17:58 | Anesthesiology Progress Note ---
Date of Service September 03, 2019 Anesthesia Post Procedure Vital Signs Vital Signs: Temp Pulse Pulse Resp BP Pulse Ox Pulse Ox 09/03/19 17:50 36.6 C 89 17 131/80 99 09/03/19 17:40 36.6 C 92 H 17 137/96 96 09/03/19 17:30 37.2 C 88 27 H 133/63 97 09/03/19 17:21 37.2 C 88 18 155/83 H 99 09/03/19 15:48 37 C 83 16 120/85 98 09/03/19 10:44 37 C 94 H 16 109/78 94 09/03/19 08:45 36.7 C 93 H 18 104/72 93 09/03/19 07:41 93 09/03/19 03:34 36.3 C L 93 H 18 103/67 93 09/02/19 23:45 93 09/02/19 23:05 36.4 C L 89 16 156/88 H 93 09/02/19 18:46 36.8 C 85 14 155/96 H 94 09/02/19 18:45 36.8 C 87 17 144/90 H 97 Pain Intensity Left Lower Abdomen: Pain Intensity: 0 Transfer of Care Handoff Completed per policy Notes Mental Status: alert / awake / arousable and participated in evaluation Patient Amnestic to Procedure: Yes Nausea / Vomiting: adequately controlled Pain: adequately controlled Airway Patency, RR, SpO2: stable & adequate BP & HR: stable & adequate Hydration State: stable & adequate Anesthetic Complications: no major complications apparent and Pt Satisfied with anesthetic care
[2019-09-03] MEDS: buPROPion HCl 75 MG TABLET PO SCH (18:31)
[2019-09-03] MEDS: IPRATROPIUM BROMIDE/ALBUTEROL respimat INH INH SCH ×2 (18:32→20:44)
[2019-09-03] MEDS: INSULIN ASPART 100 UNITS/ML 3 ML PEN SC SCH ×2 (20:10→21:18)
[2019-09-03] MEDS: ANASTROZOLE 1 MG TAB PO SCH (20:47)
[2019-09-03] MEDS: ASCORBIC ACID 500 MG TAB PO SCH (20:47)
[2019-09-03] MEDS ORDERED: ROPINIROLE HCL 0.25 MG TABLET PO SCH (21:00)
[2019-09-04] MEDS ORDERED: INSULIN ASPART 100 UNITS/ML 3 ML PEN SC SCH (02:00)
--- NOTE | 2019-09-04 02:13 | Operative Report ---
DATE OF OPERATION: 09/03/2019 PREOPERATIVE DIAGNOSIS: Kidney stone. POSTOPERATIVE DIAGNOSIS: Kidney stone. PROCEDURE: Pmen-I-Rrkvgbtu insertion, tunneled left internal jugular vein. SURGEON: Leesa Tracey MD ANESTHESIA: Conscious sedation with local. ESTIMATED BLOOD LOSS: About 5 mL FINDINGS: Patent, on the left internal jugular vein. COMPLICATIONS: None. INDICATIONS FOR THE PROCEDURE: This is a 74-year-old female who is referred for Dglb-M-Rrpzmcqi insertion. I did talk to the patient about the benefit, the risk, alternate procedure. I indicated the risks may include but not limited such as bleeding, infection, injury to the lung, blood clot. The patient understands. She signed informed consent and I answered all questions. DETAILS OF PROCEDURE: We brought the patient to the OR, put the patient in the supine position. The patient received SCD on bilateral legs to prevent DVT and also the patient received Zosyn IV antibiotic orally before coming to the OR and the patient received conscious sedation by the anesthesiology. The patient's left side upper chest and left side of the neck was appropriately draped in routine sterile fashion. After time out, I injected the local anesthesia on the left side neck and left side upper chest with 1% lidocaine mixed with 0.5% Marcaine. Then under ultrasound guide, we used a 16-gauge needle, punctured the left internal jugular vein, easy blood return, passed the wire and removed the needle and then used the fluorescence to confirm the wire, located the left internal jugular vein and reached the superior vena cava. Then, we made about a 2.5 cm incision on the left side upper chest to create a pouch. Hemostasis was obtained. Then, we passed the catheter through the left side upper chest to the left side neck. Then, we sized the catheter, connected to the port and then we used dilatation with sheath, passed the wire, removed the wire, removed the dilatation, and leave the sheath in. Again, we used fluorescence to confirm the sheath, located the internal jugular vein and then we passed the catheter through the sheath, removed the sheath. We used the fluorescence to confirm the tip of the catheter located junction between right atrium and superior vena cava. Then, we used 2-0 Prolene to fix the port at 3 points on the chest wall. Then, I used 2-0 Vicryl to close subcutaneous layer continuous running, closed skin by using 4-0 Vicryl continuous running. Then, we used the normal saline with heparin injection in the port, easy blood return and injected 10 mL heparin with saline. Then, we put the dressing on. The patient tolerated the procedure well. All instrument, needle and sponge count were correct x2 at the end of the case. The patient transferred to the recovery room in stable condition. I attest to the content of the Intraoperative Record and any orders documented therein. Any exception s are noted below.
[2019-09-04] MEDS: PIPERACILLIN/TAZOBACTAM 4.5 GM in DEXTROSE 5% 100 ML IV SCH ×2 (02:25→10:22)
[2019-09-04 05:29] LABS: Hematocrit (blood only) 38.8 % (37-47); Mean Corpuscular Hemoglobin 34.1 pg (25-34); Mean Corpuscular Hgb Conc 33.5 g/dL (32-36); Mean Corpuscular Volume 101.8 fL (80-100); Mean Platelet Volume 9.1 fL (7.4-10.4); Platelet Count 241 K/uL (130-400); RDW Coefficient of Variation 13.1 % (11.5-14.5); RDW Standard Deviation 49.1 fL (36.4-46.3); Red Blood Count 3.81 M/uL (4.2-5.4); White Blood Count 10.03 K/uL (4.8-10.8)
[2019-09-04 05:53] LABS: BUN Creatinine Ratio 15.1 (10-20); Calcium 9.9 mg/dl (8.5-10.1); Creatinine Clr Calc Pharmacy 45.8 ml/min; Est GFR (African American) 61.3; Est GFR (Non-African American) 52.9; Potassium 4.1 mmol/L (3.5-5.1)
[2019-09-04] MEDS: ASPIRIN 81 MG ECTAB PO SCH (08:48)
[2019-09-04] MEDS: buPROPion HCl 75 MG TABLET PO SCH (08:48)
[2019-09-04] MEDS: ACETAMINOPHEN 325 MG TAB PO SCH (08:48)
[2019-09-04] MEDS: CEROVITE ADV FORMULA TAB PO SCH (08:49)
[2019-09-04] MEDS: CALCIUM CARBONATE 1250MG TAB PO SCH (08:49)
[2019-09-04] MEDS: DOCUSATE SODIUM 100 MG CAP PO SCH (08:50)
[2019-09-04] MEDS: IPRATROPIUM BROMIDE/ALBUTEROL respimat INH INH SCH ×2 (08:52→12:55)
[2019-09-04] MEDS: OMEGA-3 (PURIFIED FISH OIL) 1 GM CAP PO SCH (08:52)
[2019-09-04] MEDS: POLYETHYLENE (MIRALAX) 17 GM PACK PO SCH (08:52)
[2019-09-04] MEDS: CHOLECALCIFEROL (VITAMIN D) 400 UNITS TABLET PO SCH (08:52)
[2019-09-04] MEDS: INSULIN ASPART 100 UNITS/ML 3 ML PEN SC SCH ×2 (08:54→12:54)
[2019-09-04] MEDS ORDERED: PROPRANOLOL HCL LA 80 MG CAPCR PO SCH (09:00)
[2019-09-04] MEDS ORDERED: PROPRANOLOL HCL 80 MG TAB PO SCH (09:00)
[2019-09-04] MEDS ORDERED: INSULIN GLARGINE SOLOSTAR 100 UNITS/ML 3 ML PEN SQ SCH (09:00)
[2019-09-04] MEDS ORDERED: MACROBID 100MG HOME PACK 1 EA VIAL PO SCH (09:00)
[2019-09-04] MEDS ORDERED: ATORVASTATIN 20 MG TAB PO SCH (09:00)
[2019-09-04] MEDS ORDERED: DULOXETINE HCL 60 MG CAP PO SCH ×2 (09:00)
[2019-09-04] MEDS ORDERED: DONEPEZIL HCL 5 MG TAB PO SCH ×2 (09:00)
[2019-09-04] MEDS ORDERED: BuPROPion XL 300 MG TABCR PO SCH (09:00)
[2019-09-04] MEDS ORDERED: TIOTROPIUM BROMIDE 5 PUFF/90 MCG INH INH SCH (09:00)
[2019-09-04] MEDS ORDERED: NON-FORMULARY MEDICATION (Mirabegron [Myrbetriq] 50 MG) PO SCH (09:00)
[2019-09-04] MEDS ORDERED: buPROPion HCl 75 MG TABLET PO SCH (09:00)
--- NOTE | 2019-09-04 13:17 | Surgery Progress Note ---
Date of Service PATIENT SEEN AT 8:30 AM September 04, 2019 Assessment & Plan (1) Complicated UTI (urinary tract infection): POD # 1 s/p placement of left IJ aport - port with dry dressing no surrounding erythema - okay for port to be accessed when needed - Keep dressing on for 3 days and then remove. May remove sooner if access is warranted. - our services signing off, call with questions or concerns Discussed with Dr. Tracey who agrees with above Subjective patient sleeping upon entering room denies of any pain at port site. Physical Exam Constitutional: WD/WN, vitals as above no acute distress Skin: no rashes, warm and dry Port site of Left IJ coverd with dry dressing, no spotting, no surrounding erythema nontender to palpation Results & Data Vital Signs (Past 12 Hours) Vital Signs Temp Pulse Pulse Pulse Resp BP Pulse Ox 09/04/19 11:22 36.8 C 96 H 14 100/69 96 09/04/19 08:08 36.9 C 95 H 14 111/76 95 09/04/19 07:40 09/04/19 03:56 36.6 C 103 H 18 110/78 94 09/04/19 03:05 97 H 16 96 Pulse Ox 09/04/19 11:22 09/04/19 08:08 09/04/19 07:40 97 09/04/19 03:56 09/04/19 03:05
[2019-09-04 15:55] VITALS: BP 105/68; PULSE 81; TEMP 97.9; O2SAT 97
--- NOTE | 2019-09-04 16:24 | Urology Progress Note ---
Date of Service September 04, 2019 Assessment & Plan (1) Status post laser lithotripsy of ureteral calculus: Postop day 2 status post ureteroscopy. Tolerated well. Had infusion port placed yesterday by general surgery. Has been monitored by the medical team. Overall has been improving. Patient states she is ready to go home. Has plans in place for care moving forward. Subjective Patient doing well no major changes or issues. Tolerated port placement without major issue. Has been ambulating. Requires oxygen but has baseline issues with lung disease. Tolerating stent without major issue. No major bleeding. Has been urinating well per Review of Systems Review of Systems: All systems reviewed & are unremarkable except as noted in HPI & below Physical Exam Constitutional: WD/WN, vitals as above well developed, well nourished and + morbidly obese; no acute distress Eyes: normal visual hayden by confrontation and + anicteric sclerae Neck: trachea midline, no thyromegaly normal visual inspection and trachea midline; neck extension not limited Gastrointestinal (Abdomen): normal bowel sounds, soft, nontender, no hepatosplenomegaly Inspection/Auscultation: + abdomen distended Percussion/Palpation: + abdomen tender (diffuse) and abdomen soft Musculoskeletal: no cyanosis or clubbing, extremities motor strength 5/5 Head/Neck/Chest: normocephalic and head atraumatic Skin: no rashes, warm and dry Neurologic: patellar DTR's 2+ bilat, sensation intact moves all extremities and awake; not confused Speech / Cognition: normal speech Psychiatric: A+Ox3, euthymic affect Orientation: alert and oriented x 3 Results & Data Vital Signs (Past 12 Hours) Vital Signs Temp Pulse Pulse Resp BP Pulse Ox Pulse Ox 09/04/19 15:52 36.6 C 81 18 105/68 97 09/04/19 11:22 36.8 C 96 H 14 100/69 96 09/04/19 08:08 36.9 C 95 H 14 111/76 95 09/04/19 07:40 97 PG Care Time/CCT Total # of Minutes Spent Total Time Spent with Patient: Total time spent is greater than 50% in coordination of care (as documented) at patient's floor/unit and/or counseling patient:
--- NOTE | 2019-09-04 16:24 | Hospitalist Progress Note ---
Date of Service September 04, 2019 Assessment & Plan (1) Complicated UTI (urinary tract infection): - Recurrent UTI issues, on Zerbaxa as outpt for the last few weeks. - S/p cysto and left stent placement on 09/[address] Dennis. - Continue Zosyn IV as inpatient; will not require IV abx at home. - U/a was not collected at admission, therefore UC is not available to guide treatment. Previous UC 08/05 +resistant Pseudomonas. - Surgery consulted, s/p port placement on 09/03 due to h/o difficult IV access. (2) Diabetes mellitus: - On Lantus 40 units qAM and Novolog 35 units AM and 30 units PM at home. - BG has been elevated -- consulted pharmacy for glycemic management. (3) Chronic respiratory failure: - On 5L via NC at home in setting of COPD. - Currently on home requirements. (4) Obstructive sleep apnea: - Continue CPAP qhs. (5) Depression: - Continue Welbutrin 150 mg daily (possibly increased dose to 300 mg daily & changed to XR version per most recent PCP note) - her daughter will verify dose of Welbutrin at home to confirm this is the correct med and dose. - Continue Cymbalta 60 mg daily as prescribed. - Is not currently on Buspar. (6) Hypertension: - Continue Propanolol 80 mg daily as prescribed. - Does take Lasix prn at home -- will hold for now. (7) Hyperlipidemia: - Continue ASA 81 mg daily as prescribed. - Hold statin -- she has not filled statin script since Sep 2018 per pharmacy records (confirmed with both pharmacies listed) - her daughter will verify if pt. is on statin at home. (8) History of breast cancer: - Continue Arimidex as prescribed. (9) Overactive bladder: - Holding home Myrbetriq. (10) Dementia: - Recently started Aricept 5 mg PO daily. - No acute delirium noted. (11) COPD (chronic obstructive pulmonary disease): - Continue home Spiriva. - No acute exacerbation noted; currently on baseline O2 requirements. (12) Morbid obesity with BMI of 45.0-49.9, adult: - BMI 45.2; encourage weight loss and exercise. (13) DVT prophylaxis: - Per urology. Dispo: Pt. is medically stable for discharge, will sign off. Subjective Pt. is doing well overall. Hematuria improving, denies urinary retention. Discussed medication list with daughter, made necessary adjustments in the computer. Review of Systems Review of Systems: All systems reviewed & are unremarkable except as noted in HPI & below Constitutional: no fever, no chills, no fatigue and no weakness Respiratory: no cough, no dyspnea, no dyspnea on exertion and no wheezing Cardiovascular: no chest pain, no palpitations and no edema Gastrointestinal: no abdominal pain, no nausea, no vomiting and no constipation Genitourinary: + hematuria; no difficulty urinating Musculoskeletal: no back pain and no joint pain Integumentary: no non-healing lesions Physical Exam Physical Exam: General: Resting comfortably HEENT: NC/AT; PERRLA with EOMI; [place] conjunctiva, MMM. No erythema of posterior pharynx Neck: Supple and nontender Cardiac: RRR Lungs: CTA bilaterally Abdomen: Bowel normoactive X 4; Nontender to palpation Extremities: Warm. No edema present Neuro: No focal weakness Skin: No rash Results & Data Vital Signs (Past 12 Hours) Vital Signs Temp Pulse Pulse Resp BP Pulse Ox Pulse Ox 09/04/19 15:52 36.6 C 81 18 105/68 97 09/04/19 11:22 36.8 C 96 H 14 100/69 96 09/04/19 08:08 36.9 C 95 H 14 111/76 95 09/04/19 07:40 97 Laboratory Results 09/04/19 09/04/19 09/04/19 Range/Units 12:00 08:28 05:17 WBC (4.8-10.8) K/uL RBC (4.2-5.4) M/uL Hgb (12.0-16.0) g/dL Hct (37-47) % MCV (80-100) fL MCH (25-34) pg MCHC (32-36) g/dL RDW Std Deviation (36.4-46.3) fL RDW Coeff of Angélica (11.5-14.5) % Plt Count (130-400) K/uL MPV (7.4-10.4) fL Sodium 138 (136-145) mmol/L Potassium 4.1 (3.5-5.1) mmol/L Chloride 104 (98-107) mmol/L Carbon Dioxide 30 (21-32) mmol/L Anion Gap 4.0 (3-11) BUN 16 (7-18) mg/dl Creatinine 1.04 (0.6-1.2) mg/dl Est Cr Clr Drug Dosing 45.8 ml/min Est GFR ( Amer) 61.3 Est GFR (Non-Af Amer) 52.9 BUN/Creatinine Ratio 15.1 (10-20) Glucose 163 H (70-99) mg/dl POC Glucose 220 H 168 H (70-99) Calcium 9.9 (8.5-10.1) mg/dl 09/04/19 09/04/19 09/03/19 Range/Units 05:17 02:21 20:41 WBC 10.03 (4.8-10.8) K/uL RBC 3.81 L (4.2-5.4) M/uL Hgb 13.0 (12.0-16.0) g/dL Hct 38.8 (37-47) % MCV 101.8 H (80-100) fL MCH 34.1 H (25-34) pg MCHC 33.5 (32-36) g/dL RDW Std Deviation 49.1 H (36.4-46.3) fL RDW Coeff of Angélica 13.1 (11.5-14.5) % Plt Count 241 (130-400) K/uL MPV 9.1 (7.4-10.4) fL Sodium (136-145) mmol/L Potassium (3.5-5.1) mmol/L Chloride (98-107) mmol/L Carbon Dioxide (21-32) mmol/L Anion Gap (3-11) BUN (7-18) mg/dl Creatinine (0.6-1.2) mg/dl Est Cr Clr Drug Dosing ml/min Est GFR ( Amer) Est GFR (Non-Af Amer) BUN/Creatinine Ratio (10-20) Glucose (70-99) mg/dl POC Glucose 95 164 H (70-99) Calcium (8.5-10.1) mg/dl 09/03/19 09/03/19 09/03/19 Range/Units 18:18 17:56 17:26 WBC (4.8-10.8) K/uL RBC (4.2-5.4) M/uL Hgb (12.0-16.0) g/dL Hct (37-47) % MCV (80-100) fL MCH (25-34) pg MCHC (32-36) g/dL RDW Std Deviation (36.4-46.3) fL RDW Coeff of Angélica (11.5-14.5) % Plt Count (130-400) K/uL MPV (7.4-10.4) fL Sodium (136-145) mmol/L Potassium (3.5-5.1) mmol/L Chloride (98-107) mmol/L Carbon Dioxide (21-32) mmol/L Anion Gap (3-11) BUN (7-18) mg/dl Creatinine (0.6-1.2) mg/dl Est Cr Clr Drug Dosing ml/min Est GFR ( Amer) Est GFR (Non-Af Amer) BUN/Creatinine Ratio (10-20) Glucose (70-99) mg/dl POC Glucose 85 80 59 L* (70-99) Calcium (8.5-10.1) mg/dl 09/03/19 Range/Units 17:24 WBC (4.8-10.8) K/uL RBC (4.2-5.4) M/uL Hgb (12.0-16.0) g/dL Hct (37-47) % MCV (80-100) fL MCH (25-34) pg MCHC (32-36) g/dL RDW Std Deviation (36.4-46.3) fL RDW Coeff of Angélica (11.5-14.5) % Plt Count (130-400) K/uL MPV (7.4-10.4) fL Sodium (136-145) mmol/L Potassium (3.5-5.1) mmol/L Chloride (98-107) mmol/L Carbon Dioxide (21-32) mmol/L Anion Gap (3-11) BUN (7-18) mg/dl Creatinine (0.6-1.2) mg/dl Est Cr Clr Drug Dosing ml/min Est GFR ( Amer) Est GFR (Non-Af Amer) BUN/Creatinine Ratio (10-20) Glucose (70-99) mg/dl POC Glucose 50 L* (70-99) Calcium (8.5-10.1) mg/dl PG Care Time/CCT Total # of Minutes Spent Total Time Spent with Patient: Total time spent is greater than 50% in coordination of care (as documented) at patient's floor/unit and/or counseling patient: (1) COPD (chronic obstructive pulmonary disease) COPD type: unspecified COPD Qualified Code(s): J44.9 - Chronic obstructive pulmonary disease, unspecified
--- NOTE | 2019-09-04 16:26 | Discharge Summary ---
Date of Service September 04, 2019 Admission HPI Per Admitting Provider See H&P Admission Exam Per Admitting Provider See H&P Principal Diagnosis Kidney stone Discharge Exam Constitutional WD/WN, vitals as above well developed, well nourished and + morbidly obese; no acute distress Eyes normal visual hayden by confrontation and + anicteric sclerae Neck trachea midline, no thyromegaly normal visual inspection and trachea midline; neck extension not limited Gastrointestinal (Abdomen) normal bowel sounds, soft, nontender, no hepatosplenomegaly Inspection/Auscultation: + abdomen distended Percussion/Palpation: + abdomen tender (diffuse) and abdomen soft Musculoskeletal no cyanosis or clubbing, extremities motor strength 5/5 Head/Neck/Chest: normocephalic and head atraumatic Skin no rashes, warm and dry Neurologic patellar DTR's 2+ bilat, sensation intact moves all extremities and awake; not confused Speech / Cognition: normal speech Psychiatric A+Ox3, euthymic affect Orientation: alert and oriented x 3 Discharge Data Allergies Allergy/AdvReac Type Severity Reaction Status Date / Time adhesive tape Allergy Unknown Rash Verified 09/02/19 08:08 sorbitan esters Allergy Unknown PT NOT SURE Verified 09/02/19 08:08 Sulfa (Sulfonamide Allergy Unknown Rash Verified 09/02/19 08:08 Antibiotics) sulfamethoxazole Allergy Unknown Rash Verified 09/02/19 08:08 [From Bactrim] trimethoprim [From Bactrim] Allergy Unknown Rash Verified 09/02/19 08:08 albiglutide AdvReac Unknown Diarrhea Verified 09/02/19 08:08 codeine AdvReac Unknown Nausea Verified 09/02/19 08:08 metformin AdvReac Unknown Diarrhea Verified 09/02/19 08:08 morphine AdvReac Unknown Nausea Verified 09/02/19 08:08 "IF NOT PURE GOLD JEWELRY" Allergy Unknown TURNS SKIN Uncoded 09/02/19 08:08 GREEN, DENIES OTHER PROBLEMS SKIN ADORE Allergy Unknown SEE NOTES Uncoded 09/02/19 08:08 BELOW Consultations 09/02/19 15:20 Consult Hospitalist Routine 09/02/19 15:23 Consult General Surgery Routine Procedures Performed Operation Date: 08/12/19 07:15 <No data on this case meets the specified criteria> Operation Date: 09/02/19 09:25 Actual Procedures p Left Cystoscopy, Ureteronephroscopy, Retrograde Pyelogram with Ureteral Dilation, Laser Destruction and Stone Basket Extraction of Stone(Left) - Amor Dennis DO s Insertion of Stent(Left) - Amor Dennis DO Operation Date: 09/03/19 10:40 Actual Procedures p Infusaport Insertion(Left) - Leesa Tracey MD Ordered Studies 09/02/19 07:00 FL retrograde includes kub Routine 09/03/19 13:00 FL fluoro (infusaport) to 1 hr Routine Hospital Course (1) Status post laser lithotripsy of ureteral calculus: Postop day 2 status post ureteroscopy. Tolerated well. Had infusion port placed yesterday by general surgery. Has been monitored by the medical team. Overall has been improving. Patient states she is ready to go home. Has plans in place for care moving forward. Total Time Total Time Spent Total Time Spent (In Minutes): 10 minutes Total Time Includes: Examination of the Patient, Discharge Planning, Medication Reconciliation and Communication With Other Providers Discharge Plan Discharge Items Patient Disposition: Home - Self-Care Reason For Visit: Left Renal Stone Discharge Diagnosis: Same Condition on Discharge: Good Activity: Resume your previous activity Lifting: No more than 50 pounds Bathing: No limitations Non-emergency contact: Primary Care Provider and Urologist Call non-emergency contact if: you have any medication questions, your symptoms worsen, your pain is not controlled, your pain is worsening, your pain is unusual for you, your pain is concerning for you, you have a fever, your temperature is above 101.5, your wound has increased redness, your wound has increased drainage and your wound pain has increased Follow-up/Referrals: Selvin Walker DO [Primary Care Provider] - Amor Dennis DO [Physician] - Diet: Carb Consistent or DM2 Addtl Attending Provider Instructions: May have blood in urine. May have pelvic discomfort. Call if any fevers or chills. Zosyn (antibiotic) given during this admission. Will monitor for changes. May need started back on coverage if issues. Please keep port dressing in place for 3 days; you can remove dressing after the 3 day period has been completed. Pending Studies at Discharge: No Stand-Alone Forms: Anesthesia/Sedation, Adult, [facility] Medications and DC Order Prescriptions: New oxycodone-acetaminophen [Percocet] 7.5-325 mg tablet 1 tab PO Q8H PRN (Reason: pain) Qty: 7 RF: 0 fosfomycin tromethamine 3 gram packet 3 gm PO Q3D Qty: 2 RF: 0 Spiriva with HandiHaler 18 mcg Capsule, W/Inhalation Device 1 puff inhalation QAM 1 Days Qty: 1 RF: 0 ipratropium bromide 0.02 % solution 1.25 ml INH Q6H PRN (Reason: shortness of breath or wheezing) Qty: 62.5 RF: 1 levalbuterol HCl [Xopenex] 0.63 mg/3 mL solution for nebulization 0.63 mg INH Q6H PRN (Reason: shortness of breath or wheezing) Qty: 36 RF: 0 Continued multivitamin with minerals [Daily Multivitamin-Minerals] Tablet 1 tab PO QAM Qty: 0 RF: 0 polyethylene glycol 3350 [Miralax] 17 gram/dose Powder 17 g PO QAM Qty: 255 RF: 0 anastrozole 1 mg Tablet 1 mg PO HS 90 Days Qty: 0 RF: 1 aspirin [Aspirin Low Dose] 81 mg Tablet,Delayed Release (Dr/Ec) 81 mg PO QAM Qty: 0 RF: 0 acetaminophen 650 mg Tablet Extended Release 1,300 mg PO BID Qty: 0 RF: 0 duloxetine 60 mg capsule,delayed release(DR/EC) 60 mg PO QAM Qty: 90 RF: 2 propranolol 80 mg capsule,extended release 24 hr 80 mg PO QAM Qty: 90 RF: 2 cranberry 500 mg capsule 500 mg PO QAM RF: 0 donepezil [Aricept] 5 mg tablet 5 mg PO DAILY Qty: 30 RF: 2 solifenacin [Vesicare] 10 mg tablet 10 mg PO QAM RF: 0 ondansetron 4 mg tablet,disintegrating 4 mg PO UD PRN (Reason: Nausea) RF: 0 Novolog Flexpen U-100 Insulin 100 unit/mL (3 mL) insulin pen See Rx Instructions .ROUTE .COMPLEX RF: 0 bupropion HCl 75 mg tablet 150 mg PO DAILY RF: 0 Myrbetriq 50 mg tablet extended release 24 hr 50 mg PO DAILY RF: 0 ropinirole 0.5 mg Tablet 0.5 mg PO HS RF: 0 docusate sodium [Stool Softener] 100 mg Capsule 200 mg PO QAM RF: 0 calcium carbonate [Calcium 600] 600 mg calcium (1,500 mg) Tablet 600 mg PO QAM RF: 0 ascorbic acid (vitamin C) [Vitamin C] 500 mg Tablet 500 mg PO QPM RF: 0 furosemide 20 mg Tablet 20 mg PO DAILY PRN (Reason: Weight Gain) RF: 0 cholecalciferol (vitamin D3) [Vitamin D3] 400 unit Capsule 400 unit PO BID RF: 0 omega 1-aoz-toa-fish oil [Fish Oil] 1,000 mg (120 mg-180 mg) Capsule 1 cap PO BID RF: 0 Lantus Solostar U-100 Insulin 100 unit/mL (3 mL) insulin pen 40 units SQ QAM RF: 0 Discontinued nitrofurantoin monohyd/m-cryst 100 mg capsule 100 mg PO QAM Qty: 90 RF: 3 potassium 99 mg Tablet 99 mg PO QAM RF: 0 Discharge Orders: Discharge Order (Routine); Ordered 09/04/19 Ordered By: Amor Gotti/Other Patient Handouts: Surgery Prevent DVT After, Stents Ureteral Admission Data Admit Date/Time: 09/03/19 14:25 Attending Provider: Amor Dennis Admit Provider: Amor Dennis Primary Care Provider: Selvin Walker Other Providers: Mark Vargas ; Anna Carrasco ; Marlee Ibarra ; Quintin Nicole ; Drew Gorman ; Merlene Rivas ; Newton Anderson ; Konstantin Newsome ; Grant Glez ; Emily Torres ; Brenda Jasso ; Stephanie Andersen ; Fran Olivier ; Meg Ahumada ; Jack Walker ; Pete Adair ; Anna Dowd ; Mustapha Ventura ; Rosy Coleman ; Kendal Santamaria ; Alec Padilla ; Quintin Gutierrez ; Keshawn Aiken ; Merissa Jordan ; Jack Perry ; Perico Miranda ; Daryl Marie ; Jean Carlos Oliva ; Rasta Templeton ; Leesa Tracey Other Interventions: Discharge Summary Assessment (RN) Last Done: 09/02/19 16:25
[2019-09-04] MEDS ORDERED: INSULIN GLARGINE SOLOSTAR 100 UNITS/ML 3 ML PEN SC ONE (21:00)
[2019-09-10 08:36] LABS: Component 2 DNR
== END 2019-09-04 17:22 | disposition home or self-care (01) | DRG 660 ==
LOC: ASU 07:18 → 3N 07:18

== ENCOUNTER 2021-01-18 13:40 | Inpatient (IN) ==
[2021-01-18 14:31] LABS: Basophils # (auto) 0.04 K/uL (0-0.2); Basophils % (auto) 0.5 %; Eosinophils # (auto) 0.28 K/uL (0-0.5); Eosinophils % (auto) 3.8 %; Hematocrit (blood only) 41.7 % (37-47); Immature Granulocytes # (auto) 0.02 K/uL (0.00-0.02); Immature Granulocytes % (auto) 0.3 %; Lymphocytes # (auto) 1.27 K/uL (1.2-3.4); Lymphocytes % (auto) 17.3 %; Mean Corpuscular Hemoglobin 33.7 pg (25-34); Mean Corpuscular Hgb Conc 33.6 g/dL (32-36); Mean Corpuscular Volume 100.5 fL (80-100); Mean Platelet Volume 10.4 fL (7.4-10.4); Monocytes # (auto) 0.41 K/uL (0.11-0.59); Monocytes % (auto) 5.6 %; Neutrophils # (auto) 5.33 K/uL (1.4-6.5); Neutrophils % (auto) 72.5 %; Platelet Count 277 K/uL (130-400); RDW Coefficient of Variation 14.5 % (11.5-14.5); RDW Standard Deviation 53.6 fL (36.4-46.3); Red Blood Count 4.15 M/uL (4.2-5.4); White Blood Count 7.35 K/uL (4.8-10.8)
--- NOTE | 2021-01-18 14:43 | Emergency Department Note ---
History of Present Illness General Chief Complaint: Chest Pain Time Seen by Provider: 01/18/21 14:27 Source: patient Mode of arrival: EMS Limitations: no limitations History of Present Illness Provider Complaint: chest pain Maximum Pain Intensity: 4 This is a 75-year-old female who presents to the ED with a chief complaint of on and off chest pain for the past couple of days. Does not seem to be exertional in nature. The patient reports no cough or fevers. She states that she is chronically on 5 L of oxygen at home. No associated nausea palpitations or diaphoresis. She states that she started an antibiotic yesterday for UTI. She just wanted to have her heart checked to make sure that things are okay with that. She has no other complaints at this time. Home Medications Medication Instructions Recorded Confirmed Type multivitamin with minerals [Daily 1 tab PO QAM #0 06/18/07 01/18/21 History Multivitamin-Minerals] aspirin [Aspirin Low Dose] 81 mg PO QAM #0 06/01/18 01/18/21 History ascorbic acid (vitamin C) [Vitamin 500 mg PO QAM 11/14/18 01/18/21 History C] cranberry 500 mg capsule 500 mg PO QAM 04/19/19 01/18/21 History L.acidoph-L.rhamn-B.bif-B.long 1 tab PO QAM 03/01/20 01/18/21 History [Probiotic Acidophilus Biobeads] quetiapine 25 mg tablet 25 mg PO AMHS 04/24/20 01/18/21 History propranolol 80 mg capsule,24 80 mg PO QAM #90 cap 07/17/20 01/18/21 Rx hr,extended release trazodone 50 mg tablet 50 mg PO BID #30 tab 11/03/20 01/18/21 Rx amoxicillin 500 mg PO QID 01/18/21 01/18/21 History gabapentin 600 mg PO HS 01/18/21 01/18/21 History insulin aspart U-100 [Novolog 45 unit SUBCUT .DAILY AT 1600 01/18/21 01/18/21 History Flexpen U-100 Insulin] insulin glargine [Lantus Solostar 45 unit SQ .DAILY AT 1600 01/18/21 01/18/21 History U-100 Insulin] mirabegron [Myrbetriq] 50 mg PO QAM 01/18/21 01/18/21 History potassium 99 mg PO QAM 01/18/21 01/18/21 History tramadol See Rx Instructions .ROUTE .COMPLEX 01/18/21 01/18/21 History Allergies Allergy/AdvReac Type Severity Reaction Status Date / Time adhesive tape Allergy Mild Rash Verified 01/18/21 16:20 sorbitan esters Allergy Mild Unknown Verified 01/18/21 16:20 Sulfa (Sulfonamide Allergy Mild Rash Verified 01/18/21 16:20 Antibiotics) sulfamethoxazole Allergy Mild Rash Verified 01/18/21 16:20 [From Bactrim] trimethoprim [From Bactrim] Allergy Mild Rash Verified 01/18/21 16:20 albiglutide AdvReac Mild Diarrhea Verified 01/18/21 16:20 codeine AdvReac Mild Nausea Verified 01/18/21 16:20 metformin AdvReac Mild Diarrhea Verified 01/18/21 16:20 morphine AdvReac Mild Nausea Verified 01/18/21 16:20 Past Med/Surg History Medical History Anxiety Bladder wall thickening 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 Chronic back pain Chronic obstructive pulmonary disease 5L O2 continuous CKD (chronic kidney disease) Complicated UTI (urinary tract infection) Degenerative disc disease Depression Diabetes type 2, controlled Diabetic 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 Leesa Tracey- done at [facility] Recurrent UTI on prophylactic abx for maintenance Restless leg syndrome Risk for falls Sleep apnea CPAP Type 2 diabetes mellitus, with long-term current use of insulin Surgical History (Updated 09/23/20 @ 15:51 by Kvng Zaragoza MD) H/O parathyroidectomy partial History of appendectomy History of carpal tunnel release RIGHT History of cataract surgery BILATERAL History of colonoscopy History of difficult intubation 06/14/17: Left TSA: Glidescope #3, ETT 7.0, Gr View 1 History of hysterectomy BSO/BLADDER TACK History of mastectomy RIGHT + LYMPH NODE DISSECTION History of nasal septoplasty History of total shoulder replacement BILATERAL Status post Mohs surgery Family History Father Cancer Lung cancer Grandmother Breast cancer Myocardial infarction Aunt Ovarian cancer Denies family history of Prostate cancer Colorectal cancer Social History Smoking Status: Never smoker Second Hand Exposure: Yes (OCCASSIONALLY); Hx Alcohol Use: Yes Hx Substance Use: No Preferred Language: Bruneian Communication Ability: Effective Visual Impairment: Blindness Hearing Ability: Use of Hearing Aid [place] Inspector Required: No Beliefs That Will Affect Care: None marital status: / Current Living Situation: Family Current Living Situation Comment: daughter's and children live with her current occupational status: retired Feels Safe at Home: Yes Dental Care, Regularly: Yes Physical Activity Frequency: Does not Exercise Seatbelt Use: never Sunscreen Use: Yes Assistive Devices: CPAP and Oxygen - Continuous Review of Systems A total of 10 systems reviewed and were otherwise negative Physical Exam Vital Signs Vital Signs - 24 hr 01/18/21 13:46 01/18/21 13:50 01/18/21 13:56 Temperature 36.8 C Temperature Source Oral Pulse Rate 80 78 77 Pulse Rate from SpO2 Sensor 78 77 Pulse Rhythm Regular Pulse Strength Normal Respiratory Rate 22 28 H 23 Respiratory Effort / Characteristics Non-Labored Respiratory Depth Normal Respiratory Pattern Regular Blood Pressure 144/97 H 144/97 H Blood Pressure Mean 112 112 Blood Pressure Position Sitting Pulse Oximetry 90 93 93 Oxygen Delivery Method Nasal Cannula Sepsis Recent Fever Within 48 Hours No Sepsis New/Unexplained Change in Mental Status No Sepsis Action Taken by Nursing No Action Required 01/18/21 14:00 01/18/21 14:30 01/18/21 15:00 Temperature Temperature Source Pulse Rate 73 80 72 Pulse Rate from SpO2 Sensor 74 80 Pulse Rhythm Pulse Strength Respiratory Rate 16 21 22 Respiratory Effort / Characteristics Respiratory Depth Respiratory Pattern Blood Pressure Blood Pressure Mean Blood Pressure Position Pulse Oximetry 91 99 Oxygen Delivery Method Sepsis Recent Fever Within 48 Hours Sepsis New/Unexplained Change in Mental Status Sepsis Action Taken by Nursing 01/18/21 15:30 01/18/21 15:31 01/18/21 16:01 Temperature Temperature Source Pulse Rate 78 76 75 Pulse Rate from SpO2 Sensor Pulse Rhythm Pulse Strength Respiratory Rate 24 24 20 Respiratory Effort / Characteristics Respiratory Depth Respiratory Pattern Blood Pressure 125/100 Blood Pressure Mean 108 Blood Pressure Position Pulse Oximetry Oxygen Delivery Method Sepsis Recent Fever Within 48 Hours Sepsis New/Unexplained Change in Mental Status Sepsis Action Taken by Nursing 01/18/21 16:30 01/18/21 16:31 01/18/21 17:00 Temperature Temperature Source Pulse Rate 77 74 75 Pulse Rate from SpO2 Sensor Pulse Rhythm Pulse Strength Respiratory Rate 29 H 21 22 Respiratory Effort / Characteristics Respiratory Depth Respiratory Pattern Blood Pressure 125/86 124/103 H Blood Pressure Mean 99 110 Blood Pressure Position Pulse Oximetry Oxygen Delivery Method Sepsis Recent Fever Within 48 Hours Sepsis New/Unexplained Change in Mental Status Sepsis Action Taken by Nursing CONSTITUTIONAL/VITAL SIGNS: Reviewed / noted above. GENERAL: Non-toxic in appearance. INTEGUMENTARY: Warm, dry, and [place]. HEAD: Normocephalic. EYES: without scleral icterus or trauma. ENT/OROPHARYNX: clear and moist. LYMPHADENOPATHY/NECK: Is supple without lymphadenopathy or meningismus. RESPIRATORY: Lungs clear and equal. CARDIOVASCULAR: Regular rate and rhythm. GI/ABDOMEN: Soft and nontender. No organomegaly or pulsatile mass. No rebound or guarding. Normal bowel sounds. EXTREMITIES: Warm and well perfused. BACK: No CVA tenderness. NEUROLOGICAL: Intact without focal deficits. PSYCHIATRIC: normal affect. MUSCULOSKELETAL: Poor lower extremity muscle tone. TRIAGE NURSING DOCUMENTATION REVIEWED. Medical Decision Making Differential Diagnosis The differential that was considered includes acute myocardial infarction, acute coronary syndrome, myocarditis, pericarditis, pericardial effusions /tamponade, esophageal perforation, thoracic aortic dissection, pulmonary embolism, pneumonia, pneumothorax, pancreatitis, shingles, acute cholecystitis, perforated abdominal viscus. Medical Records Attestation: I reviewed the patient's medical records. Home Medications Current Medication List: was personally reviewed by me Laboratory Data Attestation: I reviewed the patient's lab results. Result diagrams: 01/18/21 13:25 01/18/21 16:45 Labs: Lab Results 01/18/21 01/18/21 01/18/21 Range/Units 13:25 13:25 16:45 WBC 7.35 (4.8-10.8) K/uL RBC 4.15 L (4.2-5.4) M/uL Hgb 14.0 (12.0-16.0) g/dL Hct 41.7 (37-47) % MCV 100.5 H (80-100) fL MCH 33.7 (25-34) pg MCHC 33.6 (32-36) g/dL RDW Std Deviation 53.6 H (36.4-46.3) fL RDW Coeff of Angélica 14.5 (11.5-14.5) % Plt Count 277 (130-400) K/uL MPV 10.4 (7.4-10.4) fL Immature Gran % (Auto) 0.3 % Neut % (Auto) 72.5 % Lymph % (Auto) 17.3 % [place] % (Auto) 5.6 % Eos % (Auto) 3.8 % Baso % (Auto) 0.5 % Neut # (Auto) 5.33 (1.4-6.5) K/uL Lymph # (Auto) 1.27 (1.2-3.4) K/uL [place] # (Auto) 0.41 (0.11-0.59) K/uL Eos # (Auto) 0.28 (0-0.5) K/uL Baso # (Auto) 0.04 (0-0.2) K/uL Immature Gran # (Auto) 0.02 (0.00-0.02) K/uL Sodium 136 (136-145) mmol/L Potassium 4.3 (3.5-5.1) mmol/L Chloride 101 (98-107) mmol/L Carbon Dioxide 29 (21-32) mmol/L Anion Gap 7.0 (3-11) BUN 11 (7-18) mg/dl Creatinine 1.05 (0.6-1.2) mg/dl Est Cr Clr Drug Dosing 55.6 ml/min Est GFR ( Amer) 60.2 Est GFR (Non-Af Amer) 51.9 BUN/Creatinine Ratio 10.4 (10-20) Glucose 195 H (70-99) mg/dl Calcium 9.8 (8.5-10.1) mg/dl Total Bilirubin 0.5 (0.2-1) mg/dl AST (15-37) U/L ALT 26 (12-78) U/L Alkaline Phosphatase 107 (45-117) U/L Troponin I < 0.015 (0-0.045) ng/ml Total Protein 7.7 (6.4-8.2) gm/dl Albumin 3.2 L (3.4-5.0) gm/dl Globulin 4.5 H (2.5-4.0) gm/dl Albumin/Globulin Ratio 0.7 L (0.9-2) Lipase 66 L (73-393) U/L Imaging Data Chest x-ray: Radiologist's impression: XR chest 1V portable CLINICAL HISTORY: Atypical chest pain. COMPARISON STUDY: Chest radiograph March 01, 2020. FINDINGS: Left internal jugular [id number] and bilateral shoulder arthroplasties as well as right axillary surgical clips are incidentally noted. Coronary mediastinal fluid is stable. There is interstitial thickening. There are suspected small bilateral pleural effusions with bibasilar opacities. IMPRESSION: 1. Suspected small bilateral pleural effusions with bibasilar opacities which could reflect atelectasis or an infectious process. Radiographic follow up is recommended. 2. Age indeterminate interstitial thickening. ECG Data Attestation: I personally reviewed and interpreted this ECG as follows: Indication: chest pain Rate (beats per minute): 76 Rhythm: normal sinus Findings: + T-wave inversion (Lateral); no PVC and no ST elevation Change: the following changes noted (03/01/20) MDM Narrative Patient presents with a nonexertional somewhat random intermittent chest pain for the past couple of days without other associated symptoms. Details listed above. Exam was unremarkable. Vital signs are stable. The patient's twelve- lead EKG did show some T wave inversions in the lateral leads that are new. She is currently taking aspirin daily. Troponin was negative. CBC and chemistry panel did not show any significant abnormalities. The patient has a somewhat of an atypical chest pain that comes and goes. She states that she does not really exert herself so she does not know of it is worse with exertion. Because of her EKG changes in the lateral leads, I feel the patient should be further evaluated in his inpatient based on this data. She will be seen by the hospitalist for further evaluation and care. Impression & Plan Chest pain, precordial Discharge Plan Visit Data Chief Complaint: Chest Pain ED Provider: Jovanny Rodarte Problem: Chest pain, precordial Patient Disposition: Being Evaluated by Hospitalist Forms Stand Alone Forms: My [facility], [facility] Emergency Department, Important Visit Information Prescriptions Prescriptions: No Action multivitamin with minerals [Daily Multivitamin-Minerals] Tablet 1 tab PO QAM Qty: 0 RF: 0 aspirin [Aspirin Low Dose] 81 mg Tablet,Delayed Release (Dr/Ec) 81 mg PO QAM Qty: 0 RF: 0 propranolol 80 mg capsule,extended release 24 hr 80 mg PO QAM Qty: 90 RF: 2 trazodone 50 mg tablet 50 mg PO BID Qty: 30 RF: 0 cranberry 500 mg capsule 500 mg PO QAM RF: 0 quetiapine 25 mg tablet 25 mg PO AMHS RF: 0 ascorbic acid (vitamin C) [Vitamin C] 500 mg Tablet 500 mg PO QAM RF: 0 Probiotic Acidophilus Biobeads 12.9 mg (2 billion cell) Tablet,Delayed Release (Dr/Ec) 1 tab PO QAM RF: 0 amoxicillin 500 mg Capsule 500 mg PO QID RF: 0 potassium 99 mg Tablet 99 mg PO QAM RF: 0 gabapentin 300 mg Capsule 600 mg PO HS RF: 0 tramadol 50 mg tablet See Rx Instructions .ROUTE .COMPLEX RF: 0 insulin aspart U-100 [Novolog Flexpen U-100 Insulin] 100 unit/mL (3 mL) insulin pen 45 unit subcut .DAILY AT 1600 RF: 0 Lantus Solostar U-100 Insulin 100 unit/mL (3 mL) insulin pen 45 unit SQ .DAILY AT 1600 RF: 0 Myrbetriq 50 mg tablet extended release 24 hr 50 mg PO QAM RF: 0 Referrals Referrals: Selvin Walker DO [Primary Care Provider] -
--- NOTE | 2021-01-18 14:45 | XRay Report ---
XR chest 1V portable CLINICAL HISTORY: Atypical chest pain. COMPARISON STUDY: Chest radiograph March 01, 2020. FINDINGS: Left internal jugular [id number] and bilateral shoulder arthroplasties as well as right axillary surgical clips are incidentally noted. Coronary mediastinal fluid is stable. There is inters titial thickening. There are suspected small bilateral pleural effusions with bibasilar opacities. IMPRESSION: 1. Suspected small bilateral pleural effusions with bibasilar opacities which could reflect atelectas is or an infectious process. Radiographic follow up is recommended. 2. Age indeterminate interstitial thickening. ACT 112: Negative or not required by law. Electronically signed by: Chema Sutton M.D. 01/18/2021 2:44 PM
[2021-01-18 14:53] LABS: Alanine Aminotransferase 26 U/L (12-78); Albumin Globulin Ratio 0.7 (0.9-2); Albumin Level 3.2 gm/dl (3.4-5.0); Alkaline Phosphatase 107 U/L (45-117); BUN Creatinine Ratio 10.4 (10-20); Bilirubin,Total 0.5 mg/dl (0.2-1); Blood Urea Nitrogen 11 mg/dl (7-18); Calcium 9.8 mg/dl (8.5-10.1); Carbon Dioxide 29 mmol/L (21-32); Chloride 101 mmol/L (98-107); Creatinine Clr Calc Pharmacy 55.6 ml/min; Est GFR (African American) 60.2; Est GFR (Non-African American) 51.9; Globulin 4.5 gm/dl (2.5-4.0); Glucose 195 mg/dl (70-99); Lipase 66 U/L (73-393); Sodium 136 mmol/L (136-145); Total Protein 7.7 gm/dl (6.4-8.2); Troponin I < 0.015 ng/ml (0-0.045)
--- NOTE | 2021-01-18 15:04 | Electrocardiogram Report ---
Test Reason : Blood Pressure : / mmHG Vent. Rate : 076 BPM Atrial Rate : 076 BPM P-R Int : 188 ms QRS Dur : 074 ms QT Int : 358 ms P-R-T Axes : 054 049 -22 degrees QTc Int : 402 ms Normal sinus rhythm Cannot rule out Anterior infarct , age undetermined Nonspecific ST abnormality Inferior leads and in Lateral leads Abnormal ECG When compared with ECG of 01-MAR-2020 17:04, Nonspecific T wave abnormality, worse in Inferior leads Nonspecific T wave abnormality now evident in Lateral leads Confirmed by Perez Dominguez ([id number]) on 01/18/2021 3:03:44 PM Referred By: Confirmed By:Perez Dominguez
[2021-01-18 17:09] LABS: Potassium 4.3 mmol/L (3.5-5.1)
[2021-01-18 19:45] LABS: Influenza A virus by PCR Negative (Neg); Influenza B virus by PCR Negative (Neg); RSV by PCR Negative (Neg); SARS CoV2 RNA(COVID-19) InHosp NEGATIVE (Negative)
--- NOTE | 2021-01-18 20:21 | History & Physical Report ---
Date of Service January 18, 2021 Assessment & Plan (1) Chest pain, precordial: Patient with reproducible intercostal chest pain, negative troponin x2 and nonacute ECG x2 - Monitor telemetry overnight - Keep euvolemic - Pleural effusions unchanged from previous - DJD with costochondritis is possible - Continue home pain medication with Tramadol and Neurontin - Hold trazodone - CTA of the chest- follow up from PET scan in 2018 evaluate for further metastatic progression. (2) History of breast cancer: Diagnosed ~28 years ago and underwent right mastectomy with complete axiallary dissection. - Metastatic involvment of lymp, lung, spine - Adjuvant chemo and chest wall radiation. - 2018 radiation to thoracic spine for palliative pain- which resolved her back pain. - PET scan in 2018 with overall improvement, no further chest imaging available. 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- sleep study from 2008- Severe with AHI-70 - May use home CPAP - No acute needs (5) Chronic obstructive pulmonary disease: As above- patient never smoked - but with metastatic breast cancer (6) Type 2 diabetes mellitus, with long-term current use of insulin: Continue Basal insulin with sliding scale coverage correction factor of 15 (7) Hypertension: Controlled continue propanol (8) Overactive bladder: Followed closely with urology, - Patient recently changed from Macrobid to Augmentin for prophylaxis of UTI - Continue (9) Hypercalcemia: secondary to hyperparhyroidism - surgical attempt x1 but unable to locate the inferior parthyroid per chart revie - was treated with cinacalcet and labs appear normal on todays review - Will add on ionized calcium in the morning and Vitamin D OH level (10) Chronic respiratory failure with hypoxia: History of Present Illness Chief Complaint: chest pain Primary Care Provider: Selvin Walker, DO 75 YOF with past medical history of UTI, hyperparathyroidism, hypercalcemia, frequent kidney stones, incontinence with pessary, chronic UTI on prophylactic antibiotics, overactive bladder, COPD on home chronic therapy, depression, HTN, HLD, breast cancer, morbid obesity, DM. Patient awoke this morning with chest pain that was sharp in nature. The pain was present when she woke up and progressed to get worse and she called EMS around 0900. The pain went away shortly after arrival to the E[facility], after the patient took her home medication pain regime. The pain is located at her left center breast ~ 4th intercostal. The pain did not radiate and was not associated with any dyspnea or diaphoresis, or n/v. The pain did come back "slightly" when she was off her chronic oxygen in the [facility]. In the ER the patient had one set of troponin that was <0.015 and an ECG done. The hospitalist team was notified for admission. While i was assessing the patient, I ordered the repeat troponin and repeat ECG, while COVID test was pending. Her second set of troponin I is <0.015 and ECG remains without acute pathology. Patient will be observed overnight on telemetry for resolution or return of symptoms, as she does have multiple risk factors, will obtain a CT of the chest to evaluate for pulmonary pathology with her history of metastatic breast CA. Patient is currently comfortable and asymptomatic. Allergies Allergy/AdvReac Type Severity Reaction Status Date / Time adhesive tape Allergy Mild Rash Verified 01/18/21 16:20 sorbitan esters Allergy Mild Unknown Verified 01/18/21 16:20 Sulfa (Sulfonamide Allergy Mild Rash Verified 01/18/21 16:20 Antibiotics) sulfamethoxazole Allergy Mild Rash Verified 01/18/21 16:20 [From Bactrim] trimethoprim [From Bactrim] Allergy Mild Rash Verified 01/18/21 16:20 albiglutide AdvReac Mild Diarrhea Verified 01/18/21 16:20 codeine AdvReac Mild Nausea Verified 01/18/21 16:20 metformin AdvReac Mild Diarrhea Verified 01/18/21 16:20 morphine AdvReac Mild Nausea Verified 01/18/21 16:20 Home Medications Medication Instructions Recorded Confirmed Type multivitamin with minerals [Daily 1 tab PO QAM #0 06/18/07 01/18/21 History Multivitamin-Minerals] aspirin [Aspirin Low Dose] 81 mg PO QAM #0 06/01/18 01/18/21 History ascorbic acid (vitamin C) [Vitamin 500 mg PO QAM 11/14/18 01/18/21 History C] cranberry 500 mg capsule 500 mg PO QAM 04/19/19 01/18/21 History L.acidoph-L.rhamn-B.bif-B.long 1 tab PO QAM 03/01/20 01/18/21 History [Probiotic Acidophilus Biobeads] quetiapine 25 mg tablet 25 mg PO AMHS 04/24/20 01/18/21 History propranolol 80 mg capsule,24 80 mg PO QAM #90 cap 07/17/20 01/18/21 Rx hr,extended release trazodone 50 mg tablet 50 mg PO BID #30 tab 11/03/20 01/18/21 Rx amoxicillin 500 mg PO QID 01/18/21 01/18/21 History gabapentin 600 mg PO HS 01/18/21 01/18/21 History insulin aspart U-100 [Novolog 45 unit SUBCUT .DAILY AT 1600 01/18/21 01/18/21 History Flexpen U-100 Insulin] insulin glargine [Lantus Solostar 45 unit SQ .DAILY AT 1600 01/18/21 01/18/21 History U-100 Insulin] mirabegron [Myrbetriq] 50 mg PO QAM 01/18/21 01/18/21 History potassium 99 mg PO QAM 01/18/21 01/18/21 History tramadol See Rx Instructions .ROUTE .COMPLEX 01/18/21 01/18/21 History Past Med/Surg History Medical History Anxiety Bladder wall thickening 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 Chronic back pain Chronic obstructive pulmonary disease 5L O2 continuous CKD (chronic kidney disease) Complicated UTI (urinary tract infection) Degenerative disc disease Depression Diabetes type 2, controlled Diabetic 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 Leesa Tracey- done at [facility] Recurrent UTI on prophylactic abx for maintenance Restless leg syndrome Risk for falls Sleep apnea CPAP Type 2 diabetes mellitus, with long-term current use of insulin Surgical History H/O parathyroidectomy partial History of appendectomy History of carpal tunnel release RIGHT History of cataract surgery BILATERAL History of colonoscopy History of difficult intubation 06/14/17: Left TSA: Glidescope #3, ETT 7.0, Gr View 1 History of hysterectomy BSO/BLADDER TACK History of mastectomy RIGHT + LYMPH NODE DISSECTION History of nasal septoplasty History of total shoulder replacement BILATERAL Status post Mohs surgery Family History Father Cancer Lung cancer Grandmother Breast cancer Myocardial infarction Aunt Ovarian cancer Denies family history of Prostate cancer Colorectal cancer Social History Smoking Status: Never smoker Second Hand Exposure: Yes (OCCASSIONALLY); Hx Alcohol Use: Yes Hx Substance Use: No Preferred Language: Australian Communication Ability: Effective Communication Ability Comment: Poor vision due to macular degeneration Visual Impairment: Blindness Hearing Ability: Use of Hearing Aid Strength And Conditioning Coach Required: No Beliefs That Will Affect Care: None marital status: / Current Living Situation: Family Current Living Situation Comment: Daughter lives with patient current occupational status: retired Other Information That Helps Us Care for You: No Feels Safe at Home: Yes Dental Care, Regularly: Yes Physical Activity Frequency: Does not Exercise Seatbelt Use: never Sunscreen Use: Yes Assistive Devices: Cane, CPAP, Oxygen - Continuous and Walker Review of Systems Review of Systems: REVIEW OF SYSTEMS: Constitutional: No fever, sweats or chills Eyes: No diplopia, no worsening or blurred vision ENT: normal hearing, no trouble swallowing Respiratory: No cough, sputum, dyspnea at rest or on exertion Cardiovascular: (+) chest pain, no tightness or palpitations Abdomen/: (+) chronic incontinence, No pain, nausea, vomiting, diarrhea or constipation Musculoskeletal: No joint pain, calf pain, swelling Neurologic:(+) chronic RLS, neuropathy, numbness/tingling,weakness Psychiatric: No anxiety or depression Skin: No rash or itch Physical Exam Physical Exam: PHYSICAL EXAM: General: awake, alert, no apparent distress Head: Normocephalic, atraumatic ENT: PERRL, EOMI, no pharyngeal exudate, mucous membranes moist Neuro: AAO x 3, speech clear and appropriate, strength intact bilaterally 5/5, sensation intact and equal all extremities and dermatomes, no pronator drift Chest: equal rise and fall of the chest, no accessory muscle use, no heaves or thrills, decreased in the bases with auscultation, on chronic oxygen, Cardiac: Regular rate and rhythm, telemetry reviewed, skin warm dry, cap refill <3 seconds, peripheral pules +2 no JVD, no murmur, no JVD, no edema GI: NABS x 4 quadrants, soft, nontender to palpation, no rebound, guarding or tenderness : incontinent voiding in depends, no pain, no CVA tenderness Extremities: Normal inspection, no peripheral edema or erythema, calfs nont rabia to palpation Psych: Normal mood and affect Skin: no rash or erythema Results & Data Results & Data ([facility]) Vital Signs (Past 12 Hours) Vital Signs Temp Pulse Pulse Resp BP BP Pulse Ox 01/18/21 18:48 73 18 136/98 96 01/18/21 17:00 75 22 124/103 H 01/18/21 16:31 74 21 01/18/21 16:30 77 29 H 125/86 01/18/21 16:01 75 20 01/18/21 15:31 76 24 01/18/21 15:30 78 24 125/100 01/18/21 15:00 72 22 01/18/21 14:30 80 21 99 01/18/21 14:00 73 16 91 01/18/21 13:56 77 23 93 01/18/21 13:50 36.8 C 78 28 H 144/97 H 93 01/18/21 13:46 80 22 144/97 H 90 Laboratory Results Abnormal lab results 01/18/21 01/18/21 Range/Units 13:25 13:25 RBC 4.15 L (4.2-5.4) M/uL MCV 100.5 H (80-100) fL RDW Std Deviation 53.6 H (36.4-46.3) fL Glucose 195 H (70-99) mg/dl Albumin 3.2 L (3.4-5.0) gm/dl Globulin 4.5 H (2.5-4.0) gm/dl Albumin/Globulin Ratio 0.7 L (0.9-2) Lipase 66 L (73-393) U/L Diagnostic Findings XR chest 1V portable CLINICAL HISTORY: Atypical chest pain. COMPARISON STUDY: Chest radiograph March 01, 2020. FINDINGS: Left internal jugular [id number] and bilateral shoulder arthroplasties as well as right axillary surgical clips are incidentally noted. Coronary mediastinal fluid is stable. There is interstitial thickening. There are suspected small bilateral pleural effusions with bibasilar opacities. IMPRESSION: 1. Suspected small bilateral pleural effusions with bibasilar opacities which could reflect atelectasis or an infectious process. Radiographic follow up is recommended. 2. Age indeterminate interstitial thickening. Medications Administered Home Medications multivitamin with minerals [Daily Multivitamin-Minerals] 1 tab PO QAM #0 06/18/07 [History Confirmed 01/18/21] aspirin [Aspirin Low Dose] 81 mg PO QAM #0 06/01/18 [History Confirmed 01/18/21] ascorbic acid (vitamin C) [Vitamin C] 500 mg PO QAM 11/14/18 [History Confirmed 01/18/21] cranberry 500 mg capsule 500 mg PO QAM 04/19/19 [History Confirmed 01/18/21] L.acidoph-L.rhamn-B.bif-B.long [Probiotic Acidophilus Biobeads] 1 tab PO QAM 03/01/20 [History Confirmed 01/18/21] quetiapine 25 mg tablet 25 mg PO AMHS 04/24/20 [History Confirmed 01/18/21] propranolol 80 mg capsule,24 hr,extended release 80 mg PO QAM #90 cap 07/17/20 [Rx Confirmed 01/18/21] trazodone 50 mg tablet 50 mg PO BID #30 tab 11/03/20 [Rx Confirmed 01/18/21] amoxicillin 500 mg PO QID 01/18/21 [History Confirmed 01/18/21] gabapentin 600 mg PO HS 01/18/21 [History Confirmed 01/18/21] insulin aspart U-100 [Novolog Flexpen U-100 Insulin] 45 unit SUBCUT .DAILY AT 1600 01/18/21 [History Confirmed 01/18/21] insulin glargine [Lantus Solostar U-100 Insulin] 45 unit SQ .DAILY AT 1600 01/18/21 [History Confirmed 01/18/21] mirabegron [Myrbetriq] 50 mg PO QAM 01/18/21 [History Confirmed 01/18/21] potassium 99 mg PO QAM 01/18/21 [History Confirmed 01/18/21] tramadol See Rx Instructions .ROUTE .COMPLEX 01/18/21 [History Confirmed 01/18/21] ECG Additional Comments: Vent. Rate : 076 BPM Atrial Rate : 076 BPM P-R Int : 188 ms QRS Dur : 074 ms QT Int : 358 ms P-R-T Axes : 054 049 -22 degrees QTc Int : 402 ms Normal sinus rhythm Cannot rule out Anterior infarct , age undetermined Nonspecific ST abnormality Inferior leads and in Lateral leads Abnormal ECG When compared with ECG of 01-MAR-2020 17:04, Nonspecific T wave abnormality, worse in Inferior leads Nonspecific T wave abnormality now evident in Lateral leads Confirmed by Perez Dominguez ([id number]) on 01/18/2021 3:03:44 PM Vent. rate [address] interval 182 ms QRS duration 78 ms QT/QTc 406/447 ms P-R-T axes 32 -1 40 Normal sinus rhythm Cannot rule out Anterior infarct (cited on or before 18-JAN-2021) Abnormal ECG When compared with ECG of 18-JAN-2021 13:50, No significant change was found Code Status & VTE Plan Code Status VTE: Lovenox/SCD CODE: DNR/DNI VTE Prophylaxis Plan VTE Prophylaxis will be ordered: Yes Supervising Physician Co-Signing Physician Notes Attending Attestation: Pt seen & examined, chart reviewed, care plan d/w AZAM Perez. I agree w/ the schmidt components of his documentation. 75yo female with history of stage 4 breast cancer - [facility]son [facility] - T2DM, morbid obesity BMI 45, and chronic hypoxic resp failure on home O2 5 L -- presenting with several days of intermittent chest discomfort. The pain has been sternal in location, left upper chest, and left lower chest under the breast. Pain has never been right-sided. ?improved with sitting up? No pleuritic component. During my assessment she rolled to her right in the bed and this provoked the pain. Also apparently she went 20-30 min in the ER without her NC O2 and this provoked the pain as well. Breast cancer - apparently is taking an oral agent for such, but she could not recall the name nor is it on her med list. Last imaging of chest was 2017 when she had PET/CT. PMH, PSH, allergies, meds, sochx, famhx - reviewed VSS, afebrile gen - NAD, obese neck - no JVD heart - RRR, s1 s2 lungs - minimal bibasilar rales; no wheeze; no distress chest - I could not reproduce her pain w/ palpation of sternal or upper chest areas abd - soft NT ext - no edema A/P: Chest pain - quite atypical for ischemia. [id number] plan for serial troponins, tele monitoring, etc. Consider, at minimum, 2d echo. Given her stage 4 breast ca history I am concerned about VTE, pericardial effusion/pericarditis, mets to lungs, etc. To that end plan for CTA chest tonight to exclude these possibilities. T2DM, COPD - management per Mr Arely. Quintin Nicole MD PG Care Time/CCT Total # of Minutes Spent Total Time Spent with Patient: Total time spent is greater than 50% in coordination of care (as documented) at patient's floor/unit and/or counseling patient: Coding Level of Care Code 41480 OBS Care - Level 3 Diagnoses Chest pain, precordial R07.2 History of breast cancer Z85.3 Morbid obesity with BMI of 45.0-49.9, adult E66.01; Z68.42 Sleep apnea G47.30 Sleep apnea type: unspecified type Chronic obstructive pulmonary disease J44.9 Emphysema type: unspecified Type 2 diabetes mellitus, with long-term current use of insulin E11.9; Z79.4 Hypertension I10 Hypertension type: essential hypertension Overactive bladder N32.81 Hypercalcemia E83.52 Chronic respiratory failure with hypoxia J96.11 (1) Sleep apnea Sleep apnea type: unspecified type Qualified Code(s): G47.30 - Sleep apnea, unspecified (2) Chronic obstructive pulmonary disease Emphysema type: unspecified (3) Hypertension Hypertension type: essential hypertension Qualified Code(s): I10 - Essential (primary) hypertension
[2021-01-18] MEDS ORDERED: GLUCOSE 10 TABS/TUBE PO PRN (22:05)
[2021-01-18] MEDS ORDERED: GLUCAGON FOR INJ 1 MG VIAL SQ PRN (22:05)
[2021-01-18] MEDS ORDERED: CARBOHYDRATES FOR HYPOGLYCEMIA PO PRN (22:05)
[2021-01-18] MEDS ORDERED: GLUCOSE 40% GEL 15 GM TUBE PO PRN (22:05)
[2021-01-18] MEDS ORDERED: ACETAMINOPHEN 325 MG TAB PO PRN (22:05)
[2021-01-18] MEDS ORDERED: DEXTROSE 50% 50 ML SYRINGE IV PRN (22:05)
[2021-01-18] MEDS ORDERED: ONDANSETRON INJ 2 MG/ML 2 ML VIAL IV PRN (22:05)
[2021-01-18] MEDS ORDERED: OPTIRAY 320 125ml IV ONE (23:11)
[2021-01-18] MEDS: AMOXICILLIN 500 MG CAP PO SCH (23:40)
[2021-01-18] MEDS: GABAPENTIN 300 MG CAP PO SCH (23:41)
[2021-01-18] MEDS: INSULIN GLARGINE SOLOSTAR 100 UNITS/ML 3 ML PEN SQ SCH (23:41)
[2021-01-18] MEDS: INSULIN ASPART 100 UNITS/ML 3 ML PEN SC SCH (23:41)
[2021-01-18] MEDS: traMADol HCL 50 MG TABLET PO SCH (23:42)
[2021-01-18] MEDS: QUEtiapine FUMARATE 25 MG TABLET PO SCH (23:42)
[2021-01-19 06:43] LABS: Estimated Average Glucose 163 mg/dl; Hemoglobin A1C 7.3 % (4.5-5.6)
--- NOTE | 2021-01-19 07:34 | CT Scan Report ---
CT angio chest w con CT DOSE: 1002.99 mGy.cm CLINICAL HISTORY: metastatic breast ca with chest wall tenderness shortness of breath TECHNIQUE: CT angiography the chest was performed in a dynamic helical fashion during intravenous adm inistration of 118 cc of Optiray 320. MIP images were acquired. A dose lowering technique was utiliz ed adhering to the principles of ALARA. COMPARISON STUDY: Chest x-ray dated 01/18/2021 FINDINGS: There is no evidence of thoracic aortic aneurysm or dissection. There are no pulmonary artery filling defects to indicate acute pulmonary embolism. There is artifact from bilateral shoulder arthroplasties. There is no pathologic mediastinal or hilar lymphadenopathy. Postsurgical changes involve the right axilla. There is an area of architectural distortion within th e right axilla, mass versus postsurgical change. There are bilateral pleural effusions. Mild interstitial edema is suspected. There are bibasilar parenchymal opacities likely representing compressive atelectasis. There is a left-sided A-Port catheter. There is heterogeneous hepatic enhancement with a mild nodular appearance of the serosal surface. Thi s could indicate cirrhosis or pseudocirrhosis. Hepatic metastatic disease not excluded. There are sev eral nonspecific vertebral body sclerotic densities. Also evident are several sclerotic rib lesions p ossibly related to old fractures although metastatic disease is not excluded IMPRESSION: 1. No evidence of thoracic aortic aneurysm or dissection 2. No evidence of acute pulmonary embolism 3. Bilateral pleural effusions and suspected mild interstitial edema 4. Bibasilar opacities likely representing compressive atelectasis 5. Postsurgical changes in the right axilla with architectural distortion. 6. Heterogeneous hepatic enhancement. Metastatic disease not excluded ACT 112: Negative or not required by law. Electronically signed by: Nato Jamison M.D. 01/19/2021 7:33 AM
[2021-01-19] MEDS: PROPRANOLOL HCL LA 80 MG CAPCR PO SCH (08:36)
[2021-01-19] MEDS: ASPIRIN 81 MG ECTAB PO SCH (08:36)
[2021-01-19] MEDS: AMOXICILLIN 500 MG CAP PO SCH ×4 (08:36→22:52)
[2021-01-19] MEDS: QUEtiapine FUMARATE 25 MG TABLET PO SCH ×2 (08:37→22:53)
[2021-01-19] MEDS: MIRABEGRON ER 25 MG TAB PO SCH (08:37)
[2021-01-19] MEDS: ENOXAPARIN INJ 40 MG/0.4 ML SYR SQ SCH (08:37)
[2021-01-19] MEDS: INSULIN ASPART 100 UNITS/ML 3 ML PEN SC SCH ×4 (08:38→22:53)
[2021-01-19] MEDS ORDERED: NON-FORMULARY MEDICATION (Potassium 99 mg Tablet) PO SCH (09:00)
[2021-01-19 09:10] LABS: Vitamin D, 25 Hydrox 61.8 ng/ml (30-100)
[2021-01-19] MEDS: traMADol HCL 50 MG TABLET PO SCH ×2 (09:13→22:53)
[2021-01-19 09:50] LABS: Act87 Hepatitis C IgG Screen Neg (Neg)
--- NOTE | 2021-01-19 12:21 | XCELERA ---
[id number] \\[id number]
--- NOTE | 2021-01-19 14:06 | Electrocardiogram Report ---
Test Reason : Blood Pressure : / mmHG Vent. Rate : 073 BPM Atrial Rate : 073 BPM P-R Int : 182 ms QRS Dur : 078 ms QT Int : 406 ms P-R-T Axes : 032 -01 040 degrees QTc Int : 447 ms Normal sinus rhythm Cannot rule out Anterior infarct (cited on or before 18-JAN-2021) Abnormal ECG When compared with ECG of 18-JAN-2021 13:50, No significant change was found Confirmed by Perez Dominguez ([id number]) on 01/19/2021 2:06:04 PM Referred By: REFERRED SELF Confirmed By:Perez Dominguez
[2021-01-19] MEDS ORDERED: KETOROLAC TROMETHAMINE 15 MG/ML VIAL IV PRN (14:27)
[2021-01-19] MEDS ORDERED: KETOROLAC TROMETHAMINE 15 MG/ML VIAL IV ONE (14:27)
[2021-01-19] MEDS: DICLOFENAC SOD 1% GEL 100 GM TUBE EXT SCH ×4 (15:08→22:59)
--- NOTE | 2021-01-19 16:34 | Hospitalist Progress Note ---
Date of Service January 19, 2021 Assessment & Plan (1) Chest pain, precordial: -Patient with reproducible costochondral left-sided chest pain, but also some pain in the left shoulder -Negative troponin x3 ECG with normal sinus rhythm, nonspecific ST T wave changes in the inferior and lateral leads - Pleural effusions unchanged from previous chest x-ray -Telemetry without any arrhythmias - DJD with costochondritis is possible - Continue home pain medication with Tramadol and Neurontin and will add Voltaren gel and IV Toradol -Echocardiogram without wall motion abnormalities with preserved EF - CTA of the chest-shows no PE or thoracic aneurysm or dissection, bilateral pleural effusions, bibasilar opacities likely representing compressive atelectasis, heterogenous hepatic enhancement-metastatic disease not excluded, several nonspecific vertebral body sclerotic densities in several sclerotic rib lesions possibly related to old fractures although metastatic disease not excluded -Perhaps this is bony pain from metastatic disease-either way, pain control and will need follow-up with oncology (2) History of breast cancer: Diagnosed ~28 years ago and underwent right mastectomy with complete axillary dissection. -With known metastatic involvement of lymph, lung, spine - Adjuvant chemo and chest wall radiation. - 2018 radiation to thoracic spine for palliative pain- which resolved her back pain. - PET scan in 2018 with overall improvement, no further chest imaging available. 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 syndrome- sleep study from 2008- Severe with AHI-70 - May use home CPAP - No acute needs (5) Chronic obstructive pulmonary disease: As above- patient never smoked - but with metastatic breast cancer (6) Type 2 diabetes mellitus, with long-term current use of insulin: Continue Basal and bolus insulin (7) Hypertension: Controlled-continue propranolol (8) Overactive bladder: Followed closely with urology - Patient recently changed from Macrobid to Augmentin for prophylaxis of UTI - Continue (9) Hypercalcemia: Has a history of both hyperparathyroidism but also with bony metastatic disease contributing Ionized calcium here is normal Vitamin D level is on the high side at 68 -Would ask her to avoid any vitamin D or calcium-containing products - surgical attempt x1 but unable to locate the inferior parathyroid per chart review - was treated with cinacalcet previously -Follow-up with oncology to see about treatment for bony mets (10) Chronic respiratory failure with hypoxia: Stable on home 5 L nasal cannula (11) Depression: Stable Continue home Seroquel, restart home trazodone (12) DVT prophylaxis: Lovenox Dispo-continued stay to see if pain can be controlled by tomorrow Admission and Anticipated Discharge Date Admission Date: January 18, 2021 Subjective Patient reports the pain in her left chest and left shoulder is still coming and going sometimes for an hour at a time but is improved overall today. In fact, she had about 1 minute of pain while I was talking to her that then went away spontaneously. The pain feels like a pressure in nature, is located in the sternal region and across the left chest wall and sometimes into the left shoulder. It does seem worse when she crosses her left arm over her chest. It is also tender to the touch at times in the sternal region. She denies any shortness of breath over her usual and is on her typical 5 L nasal cannula. Review of Systems Review of Systems: All systems reviewed & are unremarkable except as noted in HPI & below Physical Exam Constitutional: WD/WN, vitals as above Eyes: + anicteric sclerae Neck: trachea midline, no thyromegaly Respiratory: normal respiratory effort Auscultation: + diminished lung sounds (At the bases bilaterally); no crackles, no rhonchi and no wheezes Cardiovascular: RRR, no murmur, no edema Chest (Breasts): Breast: + abnormal inspection of breast (Right breast absent) and + abnormal inspection of axilla (Right axilla with incisional scar) Additional Comments: Positive tenderness to palpation over left costosternal region Gastrointestinal (Abdomen): normal bowel sounds, soft, nontender, no hepatosplenomegaly Musculoskeletal: Extremities: extremities normal to inspection; no cyanosis and no clubbing Skin: no rashes, warm and dry Neurologic: moves all extremities and awake; no focal motor deficits Psychiatric: A+Ox3, euthymic affect Lymphatic: no lymphedema Results & Data Results & Data ([facility]) Vital Signs (Past 12 Hours) Vital Signs Temp Pulse Pulse Resp BP BP Pulse Ox 01/19/21 15:58 36.2 C L 80 20 118/76 98 01/19/21 11:33 36.7 C 75 20 120/76 96 01/19/21 07:21 73 01/19/21 07:12 36.5 C 70 18 124/78 97 01/19/21 06:21 36.2 C L 70 18 123/91 99 Laboratory Results 01/19/21 01/19/21 01/19/21 Range/Units 20:10 16:43 11:16 POC Glucose 190 H 150 H 257 H (70-99) mg/dl Estimat Average Glucose mg/dl Hemoglobin A1c (4.5-5.6) % Ionized Calcium (1.12-1.32) mmol/L Troponin I (0-0.045) ng/ml 25-OH Vitamin D Total (30-100) ng/ml Hepatitis C Ab Screen (Neg) 01/19/21 01/19/21 01/19/21 Range/Units 08:55 07:31 05:44 POC Glucose 179 H (70-99) mg/dl Estimat Average Glucose mg/dl Hemoglobin A1c (4.5-5.6) % Ionized Calcium 1.24 (1.12-1.32) mmol/L Troponin I < 0.015 (0-0.045) ng/ml 25-OH Vitamin D Total (30-100) ng/ml Hepatitis C Ab Screen (Neg) 01/19/21 01/19/21 Range/Units 05:44 05:44 POC Glucose (70-99) mg/dl Estimat Average Glucose 163 mg/dl Hemoglobin A1c 7.3 H (4.5-5.6) % Ionized Calcium (1.12-1.32) mmol/L Troponin I (0-0.045) ng/ml 25-OH Vitamin D Total 61.8 (30-100) ng/ml Hepatitis C Ab Screen Neg (Neg) PG Care Time/CCT Total # of Minutes Spent Total Time Spent with Patient: Total time spent is greater than 50% in coordination of care (as documented) at patient's floor/unit and/or counseling patient: Coding Level of Care Code 60413 Subseq Hosp Care Lvl 3 Diagnoses Chest pain, precordial R07.2 History of breast cancer Z85.3 Morbid obesity with BMI of 45.0-49.9, adult E66.01; Z68.42 Sleep apnea G47.30 Sleep apnea type: unspecified type Chronic obstructive pulmonary disease J44.9 Emphysema type: unspecified Type 2 diabetes mellitus, with long-term current use of insulin E11.9; Z79.4 Hypertension I10 Hypertension type: essential hypertension Overactive bladder N32.81 Hypercalcemia E83.52 Chronic respiratory failure with hypoxia J96.11 Depression F32.9 DVT prophylaxis Z29.9 (1) Sleep apnea Sleep apnea type: unspecified type Qualified Code(s): G47.30 - Sleep apnea, unspecified (2) Chronic obstructive pulmonary disease Emphysema type: unspecified (3) Hypertension Hypertension type: essential hypertension Qualified Code(s): I10 - Essential (primary) hypertension
[2021-01-19] MEDS: INSULIN GLARGINE SOLOSTAR 100 UNITS/ML 3 ML PEN SQ SCH (17:12)
[2021-01-19] MEDS: GABAPENTIN 300 MG CAP PO SCH (22:52)
[2021-01-20 06:29] LABS: Basophils # (auto) 0.04 K/uL (0-0.2); Basophils % (auto) 0.6 %; Eosinophils # (auto) 0.36 K/uL (0-0.5); Eosinophils % (auto) 5.8 %; Hematocrit (blood only) 39.8 % (37-47); Hemoglobin 13.9 g/dL (12.0-16.0); Immature Granulocytes # (auto) 0.02 K/uL (0.00-0.02); Immature Granulocytes % (auto) 0.3 %; Lymphocytes # (auto) 1.55 K/uL (1.2-3.4); Lymphocytes % (auto) 25.1 %; Mean Corpuscular Hemoglobin 34.7 pg (25-34); Mean Corpuscular Hgb Conc 34.9 g/dL (32-36); Mean Corpuscular Volume 99.3 fL (80-100); Mean Platelet Volume 10.6 fL (7.4-10.4); Monocytes # (auto) 0.44 K/uL (0.11-0.59); Monocytes % (auto) 7.1 %; Neutrophils # (auto) 3.76 K/uL (1.4-6.5); Neutrophils % (auto) 61.1 %; Platelet Count 255 K/uL (130-400); RDW Coefficient of Variation 14.4 % (11.5-14.5); RDW Standard Deviation 52.2 fL (36.4-46.3); Red Blood Count 4.01 M/uL (4.2-5.4); White Blood Count 6.17 K/uL (4.8-10.8)
[2021-01-20 07:23] LABS: BUN Creatinine Ratio 14.1 (10-20); Calcium 9.7 mg/dl (8.5-10.1); Creatinine Clr Calc Pharmacy 45.2 ml/min; Est GFR (African American) 61.6; Est GFR (Non-African American) 53.1
[2021-01-20] MEDS: MIRABEGRON ER 25 MG TAB PO SCH (08:25)
[2021-01-20] MEDS: PROPRANOLOL HCL LA 80 MG CAPCR PO SCH (08:25)
[2021-01-20] MEDS: AMOXICILLIN 500 MG CAP PO SCH (08:25)
[2021-01-20] MEDS: QUEtiapine FUMARATE 25 MG TABLET PO SCH (08:25)
[2021-01-20] MEDS: INSULIN ASPART 100 UNITS/ML 3 ML PEN SC SCH ×2 (08:26→12:18)
[2021-01-20] MEDS: ENOXAPARIN INJ 40 MG/0.4 ML SYR SQ SCH (08:26)
[2021-01-20] MEDS: DICLOFENAC SOD 1% GEL 100 GM TUBE EXT SCH (08:29)
[2021-01-20] MEDS: traMADol HCL 50 MG TABLET PO SCH (08:31)
[2021-01-20] MEDS: ASPIRIN 81 MG ECTAB PO SCH (08:41)
--- NOTE | 2021-01-20 10:55 | Discharge Summary ---
Date of Service January 20, 2021 Admission HPI Per Admitting Provider 75 YOF with past medical history of UTI, hyperparathyroidism, hypercalcemia, frequent kidney stones, incontinence with pessary, chronic UTI on prophylactic antibiotics, overactive bladder, COPD on home chronic therapy, depression, HTN, HLD, breast cancer, morbid obesity, DM. Patient awoke this morning with chest pain that was sharp in nature. The pain was present when she woke up and progressed to get worse and she called EMS around 0900. The pain went away shortly after arrival to the [facility], after the patient took her home medication pain regime. The pain is located at her left center breast ~ 4th intercostal. The pain did not radiate and was not associated with any dyspnea or diaphoresis, or n/v. The pain did come back "slightly" when she was off her chronic oxygen in the [facility]. In the ER the patient had one set of troponin that was <0.015 and an ECG done. The hospitalist team was notified for admission. While i was assessing the patient, I ordered the repeat troponin and repeat ECG, while COVID test was pending. Her second set of troponin I is <0.015 and ECG remains without acute pathology. Patient will be observed overnight on telemetry for resolution or return of symptoms, as she does have multiple risk factors, will obtain a CT of the chest to evaluate for pulmonary pathology with her history of metastatic breast CA. Patient is currently comfortable and asymptomatic. Principal Diagnosis Chest pain-musculoskeletal in nature-bony mets vs costochondritis Discharge Exam Constitutional WD/WN, vitals as above Eyes + anicteric sclerae Neck trachea midline, no thyromegaly Respiratory normal respiratory effort Auscultation: + diminished lung sounds (At the bases bilaterally); no crackles, no rhonchi and no wheezes Cardiovascular RRR, no murmur, no edema Chest (Breasts) Breast: + abnormal inspection of breast (Right breast absent) and + abnormal inspection of axilla (Right axilla with incisional scar) Additional Comments: Minimal tenderness to palpation of the left chest wall and costochondral junction Gastrointestinal (Abdomen) normal bowel sounds, soft, nontender, no hepatosplenomegaly Musculoskeletal Extremities: extremities normal to inspection; no cyanosis and no clubbing Skin no rashes, warm and dry Neurologic moves all extremities and awake; no focal motor deficits Psychiatric A+Ox3, euthymic affect Lymphatic no lymphedema Discharge Data Allergies Allergy/AdvReac Type Severity Reaction Status Date / Time adhesive tape Allergy Mild Rash Verified 01/18/21 16:20 sorbitan esters Allergy Mild Unknown Verified 01/18/21 16:20 Sulfa (Sulfonamide Allergy Mild Rash Verified 01/18/21 16:20 Antibiotics) sulfamethoxazole Allergy Mild Rash Verified 01/18/21 16:20 [From Bactrim] trimethoprim [From Bactrim] Allergy Mild Rash Verified 01/18/21 16:20 albiglutide AdvReac Mild Diarrhea Verified 01/18/21 16:20 codeine AdvReac Mild Nausea Verified 01/18/21 16:20 metformin AdvReac Mild Diarrhea Verified 01/18/21 16:20 morphine AdvReac Mild Nausea Verified 01/18/21 16:20 Consultations 01/18/21 17:13 ED Decision to Admit Stat Ordered Studies 01/18/21 22:05 CT angio chest w con Urgent Echocardiogram Chest x-ray Hospital Course (1) Chest pain, precordial: -Patient with reproducible costochondral left-sided chest pain, but also some pain in the left shoulder -Negative troponin x3 ECG with normal sinus rhythm, nonspecific ST T wave changes in the inferior and lateral leads - Pleural effusions unchanged from previous chest x-ray, on her usual 5 L nasal cannula -Telemetry without any arrhythmias - DJD with costochondritis versus pain from bony metastases/sclerotic lesions seen throughout his most likely explanation - Continue home pain medication with Tramadol and Neurontin and added Voltaren gel and IV Toradol which worked very well for her pain -We will send home Celebrex 100 mg p.o. twice daily as needed x10-day course and Voltaren gel x10-day course -Echocardiogram without wall motion abnormalities with preserved EF - CTA of the chest-shows no PE or thoracic aneurysm or dissection, bilateral pleural effusions, bibasilar opacities likely representing compressive atelectasis, heterogenous hepatic enhancement-metastatic disease not excluded, several nonspecific vertebral body sclerotic densities in several sclerotic rib lesions possibly related to old fractures although metastatic disease not excluded -Perhaps this is bony pain from metastatic disease-either way, pain control and will need follow-up with oncology (2) History of breast cancer: Diagnosed ~28 years ago and underwent right mastectomy with complete axillary dissection. -With known metastatic involvement of lymph, lung, spine - Adjuvant chemo and chest wall radiation. - 2018 radiation to thoracic spine for palliative pain- which resolved her back pain. - PET scan in 2018 with overall improvement, no further chest imaging available. -Last follow-up was 02/2020 with oncology and was supposed to follow-up 6 months later and did not With sclerotic lesions in ribs and spine as well as liver seen on CT chest here Follow-up with oncology as an outpatient (3) Morbid obesity with BMI of 45.0-49.9, adult: BMI 45.1 - Continue to assist with glucose control and diet modifications (4) Sleep apnea: Likely obesity hypoventilation syndrome- sleep study from 2008- Severe with AHI-70 - May use home CPAP - No acute needs (5) Chronic obstructive pulmonary disease: As above- patient never smoked - but with metastatic breast cancer (6) Type 2 diabetes mellitus, with long-term current use of insulin: Continue Basal and bolus insulin (7) Hypertension: Controlled-continue propranolol (8) Overactive bladder: Followed closely with urology - Patient recently changed from Macrobid to Augmentin for prophylaxis of UTI - Continue (9) Hypercalcemia: Has a history of both hyperparathyroidism but also with bony metastatic disease contributing Ionized calcium here is normal Vitamin D level is on the high side at 68 -Would ask her to avoid any vitamin D or calcium-containing products - surgical attempt x1 but unable to locate the inferior parathyroid per chart review - was treated with cinacalcet previously -Follow-up with oncology (10) Chronic respiratory failure with hypoxia: Stable on home 5 L nasal cannula (11) Depression: Stable Continue home Seroquel, trazodone (12) DVT prophylaxis: Lovenox Dispo-stable for discharge to home Total Time Total Time Spent Total Time Spent (In Minutes): 35 minutes Total Time Includes: Examination of the Patient, Discharge Planning and Medica tion Reconciliation Discharge Plan Discharge Items Patient Disposition: Home - Self-Care Reason For Visit: CHEST PAIN Discharge Diagnosis: Chest pain-musculoskeletal possibly from bony lesions from cancer versus costochondritis Activity: As commented below Lifting: No more than 5 pounds Lifting Comment: No excessive use of the upper arms for 2 weeks until pain is resolved Non-emergency contact: Primary Care Provider and Oncologist Call non-emergency contact if: you have any medication questions and your symptoms worsen Follow-up/Referrals: Gilson Russ V., [Physician] - 04/19/21 10:10 am () Selvin Walker DO [Primary Care Provider] - 01/26/21 2:20 pm () Diet: Carb Consistent or DM2 and Heart Healthy Addtl Attending Provider Instructions: Please continue to use the Voltaren gel applied to the sites of pain in the mid and left-sided chest and left shoulder up to 4 times a day as needed for pain. You can also use Celebrex as needed for pain and continue to use your usual tramadol. You are overdue for follow-up with the oncologist, Dr. Russ. Please follow-up with him within 1 to 2 weeks for your checkup for your breast cancer. Follow-up with your primary care physician within 1 to 2 weeks. Pending Studies at Discharge: No Stand-Alone Forms: My [facility] Medications and DC Order Prescriptions: New diclofenac sodium [Voltaren] 1 % Gel 2 g EXT QID PRN (Reason: Chest and shoulder pain) Qty: 100 RF: 0 celecoxib [Celebrex] 100 mg capsule 100 mg PO BID PRN (Reason: pain) Qty: 20 RF: 0 Continued multivitamin with minerals [Daily Multivitamin-Minerals] Tablet 1 tab PO QAM Qty: 0 RF: 0 aspirin [Aspirin Low Dose] 81 mg Tablet,Delayed Release (Dr/Ec) 81 mg PO QAM Qty: 0 RF: 0 propranolol 80 mg capsule,extended release 24 hr 80 mg PO QAM Qty: 90 RF: 2 trazodone 50 mg tablet 50 mg PO BID Qty: 30 RF: 0 cranberry 500 mg capsule 500 mg PO QAM RF: 0 quetiapine 25 mg tablet 25 mg PO AMHS RF: 0 ascorbic acid (vitamin C) [Vitamin C] 500 mg Tablet 500 mg PO QAM RF: 0 Probiotic Acidophilus Biobeads 12.9 mg (2 billion cell) Tablet,Delayed Release (Dr/Ec) 1 tab PO QAM RF: 0 amoxicillin 500 mg Capsule 500 mg PO QID RF: 0 potassium 99 mg Tablet 99 mg PO QAM RF: 0 gabapentin 300 mg Capsule 600 mg PO HS RF: 0 tramadol 50 mg tablet See Rx Instructions .ROUTE .COMPLEX RF: 0 insulin aspart U-100 [Novolog Flexpen U-100 Insulin] 100 unit/mL (3 mL) insulin pen 45 unit subcut .DAILY AT 1600 RF: 0 Lantus Solostar U-100 Insulin 100 unit/mL (3 mL) insulin pen 45 unit SQ .DAILY AT 1600 RF: 0 Myrbetriq 50 mg tablet extended release 24 hr 50 mg PO QAM RF: 0 Discharge Orders: Discharge Order (Routine); Ordered 01/20/21 Ordered By: Emily Gotti/Other Patient Handouts: Managing Type 2 Diabetes, Managing Diabetes: The A1C Test Admission Data Admit Date/Time: 01/19/21 16:33 Attending Provider: Eimly Torres Admit Provider: Quintin Nicole Primary Care Provider: Selvin Walker Other Providers: Quintin Nicole Coding Level of Care Code D/C Day Management >30 mins Diagnoses Chest pain, precordial R07.2 History of breast cancer Z85.3 Morbid obesity with BMI of 45.0-49.9, adult E66.01; Z68.42 Sleep apnea G47.30 Sleep apnea type: unspecified type Chronic obstructive pulmonary disease J44.9 Emphysema type: unspecified Type 2 diabetes mellitus, with long-term current use of insulin E11.9; Z79.4 Hypertension I10 Hypertension type: essential hypertension Overactive bladder N32.81 Hypercalcemia E83.52 Chronic respiratory failure with hypoxia J96.11 Depression F32.9 DVT prophylaxis Z29.9
== END 2021-01-20 13:51 | disposition home or self-care (01) | DRG 206 ==
LOC: 2N 13:40 → ED 13:40 → SUATTDRO 20:04 → 2N 21:26

== ENCOUNTER 2021-10-12 08:12 | Inpatient (IN) ==
--- NOTE | 2021-10-12 08:36 | Emergency Department Note ---
Impression & Plan Altered mental status, Dementia, Hyponatremia, Acute UTI, LLL pneumonia ED Provider Note Provider: Nathaniel Armando MD DATE OF SERVICE: 10/12/2021 CHIEF COMPLAINT: Confusion, hypoxia HISTORY OF PRESENT ILLNESS: Patient is a 76-year-old female past medical history of type 2 diabetes, COPD on chronic home oxygen 5 L, recurrent UTI, hypercalcemia, hypertension, and Lewy body dementia presenting via ambulance today after being found at home off her oxygen overnight and more confused by EMS report. Patient was evidently in the 80s off of oxygen and is normally on 5 L. There is no reported trauma or other recent illness. EMS report the patient's family found her this way and called that she was more confused than normal. She was somewhat agitated for EMS. Received 2 mg of IM Versed prior to arrival to facilitate treatment. Upon arrival the patient will not answer my questions and appears somewhat fatigued. She is in the low 90s on 6 L nasal cannula oxygen. She does respond quite loudly to the placement of monitor and EKG stickers and appears to move all extremities but is not again following commands. Patient's daughter arrives and is her primary caregiver. Reports her mother has had a bit of a cough and some cold symptoms for 2 to 3 days they have using some [id number] medicine. Decreased intake reported. Again this morning found without her oxygen in her chair next to her bed and was much more confused and did not know her daughter. Things have been worsening somewhat recently and daughter reports they have been considering possibly working with [facility] of care and/or hospice. Daughter reports that her mother has complained maybe of a little bit of chest discomfort. Has a history of hospitalization several months ago for this and intermittently has been using some Celebrex at home. REVIEW OF SYSTEMS: Limited secondary to mental status PAST MEDICAL HISTORY: As noted above MEDICATIONS: Reviewed home medications includes chronic oxygen 5 L SOCIAL HISTORY: Lives at home with daughter PHYSICAL EXAM: GENERAL: No acute distress seated on the stretcher resting with eyes open but responsive to light tactile stimulation. Head: normocephalic and atraumatic EYES: No injection, discharge or icterus. PERRL NECK: Trachea midline. Supple. ENT: Mucous membranes pink and moist. LUNGS: Airway patent. No retractions. Breath sounds with scattered wheezes. HEART: Regular rate and rhythm. No chest wall tenderness with a left upper chest wall port. ABDOMEN: Soft and non-tender, without guarding or rebound with a soft large ventral hernia appreciated. SKIN: Acyanotic, warm, dry, without rashes EXTREMITIES: Without swelling, tenderness or deformity NEUROLOGICAL: No focal deficits moves all extremities intermittently but not following commands. No aphasia. No facial droop or slurred speech. Patient will not answer my orientation questions. EK bpm sinus tachycardia. No PVC or PAC. No acute ST segment elevation or depression with nonspecific inferior lateral T wave flattening and T wave inversions. QTC 430. Compared to January 18 of this year no significant change. CONTINUOUS CARDIAC MONITORING: was ordered and showed a heart rate of 90s-110s bpm in normal sinus rhythm to sinus tachycardia Patient's laboratory studies and imaging reviewed. Differential includes Infection, dehydration, metabolic abnormality, hypo/hyperglycemia, electrolyte disturbance, anemia, hypoxia, cardiac sources, intracerebral event, toxicologic, neurologic, as well as other pathologies. IMPRESSION/MEDICAL DECISION MAKING: Patient presents found more confused than normal by family in her bed this morning evidently her oxygen that she is chronically on fell off overnight. Patient was found to be somewhat hypoxic for EMS but agitated as well required some Versed prior to arrival. Patient somewhat sedate but responds quite violently to any physical stimuli even applying EKG stickers. No significant focal deficits noted. No history of trauma reported. Basic labs and VBG obtained to look for possible hypercarbia or other significant abnormality. Urine sample sent. Covid, RSV, flu test was sent. This test returned negative. X-ray ordered and per review and radiology report concerning findings for possible viral infiltrative process as well as atelectasis versus left lower lobe pneumonia. Urinalysis concerning for infection. White blood cell count high end of normal at 10.3. No anemia. Slight acidosis 7.34 with slight CO2 el evation of 62. Given the patient's mental status do not believe she will tolerate BiPAP and do not believe we needed at this time; we will continue to monitor. Again has been restarted on her oxygen and slightly increased currently at 7 L. Slight creatinine elevation from baseline and daughter rep orts some decreased intake. No troponin elevation. No evidence of acute transaminitis on blood work. Mild hyponatremia. Given her confusion likely related to a combination of pneumonia and UTI as well some component of underlying respiratory failure and dementia will bring into the hospital and have the hospitalist further evaluate. DIAGNOSIS: Confusion, acute UTI, pneumonia, hyponatremia, hypercarbia DISPOSITION: Hospitalist will evaluate Patient's daughter agreeable with this plan. 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 Leesa Tracey- done at [facility] Recurrent UTI on prophylactic abx for maintenance Restless leg syndrome Risk for falls Sleep apnea CPAP Type 2 diabetes mellitus, with long-term current use of insulin Surgical History H/O parathyroidectomy partial History of appendectomy History of carpal tunnel release RIGHT History of cataract surgery BILATERAL History of colonoscopy History of difficult intubation 06/14/17: Left TSA: Glidescope #3, ETT 7.0, Gr View 1 History of hysterectomy BSO/BLADDER TACK History of mastectomy RIGHT + LYMPH NODE DISSECTION History of nasal septoplasty History of total shoulder replacement BILATERAL Status post Mohs surgery Family History Father Cancer Lung cancer Grandmother Breast cancer Myocardial infarction Aunt Ovarian cancer Denies family history of Prostate cancer Colorectal cancer Social History Smoking Status: Never smoker Second Hand Exposure: Yes (OCCASSIONALLY); Hx Alcohol Use: No Hx Substance Use: No Preferred Language: [place] Communication Ability: Effective Visual Impairment: Partially Limited Hearing Ability: Use of Hearing Aid Service Rig Operator Required: No Beliefs That Will Affect Care: None marital status: / Current Living Situation: Family Current Living Situation Comment: Daughter lives with patient current occupational status: retired How many Children do You have: 3 Feels Safe at Home: Yes Childhood Exposure to Second-Hand Smoke: Yes caffeine: Yes during the past year weight has: increased > 10 lbs Dental Care, Regularly: Yes Physical Activity Frequency: Does not Exercise Seatbelt Use: never Sunscreen Use: Yes Assistive Devices: CPAP, Oxygen - Continuous and Walker Allergies Allergies Allergy/AdvReac Type Severity Reaction Status Date / Time adhesive tape Allergy Mild Rash Verified 10/12/21 10:14 sorbitan esters Allergy Mild Unknown Verified 10/12/21 10:14 Sulfa (Sulfonamide Allergy Mild Rash Verified 10/12/21 10:14 Antibiotics) sulfamethoxazole Allergy Mild Rash Verified 10/12/21 10:14 [From Bactrim] trimethoprim [From Bactrim] Allergy Mild Rash Verified 10/12/21 10:14 albiglutide AdvReac Mild Diarrhea Verified 10/12/21 10:14 codeine AdvReac Mild Nausea Verified 10/12/21 10:14 metformin AdvReac Mild Diarrhea Verified 10/12/21 10:14 morphine AdvReac Mild Nausea Verified 10/12/21 10:14 Home Meds Home Medications Medication Instructions Recorded Confirmed multivitamin with minerals (Daily 1 tab PO QAM #0 06/18/07 10/12/21 Multivitamin-Minerals) aspirin 81 mg tablet,delayed 81 mg PO QAM #0 06/01/18 10/12/21 release (Aspirin Low Dose) ascorbic acid (vitamin C) 500 mg 500 mg PO QAM 11/14/18 10/12/21 tablet (Vitamin C) cranberry 500 mg capsule 500 mg PO QAM 04/19/19 10/12/21 L.acidoph-L.rhamn-B.bifidum-B.long 1 tab PO QAM 03/01/20 10/12/21 12.9 mg (2 billion cell) DR merary (Probiotic Acidophilus Arpita) quetiapine 25 mg tablet 25 mg PO AMHS 04/24/20 10/12/21 gabapentin 300 mg capsule 600 mg PO HS 01/18/21 10/12/21 diclofenac sodium 1 % topical gel 2 g TOPICAL QID PRN 10/12/21 10/12/21 insulin aspart U-100 100 unit/mL 45 unit SUBCUT DAILY@1600 10/12/21 10/12/21 (3 mL) subcutaneous pen (Novolog Flexpen U-100 Insulin aspart) insulin glargine 100 unit/mL (3 45 unit SQ DAILY@1600 10/12/21 10/12/21 mL) subcutaneous pen (Lantus Solostar U-100 Insulin) potassium gluconate 600 mg (99 mg) 600 mg PO QAM 10/12/21 10/12/21 tablet Previous Rx's Medication Instructions Recorded celecoxib 100 mg capsule (Celebrex) 100 mg PO BID PRN #180 cap 02/17/21 propranolol 80 mg capsule,24 80 mg PO QAM #30 cap 05/03/21 hr,extended release mirabegron 50 mg tablet,extended 50 mg PO QAM #90 tab 07/15/21 release 24 hr (Myrbetriq) tramadol 50 mg tablet 50 mg PO BID #60 tab 10/04/21 Results & Data (ED) Vital Signs Vital Signs - 24 hr 10/12/21 07:49 10/12/21 08:15 10/12/21 08:19 Temperature 36.4 C L Temperature Source Temporal Artery Scan Pulse Rate 110 H Pulse Rate [Apical] 100 H Pulse Rhythm Regular Respiratory Rate 16 20 Respiratory Effort / Characteristics Non-Labored Spontaneous Non-Labored Spontaneous Respiratory Depth Normal Normal Respiratory Pattern Regular Regular Blood Pressure 104/58 L Blood Pressure [Left Arm] 104/58 L Blood Pressure Mean 73 Blood Pressure Mean [Left Arm] 73 Blood Pressure Position Lying Blood Pressure Position [Left Arm] Lying Pulse Oximetry 94 94 100 Oxygen Delivery Method Nasal Cannula Nasal Cannula Nasal Cannula Oxygen Flow Rate 6 6 5 Sepsis Recent Fever Within 48 Hours No Sepsis New/Unexplained Change in Mental Status No Sepsis Action Taken by Nursing No Action Required 10/12/21 10:35 Temperature Temperature Source Pulse Rate Pulse Rate [Apical] 104 H Pulse Rhythm Respiratory Rate 22 Respiratory Effort / Characteristics Non-Labored Spontaneous Respiratory Depth Normal Respiratory Pattern Regular Blood Pressure Blood Pressure [Left Arm] Blood Pressure Mean Blood Pressure Mean [Left Arm] Blood Pressure Position Blood Pressure Position [Left Arm] Pulse Oximetry 100 Oxygen Delivery Method Nasal Cannula Oxygen Flow Rate 5 Sepsis Recent Fever Within 48 Hours Sepsis New/Unexplained Change in Mental Status Sepsis Action Taken by Nursing Laboratory Data Result diagrams: 10/12/21 08:43 10/12/21 08:43 Lab Results 12/28/21 12/28/21 12/28/21 Range/Units 08:25 08:43 08:43 WBC 10.35 (4.8-10.8) K/uL RBC 4.39 (4.2-5.4) M/uL Hgb 14.5 (12.0-16.0) g/dL Hct 44.8 (37-47) % MCV 102.1 H (80-100) fL MCH 33.0 (25-34) pg MCHC 32.4 (32-36) g/dL RDW Std Deviation 48.5 H (36.4-46.3) fL RDW Coeff of Angélica 12.9 (11.5-14.5) % Plt Count 268 (130-400) K/uL MPV 10.0 (7.4-10.4) fL Immature Gran % (Auto) 0.5 % Neut % (Auto) 80.2 % Lymph % (Auto) 12.2 % Lassen % (Auto) 5.4 % Eos % (Auto) 1.4 % Baso % (Auto) 0.3 % Neut # (Auto) 8.30 H (1.4-6.5) K/uL Lymph # (Auto) 1.26 (1.2-3.4) K/uL Lassen # (Auto) 0.56 (0.11-0.59) K/uL Eos # (Auto) 0.15 (0-0.5) K/uL Baso # (Auto) 0.03 (0-0.2) K/uL Immature Gran # (Auto) 0.05 H (0.00-0.02) K/uL VBG pH Cancelled VBG pCO2 Cancelled VBG pO2 Cancelled VBG HCO3 Cancelled VBG O2 Saturation Cancelled VBG Base Excess Cancelled Barometric Pressure Cancelled Sodium (136-145) mmol/L Potassium (3.5-5.1) mmol/L Chloride (98-107) mmol/L Carbon Dioxide (21-32) mmol/L Anion Gap (3-11) BUN (7-18) mg/dl Creatinine (0.6-1.2) mg/dl Est Cr Clr Drug Dosing ml/min Est GFR ( Amer) ml/min Est GFR (Non-Af Amer) ml/min BUN/Creatinine Ratio (10-20) Glucose (70-99) mg/dl Calcium (8.5-10.1) mg/dl Total Bilirubin (0.2-1) mg/dl AST (15-37) U/L ALT (12-78) Alkaline Phosphatase (45-117) U/L Troponin I (0-0.045) ng/ml Total Protein (6.4-8.2) gm/dl Albumin (3.4-5.0) gm/dl Globulin (2.5-4.0) gm/dl Albumin/Globulin Ratio (0.9-2) TSH (0.300-4.500) uIu/ml Urine Color Yellow Urine Appearance Cloudy A (Clear) Urine pH 5.0 (4.5-7.5) Ur Specific [place] 1.026 (1.000-1.030) Urine Protein 2+ H (Negative) Urine Glucose (UA) 3+ H (Negative) Urine Ketones 2+ H (Negative) Urine Blood 2+ H (Negative) Urine Nitrite Positive A (Negative) Urine Bilirubin Negative (Negative) Urine Urobilinogen Negative (Negative) Ur Leukocyte Esterase 2+ H (Negative) Urine WBC (Auto) >30 H (0-5) /hpf Urine RBC (Auto) 10-30 H (0-4) /hpf U Hyaline Cast (Auto) 1-5 (0-5) /lpf U Epithel Cells (Auto) 5-10 H (0-5) /lpf Urine Bacteria (Auto) 1+ H (Negative) SARS-CoV-2 (PCR) (Negative) Influenza Type A (PCR) (Neg) Influenza Type B (PCR) (Neg) RSV (RT-PCR) (Neg) 10/12/21 10/12/21 10/12/21 Range/Units 08:43 08:45 09:13 WBC (4.8-10.8) K/uL RBC (4.2-5.4) M/uL Hgb (12.0-16.0) g/dL Hct (37-47) % MCV (80-100) fL MCH (25-34) pg MCHC (32-36) g/dL RDW Std Deviation (36.4-46.3) fL RDW Coeff of Angélica (11.5-14.5) % Plt Count (130-400) K/uL MPV (7.4-10.4) fL Immature Gran % (Auto) % Neut % (Auto) % Lymph % (Auto) % Lassen % (Auto) % Eos % (Auto) % Baso % (Auto) % Neut # (Auto) (1.4-6.5) K/uL Lymph # (Auto) (1.2-3.4) K/uL Lassen # (Auto) (0.11-0.59) K/uL Eos # (Auto) (0-0.5) K/uL Baso # (Auto) (0-0.2) K/uL Immature Gran # (Auto) (0.00-0.02) K/uL VBG pH 7.34 L VBG pCO2 62 H VBG pO2 23 VBG HCO3 33 VBG O2 Saturation < 60.0 VBG Base Excess 4.8 Barometric Pressure 729.7 Sodium 133 L (136-145) mmol/L Potassium 4.1 (3.5-5.1) mmol/L Chloride 96 L (98-107) mmol/L Carbon Dioxide 29 (21-32) mmol/L Anion Gap 8.0 (3-11) BUN 16 (7-18) mg/dl Creatinine 1.38 H (0.6-1.2) mg/dl Est Cr Clr Drug Dosing 37.3 ml/min Est GFR ( Amer) 42.9 ml/min Est GFR (Non-Af Amer) 37.0 ml/min BUN/Creatinine Ratio 11.7 (10-20) Glucose 283 H (70-99) mg/dl Calcium 10.3 H (8.5-10.1) mg/dl Total Bilirubin 0.7 (0.2-1) mg/dl AST 21 (15-37) U/L ALT 22 (12-78) Alkaline Phosphatase 101 (45-117) U/L Troponin I < 0.015 (0-0.045) ng/ml Total Protein 8.7 H (6.4-8.2) gm/dl Albumin 3.1 L (3.4-5.0) gm/dl Globulin 5.6 H (2.5-4.0) gm/dl Albumin/Globulin Ratio 0.6 L (0.9-2) TSH 2.420 (0.300-4.500) uIu/ml Urine Color Urine Appearance (Clear) Urine pH (4.5-7.5) Ur Specific [place] (1.000-1.030) Urine Protein (Negative) Urine Glucose (UA) (Negative) Urine Ketones (Negative) Urine Blood (Negative) Urine Nitrite (Negative) Urine Bilirubin (Negative) Urine Urobilinogen (Negative) Ur Leukocyte Esterase (Negative) Urine WBC (Auto) (0-5) /hpf Urine RBC (Auto) (0-4) /hpf U Hyaline Cast (Auto) (0-5) /lpf U Epithel Cells (Auto) (0-5) /lpf Urine Bacteria (Auto) (Negative) SARS-CoV-2 (PCR) NEGATIVE (Negative) Influenza Type A (PCR) Negative (Neg) Influenza Type B (PCR) Negative (Neg) RSV (RT-PCR) Negative (Neg) Administered Medications Discontinued Medications Ceftriaxone Sodium (Rocephin) 2,000 mg in 70 mls @ 140 mls/hr IV NOW STA Stop: 10/12/21 09:46 Last Infusion: 10/12/21 11:41 Dose: 0 mls/hr Documented by: [id number] Admin: 10/12/21 10:34 Dose: 140 mls/hr Documented by: [id number] Lorazepam (Ativan) 1 mg in 2 mls @ 2 mls/min IV NOW STA Stop: 10/12/21 12:02 Last Admin: 10/12/21 12:05 Dose: 2 mls/min Documented by: [id number] Imaging Data Radiologist's Impression: Chest X-Ray 10/12/21 08:24 XR chest 1V portable CLINICAL HISTORY: confusion, hypoxia. COMPARISON STUDY: 01/18/2021 TECHNIQUE: 1 view of the chest FINDINGS: Single frontal view of the chest demonstrates the cardiomediastinal silhouette t o be within normal limits. Compared to previous examination, there has been interval development of patchy interstitial and alveolar opacities bilaterally most characteristic of a viral type pneumonitis. Covid 19 pneumonia should be excluded. Additionally, there is left lower lobe atelectasis/collapse. Is also evidence for small left pleural effusion. There is no evidence for vascular congestion. There is no acute osseous pathology. IMPRESSION: Patchy interstitial and alveolar opacities bilaterally most characteristic of a viral type pneumonitis and probable early Covid pneumonia. There is also left lower lobe atelectasis/collapse and left pleural effusion. ACT 112: Negative or not required by law. Electronically signed by: Santi Fulton M.D. 10/12/2021 8:[address] 10/12/21 09:10 CT head/brain wo con CLINICAL HISTORY: ams . Confusion COMPARISON STUDY: 02/14/2019 CT DOSE: 998.18 mGy.cm TECHNIQUE: Standard CT of the Brain was performed without IV contrast. A dose lowering technique was utilized adhering to the principles of ALARA. FINDINGS: Extraaxial space: There is no evidence for subdural hematoma. There are no extra-axial fluid collections. Ventricles and cisterns: The ventricles are mildly dilated bilaterally. There is no evidence for midline shift or mass effect. Parenchyma: There is no subarachnoid or intraparenchymal hemorrhage. There is no evidence for an acute infarct or cerebral edema. There is mild cerebral cortical atrophy and decreased attenuation in the periventricular white matter representing remote small vessel disease. There are no gross mass lesions. Osseous structures: There is no evidence for an acute fracture. The visualized paranasal sinuses are clear. However, there has been interval development of mucosal thickening involving the mastoid air cells on the right. The mastoid air cells on the left remain clear. Soft tissues: There is no evidence for focal soft tissue swelling. IMPRESSION: No acute intracerebral pathology. Mild cerebral cortical atrophy and remote small vessel disease. Right mastoiditis. ACT 112: Negative or not required by law. Electronically signed by: Santi Fulton M.D. 10/12/2021 10:03 AM Discharge Plan Visit Data Chief Complaint: Altered Mental Status ED Provider: Nathaniel Armando Discharge Problem: Altered mental status, Dementia, Hyponatremia, Acute UTI, LLL pneumonia Patient Disposition: Admitted As Inpatient Condition: Fair Discharge Instructions Interventions: ED Discharge Assessment Last Done: 10/12/21 13:50
--- NOTE | 2021-10-12 08:59 | XRay Report ---
XR chest 1V portable CLINICAL HISTORY: confusion, hypoxia. COMPARISON STUDY: 01/18/2021 TECHNIQUE: 1 view of the chest FINDINGS: Single frontal view of the chest demonstrates the cardiomediastinal silhouette to be within normal li mits. Compared to previous examination, there has been interval development of patchy interstitial an d alveolar opacities bilaterally most characteristic of a viral type pneumonitis. Covid 19 pneumonia should be excluded. Additionally, there is left lower lobe atelectasis/collapse. Is also evidence for small left pleural effusion. There is no evidence for vascular congestion. There is no acute osseous pathology. IMPRESSION: Patchy interstitial and alveolar opacities bilaterally most characteristic of a viral typ e pneumonitis and probable early Covid pneumonia. There is also left lower lobe atelectasis/collapse and left pleural effusion. ACT 112: Negative or not required by law. Electronically signed by: Santi Fulton M.D. 10/12/2021 8:58 AM
[2021-10-12 09:00] LABS: Appearance Urine Cloudy (Clear); Bacteria Urine Automated 1+ (Negative); Bilirubin Urine Negative (Negative); Blood Urine 2+ (Negative); Color Urine Yellow; Glucose Urine UA 3+ (Negative); Ketones Urine 2+ (Negative); Leukocyte Esterase Urine 2+ (Negative); Nitrite Urine Positive (Negative); Protein Urine 2+ (Negative); Specific Gravity Urine 1.026 (1.000-1.030); Urobilinogen Urine Negative (Negative); WBC Urine Automated >30 /hpf (0-5)
[2021-10-12 09:17] LABS: Basophils # (auto) 0.03 K/uL (0-0.2); Basophils % (auto) 0.3 %; Eosinophils # (auto) 0.15 K/uL (0-0.5); Eosinophils % (auto) 1.4 %; Hematocrit (blood only) 44.8 % (37-47); Hemoglobin 14.5 g/dL (12.0-16.0); Immature Granulocytes # (auto) 0.05 K/uL (0.00-0.02); Immature Granulocytes % (auto) 0.5 %; Lymphocytes # (auto) 1.26 K/uL (1.2-3.4); Lymphocytes % (auto) 12.2 %; Mean Corpuscular Hgb Conc 32.4 g/dL (32-36); Mean Corpuscular Volume 102.1 fL (80-100); Monocytes # (auto) 0.56 K/uL (0.11-0.59); Monocytes % (auto) 5.4 %; Neutrophils % (auto) 80.2 %; Platelet Count 268 K/uL (130-400); RDW Coefficient of Variation 12.9 % (11.5-14.5); RDW Standard Deviation 48.5 fL (36.4-46.3); Red Blood Count 4.39 M/uL (4.2-5.4); White Blood Count 10.35 K/uL (4.8-10.8)
[2021-10-12] MEDS ORDERED: cefTRIAXone SODIUM 2,000 MG/70 ML BAG IV STA (09:17)
[2021-10-12 09:31] LABS: Base Excess VBG 4.8 mEq/L; HCO3 VBG 33 mmol/L; PCO2 VBG 62 mmHg (38-50); PO2 VBG 23 mmHg; pH VBG 7.34 (7.36-7.41)
[2021-10-12 09:33] LABS: Oxygen Saturation VBG < 60.0 %
[2021-10-12 09:43] LABS: Influenza A virus by PCR Negative (Neg); Influenza B virus by PCR Negative (Neg); RSV by PCR Negative (Neg); SARS CoV2 RNA(COVID-19) InHosp NEGATIVE (Negative)
--- NOTE | 2021-10-12 10:04 | CT Scan Report ---
CT head/brain wo con CLINICAL HISTORY: ams . Confusion COMPARISON STUDY: 02/14/2019 CT DOSE: 998.18 mGy.cm TECHNIQUE: Standard CT of the Brain was performed without IV contrast. A dose lowering technique was utilized adhering to the principles of ALARA. FINDINGS: Extraaxial space: There is no evidence for subdural hematoma. There are no extra-axial fluid collecti ons. Ventricles and cisterns: The ventricles are mildly dilated bilaterally. There is no evidence for mid line shift or mass effect. Parenchyma: There is no subarachnoid or intraparenchymal hemorrhage. There is no evidence for an acu te infarct or cerebral edema. There is mild cerebral cortical atrophy and decreased attenuation in th e periventricular white matter representing remote small vessel disease. There are no gross mass lesi ons. Osseous structures: There is no evidence for an acute fracture. The visualized paranasal sinuses are clear. However, there has been interval development of mucosal thickening involving the mastoid air c ells on the right. The mastoid air cells on the left remain clear. Soft tissues: There is no evidence for focal soft tissue swelling. IMPRESSION: No acute intracerebral pathology. Mild cerebral cortical atrophy and remote small vessel disease. Right mastoiditis. ACT 112: Negative or not required by law. Electronically signed by: Santi Fulton M.D. 10/12/2021 10:03 AM
[2021-10-12 10:11] LABS: Alanine Aminotransferase 22 (12-78); Albumin Globulin Ratio 0.6 (0.9-2); Albumin Level 3.1 gm/dl (3.4-5.0); Alkaline Phosphatase 101 U/L (45-117); BUN Creatinine Ratio 11.7 (10-20); Bilirubin,Total 0.7 mg/dl (0.2-1); Blood Urea Nitrogen 16 mg/dl (7-18); Calcium 10.3 mg/dl (8.5-10.1); Carbon Dioxide 29 mmol/L (21-32); Chloride 96 mmol/L (98-107); Creatinine Clr Calc Pharmacy 37.3 ml/min; Est GFR (African American) 42.9 ml/min; Globulin 5.6 gm/dl (2.5-4.0); Glucose 283 mg/dl (70-99); Total Protein 8.7 gm/dl (6.4-8.2); Troponin I < 0.015 ng/ml (0-0.045)
[2021-10-12 10:13] LABS: Potassium 4.1 mmol/L (3.5-5.1)
[2021-10-12 10:22] LABS: Aspartate Aminotransferase 21 U/L (15-37); Sodium 133 mmol/L (136-145)
--- NOTE | 2021-10-12 10:44 | History & Physical Report ---
Date of Service October 12, 2021 Assessment & Plan (1) Recurrent UTI: Plan: Due to the patient's clinical presentation, imaging, and laboratory findings she will be admitted to the hospital proceeding as follows: Patient's records were reviewed concerning urinary tract infection and she has had numerous urinary tract infections most recently in August 2020 at which time she had a pansensitive E. coli urinary tract infection Will await urine culture that has been sent We will place the patient on Rocephin and she has already received her first dose in the emergency department (2) Pneumonia: Plan: The patient has not had any recent hospitalization so I would consider this committee acquired pneumonia She will be receiving Rocephin as noted above We will check a sputum culture We will check blood cultures (3) Acute kidney injury: Plan: The acute kidney injury is likely due to poor oral intake We will hydrate gently with IV fluids We will avoid nephrotoxins We will follow serial labs (4) Hyponatremia: Plan: This is likely due to poor oral intake Hydration measures will be employed as noted above We will follow serial labs Plan: I had a lengthy discussion with the patient's power of health care attorney and daughter Candace. She can be reached at [phone] According to the patient's daughter her mother would not want any heroic measures taken to prolong her life. She specifically stated she would not want any CPR or mechanical ventilation employed in her mother's care and she will therefore be a level 5 DO NOT RESUSCITATE History of Present Illness Chief Complaint: Altered mental status Primary Care Provider: Selvin Walker DO This is a 76-year-old female who presented to [facility] with her daughter at her bedside. Patient has an underlying history of dementia and due to her altered mental status could not contribute whatsoever to the historical information contained in this document. This information was obtained from discussion with the treating emergency room physician, review of r ecords, and discussion with her daughter who was present at bedside. According to patient's daughter her mother developed a "head cold" about 1 week ago. Ever since then she has noted a gradual decline. She notes her mother seems more short of breath with a nonproductive cough. She also notes that her oral intake has been decreased. There have been no documented fevers. She does not have any nausea or vomiting and does have an occasional loose bowel movement. Her mother is not complaining any abdominal pain. There have been no witnessed aspiration events. Her daughter notes that her mother does not ambulate very well and uses a rolling wheelchair to aid with her ambulation. There have been no witnessed or suspicions of any falls or head injuries. She also added that her mother is incontinent of urine and does not have any recent Casiano catheter is in place. She further stated that her mother has not received that the Covid vaccine is and she is unsure if she has received the flu shot. Because of the information noted above she came to [facility] emergency department where patient had labs and imaging which independent reviewed. CBC revealed white blood cell count, hemoglobin, hematocrit, platelet count are all within normal range. Her sodium was slightly low at 135. Her BUN and potassium were normal and her creatinine had a slight elevation at 1.3. TSH was within the normal range. A CT scan of the head showed no acute intracranial abnormalities. COVID-19 test was noted to be negative as well as test for RSV and influenza. An EKG showed normal sinus rhythm without changes concerning for acute ischemia. Urinalysis was concerning for urinary tract infection. Chest x-ray also showed patchy bilateral interstitial infiltrates. Thus far the treating emergency room physician has administered 2 g of IV Rocephin and we are asked to see for admission At the time of my interview the patient was sleeping in bed she did not appear to be uncomfortable or in any amount of distress. Allergies Allergy/AdvReac Type Severity Reaction Status Date / Time adhesive tape Allergy Mild Rash Verified 10/12/21 10:14 sorbitan esters Allergy Mild Unknown Verified 10/12/21 10:14 Sulfa (Sulfonamide Allergy Mild Rash Verified 10/12/21 10:14 Antibiotics) sulfamethoxazole Allergy Mild Rash Verified 10/12/21 10:14 [From Bactrim] trimethoprim [From Bactrim] Allergy Mild Rash Verified 10/12/21 10:14 albiglutide AdvReac Mild Diarrhea Verified 10/12/21 10:14 codeine AdvReac Mild Nausea Verified 10/12/21 10:14 metformin AdvReac Mild Diarrhea Verified 10/12/21 10:14 morphine AdvReac Mild Nausea Verified 10/12/21 10:14 Home Medications Medication Instructions Recorded Confirmed Type multivitamin with minerals (Daily 1 tab PO QAM #0 06/18/07 10/12/21 History Multivitamin-Minerals) aspirin 81 mg tablet,delayed 81 mg PO QAM #0 06/01/18 10/12/21 History release (Aspirin Low Dose) ascorbic acid (vitamin C) 500 mg 500 mg PO QAM 11/14/18 10/12/21 History tablet (Vitamin C) cranberry 500 mg capsule 500 mg PO QAM 04/19/19 10/12/21 History L.acidoph-L.rhamn-B.bifidum-B.long 1 tab PO QAM 03/01/20 10/12/21 History 12.9 mg (2 billion cell) tablet, (Probiotic Acidophilus Arpita) quetiapine 25 mg tablet 25 mg PO AMHS 04/24/20 10/12/21 History gabapentin 300 mg capsule 600 mg PO HS 01/18/21 10/12/21 History celecoxib 100 mg capsule (Celebrex) 100 mg PO BID PRN #180 cap 02/17/21 10/12/21 Rx propranolol 80 mg capsule,24 80 mg PO QAM #30 cap 05/03/21 10/12/21 Rx hr,extended release mirabegron 50 mg tablet,extended 50 mg PO QAM #90 tab 07/15/21 10/12/21 Rx release 24 hr (Myrbetriq) tramadol 50 mg tablet 50 mg PO BID #60 tab 10/04/21 10/12/21 Rx diclofenac sodium 1 % topical gel 2 g TOPICAL QID PRN 10/12/21 10/12/21 History insulin aspart U-100 100 unit/mL 45 unit SUBCUT DAILY@1600 10/12/21 10/12/21 History (3 mL) subcutaneous pen (Novolog Flexpen U-100 Insulin aspart) insulin glargine 100 unit/mL (3 45 unit SQ DAILY@1600 10/12/21 10/12/21 History mL) subcutaneous pen (Lantus Solostar U-100 Insulin) potassium gluconate 600 mg (99 mg) 600 mg PO QAM 10/12/21 10/12/21 History tablet Past Med/Surg History Medical History Anxiety Bladder wall thickening 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 Chronic back pain Chronic obstructive pulmonary disease 5L O2 continuous CKD (chronic kidney disease) Complicated UTI (urinary tract infection) Degenerative disc disease Depression Diabetes type 2, controlled Diabetic 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 Leesa Tracey- done at [facility] Recurrent UTI on prophylactic abx for maintenance Restless leg syndrome Risk for falls Sleep apnea CPAP Type 2 diabetes mellitus, with long-term current use of insulin Surgical History H/O parathyroidectomy partial History of appendectomy History of carpal tunnel release RIGHT History of cataract surgery BILATERAL History of colonoscopy History of difficult intubation 06/14/17: Left TSA: Glidescope #3, ETT 7.0, Gr View 1 History of hysterectomy BSO/BLADDER TACK History of mastectomy RIGHT + LYMPH NODE DISSECTION History of nasal septoplasty History of total shoulder replacement BILATERAL Status post Mohs surgery Family History Father Cancer Lung cancer Grandmother Breast cancer Myocardial infarction Aunt Ovarian cancer Denies family history of Prostate cancer Colorectal cancer Social History Smoking Status: Never smoker Second Hand Exposure: Yes (OCCASSIONALLY); Hx Alcohol Use: No Hx Substance Use: No Preferred Language: Pashto Communication Ability: Effective Visual Impairment: Partially Limited Hearing Ability: Use of Hearing Aid 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: No Beliefs That Will Affect Care: None marital status: / Current Living Situation: Family Current Living Situation Comment: Daughter lives with patient current occupational status: retired How many Children do You have: 3 Feels Safe at Home: Yes Childhood Exposure to Second-Hand Smoke: Yes caffeine: Yes during the past year weight has: increased > 10 lbs Dental Care, Regularly: Yes Physical Activity Frequency: Does not Exercise Seatbelt Use: never Sunscreen Use: Yes Assistive Devices: CPAP, Oxygen - Continuous and Walker Review of Systems Review of Systems: All systems reviewed & are unremarkable except as noted in HPI & below Due to patient's clinical condition and underlying dementia review of systems was unable to be obtained and all pertinent information is contained in the HPI Physical Exam Constitutional: well developed and well nourished; no acute distress Eyes: no conjunctival abnormality ENMT: Ears: no external ear abnormality Neck: trachea midline Respiratory: normal respiratory effort; no respiratory distress and no labored breathing Breath sounds were noted to be decreased at bases with an occasional expiratory rhonchi. There is no wheezing noted. Cardiovascular: Rate/Rhythm: regular rate and regular rhythm Gastrointestinal (Abdomen): Abdomen is rotund but it is soft, nondistended, and nontender to palpation Musculoskeletal: No gross orthopedic abnormalities. There is no pedal edema. There is no calf tenderness. Feet are non-mottled Skin: no rashes Neurologic: Patient awakes easily to verbal stimuli. She is alert to person only. She is confused to place and time. She will follow some simple commands and move all extremities. Psychiatric: Patient is alert to person only confused to place and time Results & Data Results & [facility] ([facility]) Vital Signs (Past 12 Hours) Vital Signs Temp Pulse Resp BP Pulse Ox 10/12/21 08:15 94 10/12/21 07:49 36.4 C L 110 H 16 104/58 L 94 Supervising Physician Co-Signing Physician Notes Patient seen and examined, chart reviewed, case discussed with Omar Cintron PA-C and I agree with the assessment and plan as above except as otherwise noted Patient is 76-year-old female with a past medical history of Lewy body dementia, diabetes, COPD, sleep apnea, metastatic breast cancer, hypercalcemia, hypertension, and home baseline chronic oxygen requirement of 5 L who presented with increased confusion and 5 days of cough. Daughter is with patient at time of assessment, history is limited by severe Lewy body dementia. General: Awakens easily, but easily agitated. Does not follow commands or answer questions. Does not appear toxic. HEENT: Atraumatic, normocephalic. Pupils equal and reactive to light, visual acuity and hearing grossly intact. Pulm: Bibasilar crackles, no overt rales. Scattered end expiratory wheezes. Symmetrical chest rise. No increase work of breathing. No respiratory distress. Cardiac: Regular rhythm, slightly tachycardic.-mrg. Radial pulses intact and symmetrical. Abdominal: Nontender, nondistended, soft. BS present. Extremities: Moves all extremities equally, exam limited by dementia. All labs and images reviewed Multifocal pneumonia, Covid and flu negative but remains suspicious for viral process. Patient also incontinent at baseline, but with worsened frequency and confusion which is happened with her prior UTIs. UA+, UC pending. History of resistant UTIs although most recent have all been pansensitive. We will continue with Rocephin which will cover both pansensitive UTIs and coverage of CAP. Behavioral: Patient with severe Lewy body dementia, responds to behavioral redirection with daughter at bedside. Continue Seroquel 25 mg p.o. a.m. at bedtime Plan otherwise as above. Discussed care with patient's daughter extensively, they are considering transitioning to comfort/hospice goals due to her mother's worsening condition over the last several months and would like to follow-up with us as an outpatient, but not yet at this time. DNR/DNI, confirmed with patient and daughter at bedside. PG Care Time/CCT Total # of Minutes Spent Total Time Spent with Patient: Total time spent is greater than 50% in coordination of care (as documented) at patient's floor/unit and/or counseling patient: Coding Level of Care Code 79166 Initial Inpt Care Lvl 3 Diagnoses Recurrent UTI N39.0 Pneumonia J18.9 Acute kidney injury N17.9 Hyponatremia E87.1
[2021-10-12] MEDS ORDERED: LORazepam 1 MG/2 ML VIAL IV STA ×2 (12:01→17:37)
[2021-10-12] MEDS ORDERED: ONDANSETRON INJ 2 MG/ML 2 ML VIAL IV PRN (13:52)
[2021-10-12] MEDS ORDERED: DEXTROSE 50% 50 ML SYRINGE IV PRN (15:00)
[2021-10-12] MEDS ORDERED: CARBOHYDRATES FOR HYPOGLYCEMIA PO PRN (15:00)
[2021-10-12] MEDS ORDERED: GLUCOSE 40% GEL 15 GM TUBE PO PRN (15:00)
[2021-10-12] MEDS ORDERED: GLUCOSE 10 TABS/TUBE PO PRN (15:00)
[2021-10-12] MEDS ORDERED: AZITHROMYCIN 500 MG in DEXTROSE 5% 250 ML IV ONE (15:00)
[2021-10-12] MEDS ORDERED: GLUCAGON FOR INJ 1 MG VIAL SQ PRN (15:00)
[2021-10-12] MEDS: SODIUM CHLORIDE 0.9% 1000ML 1,000 ML IV SCH (15:40)
[2021-10-12] MEDS ORDERED: INSULIN GLARGINE SOLOSTAR 100 UNITS/ML 3 ML PEN SC ONE (16:30)
[2021-10-12] MEDS: INSULIN ASPART PER UNIT SC SCH ×2 (17:22→21:42)
[2021-10-12] MEDS: CEFEPIME 2,000 MG in SYRINGE 0 ML IV SCH (17:46)
--- NOTE | 2021-10-12 17:51 | Electrocardiogram Report ---
Test Reason : Blood Pressure : / mmHG Vent. Rate : 101 BPM Atrial Rate : 101 BPM P-R Int : 186 ms QRS Dur : 072 ms QT Int : 332 ms P-R-T Axes : 029 016 -80 degrees QTc Int : 430 ms Sinus tachycardia Abnormal ECG When compared with ECG of 18-JAN-2021 19:58, Questionable change in initial forces of Anteroseptal leads Confirmed by Elia Torres ([id number]) on 10/12/2021 5:51:11 PM Referred By: Confirmed By:Deonte Torres
[2021-10-12] MEDS: GABAPENTIN 300 MG CAP PO SCH (22:15)
[2021-10-12] MEDS: QUEtiapine FUMARATE 25 MG TABLET PO SCH (22:16)
[2021-10-12] MEDS: traMADol HCL 50 MG TABLET PO SCH (22:16)
[2021-10-12] MEDS: HALOPERIDOL LACTATE 5 MG/ML 1 ML VIAL IM PRN (22:18)
[2021-10-13] MEDS ORDERED: OLANZapine 10 MG/2.1 ML SDV IM STA ×2 (01:45→03:40)
[2021-10-13 05:30] LABS: Basophils # (auto) 0.03 K/uL (0-0.2); Basophils % (auto) 0.3 %; Eosinophils # (auto) 0.15 K/uL (0-0.5); Eosinophils % (auto) 1.5 %; Hematocrit (blood only) 43.3 % (37-47); Hemoglobin 13.8 g/dL (12.0-16.0); Immature Granulocytes # (auto) 0.02 K/uL (0.00-0.02); Immature Granulocytes % (auto) 0.2 %; Lymphocytes # (auto) 1.68 K/uL (1.2-3.4); Lymphocytes % (auto) 17.1 %; Mean Corpuscular Hemoglobin 32.6 pg (25-34); Mean Corpuscular Hgb Conc 31.9 g/dL (32-36); Mean Corpuscular Volume 102.4 fL (80-100); Mean Platelet Volume 9.6 fL (7.4-10.4); Monocytes # (auto) 0.71 K/uL (0.11-0.59); Monocytes % (auto) 7.2 %; Neutrophils # (auto) 7.25 K/uL (1.4-6.5); Neutrophils % (auto) 73.7 %; Platelet Count 310 K/uL (130-400); RDW Standard Deviation 48.5 fL (36.4-46.3); Red Blood Count 4.23 M/uL (4.2-5.4); White Blood Count 9.84 K/uL (4.8-10.8)
[2021-10-13] MEDS: ACETAMINOPHEN SUSP 160 MG/5 ML UDC PO PRN ×2 (05:55→18:02)
[2021-10-13] MEDS: CEFEPIME 2,000 MG in SYRINGE 0 ML IV SCH ×2 (05:55→18:31)
[2021-10-13 06:09] LABS: BUN Creatinine Ratio 11.2 (10-20); Calcium 9.8 mg/dl (8.5-10.1); Creatinine Clr Calc Pharmacy 54.7 ml/min; Est GFR (African American) 68.3 ml/min; Est GFR (Non-African American) 58.9 ml/min; Potassium 3.7 mmol/L (3.5-5.1)
[2021-10-13] MEDS: ADVANCED PROBIOTIC 1250 MG CAPSULE PO SCH (08:55)
[2021-10-13] MEDS: ASPIRIN 81 MG ECTAB PO SCH (08:56)
[2021-10-13] MEDS: MIRABEGRON ER 25 MG TAB PO SCH (08:57)
[2021-10-13] MEDS: PROPRANOLOL HCL LA 80 MG CAPCR PO SCH (08:58)
[2021-10-13] MEDS: HALOPERIDOL LACTATE 5 MG/ML 1 ML VIAL IM PRN ×2 (08:59→18:02)
[2021-10-13] MEDS: ENOXAPARIN INJ 30 MG/0.3 ML SYR SQ SCH (09:00)
[2021-10-13] MEDS ORDERED: INFLUENZA VACCINE HIGH DOSE PF 65+ 0.7 ML SYR IM ONE (09:00)
[2021-10-13] MEDS: traMADol HCL 50 MG TABLET PO SCH ×2 (09:00→21:19)
[2021-10-13] MEDS: INSULIN ASPART PER UNIT SC SCH ×4 (09:18→21:16)
[2021-10-13] MEDS: QUEtiapine FUMARATE 25 MG TABLET PO SCH ×2 (09:30→21:19)
[2021-10-13 10:49] LABS: Base Excess VBG 6.2 mEq/L; Oxygen Saturation VBG 87.5 %; pH VBG 7.46 (7.36-7.41)
[2021-10-13] MEDS: SODIUM CHLORIDE 0.9% 1000ML 1,000 ML IV SCH (11:14)
[2021-10-13] MEDS: CEROVITE ADV FORMULA TAB PO SCH (14:59)
[2021-10-13] MEDS: AZITHROMYCIN 250 MG in DEXTROSE 5% 250 ML IV SCH (14:59)
[2021-10-13] MEDS ORDERED: ALBUT/IPRATROP 3MG/0.5MG NEB 3 ML VIAL NEB SCH (15:00)
[2021-10-13] MEDS ORDERED: ALBUT/IPRATROP 3MG/0.5MG NEB 3 ML VIAL NEB PRN (18:23)
--- NOTE | 2021-10-13 18:44 | Hospitalist Progress Note ---
Date of Service October 13, 2021 Assessment & Plan (1) Pneumonia: Plan: Acquiredno new with acute on chronic hypoxic respiratory failure present on admission, but and probable metabolic encephalopathy superimposed on chronic dementia -Appears to overall be stabilizing, continue Zithromax and cefepime for now. Continue gentle IV fluids. (2) Acute kidney injury: Plan: The acute kidney injury is likely due to poor oral intake Improved nicely with fluids. Continue to follow (3) Hyponatremia: Plan: This is likely due to poor oral intake Improved with IV fluids (4) Recurrent UTI: Plan: Positive urine culture, although pneumonia/dehydration/hyponatremia would be more than enough to explain her acute state. That said it would be very difficult to rule out a concomitant UTI versus asymptomatic bacteriuria. Fortunately it is probably all academic given that the antibiotics to cover the pneumonia will likely also cover the UTI bacteria. Plan: Admitting team had a lengthy discussion with the patient's power of immigration attorney and daughter Candace. [phone]. Today I tried to call and got voicemailleft a message. According to the patient's daughter (in discussion with admitting team) her mother would not want any heroic measures taken to prolong her life. She specifically stated she would not want any CPR or mechanical ventilation employed in her mother's care and she will therefore be a level 5 DO NOT RESUSCITATE Admission and Anticipated Discharge Date Admission Date: October 12, 2021 Subjective no meaningful hPI or ROS obtainable. nursing notes that the main problem is agitation and restlessness. Tried to call daughterleft message. Review of Systems Review of Systems: All systems reviewed & are unremarkable except as noted in HPI & below Physical Exam Physical Exam: In general she is awake very disoriented, calm with talk/discussion, although not really able to participate in discussion. May be very mild respiratory distress, although a little bit difficult to tell if this is even true or if it simply from the emotional stress. HEENT normocephalic atraumatic mucous membranes are moist. Lungs show coarse rhonchi throughout right worse than left no wheezing good effort no accessory muscles. Abdomen is soft nondistended nontender no masses organomegaly. Extremities show no cyanosis no calf tenderness. Neuro without focal deficits. Results & Data Results & Data ([facility]) Vital Signs (Past 12 Hours) Vital Signs Temp Pulse Pulse Resp BP Pulse Ox 10/13/21 17:11 117 H 117 H 16 95 10/13/21 15:38 99 H 18 95 10/13/21 13:32 96 H 96 H 18 95 10/13/21 07:49 98.8 F 114 H 22 110/78 92 10/13/21 07:47 109 H 19 110/78 91 PG Care Time/CCT Total # of Minutes Spent Total Time Spent with Patient: Total time spent is greater than 50% in coordination of care (as documented) at patient's floor/unit and/or counseling patient: Coding Level of Care Code 64400 Subseq Hosp Care Lvl 3 Diagnoses Recurrent UTI N39.0 Pneumonia J18.9 Acute kidney injury N17.9 Hyponatremia E87.1
[2021-10-13] MEDS: GABAPENTIN 300 MG CAP PO SCH (21:19)
[2021-10-14] MEDS ORDERED: MICONAZOLE NITRATE POWDER 43 GM EXT PRN (00:04)
[2021-10-14] MEDS ORDERED: Nursing to Pharmacy Communication SCH (05:30)
[2021-10-14] MEDS: CEFEPIME 2,000 MG in SYRINGE 0 ML IV SCH (05:51)
[2021-10-14] MEDS: SODIUM CHLORIDE 0.9% 1000ML 1,000 ML IV SCH (08:09)
[2021-10-14] MEDS: traMADol HCL 50 MG TABLET PO SCH ×2 (08:10→21:39)
[2021-10-14] MEDS: QUEtiapine FUMARATE 25 MG TABLET PO SCH ×2 (08:11→21:40)
[2021-10-14] MEDS: ADVANCED PROBIOTIC 1250 MG CAPSULE PO SCH (08:11)
[2021-10-14] MEDS: ENOXAPARIN INJ 30 MG/0.3 ML SYR SQ SCH (08:12)
[2021-10-14] MEDS: CEROVITE ADV FORMULA TAB PO SCH (08:12)
[2021-10-14] MEDS: ASPIRIN 81 MG ECTAB PO SCH (08:12)
[2021-10-14] MEDS: PROPRANOLOL HCL LA 80 MG CAPCR PO SCH (08:12)
[2021-10-14] MEDS: INSULIN ASPART PER UNIT SC SCH ×4 (08:21→21:38)
[2021-10-14] MEDS: INSULIN GLARGINE SOLOSTAR 100 UNITS/ML 3 ML PEN SC SCH (09:50)
[2021-10-14] MEDS: MIRABEGRON ER 25 MG TAB PO SCH (10:05)
[2021-10-14] MEDS: cefTRIAXone SODIUM 2,000 MG in DEXTROSE 5% 50 ML IV SCH (11:03)
[2021-10-14] MEDS: DICLOFENAC SOD 1% GEL 100 GM TUBE EXT SCH ×3 (12:11→21:40)
[2021-10-14] MEDS: ACETAMINOPHEN SUSP 160 MG/5 ML UDC PO PRN (12:17)
[2021-10-14] MEDS: AZITHROMYCIN 250 MG in DEXTROSE 5% 250 ML IV SCH (14:36)
--- NOTE | 2021-10-14 15:12 | Hospitalist Progress Note ---
Date of Service October 14, 2021 Assessment & Plan (1) Pneumonia: Plan: Community acquired with acute on chronic hypoxic respiratory failure present on admission, as well as metabolic encephalopathy superimposed on chronic dementia -Improving. Given that urine was pansensitive, and she is low risk for Pseudomonas in her lungschanged cefepime to ceftriaxone. Continue Zithromax. (2) Acute kidney injury: Plan: The acute kidney injury is likely due to poor oral intake Improved nicely with fluids. Continue to follow periodically (3) Hyponatremia: Plan: This was likely due to poor oral intake Improved with IV fluids (4) Recurrent UTI: Plan: Positive urine culture, although pneumonia/dehydration/hyponatremia would be more than enough to explain her acute state. That said it would be very difficult to rule out a concomitant UTI versus asymptomatic bacteriuria. Fortunately it is probably all academic given that the antibiotics to cover the pneumonia will cover the UTI bacteria. Plan: Plan is to work towards home/hospice once more support is set up. Admission and Anticipated Discharge Date Admission Date: October 12, 2021 Subjective Seems to be doing better. No active complaints. Daughter at the bedsideupdated and discussed discharge planningplan will be home with hospiceshe needs to set up more support. Review of Systems Review of Systems: All systems reviewed & are unremarkable except as noted in HPI & below Physical Exam Physical Exam: She is awake and alert fatigued but no distress. Lungs are coarse rhonchi throughout but far less than yesterday, better air entry no accessory muscle use no rales no wheezes good effort. Neuro shows cranial nerves II through XII be grossly intact gross motor and sensory are intact. Skin without rashes, pallor, icterus. Cardio regular but distant Results & Data Results & Data ([facility]) Vital Signs (Past 12 Hours) Vital Signs Temp Pulse Resp BP Pulse Ox 10/14/21 11:16 98.4 F 85 19 166/88 H 96 10/14/21 07:27 98.6 F 99 H 18 143/90 H 96 10/14/21 04:30 98.6 F 87 18 127/78 95 PG Care Time/CCT Total # of Minutes Spent Total Time Spent with Patient: Total time spent is greater than 50% in coordination of care (as documented) at patient's floor/unit and/or counseling patient: Coding Level of Care Code 02708 Subseq Hosp Care Lvl 2 Diagnoses Pneumonia J18.9 Acute kidney injury N17.9 Hyponatremia E87.1 Recurrent UTI N39.0
[2021-10-14] MEDS: GABAPENTIN 300 MG CAP PO SCH (21:40)
[2021-10-15] MEDS: SODIUM CHLORIDE 0.9% 1000ML 1,000 ML IV SCH (03:49)
[2021-10-15 07:54] LABS: Basophils # (auto) 0.04 K/uL (0-0.2); Basophils % (auto) 0.4 %; Eosinophils # (auto) 0.47 K/uL (0-0.5); Eosinophils % (auto) 4.6 %; Hematocrit (blood only) 42.8 % (37-47); Hemoglobin 13.8 g/dL (12.0-16.0); Immature Granulocytes # (auto) 0.05 K/uL (0.00-0.02); Immature Granulocytes % (auto) 0.5 %; Lymphocytes # (auto) 1.82 K/uL (1.2-3.4); Lymphocytes % (auto) 17.9 %; Mean Corpuscular Hemoglobin 32.8 pg (25-34); Mean Corpuscular Hgb Conc 32.2 g/dL (32-36); Mean Corpuscular Volume 101.7 fL (80-100); Mean Platelet Volume 9.9 fL (7.4-10.4); Monocytes # (auto) 0.65 K/uL (0.11-0.59); Monocytes % (auto) 6.4 %; Neutrophils # (auto) 7.13 K/uL (1.4-6.5); Neutrophils % (auto) 70.2 %; Platelet Count 333 K/uL (130-400); Red Blood Count 4.21 M/uL (4.2-5.4); White Blood Count 10.16 K/uL (4.8-10.8)
[2021-10-15] MEDS: PROPRANOLOL HCL LA 80 MG CAPCR PO SCH (08:35)
[2021-10-15] MEDS: CEROVITE ADV FORMULA TAB PO SCH (08:35)
[2021-10-15] MEDS: ASPIRIN 81 MG ECTAB PO SCH (08:35)
[2021-10-15] MEDS: MIRABEGRON ER 25 MG TAB PO SCH (08:35)
[2021-10-15] MEDS: QUEtiapine FUMARATE 25 MG TABLET PO SCH ×2 (08:35→21:42)
[2021-10-15] MEDS: ENOXAPARIN INJ 30 MG/0.3 ML SYR SQ SCH (08:36)
[2021-10-15] MEDS: ADVANCED PROBIOTIC 1250 MG CAPSULE PO SCH (08:36)
[2021-10-15] MEDS: INSULIN GLARGINE SOLOSTAR 100 UNITS/ML 3 ML PEN SC SCH (08:36)
[2021-10-15] MEDS: DICLOFENAC SOD 1% GEL 100 GM TUBE EXT SCH ×4 (08:36→21:43)
[2021-10-15] MEDS: INSULIN ASPART PER UNIT SC SCH ×4 (08:47→21:39)
[2021-10-15 08:54] LABS: BUN Creatinine Ratio 14.9 (10-20); Calcium 10.3 mg/dl (8.5-10.1); Creatinine Clr Calc Pharmacy 55.9 ml/min; Est GFR (African American) 70.1 ml/min; Est GFR (Non-African American) 60.5 ml/min; Potassium 3.7 mmol/L (3.5-5.1)
[2021-10-15] MEDS: traMADol HCL 50 MG TABLET PO SCH ×2 (08:54→21:40)
[2021-10-15] MEDS: cefTRIAXone SODIUM 2,000 MG in DEXTROSE 5% 50 ML IV SCH (08:54)
[2021-10-15] MEDS: AZITHROMYCIN 250 MG in DEXTROSE 5% 250 ML IV SCH (15:40)
--- NOTE | 2021-10-15 18:19 | Hospitalist Progress Note ---
Date of Service October 15, 2021 Assessment & Plan (1) Pneumonia: Plan: Community acquired with acute on chronic hypoxic respiratory failure present on admission, as well as metabolic encephalopathy superimposed on chronic dementia -Improving. zithromax / rocephin --> home cefdinir / azithromycin anticipated (2) Acute kidney injury: Plan: The acute kidney injury is likely due to poor oral intake Improved nicely with fluids. stop fluids (3) Hyponatremia: Plan: This was likely due to poor oral intake Improved with IV fluids (4) Recurrent UTI: Plan: Positive urine culture, although pneumonia/dehydration/hyponatremia would be more than enough to explain her acute state. That said it would be very difficult to rule out a concomitant UTI versus asymptomatic bacteriuria. Fortunately it is probably all academic given that the antibiotics to cover the pneumonia will cover the UTI bacteria. Plan: Plan is to work towards home/hospice once more support is set up. anticipat etomorrow Admission and Anticipated Discharge Date Admission Date: October 12, 2021 Subjective breathing feeling better. CM update is that dtr feels she should be ready to take pt home tomorrow. Review of Systems Review of Systems: All systems reviewed & are unremarkable except as noted in HPI & below as best can be ascertained Physical Exam Physical Exam: gen awake pleasnat nad heent nc at mmm lungs R>L coase rhonchi no rales no wheeze good effort no accessory muscles Results & Data Results & Data ([facility]) Vital Signs (Past 12 Hours) Vital Signs Temp Pulse Pulse Resp BP Pulse Ox 10/15/21 15:00 83 10/15/21 11:33 98.4 F 93 H 20 146/89 H 91 10/15/21 07:47 102 H 22 96 10/15/21 07:41 98.4 F 97 H 22 155/79 H 92 PG Care Time/CCT Total # of Minutes Spent Total Time Spent with Patient: Total time spent is greater than 50% in coordination of care (as documented) at patient's floor/unit and/or counseling patient: Coding Level of Care Code 76132 Subseq Hosp Care Lvl 2 Diagnoses Pneumonia J18.9 Acute kidney injury N17.9 Hyponatremia E87.1 Recurrent UTI N39.0
[2021-10-15] MEDS: GABAPENTIN 300 MG CAP PO SCH (21:42)
[2021-10-16] MEDS: MIRABEGRON ER 25 MG TAB PO SCH (08:09)
[2021-10-16] MEDS: ADVANCED PROBIOTIC 1250 MG CAPSULE PO SCH (08:10)
[2021-10-16] MEDS: DICLOFENAC SOD 1% GEL 100 GM TUBE EXT SCH ×3 (08:10→17:29)
[2021-10-16] MEDS: QUEtiapine FUMARATE 25 MG TABLET PO SCH (08:10)
[2021-10-16] MEDS: INSULIN ASPART PER UNIT SC SCH ×3 (08:10→17:28)
[2021-10-16] MEDS: CEROVITE ADV FORMULA TAB PO SCH (08:10)
[2021-10-16] MEDS: ASPIRIN 81 MG ECTAB PO SCH (08:10)
[2021-10-16] MEDS: PROPRANOLOL HCL LA 80 MG CAPCR PO SCH (08:10)
[2021-10-16] MEDS: INSULIN GLARGINE SOLOSTAR 100 UNITS/ML 3 ML PEN SC SCH (08:12)
[2021-10-16] MEDS: ENOXAPARIN INJ 30 MG/0.3 ML SYR SQ SCH (08:12)
[2021-10-16] MEDS: traMADol HCL 50 MG TABLET PO SCH (08:18)
[2021-10-16] MEDS: cefTRIAXone SODIUM 2,000 MG in DEXTROSE 5% 50 ML IV SCH (08:18)
[2021-10-16] MEDS: AZITHROMYCIN 250 MG in DEXTROSE 5% 250 ML IV SCH (13:04)
[2021-10-16 16:12] VITALS: BP 120/80; PULSE 74; TEMP 97.7; O2SAT 95
--- NOTE | 2021-10-16 18:34 | Discharge Summary ---
Date of Service October 16, 2021 Admission HPI Per Admitting Provider This is a 76-year-old female who presented to [facility] with her daughter at her bedside. Patient has an underlying history of dementia and due to her altered mental status could not contribute whatsoever to the historical information contained in this document. This information was obtained from discussion with the treating emergency room physician, review of records, and discussion with her daughter who was present at bedside. According to patient's daughter her mother developed a "head cold" about 1 week ago. Ever since then she has noted a gradual decline. She notes her mother seems more short of breath with a nonproductive cough. She also notes that her oral intake has been decreased. There have been no documented fevers. She does not have any nausea or vomiting and does have an occasional loose bowel movement. Her mother is not complaining any abdominal pain. There have been no witnessed aspiration events. Her daughter notes that her mother does not ambulate very well and uses a rolling wheelchair to aid with her ambulation. There have been no witnessed or suspicions of any falls or head injuries. She also added that her mother is incontinent of urine and does not have any recent Casiano catheter is in place. She further stated that her mother has not received that the Covid vaccine is and she is unsure if she has received the flu shot. Because of the information noted above she came to [facility] emergency department where patient had labs and imaging which independent reviewed. CBC revealed white blood cell count, hemoglobin, hematocrit, platelet count are all within normal range. Her sodium was slightly low at 135. Her BUN and potassium were normal and her creatinine had a slight elevation at 1.3. TSH was within the normal range. A CT scan of the head showed no acute intracranial abnormalities. COVID-19 test was noted to be negative as well as test for RSV and influenza. An EKG showed normal sinus rhythm without changes concerning for acute ischemia. Urinalysis was concerning for urinary tract infection. Chest x-ray also showed patchy bilateral interstitial infiltrates. Thus far the treating emergency room physician has administered 2 g of IV Rocephin and we are asked to see for admission At the time of my interview the patient was sleeping in bed she did not appear to be uncomfortable or in any amount of distress. Principal Diagnosis delirium, CAP, possible UTI Discharge Exam gen awake pleasant nad lugs more clear faint rhonchi R >L overall more clear no rales no wheeze no accessory muscles no conversational dyspnea. Discharge Data Allergies Allergy/AdvReac Type Severity Reaction Status Date / Time adhesive tape Allergy Mild Rash Verified 10/12/21 10:14 sorbitan esters Allergy Mild Unknown Verified 10/12/21 10:14 Sulfa (Sulfonamide Allergy Mild Rash Verified 10/12/21 10:14 Antibiotics) sulfamethoxazole Allergy Mild Rash Verified 10/12/21 10:14 [From Bactrim] trimethoprim [From Bactrim] Allergy Mild Rash Verified 10/12/21 10:14 albiglutide AdvReac Mild Diarrhea Verified 10/12/21 10:14 codeine AdvReac Mild Nausea Verified 10/12/21 10:14 metformin AdvReac Mild Diarrhea Verified 10/12/21 10:14 morphine AdvReac Mild Nausea Verified 10/12/21 10:14 Consultations 10/12/21 10:32 ED Decision to Admit Stat Ordered Studies 10/12/21 09:10 CT head/brain wo con Stat Hospital Course (1) Pneumonia: Community acquired with acute on chronic hypoxic respiratory failure present on admission, as well as metabolic encephalopathy superimposed on chronic dementia -Improving. was on zithromax / rocephin --> home cefdinir / azithromycin (2) Acute kidney injury: The acute kidney injury is likely due to poor oral intake Improved nicely with fluids. (3) Hyponatremia: This was likely due to poor oral intake Improved with IV fluids (4) Recurrent UTI: Positive urine culture, although pneumonia/dehydration/hyponatremia would be more than enough to explain her acute state. That said it would be very difficult to rule out a concomitant UTI versus asymptomatic bacteriuria. Fortunately it is probably all academic given that the antibiotics to cover the pneumonia will cover the UTI bacteria. home w hospice Total Time Total Time Spent Total Time Spent (In Minutes): <30 Discharge Plan Discharge Items Patient Disposition: Hospice - Home Reason For Visit: PNEUMONIA/UTI Discharge Diagnosis: Pneumonia Condition on Discharge: Fair Activity: Resume your previous activity Non-emergency contact: Primary Care Provider Call non-emergency contact if: you have any medication questions and your symptoms worsen Follow-up/Referrals: Selvin Walker, [Primary Care Provider] - Diet: Carb Consistent or DM2 Addtl Attending Provider Instructions: Pneumonia -Fortunately this getting better nicely. We will finish out a course of antibiotics with Zithromax 1 more time tomorrow, and cefdinir 300 mg twice a day for 9 more doses (next dose tonight at bedtime) Urinary tract infection -Not entirely clear if this truly was an infection, or simply asymptomatic bacteriuria (it is very common for older women to have bacteria in the bladder that are not actually causing any problemsit is quite possible the pneumonia was the only thing making her sick)however, the cefdinir being used to finish out treatment for pneumonia will also do nicely to kill the bacteria that showed up on urine culture Pending Studies at Discharge: No Stand-Alone Forms: [facility] Medications and DC Order Prescriptions: New azithromycin 250 mg tablet 250 mg PO DAILY Qty: 1 RF: 0 cefdinir 300 mg capsule 300 mg PO BID Qty: 9 RF: 0 Continued Daily Multivitamin-Minerals Tablet 1 tab PO QAM Qty: 0 RF: 0 aspirin [Aspirin Low Dose] 81 mg Tablet,Delayed Release (Dr/Ec) 81 mg PO QAM Qty: 0 RF: 0 celecoxib [Celebrex] 100 mg capsule 100 mg PO BID PRN (Reason: pain) Qty: 180 RF: 1 propranolol 80 mg capsule,extended release 24 hr 80 mg PO QAM Qty: 30 RF: 0 tramadol 50 mg tablet 50 mg PO BID Qty: 60 RF: 0 cranberry 500 mg capsule 500 mg PO QAM RF: 0 Myrbetriq 50 mg tablet extended release 24 hr 50 mg PO QAM Qty: 90 RF: 3 quetiapine 25 mg tablet 25 mg PO AMHS RF: 0 ascorbic acid (vitamin C) [Vitamin C] 500 mg Tablet 500 mg PO QAM RF: 0 Probiotic Acidophilus Biobeads 12.9 mg (2 billion cell) Tablet,Delayed Release (Dr/Ec) 1 tab PO QAM RF: 0 gabapentin 300 mg Capsule 600 mg PO HS RF: 0 diclofenac sodium 1 % Gel 2 g TOPICAL QID PRN (Reason: Pain) RF: 0 potassium gluconate 600 mg (99 mg) Tablet 600 mg PO QAM RF: 0 insulin aspart U-100 [Novolog Flexpen U-100 Insulin] 100 unit/mL (3 mL) insulin pen 45 unit subcut DAILY@1600 RF: 0 Lantus Solostar U-100 Insulin 100 unit/mL (3 mL) insulin pen 45 unit SQ DAILY@1600 RF: 0 Discharge Orders: Discharge Order (Routine); Ordered 10/16/21 Ordered By: Konstantin Newsome Admission Data Admit Date/Time: 10/12/21 10:51 Attending Provider: Konstantin Newsome Admit Provider: Carlos Manuel Sanchez Primary Care Provider: Selvin Walker Other Providers: Carlos Manuel Sanchez Other Interventions: Discharge Summary Assessment (RN) Last Done: 10/16/21 14:43 Coding Level of Care Code D/C DAY MANAGEMENT <30 MINS Diagnoses Pneumonia J18.9 Acute kidney injury N17.9 Hyponatremia E87.1 Recurrent UTI N39.0
== END 2021-10-16 20:29 | disposition hospice, home (50) | DRG 193 ==
LOC: ED 08:12 → SUATTDRO 10:51 → EDINP 10:51 → 2N 10-13 22:47